=== PATIENT | male | born 1960 | race Caucasian/White ===

== ENCOUNTER 2017-03-21 18:56 | Inpatient (IN) | payer SELFPAY ==
[2017-03-21] MEDS ORDERED: DIPH/PERTUSS(ACELL)/TETANUS VAC/PF 0.5 ML SYR (>=10YO) IM ONE (19:40)
--- NOTE | 2017-03-21 19:40 | ER Document Report ---
ED Seizure - General Chief Complaint: Probable Seizure Stated Complaint: POSSIBLE SEIZURE Time Seen by Provider: 03/21/17 19:21 Notes: Patient is a 57-year-old male who comes emergency department for chief complaint of seizure, he comes by EMS, his friend states that he was sitting on a bucket and fell forward and scraped his right arm and hit his head. Friend states he was bleeding from his mouth. Seizure-like activity noted with muscle and limb jerking that lasted less than 1 minute. Afterwards patient was postictal by EMS. Patient states he has not had a seizure in many years, he is not treated for this, he states he thinks he has diabetes, he knows he has high blood pressure, he currently takes no medications. Tetanus not UTD. He smokes. He denies alcohol or drug use. - Related Data Allergies/Adverse Reactions: No Known Allergies Allergy (Verified 03/21/17 19:14) Past Medical History - General Information source: Patient, Friend - Social History Smoking Status: Current Every Day Smoker Chew tobacco use (# tins/day): No Frequency of alcohol use: Social Drug Abuse: None Lives with: Spouse/Significant other Family History: Reviewed & Not Pertinent Patient has suicidal ideation: No Patient has homicidal ideation: No - Past Medical History Cardiac Medical History: Reports: Hx Hypercholesterolemia, Hx Hypertension Endocrine Medical History: Reports: Hx Diabetes Mellitus Type 2 Renal/ Medical History: Denies: Hx Peritoneal Dialysis Surgical Hx: Negative - Immunizations Hx Diphtheria, Pertussis, Tetanus Vaccination: No Review of Systems - Review of Systems Constitutional: No symptoms reported EENT: No symptoms reported Cardiovascular: No symptoms reported Respiratory: No symptoms reported Gastrointestinal: No symptoms reported Genitourinary: No symptoms reported Male Genitourinary: No symptoms reported Musculoskeletal: See HPI Skin: No symptoms reported Hematologic/Lymphatic: No symptoms reported Neurological/Psychological: See HPI Physical Exam - Vital signs Vitals: Temp Pulse Resp BP Pulse Ox 98.3 F 101 H 20 126/86 H 88 L 03/21/17 19:00 03/21/17 19:00 03/21/17 19:00 03/21/17 19:00 03/21/17 19:00 - General General appearance: Alert In distress: None - HEENT Head: Normocephalic, Atraumatic. No: Open wounds Eyes: Normal Conjunctiva: Normal Extraocular movements intact: Yes Eyelashes: Normal Pupils: PERRL Mouth/Lips: Normal - no obvious oral wounds or current bleeding Pharynx: Normal Neck: Normal - Respiratory Respiratory status: No respiratory distress. No: Labored, Tachypnea Breath sounds: Decreased air movement, Rales, Rhonchi - Cardiovascular Rhythm: Irregularly irregular. No: Tachycardia, Bradycardia - Abdominal Inspection: Normal Tenderness: Nontender. No: Tender, Guarding - Back Back: Normal, Nontender - Extremities General upper extremity: Other - abrasions over right elbow and right forearm; normal wrist exam, normal hand exam, normal ROM of hand, elbow, shoulder; no noted tenderness over the extremity General lower extremity: Edema - bilateral 1+ pitting edema with what appears to be chronic LE discoloration; no abnormal heat to the area, normal distal pulses and sensation - Neurological Neuro grossly intact: Yes Orientation: Disoriented to events. No: Disoriented to person, Disoriented to place Bart Coma Scale Eye Opening: Spontaneous [place] Coma Scale Verbal: Oriented [place] Coma Scale Motor: Obeys Commands Bart Coma Scale Total: 15 Speech: Normal Cranial nerves: Normal Cerebellar coordination: Normal Motor strength normal: LUE, RUE, LLE, RLE Additional motor exam normals: Equal diabetes physician - Psychological Associated symptoms: Normal affect, Normal mood - Skin Skin Temperature: Warm Skin Moisture: Dry Skin Color: Normal Course - Re-evaluation Re-evalutation: Patient noted initially to be hypoxic, placed on 3 liters, improved to 91-95%. Rhonchi and rales on exam. When I turn off the oxygen he immediately drops to 86 % on room air. Abrasions to right forearm, no neck pain, alert and oriented, cooperative, does not remember events of what is suspicious for a seizure. Patient given a dose of keppra for prophylaxis. EKG shows atrial fibrillations without RVR. No prior studies here. Patient is not aware that he has had this before. CBC shows mild leukocytosis, this is non-specific given seizure, no fever, abdomen is non-tender on exam. Chemistry shows normal magnesium, shows low potassium. Supplementing especially because giving lasix - chest x-ray with no overt failure but patient has rales on exam, has bilateral peripheral edema, no evidence of pneumonia, consistent with CHF exacerbation. Patient was discussed with Dr. Guerra. Discussed with Dr. Joy, patient will be admitted for CHF exacerbation, hypoxia. Patient agreeable with this plan. - Vital Signs Vital signs: Temp Pulse Resp BP Pulse Ox 98.3 F 86 20 142/88 H 95 03/21/17 19:15 03/21/17 23:00 03/21/17 23:00 03/21/17 23:00 03/21/17 23:00 - Laboratory Result Diagrams: 03/21/17 19:55 03/21/17 19:55 Laboratory results interpreted by me: 03/21/17 03/21/17 03/21/17 19:55 19:55 19:55 WBC 12.9 H RBC 3.76 L MCV 111 H MCH 36.8 H RDW 22.9 H Plt Count 128 L Seg Neutrophils % 86.9 H Lymphocytes % 6.8 L Absolute Neutrophils 11.2 H D-Dimer Potassium 3.2 L Total Bilirubin 1.7 H Direct Bilirubin 1.0 H ALT 20 L Creatine Kinase 47 L NT-Pro-B Natriuret Pep 9950 H Total Protein 5.7 L Albumin 3.2 L 03/21/17 19:55 WBC RBC MCV MCH RDW Plt Count Seg Neutrophils % Lymphocytes % Absolute Neutrophils D-Dimer 1.54 H Potassium Total Bilirubin Direct Bilirubin ALT Creatine Kinase NT-Pro-B Natriuret Pep Total Protein Albumin Discharge - Discharge Clinical Impression: Hypoxia, Bilateral lower extremity edema, Seizure CHF exacerbation Qualifiers: Congestive heart failure type: unspecified congestive heart failure type Qualified Code(s): I50.9 - Heart failure, unspecified Atrial fibrillation Qualifiers: Atrial fibrillation type: unspecified Qualified Code(s): I48.91 - Unspecified atrial fibrillation Arm abrasion Qualifiers: Encounter type: initial encounter Laterality: right Qualified Code(s): S40.811A - Abrasion of right upper arm, initial encounter Condition: Stable Disposition: ADMITTED INPATIENT Admitting Provider: Hospitalist Unit Admitted: [facility]
[2017-03-21 20:20] LABS: ABSOLUTE BASOPHILS # (AUTO) 0.1 10^3/uL (0.0-0.2); ABSOLUTE EOSINOPHILS # (AUTO) 0.1 10^3/uL (0.0-0.6); ABSOLUTE LYMPHOCYTES (AUTO) 0.9 10^3/uL (0.5-4.7); ABSOLUTE MONOCYTES (AUTO) 0.7 10^3/uL (0.1-1.4); ABSOLUTE NEUT (AUTO) 11.2 10^3/uL (1.7-8.2); BASOPHILS % (AUTO) 0.5 % (0-2); EOSINOPHILS % (AUTO) 0.5 % (0-6); HEMATOCRIT 41.7 % (37.9-51.0); HEMOGLOBIN 13.8 g/dL (13.5-17.0); HGB HCT DIFFERENCE -0.3; LYMPHOCYTES % (AUTO) 6.8 % (13-45); MEAN CORPUSCULAR HEMOGLOBIN 36.8 pg (27.0-33.4); MEAN CORPUSCULAR HGB CONC 33.2 g/dL (32.0-36.0); MONOCYTES % (AUTO) 5.3 % (3-13); RED BLOOD COUNT 3.76 10^6/uL (4.35-5.55); RED CELL DISTRIBUTION WIDTH 22.9 % (11.5-14.0); SEGMENTED NEUTROPHILS % (AUTO) 86.9 % (42-78); WHITE BLOOD COUNT 12.9 10^3/uL (4.0-10.5)
[2017-03-21] MEDS ORDERED: LEVETIRACETAM 500 MG/NACL-ISO 100 ML IV ONE (20:27)
[2017-03-21 20:28] LABS: ALANINE AMINOTRANSFERASE 20 U/L (21-72); ALBUMIN 3.2 g/dL (3.5-5.0); ALCOHOL < 10 mg/dL (NONE DETECTED); ALKALINE PHOSPHATASE 64 U/L (38-126); ANION GAP 12 (5-19); ASPARTATE AMINO TRANSFERASE 20 U/L (17-59); BILIRUBIN,TOTAL 1.7 mg/dL (0.2-1.3); BLOOD UREA NITROGEN 17 mg/dL (7-20); CALCIUM 8.7 mg/dL (8.4-10.2); CARBON DIOXIDE 26 mmol/L (22-30); CHLORIDE 106 mmol/L (98-107); CREATINE KINASE 47 U/L (55-170); CREATININE RESULT 1.06 mg/dL (0.52-1.25); GLUCOSE 103 mg/dL (75-110); MAGNESIUM 1.6 mg/dL (1.6-2.3); POTASSIUM 3.2 mmol/L (3.6-5.0); SODIUM 144.1 mmol/L (137-145); TOTAL PROTEIN 5.7 g/dL (6.3-8.2)
[2017-03-21 20:33] LABS: ANISOCYTOSIS 3+; POIKILOCYTOSIS SLIGHT; POLYCHROMASIA 1+
[2017-03-21 20:34] LABS: TARGET CELLS SLIGHT
[2017-03-21 20:35] LABS: TEAR DROP CELLS SLIGHT
[2017-03-21 20:37] LABS: MEAN CORPUSCULAR VOLUME 111 fl (80-97)
[2017-03-21 20:40] LABS: CREATINE KINASE MB 0.87 ng/mL (<4.55)
[2017-03-21 20:42] LABS: TROPONIN I 0.057 ng/mL
[2017-03-21 20:47] LABS: VENOUS BLOOD BASE EXCESS 2.5 mmol/L; VENOUS BLOOD HCO3 28.1 mmol/L (20-32); VENOUS BLOOD PCO2 46.8 mmHg (35-63); VENOUS BLOOD PH 7.4 (7.30-7.42)
--- NOTE | 2017-03-21 20:51 | RADIOLOGY REPORT (SQ) ---
EXAM DESCRIPTION: CT HEAD WITHOUT COMPLETED DATE/TIME: 03/21/2017 8:07 pm REASON FOR STUDY: seizure and then head injury COMPARISON: None. TECHNIQUE: Axial images acquired through the brain without intravenous contrast. Images reviewed wi th bone, brain and subdural windows. Images stored on PACS. All CT scanners at this facility use dose modulation, iterative reconstruction, and/or weight based d osing when appropriate to reduce radiation dose to as low as reasonably achievable (ALARA). [facility]: Dose Right [facility]: CareDose [facility]: Dose Right [facility]: Teradose 4D [facility]: Smart [employer] RADIATION DOSE: Up-to-date CT equipment and radiation dose reduction techniques were employed. CTDIv ol: 89.8 mGy. DLP: 1616 mGy-cm. mGy. LIMITATIONS: None. FINDINGS: VENTRICLES: Normal size and contour. CEREBRUM: No masses. No hemorrhage. No midline shift. Normal jordan/white matter differentiation. N o evidence for acute infarction. CEREBELLUM: No masses. No hemorrhage. No alteration of density. No evidence for acute infarction. EXTRAAXIAL SPACES: No fluid collections. No masses. ORBITS AND GLOBE: No intra- or extraconal masses. Normal contour of globe without masses. CALVARIUM: No fracture. PARANASAL SINUSES: No fluid or mucosal thickening. SOFT TISSUES: No mass or hematoma. OTHER: No other significant finding. IMPRESSION: No acute intracranial findings. TECHNICAL DOCUMENTATION: JOB ID: [id number] Quality ID # [id number]: Final reports with documentation of one or more dose reduction techniques (e.g., Au tomated exposure control, adjustment of the mA and/or kV according to patient size, use of iterative reconstruction technique) 2010 [employer]- All Rights Reserved
--- NOTE | 2017-03-21 21:02 | RADIOLOGY REPORT (SQ) ---
EXAM DESCRIPTION: CHEST SINGLE VIEW COMPLETED DATE/TIME: 03/21/2017 8:26 pm REASON FOR STUDY: hypoxia, rales and rhonchi on exam COMPARISON: None. NUMBER OF VIEWS: One view. TECHNIQUE: Single frontal radiographic view of the chest acquired. LIMITATIONS: None. FINDINGS: LUNGS AND PLEURA: Mild Peribronchial cuffing and interstitial changes. No consolidation, p neumothorax or effusion. MEDIASTINUM AND HILAR STRUCTURES: Age-appropriate. HEART AND VASCULAR STRUCTURES: Heart upper limits of normal in size. Normal vasculature. BONES: No acute findings. HARDWARE: None in the chest. OTHER: No other significant finding. IMPRESSION: Mild Peribronchial cuffing and interstitial changes. No consolidation. TECHNICAL DOCUMENTATION: JOB ID: [id number] [employer]- All Rights Reserved
[2017-03-21] MEDS ORDERED: FUROSEMIDE INJ/PF 40 MG/4 ML SDV IV ONE (21:18)
[2017-03-21] MEDS ORDERED: POTASSIUM CHLORIDE 10 MEQ TABLET.SA PO ONE (21:24)
[2017-03-21] MEDS ORDERED: MAGNESIUM HYDROXIDE SUSP 30 ML UDCUP PO PRN (23:25)
[2017-03-21] MEDS ORDERED: NICOTINE 21 MG/24 HR PATCH.TD24 TD PRN (23:26)
[2017-03-21] MEDS ORDERED: PROMETHAZINE HCL 25 MG TABLET PO PRN (23:32)
[2017-03-21] MEDS ORDERED: ACETAMINOPHEN 325 MG TABLET PO PRN (23:32)
[2017-03-21] MEDS ORDERED: IPRATROPIUM/ALBUTEROL 0.5-2.5 MG/3 ML AMPUL NEB PRN (23:44)
--- NOTE | 2017-03-21 23:44 | EKG REPORT ---
SEVERITY:- ABNORMAL ECG - ATRIAL FIBRILLATION CONSIDER ANTERIOR INFARCT BORDERLINE T ABNORMALITIES, LATERAL LEADS : Confirmed by: Jarad Cannon 21-Mar-2017 23:43:20
[2017-03-21 23:51] LABS: APPEARANCE,URINE SLIGHTLY-CLOUDY; BILIRUBIN,URINE NEGATIVE (NEGATIVE); GLUCOSE, URINE NEGATIVE (NEGATIVE); KETONES,URINE NEGATIVE (NEGATIVE); LEUKOCYTE ESTERASE,URINE MODERATE (NEGATIVE); NITRITE,URINE POSITIVE (NEGATIVE); PROTEIN,URINE 30 mg/dL (NEGATIVE); URINE SPECIFIC GRAVITY 1.008
--- NOTE | 2017-03-21 23:51 | PDOC H&P ---
History of Present Illness Admission Date/PCP: 03/21/17 21:52 [facility] Patient complains of: seizure History of Present Illness: NOEMÍ LAMAR is a 57 year old morbidly obese male, with distant history of prior seizure, never on medication for same, pack-a-day smoker, fifth of vodka every 2 days between himself and , with patient drinking more than , hypertension, with patient being noncompliant with medications for a number of months, along with arthritis and what he describes as "possible " diabetes mellitus who presents to the emergency room for evaluation of seizure episode, witnessed by friend. Patient has been discussed with emergency room nurse practitioner who evaluated the patient. Patient himself does not remember the episode. According to nurse practitioner notes, friend witnessed patient falling forward and scraping his right arm and hitting his head when he suffered a seizure episode while sitting on a bucket. Muscle and limb jerking. Lasted less than 1 minute. Post ictal confusion according to EMS. Prior seizure many years ago. Denies nausea vomiting, fever or chills, chest or abdominal pain. No diarrhea or dysuria. Cardiac history remarkable only for hypertension. No history of atrial fibrillation, atrial flutter, irregular heartbeat, myocardial infarction, congestive heart failure, pulmonary embolus, or DVT. No prior cardiac workup. No recent prolonged immobility. Has chronic leg swelling after sitting for a while. Also has chronic shortness of breath and occasional cough when lying flat, without recent change. States that most days he wheezes. Initial plans by emergency room staff were to send the patient home with a prescription for Keppra. However, was noted to be hypoxic and further workup and evaluation revealed congestive heart failure.. Laboratory results are listed in [facility] and are reviewed. X-ray summary results are listed below, with full report(s) reviewed. . EKG reviewed. No prior EKG available for comparison. Social history/personal habits: . Has children. Part-time [place]. Personal habits as noted above. Denies illicit drug use. No known drug allergies. Home medications none REVIEW OF SYSTEMS: Constitutional: No fever or chills. Eyes: Wears glasses ENT: No swallowing problems or complaints. Denies hearing loss. Pulmonary: See history and present illness. Cardiovascular: No current complaints, including chest pain. Gastrointestinal: No current complaints, including nausea or vomiting. Skin: No current complaints, including rashes. Hematologic: Easy bruising. Neurologic: See history and present illness. Musculoskeletal: Mild joint pain from arthritis. Psychiatric: Denies anxiety or depression. Endocrine: No current complaints, including polyuria. Genitourinary: No current complaints, including dysuria. PHYSICAL EXAMINATION: 5 feet 8 inches tall. 129.3 kg. BMI 43.3 kg/m. Blood pressure 148/84. Pulse 89 and regular. 97% saturation on room air. Respirations are 20 and unlabored. Morbidly obese bearded somewhat disheveled chronically ill-appearing male who appears perhaps a bit older than his stated age. Pleasant awake alert and cooperative. Appears slightly fatigued. Mildly anxious, without agitation. Skin is warm and dry. No grossly obvious evidence of rash in areas of skin examined. No subcutaneous nodules palpated. ENT: Hearing grossly normal to normal conversation. Tongue midline on protrusion pink and slightly tacky. Eyes: No scleral icterus. Pupils equal and reactive to light at 4 mm. [place] conjunctivae. Neck is supple and nontender to gentle active range of motion and palpation. Midline trachea. No palpable thyroid nodule mass enlargement or tenderness. Lymphatic: No palpable cervical or clavicular nodes. Neck and lymphatic exams limited by patient body habitus. Psychiatric: Reasonable insight into acute and chronic medical issues. Oriented to time location and why here. Lungs: Auscultation reveals equal breath sounds bilaterally. No use of accessory respiratory muscles. Mild brief inspiratory and expiratory wheezing bilaterally. Cardiovascular: Heart regular rate and rhythm, without gallop murmur or rub. No carotid or abdominal aortic bruits. Mild bilateral slightly pitting calf ankle and pedal edema. Faintly palpable dorsalis pedis pulses. Abdomen:soft obese nontender with positive bowel sounds. Unable to adequately evaluate abdomen for masses or organomegaly due to body habitus. Extremities: Feet are warm and dry. No calf tenderness to compression. Gentle manipulation of lower extremities fails to reveal any obvious evidence of injury or instability to knees hips or ankles. Examination of bilateral lower legs reveals dark pink slight purple discoloration. Patient states this is a chronic condition, without recent change. No increased warmth. Nontender to palpation. Neurologic: Moves upper extremities grossly normally. Patellar reflexes absent. Absent Babinski. Light touch is intact at feet. Dorsiflexion and plantarflexion of feet 5 / 5 and symmetric. Past Medical History Cardiac Medical History: Reports: Hypertension Denies: Atrial Fibrillation, Congestive Heart Failure, DVT, Myocardial Infarction, Hyperlipidema, Pulmonary Embolism Pulmonary Medical History: Denies: Asthma, Chronic Obstructive Pulmonary Disease (COPD), Sleep Apnea EENT Medical History: Reports: Eyes - Reading glasses Denies: Ears, Throat Neurological Medical History: Reports: Seizures Denies: Hemorrhagic CVA, Ischemic CVA Endocrine Medical History: Reports: Diabetes Mellitus Type 2 - Possible, per patient; no specific diagnosis of same Denies: Diabetes Mellitus Type 1, Hyperthyroidism, Hypothyroidism Renal/ Medical History: Reports: None GI Medical History: Denies: Cirrhosis, Gastroesophageal Reflux Disease, Hepatitis, Peptic Ulcer Disease Musculoskeltal Medical History: Reports: Arthritis Skin Medical History: Reports: None Psychiatric Medical History: Reports: Alcohol Dependency, Tobacco Dependency Denies: Depression, General Anxiety Disorder, Substance Abuse Hematology: Reports: Other - Easy bruising Infectious Medical History: Denies: Clostridium Difficile, Hepatitis B, Hepatitis C, Methicillin- Resistant Staph Aureus Past Surgical History Past Surgical History: Reports: Tonsillectomy Social History Information Source: Patient, Emergency Med Personnel, [facility] Records Lives with: Spouse/Significant other Smoking Status: Current Every Day Smoker Frequency of Alcohol Use: Heavy Drugs: None - Advance Directive Resuscitation Status: Full Code Surrogate healthcare decision maker:: Family History Family History: Reviewed & Not Pertinent Parental Family History Reviewed: Yes - Father of Alzheimer's; mother of cancer Children Family History Reviewed: Yes - Healthy Sibling(s) Family History Reviewed.: Yes - Healthy Medication/Allergy Allergies/Adverse Reactions: No Known Allergies Allergy (Verified 03/21/17 19:14) Physical Exam Vital Signs: Temp Pulse Resp BP Pulse Ox 98.3 F 87 20 149/84 H 97 03/21/17 19:15 03/21/17 22:00 03/21/17 22:00 03/21/17 22:00 03/21/17 22:00 Results Impressions: Chest X-Ray 03/21/17 19:34 IMPRESSION: Mild Peribronchial cuffing and interstitial changes. No consolidation. Head CT 03/21/17 19:35 IMPRESSION: No acute intracranial findings. Assessment & Plan - Diagnosis (1) CHF (congestive heart failure) Qualifiers: Congestive heart failure type: unspecified congestive heart failure type Congestive heart failure chronicity: unspecified congestive heart failure chronicity Qualified Code(s): I50.9 - Heart failure, unspecified Is this a current diagnosis for this admission?: YesPlan: Patient will be admitted under CHF protocol. Serial troponins. Repeat EKG. Lipid panel. Cardiology consult. Echocardiogram. Patient is a full code. I have strongly encouraged patient not to get out of bed without notifying staff , to avoid a fall with injury. Knee high SCDs for DVT prophylaxis, along with subcutaneous heparin. Impression and plans were discussed with patient, who concurs Time spent in evaluation and management of patient: 78 minutes (2) Elevated LFTs Is this a current diagnosis for this admission?: YesPlan: Likely secondary to alcohol intake, but possibly some contribution from his congestive heart failure. (3) Elevated troponin Is this a current diagnosis for this admission?: YesPlan: No outward evidence of acute coronary syndrome. Likely secondary to congestive heart failure. Serial troponin. (4) Hypokalemia Is this a current diagnosis for this admission?: YesPlan: Potassium replacement with follow-up chemistry. (5) New onset atrial fibrillation Is this a current diagnosis for this admission?: YesPlan: D-dimer. Echocardiogram. Cardiology consult. (6) Seizure Is this a current diagnosis for this admission?: YesPlan: Seizure precautions. Continue antiepileptic. (7) Thrombocytopenia Is this a current diagnosis for this admission?: YesPlan: Possibly secondary to underlying alcohol issues. Follow-up CBC. (8) Alcohol dependence Qualifiers: Substance use status: uncomplicated Qualified Code(s): F10.20 - Alcohol dependence, uncomplicated Is this a current diagnosis for this admission?: YesPlan: Daily multivitamin, thiamine, and folic acid. Observe closely for evidence of withdrawal. Will add as needed benzodiazepine if necessary. (9) Morbid obesity with BMI of 40.0-44.9, adult Is this a current diagnosis for this admission?: Yes (10) Noncompliance Is this a current diagnosis for this admission?: Yes (11) Tobacco dependence Is this a current diagnosis for this admission?: YesPlan: As needed nicotine patch. - Inpatient Certification Based on my medical assessment, after consideration of the patient's comorbidities, presenting symptoms, or acuity I expect that the services needed warrant INPATIENT care.: Yes I certify that my determination is in accordance with my understanding of Medicare's requirements for reasonable and necessary INPATIENT services [42 CFR 412.3e].: Yes Medical Necessity: Significant Comorbidiites Make Outpatient Treatment Too Risky , Need Close Monitoring Due to Risk of Patient Decompensation, Need For Continuous Telemetry Monitoring, Risk of Complication if Not Cared For in Hospital Post Hospital Care: D/C or Transfer Summary
[2017-03-22 00:04] LABS: URINE BARBITURATES SCREEN NEGATIVE; URINE METHADONE SCREEN NEGATIVE; URINE OPIATES LOW NEGATIVE; URINE PHENCYCLIDINE SCREEN NEGATIVE
[2017-03-22] MEDS ORDERED: POTASSIUM CHLORIDE 20 MEQ/15 ML UDCUP PO ONE (02:15)
[2017-03-22] MEDS ORDERED: THIAMINE HCL 100 MG TABLET PO ONE (02:15)
[2017-03-22] MEDS ORDERED: ASPIRIN 81 MG TABLET, ENT COATED PO ONE (02:15)
--- NOTE | 2017-03-22 02:18 | RADIOLOGY REPORT (SQ) ---
EXAM DESCRIPTION: NM LUNG VENT/PERF SCAN COMPLETED DATE/TIME: 03/22/2017 2:03 am REASON FOR STUDY: elev d dimer COMPARISON: None. RADIONUCLIDE AND DOSE: 30 millicuries TC-99m MAA Intravenous 5.5 millicuries TC-99m DTPA Inhaled aerosol TECHNIQUE: Eight views of the lungs acquired post ventilation of DTPA aerosol. Eight matching views of the lungs acquired following injection of MAA. LIMITATIONS: None. FINDINGS: Ventilation -perfusion scan: No evidence of significant mismatch. Normal perfusion. Mild heterogeneity of ventilation. OTHER: No other significant finding. IMPRESSION: NEGATIVE FOR PULMONARY EMBOLI. TECHNICAL DOCUMENTATION: JOB ID: [id number] [employer]- All Rights Reserved
[2017-03-22 02:24] LABS: ANION GAP 12 (5-19); BLOOD UREA NITROGEN 18 mg/dL (7-20); CALCIUM 8.6 mg/dL (8.4-10.2); CARBON DIOXIDE 27 mmol/L (22-30); CHLORIDE 106 mmol/L (98-107); CREATININE RESULT 1.05 mg/dL (0.52-1.25); GLUCOSE 83 mg/dL (75-110); POTASSIUM 3.7 mmol/L (3.6-5.0); SODIUM 144.7 mmol/L (137-145)
[2017-03-22] MEDS ORDERED: CEFTRIAXONE 1 GM/D5W RTU 1 GM/50 ML RTUPB IV ONE (03:00)
[2017-03-22] MEDS ORDERED: POTASSIUM CHLORIDE 20 MEQ/15 ML UDCUP ONE (06:32)
[2017-03-22] MEDS: HEPARIN SOD (PORCINE) 5,000 UNIT/ML 1 ML SYRINGE SUBCUT SCH ×3 (08:01→22:11)
[2017-03-22 08:31] LABS: ABSOLUTE BASOPHILS # (AUTO) 0.1 10^3/uL (0.0-0.2); ABSOLUTE EOSINOPHILS # (AUTO) 0.2 10^3/uL (0.0-0.6); ABSOLUTE LYMPHOCYTES (AUTO) 1.1 10^3/uL (0.5-4.7); ABSOLUTE MONOCYTES (AUTO) 0.7 10^3/uL (0.1-1.4); ABSOLUTE NEUT (AUTO) 7.9 10^3/uL (1.7-8.2); BASOPHILS % (AUTO) 0.9 % (0-2); EOSINOPHILS % (AUTO) 1.9 % (0-6); HEMATOCRIT 40.4 % (37.9-51.0); HEMOGLOBIN 13.3 g/dL (13.5-17.0); HGB HCT DIFFERENCE -0.5; LYMPHOCYTES % (AUTO) 11.4 % (13-45); MEAN CORPUSCULAR HEMOGLOBIN 37.1 pg (27.0-33.4); MEAN CORPUSCULAR VOLUME 112 fl (80-97); MONOCYTES % (AUTO) 6.9 % (3-13); RED CELL DISTRIBUTION WIDTH 23.5 % (11.5-14.0); SEGMENTED NEUTROPHILS % (AUTO) 78.9 % (42-78)
[2017-03-22 08:51] LABS: ALANINE AMINOTRANSFERASE 27 U/L (21-72); ALBUMIN 3.1 g/dL (3.5-5.0); ALKALINE PHOSPHATASE 59 U/L (38-126); ANION GAP 11 (5-19); ASPARTATE AMINO TRANSFERASE 20 U/L (17-59); BILIRUBIN,DIRECT 0.8 mg/dL (0.0-0.4); BILIRUBIN,TOTAL 1.2 mg/dL (0.2-1.3); BLOOD UREA NITROGEN 17 mg/dL (7-20); CALCIUM 8.4 mg/dL (8.4-10.2); CARBON DIOXIDE 27 mmol/L (22-30); CHLORIDE 108 mmol/L (98-107); CHOLESTEROL 105.33 mg/dL (0-200); CREATININE RESULT 1.02 mg/dL (0.52-1.25); Direct HDL 26 mg/dL (>40); GLUCOSE 85 mg/dL (75-110); POTASSIUM 3.8 mmol/L (3.6-5.0); SODIUM 145.8 mmol/L (137-145); TOTAL PROTEIN 5.6 g/dL (6.3-8.2); TRIGLYCERIDES 115 mg/dL (<150)
[2017-03-22 09:02] LABS: DIRECT LDL 56 mg/dL (<100)
[2017-03-22 09:06] LABS: ANISOCYTOSIS 2+; PLATELET CLUMPS PRESENT; POLYCHROMASIA SLIGHT
[2017-03-22] MEDS: DOCUSATE SODIUM 100 MG CAPSULE PO SCH (09:17)
[2017-03-22] MEDS: FOLIC ACID 1 MG TABLET PO SCH (09:17)
[2017-03-22] MEDS: LEVETIRACETAM 500 MG TABLET PO SCH ×2 (09:17→22:10)
[2017-03-22] MEDS: THIAMINE HCL 100 MG TABLET PO SCH (09:17)
[2017-03-22] MEDS: ASPIRIN 81 MG TABLET, ENT COATED PO SCH (09:17)
[2017-03-22] MEDS: MULTIVITAMIN TABLET PO SCH (09:17)
[2017-03-22] MEDS ORDERED: FUROSEMIDE INJ/PF 40 MG/4 ML SDV IV ONE (10:00)
--- NOTE | 2017-03-22 10:45 | PDOC PROGRESS REPORT ---
Subjective Progress Note for:: 03/22/17 Subjective:: Patient had experience chest congestion and shortness of breath prior to admission. He denies any chest pain however. He denies any paroxysmal nocturnal dyspnea. He has lower extremity edema chronically as well. He is unaware of any heart condition or diagnosis. He had a seizure episode long time ago but this is worse according to him, he was never diagnosed with alcohol withdrawal seizures. Patient reportedly quickly goes still uncontrolled atrial fibrillation upon movement. Physical Exam Vital Signs: Temp Pulse Resp BP Pulse Ox 98.5 F 88 20 139/80 H 90 L 03/22/17 07:25 03/22/17 08:16 03/22/17 07:25 03/22/17 07:25 03/22/17 07:25 Intake & Output 03/21/17 03/22/17 03/23/17 06:59 06:59 06:59 Weight 137.4 kg General appearance: PRESENT: no acute distress, morbidly obese Head exam: PRESENT: normocephalic Eye exam: PRESENT: EOMI Mouth exam: PRESENT: moist, neck supple Neck exam: ABSENT: JVD Respiratory exam: PRESENT: clear to auscultation leo - Anteriorly bilateral, decreased breath sounds - On the basis of bilateral. ABSENT: rhonchi, wheezes Cardiovascular exam: PRESENT: irregular rhythm. ABSENT: gallop GI/Abdominal exam: PRESENT: hypoactive bowel sounds, soft. ABSENT: distended - Obese Extremities exam: PRESENT: +2 edema Neurological exam: PRESENT: alert, awake, oriented to situation Psychiatric exam: ABSENT: agitated Focused psych exam: ABSENT: restlessness Skin exam: PRESENT: warm. ABSENT: cyanosis Results Laboratory Results: 03/22/17 08:19 03/22/17 08:19 03/22/17 03/22/17 03/22/17 02:05 08:19 08:19 WBC 10.0 RBC 3.60 L Hgb 13.3 L Hct 40.4 MCV 112 H MCH 37.1 H MCHC 33.0 RDW 23.5 H Plt Count 112 L Seg Neutrophils % 78.9 H Lymphocytes % 11.4 L Monocytes % 6.9 Eosinophils % 1.9 Basophils % 0.9 Absolute Neutrophils 7.9 Absolute Lymphocytes 1.1 Absolute Monocytes 0.7 Absolute Eosinophils 0.2 Absolute Basophils 0.1 Sodium 144.7 145.8 H Potassium 3.7 3.8 Chloride 106 108 H Carbon Dioxide 27 27 Anion Gap 12 11 BUN 18 17 Creatinine 1.05 1.02 Est GFR ( Amer) > 60 > 60 Est GFR (Non-Af Amer) > 60 > 60 Glucose 83 85 Calcium 8.6 8.4 Total Bilirubin 1.2 AST 20 ALT 27 Alkaline Phosphatase 59 Total Protein 5.6 L Albumin 3.1 L Triglycerides 115 Cholesterol 105.33 LDL Cholesterol Direct 56 VLDL Cholesterol 23.0 HDL Cholesterol 26 L 03/22/17 03/22/17 02:05 08:19 Troponin I 0.070 0.058 Impressions: Chest X-Ray 03/21/17 19:34 IMPRESSION: Mild Peribronchial cuffing and interstitial changes. No consolidation. Head CT 03/21/17 19:35 IMPRESSION: No acute intracranial findings. Lung Scan-VQ NM 03/21/17 23:56 IMPRESSION: NEGATIVE FOR PULMONARY EMBOLI. Assessment & Plan - Diagnosis (1) CHF (congestive heart failure) Qualifiers: Congestive heart failure type: unspecified congestive heart failure type Congestive heart failure chronicity: unspecified congestive heart failure chronicity Qualified Code(s): I50.9 - Heart failure, unspecified Is this a current diagnosis for this admission?: Yes (2) Atrial fibrillation Qualifiers: Atrial fibrillation type: unspecified Qualified Code(s): I48.91 - Unspecified atrial fibrillation Is this a current diagnosis for this admission?: Yes (3) Seizure Is this a current diagnosis for this admission?: Yes (4) UTI (urinary tract infection) Qualifiers: Urinary tract infection type: site unspecified Hematuria presence: without hematuria Qualified Code(s): N39.0 - Urinary tract infection, site not specified (5) Essential hypertension Is this a current diagnosis for this admission?: Yes (6) Alcohol dependence Qualifiers: Substance use status: uncomplicated Qualified Code(s): F10.20 - Alcohol dependence, uncomplicated Is this a current diagnosis for this admission?: Yes (7) Morbid obesity with BMI of 40.0-44.9, adult Is this a current diagnosis for this admission?: Yes (8) Diabetes mellitus type 2 in obese Is this a current diagnosis for this admission?: Yes - Time Time Spent with patient: 25-34 minutes - Plan Summary Plan Summary: We are going to put the patient on intravenous diuretic and oral Zaroxolyn. We will begin the patient on Cardizem orally. In the meantime continue antibiotics for urinary tract infection, supplemental thiamine and folic acid, Keppra for the seizure. Await echo and cardio eval. patient likely had obstructive sleep apnea, pulmonary hypertension, and right-sided heart failure.
[2017-03-22] MEDS ORDERED: METOLAZONE 5 MG TABLET PO ONE (12:00)
[2017-03-22] MEDS ORDERED: DILTIAZEM HCL 30 MG TABLET PO SCH (12:00)
[2017-03-22] MEDS: METOPROLOL TARTRATE 25 MG TABLET PO SCH ×2 (15:24→22:10)
[2017-03-22 15:26] LABS: PROTHROMBIN TIME 13.3 SEC (11.4-15.4)
[2017-03-22] MEDS ORDERED: CEFTRIAXONE 1 GM/D5W RTU 1 GM/50 ML RTUPB IV SCH (22:00)
[2017-03-22] MEDS ORDERED: METOLAZONE 5 MG TABLET PO SCH (22:00)
[2017-03-22] MEDS ORDERED: WARFARIN SODIUM 3 MG TABLET PO SCH (22:00)
[2017-03-22] MEDS: FUROSEMIDE INJ/PF 40 MG/4 ML SDV IV SCH (22:10)
[2017-03-23] MEDS: METOPROLOL TARTRATE 25 MG TABLET PO SCH ×2 (03:08→09:07)
[2017-03-23 06:50] LABS: PROTHROMBIN TIME 13.2 SEC (11.4-15.4)
[2017-03-23 06:58] LABS: ANION GAP 11 (5-19); BLOOD UREA NITROGEN 18 mg/dL (7-20); CALCIUM 8.7 mg/dL (8.4-10.2); CARBON DIOXIDE 31 mmol/L (22-30); CHLORIDE 102 mmol/L (98-107); CREATININE RESULT 1.08 mg/dL (0.52-1.25); GLUCOSE 80 mg/dL (75-110); POTASSIUM 3.2 mmol/L (3.6-5.0); SODIUM 144.4 mmol/L (137-145)
[2017-03-23] MEDS: HEPARIN SOD (PORCINE) 5,000 UNIT/ML 1 ML SYRINGE SUBCUT SCH ×2 (07:16→14:00)
[2017-03-23] MEDS: FOLIC ACID 1 MG TABLET PO SCH (09:06)
[2017-03-23] MEDS: THIAMINE HCL 100 MG TABLET PO SCH (09:06)
[2017-03-23] MEDS: DOCUSATE SODIUM 100 MG CAPSULE PO SCH (09:06)
[2017-03-23] MEDS: FUROSEMIDE INJ/PF 40 MG/4 ML SDV IV SCH (09:07)
[2017-03-23] MEDS: LEVETIRACETAM 500 MG TABLET PO SCH (09:07)
[2017-03-23] MEDS: ASPIRIN 81 MG TABLET, ENT COATED PO SCH (09:07)
[2017-03-23] MEDS: MULTIVITAMIN TABLET PO SCH (09:07)
[2017-03-23] MEDS ORDERED: FUROSEMIDE 40 MG TABLET PO SCH (10:00)
--- NOTE | 2017-03-23 13:01 | EKG REPORT ---
SEVERITY:- ABNORMAL ECG - ATRIAL FIBRILLATION PROLONGED QT INTERVAL : Confirmed by: Christelle Lane MD 23-Mar-2017 13:00:33
[2017-03-23 14:18] VITALS: BP 142/81
--- NOTE | 2017-03-23 15:37 | PDOC DISCHARGE SUMMARY ---
General - Admit/Disc Date/PCP Admission Date/Primary Care Provider: 03/21/17 23:25 Discharge Date: 03/23/17 - Discharge Diagnosis (1) CHF (congestive heart failure) Is this a current diagnosis for this admission?: Yes (2) Atrial fibrillation Is this a current diagnosis for this admission?: Yes (3) Seizure Is this a current diagnosis for this admission?: Yes (5) Essential hypertension Is this a current diagnosis for this admission?: Yes (6) Alcohol dependence Is this a current diagnosis for this admission?: Yes (7) Morbid obesity with BMI of 40.0-44.9, adult Is this a current diagnosis for this admission?: Yes (8) Diabetes mellitus type 2 in obese Is this a current diagnosis for this admission?: Yes - Additional Information Resuscitation Status: Full Code Discharge Diet: Cardiac - low fat low salt, Diabetic - no concentrated sweets Discharge Activity: Activity As Tolerated, Balance Activity w/Rest Home Medications: Aspirin [Ecotrin 81 mg EC Tablet] 81 mg PO DAILY tabec 03/23/17 Folic Acid [Folvite 1 mg Tablet] 1 mg PO DAILY #30 tablet 03/23/17 Levetiracetam [Keppra 500 mg Tablet] 500 mg PO Q12 #60 tablet 03/23/17 Metoprolol Tartrate [Lopressor 25 mg Tablet] 25 mg PO Q12H #60 tablet 03/23/17 Thiamine HCl [Thiamine 100 mg Tablet] 100 mg PO DAILY #30 tablet 03/23/17 Torsemide [Demadex 20 mg Tablet] 20 mg PO DAILY #30 tablet 03/23/17 Warfarin Sodium [Coumadin 3 mg Tablet] 3 mg PO QHS #30 tablet 03/23/17 Additional Information: PT/INR checked with Dr. Lane in 3 days. Stop alcohol. History of Present Illness Patient complains of: Seizure History of Present Illness: NOEMÍ LAMAR is a 57 year old morbidly obese male, with distant history of prior seizure, never on medication for same, pack-a-day smoker, fifth of vodka every 2 days between himself and , with patient drinking more than , hypertension, with patient being noncompliant with medications for a number of months, along with arthritis and what he describes as "possible " diabetes mellitus who presents to the emergency room for evaluation of seizure episode, witnessed by friend. Patient has been discussed with emergency room nurse practitioner who evaluated the patient. Patient himself does not remember the episode. According to nurse practitioner notes, friend witnessed patient falling forward and scraping his right arm and hitting his head when he suffered a seizure episode while sitting on a bucket. Muscle and limb jerking. Lasted less than 1 minute. Post ictal confusion according to EMS. Prior seizure many years ago. Denies nausea vomiting, fever or chills, chest or abdominal pain. No diarrhea or dysuria. Cardiac history remarkable only for hypertension. No history of atrial fibrillation, atrial flutter, irregular heartbeat, myocardial infarction, congestive heart failure, pulmonary embolus, or DVT. No prior cardiac workup. No recent prolonged immobility. Has chronic leg swelling after sitting for a while. Also has chronic shortness of breath and occasional cough when lying flat, without recent change. States that most days he wheezes. Initial plans by emergency room staff were to send the patient home with a prescription for Keppra. However, was noted to be hypoxic and further workup and evaluation revealed congestive heart failure.. [facility] and are reviewed. X-ray summary results are listed below, with full report(s) reviewed. . EKG reviewed. No prior EKG available for comparison. Hospital Course Hospital Course: The patient was admitted to [facility]. Patient was placed on oral Cardizem for atrial fibrillation. Patient was likewise started on Keppra for the seizure. No seizure episode was noted. Heart rate seems to be controlled but when he start moving tachycardia resumes. Cardiology was consulted and recommended beta -cedric instead of Cardizem and therefore the patient was placed on metoprolol. Anticoagulation was started as well with warfarin and cardiology recommended titrating it on an outpatient basis until therapeutic. Patient improved. No withdrawal symptoms were noted while in the hospital. Cardiology cleared the patient to be discharged. The rest of the hospital stays unremarkable. Of note the patient has significant lower extremity edema of which she was started on diuretics. Other workups include ventilation/ perfusion lung scan which was negative for pulmonary embolism, CT scan of the brain showing no acute pathology. Physical Exam Vital Signs: Temp Pulse Resp BP Pulse Ox 98.4 F 86 22 H 142/81 H 98 03/23/17 14:08 03/23/17 14:08 03/23/17 14:08 03/23/17 14:08 03/23/17 14:08 Intake & Output 03/22/17 03/23/17 03/24/17 06:59 06:59 06:59 Intake Total 1952 458 Balance 1952 458 Weight 137.4 kg 133.2 kg General appearance: PRESENT: no acute distress, cooperative, morbidly obese Head exam: PRESENT: normocephalic Eye exam: PRESENT: EOMI Mouth exam: PRESENT: moist, neck supple Neck exam: ABSENT: JVD Respiratory exam: PRESENT: clear to auscultation leo. ABSENT: crackles, rales, rhonchi, wheezes Cardiovascular exam: PRESENT: irregular rhythm. ABSENT: gallop GI/Abdominal exam: PRESENT: normal bowel sounds, soft. ABSENT: tenderness Extremities exam: PRESENT: +1 edema Neurological exam: PRESENT: alert, awake, oriented to situation Skin exam: PRESENT: dry, warm. ABSENT: cyanosis Results Laboratory Results: 03/22/17 08:19 03/23/17 05:48 03/23/17 05:48 Sodium 144.4 Potassium 3.2 L Chloride 102 Carbon Dioxide 31 H Anion Gap 11 BUN 18 Creatinine 1.08 Est GFR ( Amer) > 60 Est GFR (Non-Af Amer) > 60 Glucose 80 Calcium 8.7 03/22/17 03/22/17 02:05 08:19 Troponin I 0.070 0.058 Impressions: Chest X-Ray 03/21/17 19:34 IMPRESSION: Mild Peribronchial cuffing and interstitial changes. No consolidation. Head CT 03/21/17 19:35 IMPRESSION: No acute intracranial findings. Lung Scan-VQ NM 03/21/17 23:56 IMPRESSION: NEGATIVE FOR PULMONARY EMBOLI. Qualifiers PATEINT BEING DISCHARGED WITH ANY OF THE FOLLOWING DIAGNOSIS?: Heart Failure HF Pt being discharged on ACEI for LVEF less than 40%?: No Reason(s) for not prescribing ACEI:: Not indicated - pending testing HF Pt being discharged on ARBS for LVEF less than 40%?: No Reason(s) for not prescribing ARBS:: Not indicated - pending testing HF Pt with Afib discharged with Warfarin?: Yes HF Pt discharged on evidence-based Beta Cedric:: Yes Plan Discharge Plan: Follow-up with primary care physician in 2 weeks. Follow-up with Dr. Lane seen in 1 week. Time Spent: Less than 30 Minutes
[2017-03-24 15:59] LABS: PATH REVIEW PATHOLOGIST REVIEWED
== END 2017-03-23 15:26 | disposition home or self-care (01) | DRG 292 ==
LOC: EDBD 18:56 → ER 18:56 → EH 21:52 → UNDOADMIN 21:52 → EH 23:25 → 3W 03-22 00:48
PROVIDERS: ADMIT Family Medicine; ATTEND Family Medicine
DX: I50.9 Heart failure, unspecified (principal); N39.0 Urinary tract infection, site not specified; Z68.41 Body mass index [BMI] 40.0-44.9, adult; R09.02 Hypoxemia; G40.909 Epilepsy, unspecified, not intractable, without status epilepticus; I48.91 Unspecified atrial fibrillation; S40.811A Abrasion of right upper arm, initial encounter; E11.9 Type 2 diabetes mellitus without complications; I10 Essential (primary) hypertension; M19.90 Unspecified osteoarthritis, unspecified site; E87.6 Hypokalemia; D69.6 Thrombocytopenia, unspecified; F10.20 Alcohol dependence, uncomplicated; F17.200 Nicotine dependence, unspecified, uncomplicated; E66.01 Morbid (severe) obesity due to excess calories; Z91.14 Patient's other noncompliance with medication regimen; Z79.82 Long term (current) use of aspirin; Z79.899 Other long term (current) drug therapy; Z79.01 Long term (current) use of anticoagulants
CPT/HCPCS: 36415; 70450; 71010; 78582; 80048; 80053; 80061; 80076; 80307; 81001; 82550; 82553; 82803; 83735; 83880; 84443; 84484; 85025; 85379; 85610; 87040; 87086; 90471; 90715; 93005; 93010; 99285; A9540; A9567; J0696; J1940; J3490; Q9969

== ENCOUNTER 2017-10-07 06:39 | Inpatient (IN) | payer SELFPAY ==
[2017-10-07] MEDS ORDERED: FUROSEMIDE INJ/PF 40 MG/4 ML SDV IV ONE (07:01)
[2017-10-07 07:14] LABS: ABSOLUTE EOSINOPHILS # (AUTO) 0.2 10^3/uL (0.0-0.6); ABSOLUTE MONOCYTES (AUTO) 0.5 10^3/uL (0.1-1.4); ABSOLUTE NEUT (AUTO) 7.6 10^3/uL (1.7-8.2); BASOPHILS % (AUTO) 0.4 % (0-2); EOSINOPHILS % (AUTO) 2.1 % (0-6); HEMATOCRIT 40.3 % (37.9-51.0); HEMOGLOBIN 12.9 g/dL (13.5-17.0); LYMPHOCYTES % (AUTO) 10.6 % (13-45); MEAN CORPUSCULAR VOLUME 103 fl (80-97); MONOCYTES % (AUTO) 4.9 % (3-13); RED BLOOD COUNT 3.91 10^6/uL (4.35-5.55); RED CELL DISTRIBUTION WIDTH 18.6 % (11.5-14.0); TOTAL CELLS COUNTED % (AUTO) 100 %; VENOUS BLOOD BASE EXCESS 1.5 mmol/L; VENOUS BLOOD HCO3 31.1 mmol/L (20-32); VENOUS BLOOD PH 7.24 (7.30-7.42); WHITE BLOOD COUNT 9.3 10^3/uL (4.0-10.5)
[2017-10-07 07:20] LABS: PROTHROMBIN TIME 13.9 SEC (11.4-15.4); VENOUS BLOOD PCO2 74.2 mmHg (35-63)
[2017-10-07 07:21] LABS: PARTIAL THROMBOPLASTIN TIME 38.4 SEC (23.5-35.8)
[2017-10-07 07:28] LABS: ALANINE AMINOTRANSFERASE 24 U/L (21-72); ALBUMIN 3.1 g/dL (3.5-5.0); ALKALINE PHOSPHATASE 122 U/L (38-126); ANION GAP 13 (5-19); ASPARTATE AMINO TRANSFERASE 23 U/L (17-59); BILIRUBIN,DIRECT 2.1 mg/dL (0.0-0.4); BILIRUBIN,TOTAL 3.1 mg/dL (0.2-1.3); BLOOD UREA NITROGEN 19 mg/dL (7-20); CALCIUM 8.8 mg/dL (8.4-10.2); CARBON DIOXIDE 31 mmol/L (22-30); CHLORIDE 102 mmol/L (98-107); CREATINE KINASE < 20 U/L (55-170); GLUCOSE 78 mg/dL (75-110); MAGNESIUM 1.4 mg/dL (1.6-2.3); PLATELET COUNT 53 10^3/uL (150-450); POTASSIUM 3.8 mmol/L (3.6-5.0); SODIUM 145.7 mmol/L (137-145); TOTAL PROTEIN 5.9 g/dL (6.3-8.2)
[2017-10-07 07:40] LABS: CREATINE KINASE MB 2.73 ng/mL (<4.55); NT PRO BNP 10000 pg/mL (5-900)
[2017-10-07 07:50] LABS: TROPONIN I < 0.012 ng/mL
--- NOTE | 2017-10-07 07:51 | RADIOLOGY REPORT (SQ) ---
EXAM DESCRIPTION: CHEST SINGLE VIEW CLINICAL HISTORY: 57 years, Male, difficulty breathing COMPARISON: 03/21/2017. LIMITATIONS: None. FINDINGS: Moderate mixed airspace and interstitial opacity with central predominance, mild enlargement of the cardiac silhouette, moderate lung volume, small bilateral effusions, no pneumothorax, and mild osteoarthritis. IMPRESSION: Mild/moderate CHF pattern. Differential diagnosis includes multifocal pneumonia. 2011 [employer]- All Rights Reserved
--- NOTE | 2017-10-07 08:41 | ER Document Report ---
ED General - General Chief Complaint: Edema Stated Complaint: RETAINING FLUID Time Seen by Provider: 10/07/17 06:56 TRAVEL OUTSIDE OF THE [place] IN LAST 30 DAYS: No - HPI Patient complains to provider of: Retaining fluid shortness of breath. Notes: Patient coming in for shortness of breath retaining fluid. Patient has a history of CHF along with multiple other medical problems. Patient states he mostly compliant with his diuretic however has missed 2 3 days worth. Patient states increased swelling patient was found to be hypoxic with SPO2 in the 80s upon his arrival. Patient otherwise denies any chest pain fever chills nausea vomiting productive cough. Upon my entrance patient has obvious anasarca of the abdomen venous stasis changes to his legs. - Related Data Allergies/Adverse Reactions: No Known Allergies Allergy (Verified 03/21/17 19:14) Home Medications: Current Home Medications Aspirin [Aspirin 325 mg Tablet] 325 mg PO DAILY 10/07/17 [History] Folic Acid 0.4 mg PO DAILY 10/07/17 [History] Metoprolol Succinate [Toprol Xl 25 mg Tab.sr] 25 mg PO Q12 10/07/17 [History] Torsemide [Demadex 20 mg Tablet] 20 mg PO DAILY 10/07/17 [History] Past Medical History - Social History Smoking Status: Current Every Day Smoker Chew tobacco use (# tins/day): No Frequency of alcohol use: Heavy Drug Abuse: None Family History: Reviewed & Not Pertinent Patient has suicidal ideation: No Patient has homicidal ideation: No - Past Medical History Cardiac Medical History: Reports: Hx Hypertension Denies: Hx Atrial Fibrillation, Hx Congestive Heart Failure, Hx DVT, Hx Heart Attack, Hx Hypercholesterolemia, Hx Pulmonary Embolism Pulmonary Medical History: Denies: Hx Asthma, Hx COPD, Hx Sleep Apnea Neurological Medical History: Reports: Hx Seizures Endocrine Medical History: Reports: Hx Diabetes Mellitus Type 2 - Possible, per patient; no specific diagnosis of same. Denies: Hx Diabetes Mellitus Type 1, Hx Hyperthyroidism, Hx Hypothyroidism Renal/ Medical History: Denies: Hx Peritoneal Dialysis GI Medical History: Denies: Hx Cirrhosis, Hx Gastroesophageal Reflux Disease, Hx Hepatitis Musculoskeltal Medical History: Reports Hx Arthritis Psychiatric Medical History: Denies: Hx Depression Infectious Medical History: Denies: Hx C-Diff, Hx Hepatitis, Hx MRSA Past Surgical History: Reports: Hx Tonsillectomy - Immunizations Hx Diphtheria, Pertussis, Tetanus Vaccination: No Hx Pneumococcal Vaccination: 10/06/00 Review of Systems - Review of Systems Constitutional: No symptoms reported EENT: No symptoms reported Cardiovascular: Dyspnea, Edema Respiratory: No symptoms reported Gastrointestinal: No symptoms reported Genitourinary: No symptoms reported Male Genitourinary: No symptoms reported Musculoskeletal: No symptoms reported Skin: No symptoms reported Hematologic/Lymphatic: No symptoms reported Neurological/Psychological: No symptoms reported -: Yes All other systems reviewed and negative Physical Exam - Vital signs Vitals: Pulse Ox 91 L 10/07/17 06:48 Interpretation: Hypoxic - General General appearance: Appears well, Alert - HEENT Head: Normocephalic, Atraumatic Eyes: Normal Pupils: PERRL - Respiratory Respiratory status: No respiratory distress Chest status: Nontender Breath sounds: Rales, Rhonchi Chest palpation: Normal - Cardiovascular Rhythm: Regular Heart sounds: Normal auscultation Murmur: No - Abdominal Inspection: Obese Distension: Other - Anasarca Bowel sounds: Normal Tenderness: Nontender Organomegaly: No organomegaly - Genitourinary Notes: Diffuse scrotal swelling penile swellingWith excoriations consistent with a fungal infection in the groin region. - Back Back: Normal, Nontender - Extremities General upper extremity: Normal inspection, Nontender, Normal color, Normal ROM , Normal temperature General lower extremity: Normal inspection, Nontender, Normal color, Normal ROM , Normal temperature, Normal weight bearing. No: Morgan's sign - Neurological Neuro grossly intact: Yes Cognition: Normal Orientation: AAOx4 Bart Coma Scale Eye Opening: Spontaneous Bart Coma Scale Verbal: Oriented Bart Coma Scale Motor: Obeys Commands Bart Coma Scale Total: 15 Speech: Normal Motor strength normal: LUE, RUE, LLE, RLE Sensory: Normal - Psychological Associated symptoms: Normal affect, Normal mood - Skin Skin Temperature: Warm Skin Moisture: Dry Skin Color: Normal Course - Re-evaluation Re-evalutation: 10/07/17 14:15 Patient's evaluation is consistent with a CHF exacerbation. Chest x-rays possible pneumonia however patient has no fever no white count suggestive of infectious process. Patient was given a dose of Lasix. Because of hypercapnia and fluid seen in the lungs decision was made to place the patient on BiPAP. Patient breathing much better on BiPAP. Discussed the hospitalist will admit for further evaluation. - Vital Signs Vital signs: Temp Pulse Resp BP Pulse Ox 97.8 F 90 20 116/70 97 10/07/17 11:58 10/07/17 12:44 10/07/17 12:44 10/07/17 12:53 10/07/17 12:44 - Laboratory Result Diagrams: 10/07/17 06:52 10/07/17 06:52 Laboratory results interpreted by me: 10/07/17 10/07/17 10/07/17 06:52 06:52 06:52 RBC 3.91 L Hgb 12.9 L MCV 103 H RDW 18.6 H Plt Count 53 L Seg Neutrophils % 82.0 H Lymphocytes % 10.6 L APTT VBG pH VBG pCO2 Sodium 145.7 H Carbon Dioxide 31 H Creatinine 1.35 H Est GFR (Non-Af Amer) 54 L Magnesium 1.4 L Total Bilirubin 3.1 H Direct Bilirubin 2.1 H Creatine Kinase < 20 L NT-Pro-B Natriuret Pep 82391 H Total Protein 5.9 L Albumin 3.1 L Urine Blood Urine Nitrite Urine Urobilinogen Ur Leukocyte Esterase 10/07/17 10/07/17 10/07/17 06:52 06:52 09:40 RBC Hgb MCV RDW Plt Count Seg Neutrophils % Lymphocytes % APTT 38.4 H VBG pH 7.24 L VBG pCO2 74.2 H* Sodium Carbon Dioxide Creatinine Est GFR (Non-Af Amer) Magnesium Total Bilirubin Direct Bilirubin Creatine Kinase NT-Pro-B Natriuret Pep Total Protein Albumin Urine Blood SMALL H Urine Nitrite POSITIVE H Urine Urobilinogen 4.0 H Ur Leukocyte Esterase LARGE H 10/07/17 09:45 RBC Hgb MCV RDW Plt Count Seg Neutrophils % Lymphocytes % APTT VBG pH 7.29 L VBG pCO2 65.8 H* Sodium Carbon Dioxide Creatinine Est GFR (Non-Af Amer) Magnesium Total Bilirubin Direct Bilirubin Creatine Kinase NT-Pro-B Natriuret Pep Total Protein Albumin Urine Blood Urine Nitrite Urine Urobilinogen Ur Leukocyte Esterase Critical Care Note - Critical Care Note Total time excluding time spent on procedures (mins): 35 Comments: Management the patient requiring BiPAP Discharge - Discharge Clinical Impression: Noncompliance, Elevated LFTs, Atrial fibrillation, CHF exacerbation, Hypoxia, Alcohol dependence, Morbid obesity with BMI of 40.0-44.9, adult, Tobacco dependence Condition: Stable Disposition: ADMITTED INPATIENT Admitting Provider: [facility] Admitted: [facility]
--- NOTE | 2017-10-07 09:31 | EKG REPORT ---
SEVERITY:- ABNORMAL ECG - ATRIAL FIBRILLATION IVCD, CONSIDER ATYPICAL RBBB : Confirmed by: Jarad Cannon 07-Oct-2017 09:30:53
[2017-10-07 10:08] LABS: VENOUS BLOOD HCO3 31.2 mmol/L (20-32); VENOUS BLOOD PH 7.29 (7.30-7.42)
[2017-10-07 10:13] LABS: VENOUS BLOOD PCO2 65.8 mmHg (35-63)
[2017-10-07 10:22] LABS: APPEARANCE,URINE CLOUDY; BILIRUBIN,URINE NEGATIVE (NEGATIVE); COLOR,URINE AMBER; GLUCOSE, URINE NEGATIVE (NEGATIVE); KETONES,URINE NEGATIVE (NEGATIVE); LEUKOCYTE ESTERASE,URINE LARGE (NEGATIVE); NITRITE,URINE POSITIVE (NEGATIVE); PROTEIN,URINE NEGATIVE (NEGATIVE); URINE SPECIFIC GRAVITY 1.008
[2017-10-07] MEDS ORDERED: MAG HYDROX/AL HYDROX/SIMETH SUSP 30 ML UDCUP PO PRN (11:08)
[2017-10-07] MEDS ORDERED: ACETAMINOPHEN 325 MG TABLET PO PRN (11:08)
[2017-10-07] MEDS ORDERED: MAGNESIUM HYDROXIDE SUSP 30 ML UDCUP PO PRN (11:08)
[2017-10-07] MEDS ORDERED: ONDANSETRON HCL INJ/PF 4 MG/2 ML SDV IV PRN (11:08)
--- NOTE | 2017-10-07 11:08 | PDOC H&P ---
History of Present Illness Admission Date/PCP: Dr. Stewart History of Present Illness: NOEMÍ LAMAR is a 57 year old male who presents to the emergency department with a 3 week history of enlarging testicles and increasing shortness of breath. The patient was admitted to [facility] in March 2017. He was admitted for a witnessed seizure. During that hospitalization he was noted to be in atrial fibrillation. Cardiology was consulted and the patient was started on a beta-cedric and warfarin. The patient was started on Keppra for seizure disorder. Patient was also started on diuretic therapy for lower extremity edema. During that hospitalization a ventilation perfusion lung scan was done. This was negative for pulmonary embolus. CT scan of the brain showed no acute pathology. Upon discharge, the patient did not take any of his medications. He stated that he did not have the money to purchase his medications until 3 weeks ago. The fact that his INR is normal indicates that he has not been taking his Coumadin. He notes that he had a myocardial infarction 6 months ago. He told me that he was treated here for this condition but I do not have records that indicate this. When I asked him what other medical problems he had he states that he smokes and drinks heavily. He also told me that he has borderline diabetes but has not been prescribed anything. In terms of his review of systems he states that he came in for increasing swelling of the testicles and pain. He has also been having some weeping from lesions on his groin. His shortness of breath has gotten mildly worse over the last 3 weeks. He reports no chest pain or palpitations. His review of systems is otherwise negative for any infectious etiology. Please see review of systems below. Past Medical History Cardiac Medical History: Reports: Hypertension Denies: Atrial Fibrillation, Congestive Heart Failure, DVT, Myocardial Infarction, Hyperlipidema, Pulmonary Embolism Pulmonary Medical History: Denies: Asthma, Chronic Obstructive Pulmonary Disease (COPD), Sleep Apnea Neurological Medical History: Reports: Seizures Endocrine Medical History: Reports: Diabetes Mellitus Type 2 - Possible, per patient; no specific diagnosis of same Denies: Diabetes Mellitus Type 1, Hyperthyroidism, Hypothyroidism GI Medical History: Denies: Cirrhosis, Gastroesophageal Reflux Disease, Hepatitis Musculoskeltal Medical History: Reports: Arthritis Psychiatric Medical History: Denies: Depression Infectious Medical History: Denies: Clostridium Difficile, Methicillin-Resistant Staph Aureus Past Surgical History Past Surgical History: Reports: Tonsillectomy Social History Smoking Status: Current Every Day Smoker Frequency of Alcohol Use: Heavy Hx Recreational Drug Use: No Drugs: None Hx Prescription Drug Abuse: No - Advance Directive Resuscitation Status: Full Code Surrogate healthcare decision maker:: The patient wishes to be a full code. He states that his , Rula Lamar will be his surrogate decision maker. Family History Family History: Reviewed & Not Pertinent Parental Family History Reviewed: Yes Children Family History Reviewed: Yes Sibling(s) Family History Reviewed.: Yes Medication/Allergy Allergies/Adverse Reactions: No Known Allergies Allergy (Verified 03/21/17 19:14) Review of Systems Constitutional: ABSENT: chills, fever(s), headache(s), weight gain, weight loss Eyes: ABSENT: visual disturbances Ears: ABSENT: hearing changes Nose, Mouth, and Throat: ABSENT: as per HPI, headache(s), mouth pain, sore throat, vertigo, other Breasts: ABSENT: as per HPI, other Cardiovascular: PRESENT: dyspnea on exertion, edema, orthropnea Respiratory: PRESENT: dyspnea Gastrointestinal: ABSENT: abdominal pain, constipation, diarrhea, hematemesis, hematochezia, nausea, vomiting Genitourinary: PRESENT: difficulty urinating Integumentary: PRESENT: rash, wounds Neurological: ABSENT: abnormal gait, abnormal speech, confusion, dizziness, focal weakness, syncope Psychiatric: ABSENT: anxiety, depression, homidical ideation, suicidal ideation Endocrine: ABSENT: cold intolerance, heat intolerance, polydipsia, polyuria Hematologic/Lymphatic: ABSENT: easy bleeding, easy bruising Allergic/Immunologic: ABSENT: as per HPI, seasonal rhinorrhea, other Physical Exam Vital Signs: Temp Pulse Resp BP Pulse Ox 97.4 F 84 18 112/68 95 10/07/17 06:49 10/07/17 07:07 10/07/17 07:38 10/07/17 07:27 10/07/17 07:38 Intake & Output 10/06/17 10/07/17 10/08/17 06:59 06:59 06:59 Weight 158.757 kg Additional comments: The patient is a super morbidly obese white male. He appears to be unkempt and disheveled. However, his cognition and mentation are normal. Currently, he is on BiPAP and I was unable to fully evaluate his oropharynx. His lips appear to be normal. His neck is very obese but I do not appreciate lymphadenopathy and the neck appears to be supple. It is very difficult to discern JVD. The patient has bilateral rhonchi both anteriorly and posteriorly. His cardiac exam is very distant but appears to be regular. I do not appreciate any murmurs , gallops or rubs. The patient has an obese abdomen. Does not appear to be distended or tympanitic. The abdomen is soft. Bowel sounds are present in all 4 quadrants. The patient's testicles and scrotum are very edematous. He has blood at the meatus from an attempted Meza catheter placement. He has significant breakdown of skin in the intertriginous zones. His skin is otherwise erythematous. He is somewhat diaphoretic. The lower extremities show changes of chronic venous stasis. This is symmetrical bilaterally. Results Laboratory Results: 10/07/17 06:52 10/07/17 06:52 10/07/17 10/07/17 10/07/17 06:52 06:52 06:52 WBC 9.3 RBC 3.91 L Hgb 12.9 L Hct 40.3 MCV 103 H MCH 33.0 MCHC 32.0 RDW 18.6 H Plt Count 53 L Seg Neutrophils % 82.0 H Lymphocytes % 10.6 L Monocytes % 4.9 Eosinophils % 2.1 Basophils % 0.4 Absolute Neutrophils 7.6 Absolute Lymphocytes 1.0 Absolute Monocytes 0.5 Absolute Eosinophils 0.2 Absolute Basophils 0.0 VBG pH 7.24 L VBG pCO2 74.2 H* VBG HCO3 31.1 VBG Base Excess 1.5 Sodium 145.7 H Potassium 3.8 Chloride 102 Carbon Dioxide 31 H Anion Gap 13 BUN 19 Creatinine 1.35 H Est GFR ( Amer) > 60 Est GFR (Non-Af Amer) 54 L Glucose 78 Calcium 8.8 Magnesium 1.4 L Total Bilirubin 3.1 H AST 23 ALT 24 Alkaline Phosphatase 122 Total Protein 5.9 L Albumin 3.1 L Urine Color Urine Appearance Urine pH Ur Specific [place] Urine Protein Urine Glucose (UA) Urine Ketones Urine Blood Urine Nitrite Ur Leukocyte Esterase Urine WBC (Auto) Urine RBC (Auto) 10/07/17 10/07/17 09:40 09:45 WBC RBC Hgb Hct MCV MCH MCHC RDW Plt Count Seg Neutrophils % Lymphocytes % Monocytes % Eosinophils % Basophils % Absolute Neutrophils Absolute Lymphocytes Absolute Monocytes Absolute Eosinophils Absolute Basophils VBG pH 7.29 L VBG pCO2 65.8 H* VBG HCO3 31.2 VBG Base Excess 3.0 Sodium Potassium Chloride Carbon Dioxide Anion Gap BUN Creatinine Est GFR ( Amer) Est GFR (Non-Af Amer) Glucose Calcium Magnesium Total Bilirubin AST ALT Alkaline Phosphatase Total Protein Albumin Urine Color FAWN Urine Appearance CLOUDY Urine pH 5.0 Ur Specific [place] 1.008 Urine Protein NEGATIVE Urine Glucose (UA) NEGATIVE Urine Ketones NEGATIVE Urine Blood SMALL H Urine Nitrite POSITIVE H Ur Leukocyte Esterase LARGE H Urine WBC (Auto) >182 Urine RBC (Auto) 26 10/07/17 10/07/17 06:52 06:52 Creatine Kinase < 20 L CK-MB (CK-2) 2.73 Troponin I < 0.012 NT-Pro-B Natriuret Pep [id number] H Impressions: Chest X-Ray 10/07/17 06:53 IMPRESSION: Mild/moderate CHF pattern. Differential diagnosis includes multifocal pneumonia. 2010 [employer]- All Rights Reserved Assessment & Plan - Diagnosis (1) Acute and chronic respiratory failure with hypercapnia Is this a current diagnosis for this admission?: Yes Plan: The patient appears to have acute on chronic hypoxic and hypercarbic respiratory failure. This is likely secondary to cor pulmonale from long-term hypoxemia. I suspect that he has underlying obstructive sleep apnea. We are currently treating the patient with BiPAP. (2) Atrial fibrillation Is this a current diagnosis for this admission?: Yes Plan: Patient is currently rate controlled. I will follow and treat with beta- blockers if needed. Patient is a poor candidate for anticoagulation, particularly Coumadin secondary to his use of alcohol and thrombocytopenia with an elevated partial thromboplastin time. I am not going to anticoagulate at present. Cardiology will be consulted. (3) CHF exacerbation Is this a current diagnosis for this admission?: Yes Plan: Patient appears primarily to have decompensated right-sided heart failure. He did receive diuretics in the emergency department, but, his sodium is elevated on at this point time he may actually be intravascularly dry. I am going to hold with IV fluids and follow his creatinine. I think he will actually begin to auto diuresis by using BiPAP. (4) Elevated LFTs Is this a current diagnosis for this admission?: Yes Plan: The patient has an elevated total bilirubin. He does not appear to be obstructed. He does not appear to be hemolyzing. He likely has passive congestion of the liver. I will not order an imaging study at this time. (5) Hypoxia Is this a current diagnosis for this admission?: Yes Plan: We will use supplemental oxygen to keep his saturations in the low 90s. (6) Alcohol dependence Qualifiers: Is this a current diagnosis for this admission?: Yes Plan: I will begin folate, thiamine and prophylaxis with Ativan. The patient did have a prior seizure on his last admission and I question whether or not this was related to an alcohol withdrawal seizure. (7) Morbid obesity with BMI of 40.0-44.9, adult Is this a current diagnosis for this admission?: Yes Plan: The patient's BMI is likely more elevated this admission secondary to worsening fluid retention from his cor pulmonale. (8) Noncompliance Is this a current diagnosis for this admission?: Yes Plan: The patient states that he is noncompliant with his medical therapy secondary to lack of financial resources. (9) Tobacco dependence Is this a current diagnosis for this admission?: Yes (10) Diabetes mellitus type 2 in obese Is this a current diagnosis for this admission?: Yes Plan: At this point in time I will initiate fingersticks with sliding scale insulin. (11) Essential hypertension Is this a current diagnosis for this admission?: Yes (12) Thrombocytopenia Is this a current diagnosis for this admission?: Yes Plan: This is likely secondary to bone marrow suppression from long-term alcohol use. We will continue to trend and consult hematology if needed. (13) Elevated partial thromboplastin time (PTT) Is this a current diagnosis for this admission?: Yes Plan: I suspect that this is due to synthetic dysfunction of the liver, but, PT is all right? (14) Obstructive sleep apnea Is this a current diagnosis for this admission?: Yes Plan: Upon discharge I would strongly recommend that this patient get a sleep study. (15) Hilda infection of genital region Is this a current diagnosis for this admission?: Yes Plan: I will begin nystatin powder and cream to the affected areas. - Time Time Spent: 50 to 70 Minutes - Inpatient Certification Medical Necessity: Significant Comorbidiites Make Outpatient Treatment Too Risky , Need Close Monitoring Due to Risk of Patient Decompensation, Need For Continuous Telemetry Monitoring, Need for Neurological Checks, Risk of Complication if Not Cared For in Hospital, Risk of Diagnosis Which Will Require Inpatient Eval/Care/Monitoring - Plan Summary Plan Summary: I suspect that the patient will easily require greater than 2 midnights to stabilize. Therefore, he will be a full inpatient admission. He is currently a full code.
[2017-10-07] MEDS ORDERED: LORAZEPAM INJ 2 MG/1 ML VIAL IV PRN (11:19)
[2017-10-07] MEDS ORDERED: DEXTROSE 50%-WATER 25 GM/50 ML DISP.SYRIN IV PRN ×2 (11:20)
[2017-10-07] MEDS ORDERED: DEXTROSE 40% GEL 15 GM TUBE PO PRN ×2 (11:20)
[2017-10-07] MEDS ORDERED: INSULIN LISPRO 100 UNIT/ML 3 ML VIAL SUBCUT PRN (11:20)
[2017-10-07] MEDS ORDERED: GLUCAGON,HUMAN RECOMB 1 MG INJ IM PRN (11:20)
[2017-10-07] MEDS ORDERED: NYSTATIN CREAM 15 GM TP ONE (12:30)
[2017-10-07] MEDS: NYSTATIN TOPICAL POWDER 15 GM TP SCH (18:34)
--- NOTE | 2017-10-07 21:27 | PDOC CONSULTATION ---
Consultation Consult Date: 10/07/17 Attending physician:: JOSE ROUSSEAU Consult reason:: A Fib History of Present Illness Admission Date/PCP: 10/07/17 11:20 Patient complains of: Patient noted to be very lethargic and unable to carry on a conversation. History of Present Illness: NOEMÍ LAMAR is a 57 year old male who presents to the emergency department with a 3 week history of enlarging testicles and increasing shortness of breath. The patient was admitted to [facility] in March 2017. He was admitted for a witnessed seizure. During that hospitalization he was noted to be in atrial fibrillation. Cardiology was consulted and the patient was started on a beta-cedric and warfarin. The patient was started on Keppra for seizure disorder. Patient was also started on diuretic therapy for lower extremity edema. During that hospitalization a ventilation perfusion lung scan was done. This was negative for pulmonary embolus. CT scan of the brain showed no acute pathology. Upon discharge, the patient did not take any of his medications. He stated that he did not have the money to purchase his medications until 3 weeks ago. The fact that his INR is normal indicates that he has not been taking his Coumadin. He notes that he had a myocardial infarction 6 months ago. He told me that he was treated here for this condition but I do not have records that indicate this. When I asked him what other medical problems he had he states that he smokes and drinks heavily. He also told me that he has borderline diabetes but has not been prescribed anything. In terms of his review of systems he states that he came in for increasing swelling of the testicles and pain. He has also been having some weeping from lesions on his groin. His shortness of breath has gotten mildly worse over the last 3 weeks. He reports no chest pain or palpitations. His review of systems is otherwise negative for any infectious etiology. Please see review of systems below. When I saw him patient was very lethargic and was unable or unwilling to continue any conversation. This history was reviewed. Patient was noted to be comfortable by the nurses. Past Medical History Cardiac Medical History: Reports: Hypertension Denies: Atrial Fibrillation, Congestive Heart Failure, DVT, Myocardial Infarction, Hyperlipidema, Pulmonary Embolism Pulmonary Medical History: Denies: Asthma, Chronic Obstructive Pulmonary Disease (COPD), Sleep Apnea Neurological Medical History: Reports: Seizures Endocrine Medical History: Reports: Diabetes Mellitus Type 2 - Possible, per patient; no specific diagnosis of same Denies: Diabetes Mellitus Type 1, Hyperthyroidism, Hypothyroidism GI Medical History: Denies: Cirrhosis, Gastroesophageal Reflux Disease, Hepatitis Musculoskeltal Medical History: Reports: Arthritis Psychiatric Medical History: Denies: Depression Infectious Medical History: Denies: Clostridium Difficile, Methicillin-Resistant Staph Aureus Past Surgical History Past Surgical History: Reports: Tonsillectomy Social History Information Source: [facility] Records Smoking Status: Current Every Day Smoker Frequency of Alcohol Use: Heavy Hx Recreational Drug Use: No Drugs: None Hx Prescription Drug Abuse: No - Advance Directive Resuscitation Status: Full Code Family History Family History: Reviewed & Not Pertinent Parental Family History Reviewed: Yes Children Family History Reviewed: Yes Sibling(s) Family History Reviewed.: Yes Medication/Allergy Home Medications: Aspirin [Aspirin 325 mg Tablet] 325 mg PO DAILY 10/07/17 Folic Acid 0.4 mg PO DAILY 10/07/17 Metoprolol Succinate [Toprol Xl 25 mg Tab.sr] 25 mg PO Q12 10/07/17 Torsemide [Demadex 20 mg Tablet] 20 mg PO DAILY 10/07/17 Allergies/Adverse Reactions: No Known Allergies Allergy (Verified 03/21/17 19:14) Review of Systems ROS unobtainable: Due to mental status Physical Exam Vital Signs: Temp Pulse Resp BP Pulse Ox 97.8 F 100 18 96/72 L 91 L 10/07/17 11:58 10/07/17 16:17 10/07/17 16:17 10/07/17 16:17 10/07/17 16:17 Intake & Output 10/06/17 10/07/17 10/08/17 06:59 06:59 06:59 Intake Total 200 Output Total 400 Balance -200 Weight 153 kg Exam: GENERAL: well-nourished and in no acute distress. Orientation could not be checked as patient was difficult to arouse. HEAD: Atraumatic, normocephalic. EYES: Pupils equal round and reactive to light, extraocular movements intact, sclera anicteric, conjunctiva are normal. ENT: TMs normal, nares patent, oropharynx clear without exudates. Moist mucous membranes. No oral ulcerations or bleeding gums noted NECK: supple without lymphadenopathy or JVD. Trachea is central. No cervical or axillary lymphadenopathy noted. Carotids are 2+ LUNGS: Breath sounds bibasilar fine crackles at bases. No significant dullness noted. CHEST: Palpation of chest wall shows no significant chest wall tenderness. HEART: [place] [employer], No PSH, 2/6 PADMINI aortic area, 1/6 hull systolic murmur mitral area, rubs or gallops. ABDOMEN: Soft, no significant tenderness appreciated, normoactive bowel sounds. No guarding, no rebound. No rigidity noted . No masses appreciated. EXTREMITIES: Pedal pulses are 1-2+, no calf tenderness noted, 2-3+ pedal edema noted. No clubbing or cyanosis. Scrotal edema noted. NEUROLOGICAL: Patient is alert but is not able to participate in neurological exam because of patient's current mental status PSYCH: Patient cannot participate in a neurologic and psych exam because of the patient's current mental status SKIN: Some ulcerations noted especially left side chest and also at various the skin creases. Chronic dermatitis changes noted both lower legs. MUSCULOSKELETAL EXAM: No significant joint swelling noted. Results Laboratory Results: 10/07/17 10/07/17 12:00 18:10 Troponin I < 0.012 0.017 EKG Comments: Twelve-lead EKG shows atrial fibrillation with relatively controlled heart rate response and some nonspecific ST-T wave changes. Impressions: Chest X-Ray 10/07/17 06:53 IMPRESSION: Mild/moderate CHF pattern. Differential diagnosis includes multifocal pneumonia. 2010 [employer]- All Rights Reserved Assessment & Plan - Diagnosis (1) Acute and chronic respiratory failure with hypercapnia Is this a current diagnosis for this admission?: Yes (2) Atrial fibrillation Qualifiers: Atrial fibrillation type: unspecified Qualified Code(s): I48.91 - Unspecified atrial fibrillation Is this a current diagnosis for this admission?: Yes (3) CHF exacerbation Qualifiers: Congestive heart failure type: unspecified congestive heart failure type Qualified Code(s): I50.9 - Heart failure, unspecified Is this a current diagnosis for this admission?: Yes (4) Obstructive sleep apnea Is this a current diagnosis for this admission?: Yes (5) Morbid obesity with BMI of 40.0-44.9, adult Is this a current diagnosis for this admission?: Yes (6) Essential hypertension Is this a current diagnosis for this admission?: Yes (7) Thrombocytopenia Is this a current diagnosis for this admission?: Yes - Notes Notes: Congestive heart failure: 2D echo reviewed. It shows well-preserved LV EF, right ventricle is moderately enlarged. Moderate right ventricular systolic dysfunction noted. Moderate to severe pulmonary hypertension noted. Diastolic function could not be assessed adequately due to atrial fibrillation. Believe that CHF is secondary to right heart failure with some contribution from diastolic dysfunction. Recommend diuretic therapy, oxygenation etc. Atrial fibrillation: Recommend rate control and currently not on anticoagulation , due to low platelet count but should be considered at a later date. Patient does have compliance issues. Acute on chronic respiratory failure with hypercapnia. Patient will benefit from BiPAP therapy which he is getting but when I saw him he had it off. Morbid obesity: Patient will benefit from weight loss. Sleep apnea syndrome: Patient will benefit from positive pressure noninvasive ventilation. Essential hypertension: Blood pressure seems stable. Thrombocytopenia: Possibly wait until platelet count above 100 start chronic anticoagulation. Exact etiology not clear but could be related to alcohol. - Time Time Spent: 30 to 50 Minutes - Patient remains full code. Surrogate decision- maker currently unknown. More than 50% of the time spent coordinating care, discussing management plans with involved caregivers. Management plans discussed with involved personnels. Medical decision making was of moderate to high complexity, patient's has multiple comorbidities..
[2017-10-07] MEDS ORDERED: FAMOTIDINE 20 MG TABLET PO SCH (22:00)
[2017-10-07] MEDS ORDERED: DEXTROSE 5%-WATER 250 ML with VASOPRESSIN 100 UNIT IV PRN ×2 (22:06)
[2017-10-07] MEDS ORDERED: VASOPRESSIN INJ 20 UNIT/1 ML VIAL IV PRN (22:13)
[2017-10-07 22:55] LABS: ANION GAP 6 (5-19); BLOOD UREA NITROGEN 24 mg/dL (7-20); CARBON DIOXIDE 32 mmol/L (22-30); CHLORIDE 103 mmol/L (98-107); GLUCOSE 87 mg/dL (75-110); SODIUM 140.5 mmol/L (137-145)
[2017-10-07] MEDS ORDERED: MIDODRINE HCL 5 MG TABLET PO ONE (23:00)
[2017-10-07 23:55] LABS: ARTERIAL BLOOD BASE EXCESS 2.7 mmol/L; ARTERIAL BLOOD H2CO3 1.72 mmol/L (1.05-1.35); ARTERIAL BLOOD HCO3 29.7 mmol/L (20-26); ARTERIAL BLOOD O2 SATURATION 91.8 % (94-98); ARTERIAL BLOOD PCO2 57.1 mmHg (35-45); ARTERIAL BLOOD PH 7.33 (7.35-7.45); ARTERIAL BLOOD PO2 67.3 mmHg (80-100); ARTERIAL BLOOD TOTAL CO2 31.5 mmol/L (23-27)
[2017-10-07 23:56] LABS: ARTERIAL BLOOD FIO2 60%
[2017-10-08] MEDS ORDERED: DILTIAZEM HCL 30 MG TABLET PO SCH
[2017-10-08] MEDS ORDERED: PHENYLEPHRINE HCL INJ/PF 10 MG/1 ML SDV IV PRN (01:34)
[2017-10-08] MEDS ORDERED: NORMAL SALINE 500 ML IV ONE ×2 (01:45→05:00)
[2017-10-08] MEDS ORDERED: DIGOXIN INJ 0.5 MG/2 ML AMPULE IV ONE (01:45)
[2017-10-08] MEDS: DEXTROSE 5%-WATER 250 ML with PHENYLEPHRINE HCL 40 MG IV PRN ×6 (01:53→12:42)
[2017-10-08] MEDS ORDERED: THIAMINE HCL INJ 200 MG/2 ML VIAL IV PRN ×2 (01:59→04:19)
[2017-10-08] MEDS ORDERED: THIAMINE HCL 100 MG in NORMAL SALINE 50 ML IV ONE (02:00)
[2017-10-08 04:22] LABS: ARTERIAL BLOOD BASE EXCESS -0.1 mmol/L; ARTERIAL BLOOD H2CO3 1.76 mmol/L (1.05-1.35); ARTERIAL BLOOD HCO3 27.5 mmol/L (20-26); ARTERIAL BLOOD O2 SATURATION 99.2 % (94-98); ARTERIAL BLOOD PCO2 58.5 mmHg (35-45); ARTERIAL BLOOD PH 7.29 (7.35-7.45); ARTERIAL BLOOD PO2 200.9 mmHg (80-100); ARTERIAL BLOOD TOTAL CO2 29.3 mmol/L (23-27)
[2017-10-08 04:24] LABS: ARTERIAL BLOOD FIO2 100%
[2017-10-08] MEDS ORDERED: THIAMINE HCL 500 MG in NORMAL SALINE 250 ML IV ONE (04:30)
[2017-10-08] MEDS: MAGNESIUM SULFATE 1 GM/D5W 100 ML IV SCH ×2 (05:11→06:35)
[2017-10-08] MEDS ORDERED: PROPOFOL 100 ML IV PRN (05:33)
[2017-10-08] MEDS ORDERED: FENTANYL CITRATE INJ/PF 100 MCG/2 ML AMPUL IV PRN (05:33)
[2017-10-08] MEDS ORDERED: KETAMINE HCL INJ 500 MG/10 ML VIAL ONE ×2 (05:40→09:48)
[2017-10-08] MEDS ORDERED: PHARMACY COMMUNICATION ORDER MC NR (05:45)
[2017-10-08] MEDS ORDERED: ACETAMINOPHEN 325 MG TABLET NG PRN (05:54)
[2017-10-08] MEDS ORDERED: MAG HYDROX/AL HYDROX/SIMETH SUSP 30 ML UDCUP NG PRN (05:56)
[2017-10-08] MEDS ORDERED: MAGNESIUM HYDROXIDE SUSP 30 ML UDCUP NG PRN (05:57)
[2017-10-08] MEDS ORDERED: DILTIAZEM HCL 30 MG TABLET NG SCH (06:00)
[2017-10-08] MEDS ORDERED: VANCOMYCIN HCL 1,250 MG in DEXTROSE 5%-WATER 250 ML IV ONE (06:03)
[2017-10-08] MEDS ORDERED: HYDROCORTISONE SOD SUCCINATE INJ/PF 100 MG/2 ML SDV IV ONE (06:03)
--- NOTE | 2017-10-08 06:09 | Progress Note ---
Provider Note Provider Note: MD contacted by patient's nurse and concern for hypotension with a blood pressure of 60/30 with tachycardia at 130. Patient examined and found to be with altered mental status, crackles in the bases bilaterally and volume overload. Discussed patient with cardiology and patient was transferred to the ICU for vasopressin. Patient initially stabilized but later developed hypoxia with hypotension despite vasopressin. With a worsening mental status and inability to protect airway he is intubated. ABG reveals large AA gradient, concerning for pneumonia with sepsis empiric antibiotics initiated, pulmonology consultation pending.
[2017-10-08] MEDS ORDERED: VANCOMYCIN HCL 0 MG in DEXTROSE 5%-WATER 250 ML IV NR (06:15)
[2017-10-08] MEDS ORDERED: VANCOMYCIN HCL INJ 1000 MG VIAL IV PRN (06:21)
--- NOTE | 2017-10-08 06:25 | RADIOLOGY REPORT (SQ) ---
EXAM DESCRIPTION: CHEST SINGLE VIEW CLINICAL HISTORY: 57 years, Male, ET Tube Placement COMPARISON: 10.07.17 LIMITATIONS: None. FINDINGS: Moderate opacification-effusion of the left lower 60% hemithorax, moderate mixed airspace and interstitial opacity with central predominance, mild/moderate enlargement cardiac silhouette, adequate appearing endotracheal tube, and likely adequate enteric tube obscured distally, no pneumothorax, and mild osteoarthritis. IMPRESSION: Interval worsening includes moderate opacity-effusion of the left lower hemithorax. Lines and tubes. 2011 [employer]- All Rights Reserved
[2017-10-08] MEDS ORDERED: CEFEPIME 1 GM/D5W RTU 1 GM/50 ML RTUPB IV ONE ×2 (06:30→08:00)
[2017-10-08] MEDS ORDERED: NORMAL SALINE 1000 ML 1,000 ML IV ONE (06:45)
[2017-10-08] MEDS ORDERED: LORAZEPAM INJ 2 MG/1 ML VIAL ONE (06:45)
[2017-10-08] MEDS ORDERED: LORAZEPAM 24 MG/ D5W 240 ML IV PRN (06:50)
[2017-10-08] MEDS ORDERED: VANCOMYCIN HCL 2,000 MG in DEXTROSE 5%-WATER 500 ML IV ONE ×2 (07:00→09:30)
[2017-10-08 08:36] LABS: INTERNATIONAL RATION (INR) 1.13; PROTHROMBIN TIME 15.3 SEC (11.4-15.4)
[2017-10-08 08:37] LABS: PARTIAL THROMBOPLASTIN TIME 40.4 SEC (23.5-35.8)
--- NOTE | 2017-10-08 08:40 | PDOC PROGRESS REPORT ---
Subjective Progress Note for:: 10/08/17 Subjective:: Patient is intubated and mechanically ventilated His blood pressure is extremely low despite vasopressin and Maurizio-Synephrine Central line and arterial line will be placed for adequate IV access His renal function has been declining with almost no urinary output He remains in atrial fibrillation with controlled ventricular rate Reason For Visit: COR PULMONALE Physical Exam Vital Signs: Temp Pulse Resp BP Pulse Ox 99.2 F 85 14 74/61 L 92 10/08/17 07:39 10/08/17 07:39 10/08/17 07:39 10/08/17 07:39 10/08/17 07:39 Intake & Output 10/07/17 10/08/17 10/09/17 00:59 00:59 00:59 Intake Total 200 1071 Output Total 420 0 Balance -220 1071 Weight 148.6 kg 150.9 kg General appearance: PRESENT: morbidly obese, other - Sedated appears in no severe respiratory distress looking extremely ill Head exam: PRESENT: atraumatic, normocephalic Eye exam: PRESENT: conjunctiva pink, EOMI, PERRLA. ABSENT: scleral icterus Ear exam: PRESENT: normal external ear exam Mouth exam: PRESENT: moist, tongue midline Neck exam: ABSENT: carotid bruit, JVD, lymphadenopathy, thyromegaly Respiratory exam: PRESENT: decreased breath sounds. ABSENT: rales, rhonchi, wheezes Cardiovascular exam: PRESENT: irregular rhythm. ABSENT: diastolic murmur, rubs Pulses: PRESENT: other - Decreased pulses bilaterally because of edema Vascular exam: PRESENT: other - Decreased capillary refill GI/Abdominal exam: PRESENT: distended, firm, normal bowel sounds, other - Abdomen appears firm it is difficult to evaluate because it is extremely obese Rectal exam: PRESENT: deferred Gentrourinary exam: PRESENT: other - Extreme swelling of the testes with edema ; the skin of the genitals appears slightly purple Extremities exam: PRESENT: pedal edema, +2 edema, other - 3+ edema bilaterally skin is firm tight Brownish discoloration of the shins suggestive of stasis dermatitis Redness and warmth of the thighs Inguinal areas are red draining moist bilaterally Suprapubic area also is red and warm Neurological exam: PRESENT: other - Patient is sedated cannot assess neurological status Psychiatric exam: PRESENT: other - Cannot assess Skin exam: PRESENT: intact, other - See lower extremities. ABSENT: rash Results Laboratory Results: 10/07/17 10/07/17 10/08/17 20:23 23:45 04:00 Carbonic Acid 1.72 H 1.76 H HCO3/H2CO3 Ratio 17:1 15:1 ABG pH 7.33 L 7.29 L ABG pCO2 57.1 H 58.5 H ABG pO2 67.3 L 200.9 H ABG HCO3 29.7 H 27.5 H ABG O2 Saturation 91.8 L 99.2 H ABG Base Excess 2.7 -0.1 FiO2 60% 100% Sodium 140.5 Potassium 4.0 Chloride 103 Carbon Dioxide 32 H Anion Gap 6 BUN 24 H Creatinine 1.61 H Est GFR ( Amer) 53 L Est GFR (Non-Af Amer) 44 L Glucose 87 Calcium 8.0 L 10/08/17 07:35 Carbonic Acid Cancelled HCO3/H2CO3 Ratio Cancelled ABG pH Cancelled ABG pCO2 Cancelled ABG pO2 Cancelled ABG HCO3 Cancelled ABG O2 Saturation Cancelled ABG Base Excess Cancelled FiO2 Cancelled Sodium Potassium Chloride Carbon Dioxide Anion Gap BUN Creatinine Est GFR ( Amer) Est GFR (Non-Af Amer) Glucose Calcium 10/07/17 10/07/17 10/08/17 12:00 18:10 00:57 Troponin I < 0.012 0.017 Cancelled 10/08/17 01:41 Troponin I 0.030 Impressions: Chest X-Ray 10/08/17 00:00 IMPRESSION: Interval worsening includes moderate opacity-effusion of the left lower hemithorax. Lines and tubes. 2010 [employer]- All Rights Reserved Assessment & Plan - Diagnosis (1) ARF (acute renal failure) Qualifiers: Acute renal failure type: unspecified Qualified Code(s): N17.9 - Acute kidney failure, unspecified Is this a current diagnosis for this admission?: Yes Plan: Likely secondary to septic shock or cardiogenic shock Ultrasound of the kidneys is pending Continue hydration Albumin IV Small doses of Lasix when blood pressure permits (2) Atrial fibrillation Qualifiers: Atrial fibrillation type: chronic Qualified Code(s): I48.2 - Chronic atrial fibrillation Is this a current diagnosis for this admission?: Yes Plan: Patient is a candidate for chronic anticoagulation Repeat platelet count (3) Hilda infection of genital region Is this a current diagnosis for this admission?: Yes Plan: Fluconazole IV Nystatin powder (4) CHF exacerbation Qualifiers: Congestive heart failure type: unspecified congestive heart failure type Qualified Code(s): I50.9 - Heart failure, unspecified Is this a current diagnosis for this admission?: Yes (5) Elevated LFTs Is this a current diagnosis for this admission?: Yes Plan: secondary to chronic alcohol abuse Bilirubin was 3 ; ultrasound of the abdomen would be performed to exclude acute cholecystitis or cholangitis (6) Morbid obesity with BMI of 40.0-44.9, adult Is this a current diagnosis for this admission?: Yes (7) Obstructive sleep apnea Is this a current diagnosis for this admission?: Yes (8) Thrombocytopenia Is this a current diagnosis for this admission?: Yes (9) Septic shock Is this a current diagnosis for this admission?: Yes Plan: Source of this time is unclear Likely cellulitis Continue cefepime and vancomycin Continue pressors (10) Cardiogenic shock Is this a current diagnosis for this admission?: Yes Plan: Patient's troponins were all negative Awaiting echocardiogram Continue pressors (11) Acute pulmonary embolism Qualifiers: Pulmonary embolism type: other Is this a current diagnosis for this admission?: Yes Plan: Should be ruled out Patient to be anticoagulated until appropriate test could be performed; repeat platelet count Heparin infusion to be initiated unless there are major contraindications - Plan Summary Plan Summary: Central line and arterial line to be placed by surgery Continue pressors Albumin infusion Small doses of Lasix as tolerated anticoagulation if platelet count permits Patient's condition is critical and his prognosis is extremely guarded
[2017-10-08 08:53] LABS: ALANINE AMINOTRANSFERASE 24 U/L (21-72); ALBUMIN 2.6 g/dL (3.5-5.0); ALKALINE PHOSPHATASE 78 U/L (38-126); ANION GAP 10 (5-19); ASPARTATE AMINO TRANSFERASE 37 U/L (17-59); BILIRUBIN,DIRECT 2.7 mg/dL (0.0-0.4); BILIRUBIN,TOTAL 3.3 mg/dL (0.2-1.3); BLOOD UREA NITROGEN 24 mg/dL (7-20); CARBON DIOXIDE 29 mmol/L (22-30); CHLORIDE 105 mmol/L (98-107); CHOLESTEROL 66.57 mg/dL (0-200); GLUCOSE 107 mg/dL (75-110); MAGNESIUM 1.5 mg/dL (1.6-2.3); PHOSPHORUS 4.5 mg/dL (2.5-4.5); SODIUM 144.4 mmol/L (137-145); TRIGLYCERIDES 114 mg/dL (<150)
[2017-10-08 09:08] LABS: DIRECT LDL < 30 mg/dL (<100)
[2017-10-08 09:10] LABS: FREE T3 2.04 pg/mL (2.77-5.27); FREE T4 (FREE THYROXINE) 0.86 ng/dL (0.78-2.19)
[2017-10-08] MEDS ORDERED: NOREPINEPHRINE BITARTRATE INJ/PF 4 MG/4 ML SDV IV ONE (09:18)
[2017-10-08 09:23] LABS: THYROID STIMULATING HORMONE 7.91 uIU/mL (0.47-4.68)
[2017-10-08] MEDS ORDERED: DEXTROSE 5%-WATER 250 ML with NOREPINEPHRINE BITARTRATE 4 MG IV PRN ×2 (09:24)
[2017-10-08] MEDS ORDERED: VANCOMYCIN HCL 2,000 MG in NORMAL SALINE 500 ML IV ONE (09:30)
[2017-10-08] MEDS ORDERED: PHENYLEPHRINE HCL INJ/PF 10 MG/1 ML SDV ONE (09:48)
--- NOTE | 2017-10-08 09:48 | PDOC TRANSFER SUMMARY ---
General Admission Date/PCP: 10/07/17 11:20 Transfer Date: 10/08/17 Accepting Facility: [facility] Accepting Physician: Dr Handley Resuscitation Status: Full Code - Transfer Diagnosis (1) ARF (acute renal failure) Is this a current diagnosis for this admission?: Yes (2) Atrial fibrillation Is this a current diagnosis for this admission?: Yes (3) Hilda infection of genital region Is this a current diagnosis for this admission?: Yes (4) CHF exacerbation Is this a current diagnosis for this admission?: Yes (5) Elevated LFTs Is this a current diagnosis for this admission?: Yes (6) Morbid obesity with BMI of 40.0-44.9, adult Is this a current diagnosis for this admission?: Yes (7) Obstructive sleep apnea Is this a current diagnosis for this admission?: Yes (8) Thrombocytopenia Is this a current diagnosis for this admission?: Yes (9) Septic shock Is this a current diagnosis for this admission?: Yes (10) Cardiogenic shock Is this a current diagnosis for this admission?: Yes (11) Acute pulmonary embolism Is this a current diagnosis for this admission?: Yes - Transfer Medications Home Medications: Aspirin [Aspirin 325 mg Tablet] 325 mg PO DAILY 10/07/17 Folic Acid 0.4 mg PO DAILY 10/07/17 Metoprolol Succinate [Toprol Xl 25 mg Tab.sr] 25 mg PO Q12 10/07/17 Torsemide [Demadex 20 mg Tablet] 20 mg PO DAILY 10/07/17 Transfer Medications: Current Medications Acetaminophen (Tylenol 325 Mg Tablet) 325 mg NG Q4HP PRN PRN Reason: PAIN OR FEVER Stop: 11/07/17 05:53 Al Hydrox/Mg Hydrox/Simethicone (Maalox Plus Susp 30 Udcup) 15 ml NG Q6HP PRN PRN Reason: INDIGESTION/GAS/UPSET STOMACH Stop: 11/07/17 05:55 Dextrose (Dextrose Inj 50% Syringe (25 Gm/50 Ml)) 12.5 gm IV PRN PRN; Protocol PRN Reason: FOR BG 50-69 IN ALERT PATIENT Stop: 11/06/17 11:19 Dextrose (Dextrose Inj 50% Syringe (25 Gm/50 Ml)) 25 gm IV PRN PRN PRN Reason: Protocol Stop: 11/06/17 11:19 Diltiazem HCl (Cardizem 30 Mg Tablet) 30 mg NG Q6 [facility] Stop: 11/07/17 05:59 Last Admin: 10/08/17 06:38 Dose: Not Given Docusate Sodium (Colace 100 Mg Capsule) 100 mg PO DAILY [facility] Stop: 11/07/17 09:59 Famotidine (Pepcid 20 Mg Tablet) 20 mg NG Q12 [facility] Stop: 11/07/17 09:59 Fentanyl Citrate (Sublimaze Inj/Pf 100 Mcg/2 Ml Ampule) 100 mcg IV Q4HP PRN Stop: 10/15/17 05:32 Last Admin: 10/08/17 06:37 Dose: 100 mcg Folic Acid (Folvite 1 Mg Tablet) 1 mg NG DAILY [facility] Stop: 11/07/17 09:59 Furosemide (Lasix Inj/Pf 20 Mg/2 Ml Sdv) 20 mg IV Q12 [facility] Stop: 11/07/17 09:59 Glucagon (Glucagen Inj 1 Mg Vial) 1 mg IM PRN PRN; Protocol PRN Reason: Evaluate for BG < 70 Stop: 11/06/17 11:19 Glucose (Glutose 40% Gel 15 Gm Tube) 15 gm PO PRN PRN; Protocol PRN Reason: FOR BG 50-69 IN ALERT PATIENT Stop: 11/06/17 11:19 Glucose (Glutose 40% Gel 15 Gm Tube) 30 gm PO PRN PRN; Protocol PRN Reason: FOR BG < 50 IN ALERT PATIENT Stop: 11/06/17 11:19 Hard Fat/Phenylephrine (Maurizio-Synephrine Inj/Pf 10 Mg/1 Ml Sdv) 40 mg IV ASDIR PRN Stop: 10/08/17 10:00 Vasopressin 100 unit/ Dextrose 250 mls @ 0 mls/hr IV CONTINUOUS PRN; Protocol; Titrate PRN Reason: THIS MED IS NOT "PRN" Stop: 11/06/17 22:05 Hard Fat/Phenylephrine 40 mg/ (Dextrose) 250 mls @ 0 mls/hr IV CONTINUOUS PRN; Protocol; Titrate PRN Reason: THIS MED IS NOT "PRN" Stop: 11/07/17 01:33 Last Admin: 10/08/17 06:26 Dose: 40 mg Thiamine HCl 500 mg/ Sodium (Chloride) 255 mls @ 510 mls/hr IV DAILY [facility] Stop: 11/07/17 04:14 Propofol (Diprivan Rtu 1000 Mg/100 Ml Inf.Bottle) 100 mls @ 0 mls/hr IV CONTINUOUS PRN; Protocol; Titrate PRN Reason: THIS MED IS NOT "PRN" Stop: 11/07/17 05:32 Cefepime HCl (Maxipime Rtu 1 Gm/D5w 50 Ml Premix Bag) 1 gm in 50 mls @ 100 mls/ hr IV Q12 [facility] Stop: 10/15/17 21:59 Lorazepam (Ativan Iv Infusion 24 Mg/240 Ml Bag) 24 mg in 240 mls @ 0 mls/hr IV CONTINUOUS PRN; Protocol; Titrate PRN Reason: THIS MED IS NOT "PRN" Stop: 10/15/17 06:49 Albumin Human (Albuminar-25 Rtu Inj 12.5 Gm/50 Ml Premix) 50 mls @ 50 mls/hr IV Q1H [facility] Stop: 10/08/17 11:59 Fluconazole/Sodium Chloride (Diflucan Rtu 200 Mg/Ns 100 Ml Premix) 100 mls @ 100 mls/hr IV Q2DAYS [facility] Stop: 10/15/17 09:59 Vancomycin HCl 2,000 mg/ (Sodium Chloride) 500 mls @ 250 mls/hr IV NOW ONE Stop: 10/08/17 11:29 Vancomycin HCl 1,250 mg/ (Dextrose) 250 mls @ 166.667 mls/hr IV Q12 [facility] Stop: 10/15/17 21:59 Norepinephrine Bitartrate 4 mg (/ Dextrose) 250 mls @ 0 mls/hr IV CONTINUOUS PRN; Protocol; Titrate PRN Reason: THIS MED IS NOT "PRN" Stop: 11/07/17 09:23 Insulin Human Lispro (Humalog Insulin 100 Unit/1 Ml 3 Ml Vial) 0 - 12 unit SUBCUT ACHSP PRN PRN Reason: Protocol Stop: 11/06/17 11:19 Lorazepam (Ativan Inj 2 Mg/1 Ml Vial) 1 mg IV Q8HP PRN PRN Reason: ANXIETY Stop: 10/14/17 11:18 Magnesium Hydroxide (Milk Of Magnesia 30 Ml Udcup) 30 ml NG HSP PRN PRN Reason: CONSTIPATION Stop: 11/07/17 05:56 Midodrine (Proamatine 5 Mg Tablet) 2.5 mg NG TID [facility]EDITH Stop: 11/07/17 09:59 Nystatin (Mycostatin Topical Powder 15 Gm) 1 applic TP BID [facility] Stop: 10/14/17 17:59 Last Admin: 10/07/17 18:34 Dose: 1 applic Ondansetron HCl (Zofran Inj/Pf 4 Mg/2 Ml Sdv) 4 mg IV Q8HP PRN PRN Reason: FOR NAUSEA/VOMITING Stop: 11/06/17 11:07 Pharmacy Profile Note (Medication Communication Order) 1 each [facility] .NOTICE NR Stop: 11/07/17 05:44 Thiamine HCl (Thiamine Hcl Inj 200 Mg/2 Ml Vial) 500 mg IV ASDIR PRN Stop: 10/08/17 10:00 Thiamine HCl (Thiamine 100 Mg Tablet) 100 mg NG DAILY [facility] Stop: 11/07/17 09:59 Vasopressin (Vasopressin Inj 20 Unit/1 Ml Vial) 100 unit IV ASDIR PRN Stop: 10/08/17 10:00 Last Admin: 10/08/17 00:54 Dose: 100 unit - Allergies Allergies/Adverse Reactions: No Known Allergies Allergy (Verified 03/21/17 19:14) Hospital Course Hospital Course: 1 septic shock Patient is likely in septic shock Source of sepsis urinary tract infection, cellulitis Abdominal sources have not been ruled out as CT could not be performed patient has a scrotum that is extremely swollen, looks a little purplish in color Necrotizing fasciitis should be ruled out We will add clindamycin to cefepime and vancomycin Continue pressors 2 acute renal failure secondary to above Continue albumin infusion; Lasix if blood pressure permits 3 Acute on chronic respiratory failure Secondary to septic shock; obstructive sleep apnea, morbid obesity Continue mechanical ventilation 4 chronic liver disease Secondary to chronic EtOH Slightly elevated LFTs; thrombocytopenia Central line was placed by general surgery Arterial line placed 5-pulmonary embolism has not been ruled out DVT studies lower extremities are pending Physical Exam Vital Signs: Temp Pulse Resp BP Pulse Ox 99.2 F 85 14 74/61 L 97 10/08/17 07:39 10/08/17 07:39 10/08/17 07:39 10/08/17 07:39 10/08/17 07:50 Intake & Output 10/07/17 10/08/17 10/09/17 00:59 00:59 00:59 Intake Total 200 1071 Output Total 420 0 Balance -220 1071 Weight 148.6 kg 150.9 kg General appearance: PRESENT: morbidly obese, other - Sedated appears in no severe respiratory distress looking extremely ill Head exam: PRESENT: atraumatic, normocephalic Eye exam: PRESENT: conjunctiva pink, EOMI, PERRLA. ABSENT: scleral icterus Ear exam: PRESENT: normal external ear exam Mouth exam: PRESENT: moist, tongue midline Neck exam: ABSENT: carotid bruit, JVD, lymphadenopathy, thyromegaly Respiratory exam: PRESENT: decreased breath sounds. ABSENT: rales, rhonchi, wheezes Cardiovascular exam: PRESENT: irregular rhythm. ABSENT: diastolic murmur, rubs Pulses: PRESENT: other - Decreased pulses bilaterally because of edema Vascular exam: PRESENT: other - Decreased capillary refill GI/Abdominal exam: PRESENT: distended, firm, normal bowel sounds, other - Abdomen appears firm it is difficult to evaluate because it is extremely obese Rectal exam: PRESENT: deferred Gentrourinary exam: PRESENT: other - Extreme swelling of the testes with edema ; the skin of the genitals appears slightly purple Extremities exam: PRESENT: pedal edema, +2 edema, other - 3+ edema bilaterally skin is firm tight Brownish discoloration of the shins suggestive of stasis dermatitis Redness and warmth of the thighs Inguinal areas are red draining moist bilaterally Suprapubic area also is red and warm Neurological exam: PRESENT: other - Patient is sedated cannot assess neurological status Psychiatric exam: PRESENT: other - Cannot assess Skin exam: PRESENT: intact, other - See lower extremities. ABSENT: rash Results Laboratory Results: 10/08/17 08:15 10/08/17 08:15 10/07/17 10/07/17 10/08/17 20:23 23:45 04:00 WBC RBC Hgb Hct MCV MCH MCHC RDW Plt Count Seg Neutrophils % Lymphocytes % Monocytes % Eosinophils % Basophils % Absolute Neutrophils Absolute Lymphocytes Absolute Monocytes Absolute Eosinophils Absolute Basophils Carbonic Acid 1.72 H 1.76 H HCO3/H2CO3 Ratio 17:1 15:1 ABG pH 7.33 L 7.29 L ABG pCO2 57.1 H 58.5 H ABG pO2 67.3 L 200.9 H ABG HCO3 29.7 H 27.5 H ABG O2 Saturation 91.8 L 99.2 H ABG Base Excess 2.7 -0.1 FiO2 60% 100% Sodium 140.5 Potassium 4.0 Chloride 103 Carbon Dioxide 32 H Anion Gap 6 BUN 24 H Creatinine 1.61 H Est GFR ( Amer) 53 L Est GFR (Non-Af Amer) 44 L Glucose 87 Calcium 8.0 L Phosphorus Magnesium Total Bilirubin AST ALT Alkaline Phosphatase Total Protein Albumin Triglycerides Cholesterol LDL Cholesterol Direct VLDL Cholesterol HDL Cholesterol TSH Free T4 Free T3 pg/mL 10/08/17 10/08/17 10/08/17 07:35 08:15 08:15 WBC Cancelled RBC Cancelled Hgb Cancelled Hct Cancelled MCV Cancelled MCH Cancelled MCHC Cancelled RDW Cancelled Plt Count Cancelled Seg Neutrophils % Lymphocytes % Monocytes % Eosinophils % Basophils % Absolute Neutrophils Absolute Lymphocytes Absolute Monocytes Absolute Eosinophils Absolute Basophils Carbonic Acid Cancelled HCO3/H2CO3 Ratio Cancelled ABG pH Cancelled ABG pCO2 Cancelled ABG pO2 Cancelled ABG HCO3 Cancelled ABG O2 Saturation Cancelled ABG Base Excess Cancelled FiO2 Cancelled Sodium 144.4 Potassium 4.0 Chloride 105 Carbon Dioxide 29 Anion Gap 10 BUN 24 H Creatinine 2.03 H Est GFR ( Amer) 41 L Est GFR (Non-Af Amer) 34 L Glucose 107 Calcium 8.0 L Phosphorus 4.5 Magnesium 1.5 L Total Bilirubin 3.3 H AST 37 ALT 24 Alkaline Phosphatase 78 Total Protein 5.0 L Albumin 2.6 L Triglycerides 114 Cholesterol 66.57 LDL Cholesterol Direct < 30 VLDL Cholesterol 23.0 HDL Cholesterol 44 TSH Free T4 Free T3 pg/mL 10/08/17 10/08/17 08:15 08:15 WBC Cancelled RBC Cancelled Hgb Cancelled Hct Cancelled MCV Cancelled MCH Cancelled MCHC Cancelled RDW Cancelled Plt Count Cancelled Seg Neutrophils % Cancelled Lymphocytes % Cancelled Monocytes % Cancelled Eosinophils % Cancelled Basophils % Cancelled Absolute Neutrophils Cancelled Absolute Lymphocytes Cancelled Absolute Monocytes Cancelled Absolute Eosinophils Cancelled Absolute Basophils Cancelled Carbonic Acid HCO3/H2CO3 Ratio ABG pH ABG pCO2 ABG pO2 ABG HCO3 ABG O2 Saturation ABG Base Excess FiO2 Sodium Potassium Chloride Carbon Dioxide Anion Gap BUN Creatinine Est GFR ( Amer) Est GFR (Non-Af Amer) Glucose Calcium Phosphorus Magnesium Total Bilirubin AST ALT Alkaline Phosphatase Total Protein Albumin Triglycerides Cholesterol LDL Cholesterol Direct VLDL Cholesterol HDL Cholesterol TSH 7.91 H Free T4 0.86 Free T3 pg/mL 2.04 L 10/07/17 10/07/17 10/08/17 12:00 18:10 00:57 Troponin I < 0.012 0.017 Cancelled NT-Pro-B Natriuret Pep 10/08/17 10/08/17 01:41 08:15 Troponin I 0.030 NT-Pro-B Natriuret Pep 27904 H Impressions: Chest X-Ray 10/08/17 00:00 IMPRESSION: Interval worsening includes moderate opacity-effusion of the left lower hemithorax. Lines and tubes. 2010 [employer]- All Rights Reserved Plan Discharge Plan: Transfer to a tertiary center for further evaluation and care Time Spent: Greater than 30 Minutes
[2017-10-08] MEDS ORDERED: FOLIC ACID 1 MG TABLET PO SCH (10:00)
[2017-10-08] MEDS ORDERED: MIDODRINE HCL 5 MG TABLET NG SCH (10:00)
[2017-10-08] MEDS ORDERED: THIAMINE HCL 100 MG TABLET PO SCH (10:00)
[2017-10-08] MEDS ORDERED: DOCUSATE SODIUM 100 MG CAPSULE PO SCH (10:00)
[2017-10-08] MEDS ORDERED: MIDODRINE HCL 5 MG TABLET PO SCH (10:00)
[2017-10-08] MEDS ORDERED: FAMOTIDINE 20 MG TABLET NG SCH (10:00)
[2017-10-08] MEDS ORDERED: FOLIC ACID 1 MG TABLET NG SCH (10:00)
[2017-10-08] MEDS ORDERED: THIAMINE HCL 100 MG TABLET NG SCH (10:00)
[2017-10-08] MEDS ORDERED: THIAMINE HCL 500 MG in NORMAL SALINE 250 ML IV SCH (10:00)
[2017-10-08] MEDS ORDERED: FLUCONAZOLE 200 MG/NS RTU 100 ML IV SCH (10:00)
[2017-10-08] MEDS ORDERED: FUROSEMIDE INJ/PF 20 MG/2 ML SDV IV SCH (10:00)
--- NOTE | 2017-10-08 10:13 | OPERATIVE REPORT E ---
Operative Report NAME: NOEMÍ LAMAR : 1960 AGE: 57Y DATE OF SURGERY: 10/08/2016 ROOM: 609 PREOPERATIVE DIAGNOSIS: Poor veins for IV access and with septic shock and needed IV pressors. POSTOPERATIVE DIAGNOSIS: Poor veins for IV access and with septic shock and needed IV pressors. OPERATION: Placement of a right subclavian vein, triple lumen catheter. SURGEON: ALVARO LANGLEY M.D. ANESTHESIA: Local and sedation. INDICATION: This is a 57-year-old male with history of renal failure, hypotension, sepsis needed IV access. DESCRIPTION OF PROCEDURE: Patient has been intubated and given an extra dose of sedation. The right chest was then prepped and draped in the usual sterile fashion. Patient was in Trendelenburg position. The neck area has a lot of redness and therefore not an appropriate site for central line placement. The right infraclavicular area was then anesthetized with 1% Xylocaine. The right subclavian vein punctured and guidewire passed through the needle into the right superior vena cava. The puncture site was then enlarged and a triple lumen catheter inserted up to a distance of 17 cm. It was then anchored to the skin with 3-0 silk. All the 3 ports has easy egress of blood and easy ingress of saline. The catheter was then anchored to the skin with 3-0 silk and a Biopatch at the insertion site. Transparent sterile dressing was placed over the Biopatch and catheter. Chest x-ray will be obtained for placement. Patient tolerated the procedure well. DICTATING PHYSICIAN: ALVARO LANGLEY M.D. [id number] PHY#: [id number] ID: [id number] JOB#: [id number] ACCT: [id number] cc:ALVARO LANGLEY M.D. >
[2017-10-08] MEDS: ALBUMIN HUMAN 50 ML IV SCH ×2 (10:34→11:58)
[2017-10-08] MEDS ORDERED: CLINDAMYCIN 900 MG/D5W RTU 50 ML IV ONE (11:00)
--- NOTE | 2017-10-08 11:33 | RADIOLOGY REPORT (SQ) ---
EXAM DESCRIPTION: KUB/ABDOMEN (SINGLE VIEW) COMPLETED DATE/TIME: 10/08/2017 9:06 am REASON FOR STUDY: septic shock COMPARISON: None. NUMBER OF VIEWS: One view. TECHNIQUE: Supine radiographic image of the abdomen acquired. LIMITATIONS: Study is limited due to the patient's condition and portable technique. FINDINGS: BOWEL GAS PATTERN: Normal bowel gas pattern. No dilated loops. CALCIFICATIONS: No suspicious calcifications. SOFT TISSUES: No gross mass or suggestion of organomegaly. HARDWARE: NG tube is seen with its tip in the left upper quadrant presumably in the stomach. BONES: No acute fracture. No worrisome bone lesions. OTHER: Consolidative process is again identified in the left lung base with some loss of definition o f the left hemidiaphragm. IMPRESSION: NO RADIOGRAPHIC EVIDENCE FOR ACUTE ABDOMINAL DISEASE. TECHNICAL DOCUMENTATION: JOB ID: [id number] [employer]- All Rights Reserved
[2017-10-08 11:34] LABS: HEMOGLOBIN 11.3 g/dL (13.5-17.0); MEAN CORPUSCULAR HEMOGLOBIN 32.4 pg (27.0-33.4); MEAN CORPUSCULAR HGB CONC 31.2 g/dL (32.0-36.0); MEAN CORPUSCULAR VOLUME 104 fl (80-97); RED BLOOD COUNT 3.48 10^6/uL (4.35-5.55); RED CELL DISTRIBUTION WIDTH 18.7 % (11.5-14.0)
--- NOTE | 2017-10-08 11:54 | RADIOLOGY REPORT (SQ) ---
EXAM DESCRIPTION: VENOUS BILATERAL LOWER COMPLETED DATE/TIME: 10/08/2017 11:44 am REASON FOR STUDY: swelling edema COMPARISON: Chest film 10/08/2017 TECHNIQUE: Dynamic and static jordan scale and color images acquired of both lower extremity venous sy stems. Selected spectral images acquired with additional compression and augmentation maneuvers. Imag es stored on PACS. LIMITATIONS: Body habitus, extensive bilateral lower extremity edema FINDINGS: RIGHT LEG COMMON FEMORAL AND FEMORAL: Distal superficial femoral vein not well seen. Pulsatile flow. Normal compression and augmentation. No visualized echogenic material on jordan scale. No defects on color jacqueline ges. POPLITEAL: Normal compression and augmentation. No visualized echogenic material on jordan scale. No de fects on color images. CALF VESSELS: Peroneal veins not well seen. Posterior tibial and anterior tibial veins demonstrate n ormal compression and augmentation. No visualized echogenic material on jordan scale. No defects on col or image. GSV AND SSV: Normal compression. No visualized echogenic material on jordan scale. No defects on color images. ANY DEEP VENOUS INSUFFICIENCY: Not evaluated. ANY EVIDENCE OF POPLITEAL CYST: No. OTHER: No other significant finding. LEFT LEG COMMON FEMORAL AND FEMORAL: Normal compression and augmentation. No visualized echogenic material on jordan scale. No defects on color images. POPLITEAL: Normal compression and augmentation. No visualized echogenic material on jordan scale. No de fects on color images. CALF VESSELS: Peroneal veins not well seen. Posterior tibial and anterior tibial veins demonstrate n ormal compression and augmentation. No visualized echogenic material on jordan scale. No defects on col or images. GSV AND SSV: Normal compression. No visualized echogenic material on jordan scale. No defects on color images. ANY DEEP VENOUS INSUFFICIENCY: Not evaluated. ANY EVIDENCE POPLITEAL CYST: No. OTHER: No other significant finding. IMPRESSION: NO EVIDENCE DVT OR SVT IN EITHER LEG. TECHNICAL DOCUMENTATION: JOB ID: [id number] [employer]- All Rights Reserved
[2017-10-08] MEDS: NYSTATIN TOPICAL POWDER 15 GM TP SCH (11:59)
--- NOTE | 2017-10-08 12:14 | RADIOLOGY REPORT (SQ) ---
EXAM DESCRIPTION: CHEST SINGLE VIEW COMPLETED DATE/TIME: 10/08/2017 11:04 am REASON FOR STUDY: CENTRAL LINE PLACEMENT COMPARISON: 10/08/2017 EXAM PARAMETERS: NUMBER OF VIEWS: One view. TECHNIQUE: Single frontal radiographic view of the chest acquired. RADIATION DOSE: NA LIMITATIONS: None. FINDINGS: LUNGS AND PLEURA: Bilateral airspace densities are again identified. I cannot exclude sma ll associated pleural effusions. No pneumothorax is seen. MEDIASTINUM AND HILAR STRUCTURES: No masses. Contour normal. HEART AND VASCULAR STRUCTURES: Cardiac silhouette remains enlarged and is unchanged in configuration. BONES: No acute findings. HARDWARE: Central line is identified with its tip at the level of the superior vena cava. Endotrache al tube is again identified with its tip the level of the thoracic inlet. NG tube is seen in course to the abdomen. OTHER: No other significant finding. IMPRESSION: Central line with its tip at the level of the superior vena cava. No other significant interval change. Other findings as noted above TECHNICAL DOCUMENTATION: JOB ID: [id number] [employer]- All Rights Reserved
[2017-10-08 12:17] LABS: ABSOLUTE LYMPHOCYTES# (MANUAL) 0.6 10^3/uL (0.5-4.7); ABSOLUTE MONOCYTES # (MANUAL) 0.2 10^3/uL (0.1-1.4); ABSOLUTE NEUTROPHILS# (MANUAL) 20.3 10^3/uL (1.7-8.2); BASOPHILS % (MANUAL) 0 % (0-2); EOSINOPHILS % (MANUAL) 0 % (0-6); LYMPHOCYTES % (MANUAL) 3 % (13-45); METAMYELOCYTES % (MANUAL) 2 % (0); MONOCYTES % (MANUAL) 1 % (3-13); NUCLEATED RED BLOOD CELLS 1 /100 WBC (0); SEGMENTED NEUTROPHILS % (MAN) 75 % (42-78); TOTAL CELLS COUNTED 100
[2017-10-08 12:21] LABS: ANISOCYTOSIS 2+; BAND NEUTROPHILS % (MANUAL) 19 % (3-5); OVALOCYTES SLIGHT; PLATELET COMMENT DECREASED; POIKILOCYTOSIS SLIGHT; POLYCHROMASIA SLIGHT; STOMATOCYTES SLIGHT; TOXIC GRANULATION SLIGHT; WHITE BLOOD COUNT 21.1 10^3/uL (4.0-10.5)
[2017-10-08 12:22] LABS: PLATELET COUNT 53 10^3/uL (150-450)
[2017-10-08 13:26] VITALS: BP 103/72
--- NOTE | 2017-10-08 14:00 | PDOC PROGRESS REPORT ---
Subjective Progress Note for:: 10/08/17 Subjective:: Patient became critically ill last night. I was called about low blood pressure by the hospitalist last night. Discussed management plans with him last night. This included starting vasopressors starting with vasopressin and then going to Maurizio-Synephrine/levo fed if needed. For rate control, digoxin was advised. This morning when seen patient was already on all 3 at very high doses. Patient was noted to be in possibly septic shock. This was discussed with hospitalist who has already arranged for transfer to tertiary care. Reason For Visit: COR PULMONALE Physical Exam Vital Signs: Temp Pulse Resp BP Pulse Ox 100.7 F H 96 16 103/72 98 10/08/17 10:00 10/08/17 10:15 10/08/17 12:26 10/08/17 12:26 10/08/17 12:26 Intake & Output 10/07/17 10/08/17 10/09/17 06:59 06:59 06:59 Intake Total 1271 Output Total 420 5 Balance 851 -5 Weight 150.9 kg 150.9 kg Exam: GENERAL: well-nourished and in no acute distress. Patient is intubated and sedated. Orientation cannot be checked HEAD: Atraumatic, normocephalic. EYES: Pupils equal round and reactive to light, extraocular movements could not be checked, sclera anicteric, conjunctiva are normal. ENT: TMs normal, nares patent, oropharynx clear without exudates. Moist mucous membranes. No oral ulcerations or bleeding gums noted NECK: supple without lymphadenopathy or JVD. Trachea is central. No cervical or axillary lymphadenopathy noted. Carotids are 2+ LUNGS: Breath sounds mostly clear to auscultation patient is noted to have bibasal crackles at the extreme bases CHEST: Palpation of the chest wall shows no significant chest wall tenderness or abnormalities. HEART: [place] MORNING SHOW HOST, No PSH, 2/6 PADMINI aortic area, 1/6 hull systolic murmur mitral area , no rubs or gallops. ABDOMEN: Soft, no significant tenderness appreciated, normoactive bowel sounds. No guarding, no rebound. No rigidity noted . No masses appreciated. EXTREMITIES: Pedal pulses are 1-2+, no calf tenderness noted, 3+ generalized pedal edema noted. No clubbing or cyanosis. Patient also noted to have significant scrotal edema with some purplish discoloration. NEUROLOGICAL: The patient cannot participate in the neurological exam but no facial asymmetry noted. Extremities slightly hypotonic PSYCH: This cannot be evaluated. Patient cannot participate. SKIN: Multiple areas of superficial ulcerations noted especially in creases. MUSCULOSKELETAL EXAM: No significant joint swelling noted. Patient cannot participate in musculoskeletal exam Results Laboratory Results: 10/08/17 11:00 10/08/17 08:15 10/07/17 10/07/17 10/08/17 20:23 23:45 04:00 WBC RBC Hgb Hct MCV MCH MCHC RDW Plt Count Seg Neutrophils % Lymphocytes % Monocytes % Eosinophils % Basophils % Absolute Neutrophils Absolute Lymphocytes Absolute Monocytes Absolute Eosinophils Absolute Basophils Carbonic Acid 1.72 H 1.76 H HCO3/H2CO3 Ratio 17:1 15:1 ABG pH 7.33 L 7.29 L ABG pCO2 57.1 H 58.5 H ABG pO2 67.3 L 200.9 H ABG HCO3 29.7 H 27.5 H ABG O2 Saturation 91.8 L 99.2 H ABG Base Excess 2.7 -0.1 FiO2 60% 100% Sodium 140.5 Potassium 4.0 Chloride 103 Carbon Dioxide 32 H Anion Gap 6 BUN 24 H Creatinine 1.61 H Est GFR ( Amer) 53 L Est GFR (Non-Af Amer) 44 L Glucose 87 Lactic Acid Calcium 8.0 L Phosphorus Magnesium Total Bilirubin AST ALT Alkaline Phosphatase Total Protein Albumin Triglycerides Cholesterol LDL Cholesterol Direct VLDL Cholesterol HDL Cholesterol TSH Free T4 Free T3 pg/mL 10/08/17 10/08/17 10/08/17 07:35 08:15 08:15 WBC Cancelled RBC Cancelled Hgb Cancelled Hct Cancelled MCV Cancelled MCH Cancelled MCHC Cancelled RDW Cancelled Plt Count Cancelled Seg Neutrophils % Lymphocytes % Monocytes % Eosinophils % Basophils % Absolute Neutrophils Absolute Lymphocytes Absolute Monocytes Absolute Eosinophils Absolute Basophils Carbonic Acid Cancelled HCO3/H2CO3 Ratio Cancelled ABG pH Cancelled ABG pCO2 Cancelled ABG pO2 Cancelled ABG HCO3 Cancelled ABG O2 Saturation Cancelled ABG Base Excess Cancelled FiO2 Cancelled Sodium 144.4 Potassium 4.0 Chloride 105 Carbon Dioxide 29 Anion Gap 10 BUN 24 H Creatinine 2.03 H Est GFR ( Amer) 41 L Est GFR (Non-Af Amer) 34 L Glucose 107 Lactic Acid Calcium 8.0 L Phosphorus 4.5 Magnesium 1.5 L Total Bilirubin 3.3 H AST 37 ALT 24 Alkaline Phosphatase 78 Total Protein 5.0 L Albumin 2.6 L Triglycerides 114 Cholesterol 66.57 LDL Cholesterol Direct < 30 VLDL Cholesterol 23.0 HDL Cholesterol 44 TSH Free T4 Free T3 pg/mL 10/08/17 10/08/17 10/08/17 08:15 08:15 10:15 WBC Cancelled RBC Cancelled Hgb Cancelled Hct Cancelled MCV Cancelled MCH Cancelled MCHC Cancelled RDW Cancelled Plt Count Cancelled Seg Neutrophils % Cancelled Lymphocytes % Cancelled Monocytes % Cancelled Eosinophils % Cancelled Basophils % Cancelled Absolute Neutrophils Cancelled Absolute Lymphocytes Cancelled Absolute Monocytes Cancelled Absolute Eosinophils Cancelled Absolute Basophils Cancelled Carbonic Acid Cancelled HCO3/H2CO3 Ratio Cancelled ABG pH Cancelled ABG pCO2 Cancelled ABG pO2 Cancelled ABG HCO3 Cancelled ABG O2 Saturation Cancelled ABG Base Excess Cancelled FiO2 Cancelled Sodium Potassium Chloride Carbon Dioxide Anion Gap BUN Creatinine Est GFR ( Amer) Est GFR (Non-Af Amer) Glucose Lactic Acid Calcium Phosphorus Magnesium Total Bilirubin AST ALT Alkaline Phosphatase Total Protein Albumin Triglycerides Cholesterol LDL Cholesterol Direct VLDL Cholesterol HDL Cholesterol TSH 7.91 H Free T4 0.86 Free T3 pg/mL 2.04 L 10/08/17 10/08/17 11:00 11:00 WBC 21.1 H D RBC 3.48 L Hgb 11.3 L Hct 36.0 L MCV 104 H MCH 32.4 MCHC 31.2 L RDW 18.7 H Plt Count 53 L Seg Neutrophils % Not Reportable Lymphocytes % Not Reportable Monocytes % Not Reportable Eosinophils % Not Reportable Basophils % Not Reportable Absolute Neutrophils Not Reportable Absolute Lymphocytes Not Reportable Absolute Monocytes Not Reportable Absolute Eosinophils Not Reportable Absolute Basophils Not Reportable Carbonic Acid HCO3/H2CO3 Ratio ABG pH ABG pCO2 ABG pO2 ABG HCO3 ABG O2 Saturation ABG Base Excess FiO2 Sodium Potassium Chloride Carbon Dioxide Anion Gap BUN Creatinine Est GFR ( Amer) Est GFR (Non-Af Amer) Glucose Lactic Acid 2.6 H Calcium Phosphorus Magnesium Total Bilirubin AST ALT Alkaline Phosphatase Total Protein Albumin Triglycerides Cholesterol LDL Cholesterol Direct VLDL Cholesterol HDL Cholesterol TSH Free T4 Free T3 pg/mL 10/07/17 10/07/17 10/08/17 12:00 18:10 00:57 Troponin I < 0.012 0.017 Cancelled NT-Pro-B Natriuret Pep 10/08/17 10/08/17 01:41 08:15 Troponin I 0.030 NT-Pro-B Natriuret Pep 95692 H EKG Comments: Telemetry strips shows atrial fibrillation, no sustained ventricular arrhythmias noted. Impressions: Venous Doppler Study 10/08/17 08:26 IMPRESSION: NO EVIDENCE DVT OR SVT IN EITHER LEG. KUB X-Ray 10/08/17 08:28 IMPRESSION: NO RADIOGRAPHIC EVIDENCE FOR ACUTE ABDOMINAL DISEASE. Chest X-Ray 10/08/17 10:49 IMPRESSION: Central line with its tip at the level of the superior vena cava. No other significant interval change. Other findings as noted above Status: Image reviewed by me - Chest x-ray was reviewed and showed cardiomegaly , bilateral pleural effusion and infiltrates. Endotracheal intubation noted. Assessment & Plan - Diagnosis (1) Acute and chronic respiratory failure with hypercapnia Is this a current diagnosis for this admission?: Yes (2) Atrial fibrillation Qualifiers: Atrial fibrillation type: chronic Qualified Code(s): I48.2 - Chronic atrial fibrillation Is this a current diagnosis for this admission?: Yes (3) CHF exacerbation Qualifiers: Congestive heart failure type: unspecified congestive heart failure type Qualified Code(s): I50.9 - Heart failure, unspecified Is this a current diagnosis for this admission?: Yes (4) Obstructive sleep apnea Is this a current diagnosis for this admission?: Yes (5) Morbid obesity with BMI of 40.0-44.9, adult Is this a current diagnosis for this admission?: Yes (6) Essential hypertension Is this a current diagnosis for this admission?: Yes (7) Thrombocytopenia Is this a current diagnosis for this admission?: Yes - Notes Notes: Patient remains critically ill on 3 pressors. Patient did have a 2D echocardiogram which shows relatively well-preserved LVEF but some systolic dysfunction noted of the right ventricle. Feel that patient predominantly most likely has septic shock. Agree with tertiary care transfer which has been already arranged. Patient will need cardiac support, pressure support, dialysis etc. He is noted to have gone into acute renal failure. - Time Time with patient: Greater than 35 minutes - CODE STATUS was discussed, patient remains full code. Surrogate decision-maker unchanged. Multiple medical problems were addressed. More than 50% of the time spent coordinating care, discussing management plans with involved caregivers. Management plans discussed with involved personnels. Medical decision making was of moderate to high complexity, patient's has multiple comorbidities. Medications reviewed and adjusted accordingly: Yes
[2017-10-08] MEDS ORDERED: CEFEPIME 1 GM/D5W RTU 1 GM/50 ML RTUPB IV SCH (22:00)
[2017-10-08] MEDS ORDERED: VANCOMYCIN HCL 1,250 MG in DEXTROSE 5%-WATER 250 ML IV SCH (22:00)
--- NOTE | 2017-10-09 12:17 | PDOC CONSULTATION ---
Consultation Consult Date: 10/06/17 Attending physician:: JENAE JAIME History of Present Illness Admission Date/PCP: 10/07/17 11:20 History of Present Illness: NOEMÍ LAMAR is a 57 year old male who presents to the emergency department with a 3 week history of enlarging testicles and increasing shortness of breath. The patient was admitted to [facility] in March 2017. He was admitted for a witnessed seizure. During that hospitalization he was noted to be in atrial fibrillation. Cardiology was consulted and the patient was started on a beta-cedric and warfarin. The patient was started on Keppra for seizure disorder. Patient was also started on diuretic therapy for lower extremity edema. During that hospitalization a ventilation perfusion lung scan was done. This was negative for pulmonary embolus. CT scan of the brain showed no acute pathology. Upon discharge, the patient did not take any of his medications. He stated that he did not have the money to purchase his medications until 3 weeks ago. The fact that his INR is normal indicates that he has not been taking his Coumadin. He notes that he had a myocardial infarction 6 months ago. He told me that he was treated here for this condition but I do not have records that indicate this. When I asked him what other medical problems he had he states that he smokes and drinks heavily. He also told me that he has borderline diabetes but has not been prescribed anything. In terms of his review of systems he states that he came in for increasing swelling of the testicles and pain. He has also been having some weeping from lesions on his groin. His shortness of breath has gotten mildly worse over the last 3 weeks. He reports no chest pain or palpitations. His review of systems is otherwise negative for any infectious etiology. Please see review of systems below. When I saw him patient was very lethargic and was unable or unwilling to continue any conversation. This history was reviewed. Patient was noted to be comfortable by the nurses. Past Medical History Cardiac Medical History: Reports: Hypertension Denies: Atrial Fibrillation, Congestive Heart Failure, DVT, Myocardial Infarction, Hyperlipidema, Pulmonary Embolism Pulmonary Medical History: Denies: Asthma, Chronic Obstructive Pulmonary Disease (COPD), Sleep Apnea Neurological Medical History: Reports: Seizures Endocrine Medical History: Reports: Diabetes Mellitus Type 2 - Possible, per patient; no specific diagnosis of same Denies: Diabetes Mellitus Type 1, Hyperthyroidism, Hypothyroidism GI Medical History: Denies: Cirrhosis, Gastroesophageal Reflux Disease, Hepatitis Musculoskeltal Medical History: Reports: Arthritis Psychiatric Medical History: Denies: Depression Infectious Medical History: Denies: Clostridium Difficile, Methicillin-Resistant Staph Aureus Past Surgical History Past Surgical History: Reports: Tonsillectomy Social History Information Source: [facility] Records Smoking Status: Current Every Day Smoker Frequency of Alcohol Use: Heavy Hx Recreational Drug Use: No Drugs: None Hx Prescription Drug Abuse: No - Advance Directive Resuscitation Status: Full Code Family History Parental Family History Reviewed: No Children Family History Reviewed: No Sibling(s) Family History Reviewed.: No Medication/Allergy Home Medications: Aspirin [Aspirin 325 mg Tablet] 325 mg PO DAILY 10/07/17 Folic Acid 0.4 mg PO DAILY 10/07/17 Metoprolol Succinate [Toprol Xl 25 mg Tab.sr] 25 mg PO Q12 10/07/17 Torsemide [Demadex 20 mg Tablet] 20 mg PO DAILY 10/07/17 Allergies/Adverse Reactions: No Known Allergies Allergy (Verified 03/21/17 19:14) Review of Systems ROS unobtainable: Due to endotracheal tube Physical Exam Vital Signs: Temp Pulse Resp BP Pulse Ox 99.2 F 85 14 74/61 L 97 10/08/17 07:39 10/08/17 07:39 10/08/17 07:39 10/08/17 07:39 10/08/17 07:50 Intake & Output 10/07/17 10/08/17 10/09/17 06:59 06:59 06:59 Intake Total 1271 Output Total 420 Balance 851 Weight 150.9 kg General appearance: PRESENT: no acute distress, disheveled, morbidly obese, well -developed. ABSENT: cooperative, mild distress, obese, severe distress, thin Head exam: PRESENT: atraumatic, normocephalic Eye exam: PRESENT: conjunctiva pale. ABSENT: conjunctival injection, conjunctiva pink, EOMI, nystagmus, periorbital swelling, scleral icterus Mouth exam: PRESENT: dry mucosa, neck supple, tongue midline, other - ET tube. ABSENT: laceration, moist Teeth exam: PRESENT: poor dentation Neck exam: ABSENT: carotid bruit, JVD, lymphadenopathy, thyromegaly, tracheal deviation, tracheostomy Respiratory exam: PRESENT: crackles, decreased breath sounds, prolonged expiratory phas, rhonchi, symmetrical, unlabored, wheezes. ABSENT: accessory muscle use, chest wall tenderness, clear to auscultation leo, rales, retraction , stridor, tachypnea Cardiovascular exam: PRESENT: irregular rhythm Pulses: PRESENT: normal radial pulses GI/Abdominal exam: PRESENT: ascites, normal bowel sounds, soft. ABSENT: distended, guarding, mass, organolmegaly, rebound, tenderness Gentrourinary exam: PRESENT: indwelling catheter Extremities exam: PRESENT: joint swelling, +2 edema. ABSENT: clubbing Musculoskeletal exam: ABSENT: ambulatory, deformity, dislocation Neurological exam: ABSENT: alert, awake Skin exam: PRESENT: dry, warm, other - anasarca bilateralinguinal cellulitis Results Laboratory Results: 10/08/17 08:15 10/08/17 08:15 10/07/17 10/07/17 10/08/17 20:23 23:45 04:00 WBC RBC Hgb Hct MCV MCH MCHC RDW Plt Count Seg Neutrophils % Lymphocytes % Monocytes % Eosinophils % Basophils % Absolute Neutrophils Absolute Lymphocytes Absolute Monocytes Absolute Eosinophils Absolute Basophils Carbonic Acid 1.72 H 1.76 H HCO3/H2CO3 Ratio 17:1 15:1 ABG pH 7.33 L 7.29 L ABG pCO2 57.1 H 58.5 H ABG pO2 67.3 L 200.9 H ABG HCO3 29.7 H 27.5 H ABG O2 Saturation 91.8 L 99.2 H ABG Base Excess 2.7 -0.1 FiO2 60% 100% Sodium 140.5 Potassium 4.0 Chloride 103 Carbon Dioxide 32 H Anion Gap 6 BUN 24 H Creatinine 1.61 H Est GFR ( Amer) 53 L Est GFR (Non-Af Amer) 44 L Glucose 87 Calcium 8.0 L Phosphorus Magnesium Total Bilirubin AST ALT Alkaline Phosphatase Total Protein Albumin Triglycerides Cholesterol LDL Cholesterol Direct VLDL Cholesterol HDL Cholesterol 10/08/17 10/08/17 10/08/17 07:35 08:15 08:15 WBC Cancelled RBC Cancelled Hgb Cancelled Hct Cancelled MCV Cancelled MCH Cancelled MCHC Cancelled RDW Cancelled Plt Count Cancelled Seg Neutrophils % Lymphocytes % Monocytes % Eosinophils % Basophils % Absolute Neutrophils Absolute Lymphocytes Absolute Monocytes Absolute Eosinophils Absolute Basophils Carbonic Acid Cancelled HCO3/H2CO3 Ratio Cancelled ABG pH Cancelled ABG pCO2 Cancelled ABG pO2 Cancelled ABG HCO3 Cancelled ABG O2 Saturation Cancelled ABG Base Excess Cancelled FiO2 Cancelled Sodium 144.4 Potassium 4.0 Chloride 105 Carbon Dioxide 29 Anion Gap 10 BUN 24 H Creatinine 2.03 H Est GFR ( Amer) 41 L Est GFR (Non-Af Amer) 34 L Glucose 107 Calcium 8.0 L Phosphorus 4.5 Magnesium 1.5 L Total Bilirubin 3.3 H AST 37 ALT 24 Alkaline Phosphatase 78 Total Protein 5.0 L Albumin 2.6 L Triglycerides 114 Cholesterol 66.57 LDL Cholesterol Direct < 30 VLDL Cholesterol 23.0 HDL Cholesterol 44 10/08/17 08:15 WBC Cancelled RBC Cancelled Hgb Cancelled Hct Cancelled MCV Cancelled MCH Cancelled MCHC Cancelled RDW Cancelled Plt Count Cancelled Seg Neutrophils % Cancelled Lymphocytes % Cancelled Monocytes % Cancelled Eosinophils % Cancelled Basophils % Cancelled Absolute Neutrophils Cancelled Absolute Lymphocytes Cancelled Absolute Monocytes Cancelled Absolute Eosinophils Cancelled Absolute Basophils Cancelled Carbonic Acid HCO3/H2CO3 Ratio ABG pH ABG pCO2 ABG pO2 ABG HCO3 ABG O2 Saturation ABG Base Excess FiO2 Sodium Potassium Chloride Carbon Dioxide Anion Gap BUN Creatinine Est GFR ( Amer) Est GFR (Non-Af Amer) Glucose Calcium Phosphorus Magnesium Total Bilirubin AST ALT Alkaline Phosphatase Total Protein Albumin Triglycerides Cholesterol LDL Cholesterol Direct VLDL Cholesterol HDL Cholesterol 10/07/17 10/07/17 10/08/17 12:00 18:10 00:57 Troponin I < 0.012 0.017 Cancelled NT-Pro-B Natriuret Pep 10/08/17 10/08/17 01:41 08:15 Troponin I 0.030 NT-Pro-B Natriuret Pep [id number] H Impressions: Chest X-Ray 10/08/17 00:00 IMPRESSION: Interval worsening includes moderate opacity-effusion of the left lower hemithorax. Lines and tubes. 2010 [employer]- All Rights Reserved Assessment & Plan - Diagnosis (1) ARF (acute renal failure) Qualifiers: Acute renal failure type: unspecified Qualified Code(s): N17.9 - Acute kidney failure, unspecified Is this a current diagnosis for this admission?: Yes (2) Acute and chronic respiratory failure with hypercapnia Is this a current diagnosis for this admission?: Yes Plan: ventilalate/oxygenate as necessary (3) Atrial fibrillation Qualifiers: Atrial fibrillation type: chronic Qualified Code(s): I48.2 - Chronic atrial fibrillation Is this a current diagnosis for this admission?: Yes Plan: controlled vent response chronic anti coag (4) Bilateral lower extremity edema Is this a current diagnosis for this admission?: Yes Plan: chronic (5) CHF (congestive heart failure) Qualifiers: Congestive heart failure type: unspecified congestive heart failure type Congestive heart failure chronicity: unspecified congestive heart failure chronicity Qualified Code(s): I50.9 - Heart failure, unspecified Is this a current diagnosis for this admission?: Yes Plan: chronic (6) Hilda infection of genital region Is this a current diagnosis for this admission?: Yes Plan: monistat derm to areas (7) Elevated LFTs Is this a current diagnosis for this admission?: Yes (8) Obstructive sleep apnea Is this a current diagnosis for this admission?: Yes (9) Septic shock Is this a current diagnosis for this admission?: Yes Plan: 3 vasopresssor agents (10) Thrombocytopenia Is this a current diagnosis for this admission?: Yes (11) UTI (urinary tract infection) Qualifiers: Urinary tract infection type: site unspecified Hematuria presence: without hematuria Qualified Code(s): N39.0 - Urinary tract infection, site not specified Is this a current diagnosis for this admission?: Yes Plan: gnr (12) Morbid obesity with BMI of 40.0-44.9, adult Is this a current diagnosis for this admission?: Yes (13) Tobacco dependence Is this a current diagnosis for this admission?: Yes Plan: transdermal nicotine - Time Total Critical Time (Minutes): 70
[2017-10-09 13:23] LABS: PATH REVIEW PATHOLOGIST REVIEWED
--- NOTE | 2017-10-10 14:55 | Physician Advisory Note ---
Physician Advisor ProgressNote .: [facility], I have reviewed the medical record for this patient. Physician Advisor Statement: Nice documentation of septic shock, obesity (BMI 50.6), KRISTAN, Acute Hypoxemic & Hypercarbic Resp Failure. Please consider documenting, if you agree: 1. "Acute Right Heart CHF" - or "Acute on Chronic Right heart CHF"?, or ... 2. "Acute hypernatremia, likely due to " 3. "Cor pulmonale" (mentioned in H&P) 4. Supporting evidence for dx of "Chronic Hypoxemic/Hypercarbic Resp Failure", or state that this dx was ruled out. 5. Did pt have "cardiogenic shock" AND "septic shock", or just septic shock? 6. "Alcohol dependence" 7. Likely cause of elevated LFTs - ?due to sepsis? shock? acute CHF? ... Thanks! CK
== END 2017-10-08 12:45 | disposition short-term general hospital (02) | DRG 871 ==
LOC: ER 06:39 → EH 11:20 → 3S 12:19 → ICU 23:03
PROVIDERS: ADMIT Internal Medicine; ATTEND Internal Medicine
PROC: 5A09357 Assistance with Respiratory Ventilation, Less than 24 Consecutive Hours, Continuous Positive Airway Pressure (ICD-10-PCS; 2017-10-07)
PROC: 5A1935Z Respiratory Ventilation, Less than 24 Consecutive Hours (ICD-10-PCS; principal; 2017-10-08)
PROC: 0BH17EZ Insertion of Endotracheal Airway into Trachea, Via Natural or Artificial Opening (ICD-10-PCS; 2017-10-08)
PROC: 02HV33Z Insertion of Infusion Device into Superior Vena Cava, Percutaneous Approach (ICD-10-PCS; 2017-10-08)
DX: A41.9 Sepsis, unspecified organism (principal); R65.21 Severe sepsis with septic shock; J96.22 Acute and chronic respiratory failure with hypercapnia; N17.9 Acute kidney failure, unspecified; N39.0 Urinary tract infection, site not specified; Z68.43 Body mass index [BMI] 50.0-59.9, adult; L03.116 Cellulitis of left lower limb; L03.115 Cellulitis of right lower limb; D69.59 Other secondary thrombocytopenia; K70.9 Alcoholic liver disease, unspecified; I87.2 Venous insufficiency (chronic) (peripheral); I48.2 Chronic atrial fibrillation; F17.200 Nicotine dependence, unspecified, uncomplicated; I50.811 Acute right heart failure; I11.0 Hypertensive heart disease with heart failure; M19.90 Unspecified osteoarthritis, unspecified site; Z79.82 Long term (current) use of aspirin; B37.2 Candidiasis of skin and nail; L98.491 Non-pressure chronic ulcer of skin of other sites limited to breakdown of skin; G47.33 Obstructive sleep apnea (adult) (pediatric); G40.909 Epilepsy, unspecified, not intractable, without status epilepticus; E66.01 Morbid (severe) obesity due to excess calories; F10.20 Alcohol dependence, uncomplicated; E11.9 Type 2 diabetes mellitus without complications; N45.2 Orchitis; Z91.19 Patient's noncompliance with other medical treatment and regimen; Z59.9 Problem related to housing and economic circumstances, unspecified; Z78.1 Physical restraint status
CPT/HCPCS: 31500; 36415; 51702; 71045; 74018; 80048; 80053; 80061; 80076; 80307; 81001; 82550; 82553; 82803; 82962; 83036; 83605; 83735; 83880; 84100; 84439; 84443; 84481; 84484; 85025; 85610; 85730; 87070; 87077; 87086; 87088; 87186; 87205; 93005; 93010; 93306; 93970; 94002; 94660; 96374; 99291; C1751; J0692; J1720; J1940; J2060; J2370; J3010; J3370; J3411; J3475; J3490; J7030; J7040; J7050; J7060; P9047

== ENCOUNTER → 2018-03-10 | Outpatient (CLI) | payer MEDICAID, OTHER ==
[2018-03-10 12:10] LABS: APPEARANCE,URINE CLEAR; BILIRUBIN,URINE NEGATIVE (NEGATIVE); COLOR,URINE YELLOW; GLUCOSE, URINE NEGATIVE (NEGATIVE); KETONES,URINE NEGATIVE (NEGATIVE); LEUKOCYTE ESTERASE,URINE LARGE (NEGATIVE); NITRITE,URINE NEGATIVE (NEGATIVE); PROTEIN,URINE NEGATIVE (NEGATIVE); URINE SPECIFIC GRAVITY 1.009
[2018-03-10 12:33] LABS: ALANINE AMINOTRANSFERASE 24 U/L (21-72); ALBUMIN 3.3 g/dL (3.5-5.0); ALKALINE PHOSPHATASE 114 U/L (38-126); ANION GAP 12 (5-19); ASPARTATE AMINO TRANSFERASE 19 U/L (17-59); BILIRUBIN,DIRECT 0.9 mg/dL (0.0-0.4); BILIRUBIN,TOTAL 1.1 mg/dL (0.2-1.3); BLOOD UREA NITROGEN 24 mg/dL (7-20); CALCIUM 9.2 mg/dL (8.4-10.2); CARBON DIOXIDE 23 mmol/L (22-30); CHLORIDE 105 mmol/L (98-107); CHOLESTEROL 113.67 mg/dL (0-200); GAMMA-GLUTAMYL TRANSFERASE 69 U/L (8-78); GLUCOSE 83 mg/dL (75-110); POTASSIUM 4.4 mmol/L (3.6-5.0); SODIUM 140.3 mmol/L (137-145); TOTAL PROTEIN 5.9 g/dL (6.3-8.2); TRIGLYCERIDES 107 mg/dL (<150)
[2018-03-10 12:44] LABS: DIRECT LDL 40 mg/dL (<100)
== END ==
LOC: CCC 11:02
DX: I25.10 Atherosclerotic heart disease of native coronary artery without angina pectoris (principal); J44.9 Chronic obstructive pulmonary disease, unspecified; K74.60 Unspecified cirrhosis of liver
CPT/HCPCS: 36415; 80053; 80061; 81001; 82977; 84443

== ENCOUNTER 2018-06-12 16:53 | Inpatient (IN) | payer MEDICAID ==
[2018-06-12 17:30] LABS: VENOUS BLOOD BASE EXCESS -3.3 mmol/L; VENOUS BLOOD PH 7.2 (7.30-7.42)
--- NOTE | 2018-06-12 17:33 | ER Document Report ---
ED General - General Chief Complaint: Altered Mental Status Stated Complaint: WEAKNESS Time Seen by Provider: 06/12/18 17:02 Notes: Patient is a 58-year-old male that presents to the emergency department for chief complaint of altered mental status, urinary retention, and generalized weakness. Patient apparently has been rather weak of the last 4 days, not getting up out of bed, usually ambulates with a walker, and the family is been more confused about things, so EMS was called he was brought to the emergency department. Patient is not sure if he had a bowel movement or urinated in 4 days. He states he has had some abdominal discomfort, but does not describe it as pain and at this time the patient is alert and oriented 4, just slow to answer questions. He states that the swelling in his abdomen is chronic, as well as in his legs but the swelling in his abdomen seems to be worse over the last few days. Patient has a multitude of chronic medical conditions including chronic respiratory failure diabetes mellitus, hypertension, obesity, chronic kidney disease. Past Medical History: Hypertension, diabetes mellitus, obesity, chronic kidney disease, hyperlipidemia, chronic respiratory failure, history of PE, CHF Past Surgical History: Not obtainable at this time Social History: Smokes cigarettes daily, occasional alcohol use, denies drug use Family History: Reviewed and noncontributory for presenting illness Allergies: Reviewed, see documented allergy list. REVIEW OF SYSTEMS: Unless otherwise stated in this report the patient's positive and negative responses for review of systems for constitutional, eyes, ENT, cardiovascular, respiratory, gastrointestinal, neurological, genitourinary, musculoskeletal, and integumentary systems and related systems to the presenting problem are either as stated in the HPI or were not pertinent or were negative for the symptoms and/or complaints related to the presenting medical problem. PHYSICAL EXAMINATION: Vital signs reviewed, nursing noted reviewed. GENERAL: Chronically ill-appearing obese male, in no acute distress. HEAD: Atraumatic, normocephalic. EYES: Eyes appear normal, extraocular movements intact, sclera anicteric, conjunctiva are normal. ENT: nares patent, oropharynx clear without exudates. Dry mucous membranes NECK: Normal range of motion, supple without lymphadenopathy LUNGS: Lung sounds diminished bilaterally, crackles noted on the right. HEART: Regular rate and rhythm without murmurs ABDOMEN: Anasarca to the abdomen, and edematous pannus, nontender, normoactive bowel sounds. No rebound, guarding, or rigidity. No masses appreciated. Male exam: Patient has an invaginated penis, unable to retract to see glans. EXTREMITIES: Bilateral chronic stasis changes to the lower extremities, with 3+ pitting edema NEUROLOGICAL: No focal neurological deficits. Moves all extremities spontaneously Motor and sensory grossly intact on exam. Patient alert and oriented 4 on exam, appropriate. PSYCH: Normal mood, normal affect. SKIN: Warm, Dry, normal turgor, no rashes or lesions noted on exposed skin TRAVEL OUTSIDE OF THE [place] IN LAST 30 DAYS: No - Related Data Allergies/Adverse Reactions: No Known Allergies Allergy (Verified 03/21/17 19:14) Past Medical History - Social History Smoking Status: Current Every Day Smoker Chew tobacco use (# tins/day): No Frequency of alcohol use: Rare Drug Abuse: None Family History: Reviewed & Not Pertinent Patient has suicidal ideation: No Patient has homicidal ideation: No - Past Medical History Cardiac Medical History: Reports: Hx Hypertension Denies: Hx Atrial Fibrillation, Hx Congestive Heart Failure, Hx DVT, Hx Heart Attack, Hx Hypercholesterolemia, Hx Pulmonary Embolism Pulmonary Medical History: Denies: Hx Asthma, Hx COPD, Hx Sleep Apnea Neurological Medical History: Reports: Hx Seizures Endocrine Medical History: Reports: Hx Diabetes Mellitus Type 2 - Possible, per patient; no specific diagnosis of same. Denies: Hx Diabetes Mellitus Type 1, Hx Hyperthyroidism, Hx Hypothyroidism Renal/ Medical History: Denies: Hx Peritoneal Dialysis GI Medical History: Denies: Hx Cirrhosis, Hx Gastroesophageal Reflux Disease, Hx Hepatitis Musculoskeletal Medical History: Reports Hx Arthritis Psychiatric Medical History: Denies: Hx Depression Infectious Medical History: Denies: Hx C-Diff, Hx Hepatitis, Hx MRSA Past Surgical History: Reports: Hx Tonsillectomy - Immunizations Hx Diphtheria, Pertussis, Tetanus Vaccination: No Hx Pneumococcal Vaccination: 10/06/00 Physical Exam - Vital signs Vitals: Resp Pulse Ox 17 85 L 06/12/18 17:01 06/12/18 17:01 Course - Re-evaluation Re-evalutation: Patient seen and examined vital signs reviewed. Laboratory data and imaging were ordered as appropriate for the patient's presenting symptoms and complaint, with consideration of any critical or life threatening conditions that may be associated with their obtained history and exam as noted above. Patient was treated with IV fluid bolusing 2 L Results were reviewed when available and demonstrated respiratory acidosis, likely obesity hypoventilation syndrome, his chest x-ray demonstrated large pleural effusion, CT of the chest abdomen and pelvis were obtained demonstrating anasarca, mild ascites, as well as a large effusion on the left. Noted to have ANGEL, on his blood work compared to prior labs. The patient was re-evaluated and was still noted to be hypertensive, but he was alert, answering questions appropriately, I did start him on Rocephin and azithromycin, for presumed pneumonia in the setting of this effusion. Evaluation was most consistent with pneumonia, large pleural effusion, hypotension, and sepsis, his lactic acid was normal, patient will be admitted to the ICU Results were discussed with the patient at this point after careful consideration I feel that that patient should be admitted to the hospital. This was discussed with the patient that it is in the best interest for their care to be admitted for further evaluation and management. Patient agreed with this plan of care. A call was placed to the admitted physician, Dr. Lopez who graciously accepted the patient onto their service. Critical care time 48 minutes exclusive from separate billable procedures for a patient requiring complex medical decision making, and high potential for clinical deterioration. Time spent obtaining history from patient or surrogate, discussions with consultants, development of treatment plan with patient or surrogate, evaluation of patient's response to treatment, examination of patient , ordering and performing treatments and interventions, ordering and review of laboratory studies, re-evaluation of patient's condition, ordering and review of radiographic studies and review of old charts *Note is created using voice recognition software and may contain spelling, syntax or grammatical errors. 06/12/18 22:00 - Vital Signs Vital signs: Temp Pulse Resp BP Pulse Ox 16 81/49 L 95 06/12/18 22:21 06/12/18 21:11 06/12/18 22:21 - Laboratory Result Diagrams: 06/12/18 17:00 06/12/18 17:00 Laboratory results interpreted by me: 06/12/18 06/12/18 06/12/18 17:00 17:00 17:00 RBC 3.05 L Hgb 10.3 L Hct 32.5 L MCV 107 H MCH 33.8 H MCHC 31.7 L RDW 18.0 H PT 15.8 H VBG pH VBG pCO2 BUN 25 H Creatinine 2.28 H Est GFR ( Amer) 36 L Est GFR (Non-Af Amer) 29 L Calcium 8.2 L Total Bilirubin 2.1 H Direct Bilirubin 1.8 H Alkaline Phosphatase 156 H Creatine Kinase NT-Pro-B Natriuret Pep Total Protein 5.7 L Albumin 2.7 L 06/12/18 06/12/18 06/12/18 17:00 17:00 17:00 RBC Hgb Hct MCV MCH MCHC RDW PT VBG pH 7.20 L VBG pCO2 68.7 H* BUN Creatinine Est GFR ( Amer) Est GFR (Non-Af Amer) Calcium Total Bilirubin Direct Bilirubin Alkaline Phosphatase Creatine Kinase < 20 L NT-Pro-B Natriuret Pep 02606 H Total Protein Albumin - EKG Interpretation by Me Additional EKG results interpreted by me: 06/12/18 17:32 EKG demonstrates atrial fibrillation with a ventricular rate of 82 bpm, normal axis, normal intervals, no evidence of acute ischemia on this EKG. Low voltage noted. This is compared with prior EKG without significant change. Critical Care Note - Critical Care Note Total time excluding time spent on procedures (mins): 48 Discharge - Discharge Clinical Impression: Large pleural effusion, Respiratory acidosis, ANGEL (acute kidney injury) Pneumonia Qualifiers: Pneumonia type: due to unspecified organism Laterality: left Lung location: unspecified part of lung Qualified Code(s): J18.9 - Pneumonia, unspecified organism Hypotension Qualifiers: Hypotension type: unspecified hypotension type Qualified Code(s): I95.9 - Hypotension, unspecified Condition: Critical Disposition: ADMITTED INPATIENT Admitting Provider: Hospitalist - Dr. Lopez Unit Admitted: ICU
[2018-06-12 17:37] LABS: VENOUS BLOOD PCO2 68.7 mmHg (35-63)
[2018-06-12 17:40] LABS: ABSOLUTE BASOPHILS # (AUTO) 0.1 10^3/uL (0.0-0.2); ABSOLUTE EOSINOPHILS # (AUTO) 0.2 10^3/uL (0.0-0.6); ABSOLUTE LYMPHOCYTES (AUTO) 1.2 10^3/uL (0.5-4.7); ABSOLUTE MONOCYTES (AUTO) 0.9 10^3/uL (0.1-1.4); ABSOLUTE NEUT (AUTO) 6.3 10^3/uL (1.7-8.2); BASOPHILS % (AUTO) 0.9 % (0-2); EOSINOPHILS % (AUTO) 2.3 % (0-6); HEMATOCRIT 32.5 % (37.9-51.0); HEMOGLOBIN 10.3 g/dL (13.5-17.0); LYMPHOCYTES % (AUTO) 13.8 % (13-45); MEAN CORPUSCULAR HEMOGLOBIN 33.8 pg (27.0-33.4); MEAN CORPUSCULAR HGB CONC 31.7 g/dL (32.0-36.0); MEAN CORPUSCULAR VOLUME 107 fl (80-97); MONOCYTES % (AUTO) 9.9 % (3-13); PLATELET COUNT 179 10^3/uL (150-450); RED BLOOD COUNT 3.05 10^6/uL (4.35-5.55); SEGMENTED NEUTROPHILS % (AUTO) 73.1 % (42-78); TOTAL CELLS COUNTED % (AUTO) 100 %; WHITE BLOOD COUNT 8.6 10^3/uL (4.0-10.5)
[2018-06-12 17:45] LABS: PROTHROMBIN TIME 15.8 SEC (11.4-15.4)
[2018-06-12 17:48] LABS: ALANINE AMINOTRANSFERASE 28 U/L (21-72); ALBUMIN 2.7 g/dL (3.5-5.0); ALKALINE PHOSPHATASE 156 U/L (38-126); ANION GAP 9 (5-19); ASPARTATE AMINO TRANSFERASE 36 U/L (17-59); BILIRUBIN,DIRECT 1.8 mg/dL (0.0-0.4); BILIRUBIN,TOTAL 2.1 mg/dL (0.2-1.3); BLOOD UREA NITROGEN 25 mg/dL (7-20); CALCIUM 8.2 mg/dL (8.4-10.2); CARBON DIOXIDE 22 mmol/L (22-30); CHLORIDE 107 mmol/L (98-107); GLUCOSE 91 mg/dL (75-110); POTASSIUM 4.4 mmol/L (3.6-5.0); SODIUM 138.3 mmol/L (137-145); TOTAL PROTEIN 5.7 g/dL (6.3-8.2)
--- NOTE | 2018-06-12 17:52 | RADIOLOGY REPORT (SQ) ---
EXAM DESCRIPTION: CHEST SINGLE VIEW COMPLETED DATE/TIME: 06/12/2018 5:40 pm REASON FOR STUDY: tachycardia COMPARISON: October 2017 EXAM PARAMETERS: NUMBER OF VIEWS: One view. TECHNIQUE: Single frontal radiographic view of the chest acquired. RADIATION DOSE: NA LIMITATIONS: None. FINDINGS: LUNGS AND PLEURA: There is almost complete opacification of the left hemithorax showing in terval progression as compared to the previous study. The appearance is consistent with atelectasis/ a pneumonic consolidation and I cannot exclude a component of pleural effusion. The possibility of a n underlying mass cannot be excluded. There is some minimal increased density in the right lung base . Right lung is otherwise clear P MEDIASTINUM AND HILAR STRUCTURES: There is some shift of the heart mediastinal structures from right the left HEART AND VASCULAR STRUCTURES: Cardiac silhouette is obscured due to adjacent densities. BONES: No acute findings. HARDWARE: None in the chest. OTHER: No other significant finding. IMPRESSION: There is almost complete opacification of the left hemithorax as noted above. Different ial possibilities are as noted above. Other findings as noted above. Clinical correlation and follo wup is recommended. Chest CT scan may be of value for further evaluation TECHNICAL DOCUMENTATION: JOB ID: [id number] [employer]- All Rights Reserved Reading location - IP/workstation name: [email or web address]
--- NOTE | 2018-06-12 19:18 | EKG REPORT ---
SEVERITY:- ABNORMAL ECG - ATRIAL FIBRILLATION BORDERLINE IVCD WITH LAD LOW VOLTAGE THROUGHOUT CONSIDER INFERIOR INFARCT NONSPECIFIC T ABNORMALITIES, DIFFUSE LEADS : Confirmed by: Villa Bruno MD 12-Jun-2018 19:17:11
--- NOTE | 2018-06-12 19:31 | RADIOLOGY REPORT (SQ) ---
EXAM DESCRIPTION: CT CHEST WITHOUT COMPLETED DATE/TIME: 06/12/2018 7:01 pm REASON FOR STUDY: large effusion on cxr COMPARISON: 06/12/2018 TECHNIQUE: CT scan performed of the chest without intravenous contrast. Images reviewed with lung, soft tissue and bone windows. Reconstructed coronal and sagittal MPR images reviewed. All images st ored on PACS. All CT scanners at this facility use dose modulation, iterative reconstruction, and/or weight based d osing when appropriate to reduce radiation dose to as low as reasonably achievable (ALARA). [facility]: Dose Right [facility]: CareDose [facility]: Dose Right [facility]: Teradose 4D [facility]: Smart [employer] RADIATION DOSE: mGy. LIMITATIONS: No technical limitations. FINDINGS: LUNGS AND PLEURA: Moderate left pleural effusion. Smaller right pleural effusion. Decrea sed volume in the left hemithorax with shift of mediastinum to the left. Subsegmental atelectatic ch anges are suggested in the left lung. HILAR AND MEDIASTINAL STRUCTURES: No identified masses or abnormal nodes. No obvious aneurysm. HEART AND VASCULAR STRUCTURES: Cardiomegaly. No aneurysm. UPPER ABDOMEN: See separate report of the CT of the abdomen. THYROID AND OTHER SOFT TISSUES: Thyroid unremarkable. Subcutaneous edema in the left chest. Possibl e fluid collection. BONES: No significant finding. HARDWARE: None in the chest. OTHER: No other significant findings. IMPRESSION: 1. Decreased volume in the left lung with partial atelectasis in the left lung. Modera te left pleural effusion. Small right pleural effusion. 2. Cardiomegaly. 3. There is subcutaneous edema in the left axilla and chest wall. Cannot exclude a small fluid chio ection within the subcutaneous tissues. TECHNICAL DOCUMENTATION: JOB ID: [id number] Quality ID # [id number]: Final reports with documentation of one or more dose reduction techniques (e.g., Au tomated exposure control, adjustment of the mA and/or kV according to patient size, use of iterative reconstruction technique) 2010 [employer]- All Rights Reserved Reading location - IP/workstation name: [email or web address]
--- NOTE | 2018-06-12 19:37 | RADIOLOGY REPORT (SQ) ---
EXAM DESCRIPTION: CT ABD/PELVIS NO ORAL OR IV COMPLETED DATE/TIME: 06/12/2018 7:01 pm REASON FOR STUDY: ABDOMINAL PAIN, URINARY RETENTION COMPARISON: None. TECHNIQUE: CT scan of the abdomen and pelvis performed without intravenous or oral contrast. Images reviewed with lung, soft tissue, and bone windows. Reconstructed coronal and sagittal MPR images revi ewed. All images stored on PACS. All CT scanners at this facility use dose modulation, iterative reconstruction, and/or weight based d osing when appropriate to reduce radiation dose to as low as reasonably achievable (ALARA). [facility]: Dose Right [facility]: CareDose [facility]: Dose Right [facility]: Teradose 4D [facility]: Smart [employer] RADIATION DOSE: CT Rad equipment meets quality standard of care and radiation dose reduction techniq ues were employed. CTDIvol: 29.6 mGy. DLP: 2195 mGy-cm.mGy. LIMITATIONS: None. FINDINGS: LOWER CHEST: See separate report of the CT of the chest. NON-CONTRASTED LIVER, SPLEEN, ADRENALS: Diffuse hypoattenuation of the liver. Spleen and adrenal gla nds are unremarkable. PANCREAS: No masses. No peripancreatic inflammatory changes. GALLBLADDER: Gallstones are present. RIGHT KIDNEY AND URETER: No suspicious masses. Assessment limited by lack of IV contrast. No signif icant calcifications. No hydronephrosis or hydroureter. LEFT KIDNEY AND URETER: No suspicious masses. Assessment limited by lack of IV contrast. No signifi cant calcifications. No hydronephrosis or hydroureter. AORTA AND RETROPERITONEUM: No aneurysm. No retroperitoneal masses or adenopathy. BOWEL AND PERITONEAL CAVITY: Ascites. No bowel mass is appreciated. APPENDIX: Not identified. PELVIS, BLADDER, AND ABDOMINAL WALL:No abnormal pelvic masses. There is considerable subcutaneous ed arlene. BONES: Degenerative joint changes in the left hip. OTHER: No other significant finding. IMPRESSION: Fatty infiltration of the liver. Ascites and subcutaneous edema. Cholelithiasis. Dege nerative joint disease in the left hip. COMMENT: Quality ID # [id number]: Final reports with documentation of one or more dose reduction techniques (e.g., Automated exposure control, adjustment of the mA and/or kV according to patient size, use of iterative reconstruction technique) TECHNICAL DOCUMENTATION: JOB ID: [id number]- All Rights Reserved Reading location - IP/workstation name: [email or web address]
[2018-06-12] MEDS ORDERED: NORMAL SALINE 1000 ML 1,000 ML IV ONE ×2 (20:29→21:33)
[2018-06-12] MEDS ORDERED: CEFTRIAXONE INJ 1000 MG VIAL IV ONE (20:34)
[2018-06-12] MEDS ORDERED: AZITHROMYCIN INJ 500 MG VIAL IV ONE ×2 (20:35→23:03)
[2018-06-12] MEDS ORDERED: ACETAMINOPHEN 325 MG TABLET PO PRN (21:48)
[2018-06-12] MEDS ORDERED: PROMETHAZINE HCL INJ 25 MG/1 ML VIAL IV PRN (21:48)
[2018-06-12] MEDS ORDERED: MAG HYDROX/AL HYDROX/SIMETH SUSP 30 ML UDCUP PO PRN (21:48)
[2018-06-12] MEDS ORDERED: IPRATROPIUM/ALBUTEROL 0.5-2.5 MG/3 ML AMPUL NEB PRN (21:48)
[2018-06-12] MEDS: HEPARIN SOD (PORCINE) 5,000 UNIT/ML 1 ML SYRINGE SUBCUT SCH (22:27)
--- NOTE | 2018-06-13 00:05 | PDOC H&P ---
History of Present Illness Admission Date/PCP: 06/12/18 20:42 History of Present Illness: NOEMÍ LAMAR is a 58 year old male that presents to the emergency department for chief complaint of altered mental status, urinary retention, and generalized weakness. Patient apparently has been rather weak of the last 4 days, not getting up out of bed, usually ambulates with a walker, and the family is been more confused about things, so EMS was called he was brought to the emergency department. Patient is not sure if he had a bowel movement or urinated in 4 days. He states he has had some abdominal discomfort, but does not describe it as pain and at this time the patient is alert and oriented 4, just slow to answer questions and falling asleep easily. He states that the swelling in his abdomen is chronic, as well as in his legs but the swelling in his abdomen seems to be worse over the last few days. Patient has a multitude of chronic medical conditions including chronic respiratory failure diabetes mellitus, hypertension, obesity, chronic kidney disease. In the emergency department noted with borderline blood pressure being sometimes hypotensive CT of the chest shows left side pleural effusion. VBG 7.2/68.7/26 Past Medical History Cardiac Medical History: Reports: Hypertension Denies: Atrial Fibrillation, Congestive Heart Failure, DVT, Myocardial Infarction, Hyperlipidema, Pulmonary Embolism Pulmonary Medical History: Denies: Asthma, Chronic Obstructive Pulmonary Disease (COPD), Sleep Apnea Neurological Medical History: Reports: Seizures Endocrine Medical History: Reports: Diabetes Mellitus Type 2 - Possible, per patient; no specific diagnosis of same Denies: Diabetes Mellitus Type 1, Hyperthyroidism, Hypothyroidism GI Medical History: Denies: Cirrhosis, Gastroesophageal Reflux Disease, Hepatitis Musculoskeltal Medical History: Reports: Arthritis Psychiatric Medical History: Denies: Depression Infectious Medical History: Denies: Clostridium Difficile, Methicillin-Resistant Staph Aureus Past Surgical History Past Surgical History: Reports: Tonsillectomy Social History Smoking Status: Current Every Day Smoker Frequency of Alcohol Use: Heavy Hx Recreational Drug Use: No Drugs: None Hx Prescription Drug Abuse: No Family History Family History: Reviewed & Not Pertinent Parental Family History Reviewed: No Children Family History Reviewed: NA Sibling(s) Family History Reviewed.: NA Medication/Allergy Allergies/Adverse Reactions: No Known Allergies Allergy (Verified 03/21/17 19:14) Review of Systems Review of Systems: As outlined in the HPI, others negative Physical Exam Vital Signs: Temp Pulse Resp BP Pulse Ox 16 81/49 L 95 06/12/18 22:21 06/12/18 21:11 06/12/18 22:21 Intake & Output 06/11/18 06/12/18 06/13/18 06:59 06:59 06:59 Intake Total 1000 Balance 1000 Additional comments: Vital signs reviewed, nursing noted reviewed. GENERAL: Chronically ill-appearing obese male, in no acute distress. HEAD: Atraumatic, normocephalic. EYES: Eyes appear normal, extraocular movements intact, sclera anicteric, conjunctiva are normal. ENT: nares patent, oropharynx clear without exudates. Dry mucous membranes NECK: Normal range of motion, supple without lymphadenopathy LUNGS: Lung sounds diminished bilaterally, crackles noted on the right. HEART: Regular rate and rhythm without murmurs ABDOMEN: Anasarca to the abdomen, and edematous pannus, nontender, normoactive bowel sounds. No rebound, guarding, or rigidity. No masses appreciated. Male exam: Patient has an invaginated penis, unable to retract to see glans. EXTREMITIES: Bilateral chronic stasis changes to the lower extremities, with 3+ pitting edema NEUROLOGICAL: No focal neurological deficits. Moves all extremities spontaneously Motor and sensory grossly intact on exam. Patient alert and oriented 4 on exam, appropriate. PSYCH: Normal mood, normal affect. SKIN: Warm, Dry, normal turgor, no rashes or lesions noted on exposed skin Results Laboratory Results: 06/12/18 06/12/18 22:38 22:38 Troponin I 0.014 NT-Pro-B Natriuret Pep 78596 H 06/12/18 06/12/18 06/12/18 17:00 17:00 17:00 WBC 8.6 RBC 3.05 L Hgb 10.3 L Hct 32.5 L MCV 107 H MCH 33.8 H MCHC 31.7 L RDW 18.0 H Plt Count 179 Seg Neutrophils % 73.1 Lymphocytes % 13.8 Monocytes % 9.9 Eosinophils % 2.3 Basophils % 0.9 Absolute Neutrophils 6.3 Absolute Lymphocytes 1.2 Absolute Monocytes 0.9 Absolute Eosinophils 0.2 Absolute Basophils 0.1 PT 15.8 H INR 1.20 VBG pH VBG pCO2 VBG HCO3 VBG Base Excess Lactic Acid 0.9 Creatine Kinase Troponin I NT-Pro-B Natriuret Pep 06/12/18 06/12/18 06/12/18 17:00 17:00 17:00 WBC RBC Hgb Hct MCV MCH MCHC RDW Plt Count Seg Neutrophils % Lymphocytes % Monocytes % Eosinophils % Basophils % Absolute Neutrophils Absolute Lymphocytes Absolute Monocytes Absolute Eosinophils Absolute Basophils PT INR VBG pH 7.20 L VBG pCO2 68.7 H* VBG HCO3 26.0 VBG Base Excess -3.3 Lactic Acid Creatine Kinase < 20 L Troponin I 0.013 NT-Pro-B Natriuret Pep 06/12/1818 06/12/18 17:00 22:38 22:38 WBC RBC Hgb Hct MCV MCH MCHC RDW Plt Count Seg Neutrophils % Lymphocytes % Monocytes % Eosinophils % Basophils % Absolute Neutrophils Absolute Lymphocytes Absolute Monocytes Absolute Eosinophils Absolute Basophils PT INR VBG pH VBG pCO2 VBG HCO3 VBG Base Excess Lactic Acid Creatine Kinase Troponin I 0.014 NT-Pro-B Natriuret Pep 92521 H 09584 H Impressions: Chest X-Ray 06/12/18 17:06 IMPRESSION: There is almost complete opacification of the left hemithorax as noted above. Differential possibilities are as noted above. Other findings as noted above. Clinical correlation and followup is recommended. Chest CT scan may be of value for further evaluation Abdomen/Pelvis CT 06/12/18 17:26 IMPRESSION: Fatty infiltration of the liver. Ascites and subcutaneous edema. Cholelithiasis. Degenerative joint disease in the left hip. Chest CT 06/12/18 18:54 IMPRESSION: 1. Decreased volume in the left lung with partial atelectasis in the left lung. Moderate left pleural effusion. Small right pleural effusion. 2. Cardiomegaly. 3. There is subcutaneous edema in the left axilla and chest wall. Cannot exclude a small fluid collection within the subcutaneous tissues. Assessment & Plan - Diagnosis (1) Acute on chronic diastolic CHF (congestive heart failure) Is this a current diagnosis for this admission?: Yes Plan: Comes with anasarca, likely secondary to acute on chronic CHF exacerbation. Unfortunately at this point we are unable to give any Lasix as the patient is borderline [place]. [place] [id number]. We will repeat echocardiogram. We will consult cardiology for evaluation and further recommendations. Patient will be transferred to the ICU. (2) ANGEL (acute kidney injury) Is this a current diagnosis for this admission?: Yes Plan: Acute renal failure on CKD stage III, BUN 25 and creatinine 2.28, likely multifactorial, likely cardiorenal. We will reassess renal function in the morning. (3) Anasarca Is this a current diagnosis for this admission?: Yes Plan: As per prior assessment (4) Hypotension Qualifiers: Hypotension type: unspecified hypotension type Qualified Code(s): I95.9 - Hypotension, unspecified Is this a current diagnosis for this admission?: Yes Plan: Borderline blood pressure, we will closely monitor this patient in the intensive care unit, will watch for possible cardiogenic shock. We will start the patient on pressors if necessary. (5) Large pleural effusion Is this a current diagnosis for this admission?: Yes Plan: During his prior admission patient had a left pleural effusion that apparently has been worsening over time. Do not feel that the patient has infiltrates and does show in the CTA scan of the chest. I will place an order for thoracentesis and fluid analysis if can be done tomorrow and if blood pressure allowed. (6) Acute and chronic respiratory failure with hypercapnia Is this a current diagnosis for this admission?: Yes Plan: VBG 7.2/68.7/26, baseline CO2 5758, a slightly elevated. I will initiate the patient on BiPAP, initially some altered mental status, probably was more hypercapnic. Also has obstructive sleep apnea and morbid obesity. (7) Diabetes mellitus type 2 in obese Is this a current diagnosis for this admission?: Yes Plan: Accu-Cheks every 4 hours, insulin lispro sliding scale, hypoglycemia protocol. Resume home diabetic medication. - Time Time Spent: 30 to 50 Minutes - Inpatient Certification Based on my medical assessment, after consideration of the patient's comorbidities, presenting symptoms, or acuity I expect that the services needed warrant INPATIENT care.: Yes I certify that my determination is in accordance with my understanding of Medicare's requirements for reasonable and necessary INPATIENT services [42 CFR 412.3e].: Yes Medical Necessity: Risk of Complication if Not Cared For in Hospital
[2018-06-13 00:30] LABS: ARTERIAL BLOOD BASE EXCESS -5.9 mmol/L; ARTERIAL BLOOD H2CO3 1.73 mmol/L (1.05-1.35); ARTERIAL BLOOD HCO3 22.2 mmol/L (20-24); ARTERIAL BLOOD PCO2 57.5 mmHg (35-45); ARTERIAL BLOOD PH 7.21 (7.35-7.45); ARTERIAL BLOOD PO2 49.6 mmHg (80-100)
[2018-06-13 00:34] LABS: ARTERIAL BLOOD FIO2 3LPM
[2018-06-13 00:47] LABS: APPEARANCE,URINE TURBID; BILIRUBIN,URINE NEGATIVE (NEGATIVE); GLUCOSE, URINE NEGATIVE (NEGATIVE); KETONES,URINE NEGATIVE (NEGATIVE); LEUKOCYTE ESTERASE,URINE LARGE (NEGATIVE); NITRITE,URINE NEGATIVE (NEGATIVE); PROTEIN,URINE 30 mg/dL (NEGATIVE); URINE SPECIFIC GRAVITY 1.014
[2018-06-13 00:48] LABS: COLOR,URINE DARK YELLOW
[2018-06-13 01:03] LABS: URINE AMPHETAMINES SCREEN NEGATIVE; URINE BARBITURATES SCREEN NEGATIVE; URINE BENZODIAZEPINES SCREEN NEGATIVE; URINE COCAINE SCREEN NEGATIVE; URINE MARIJUANA (THC) SCREEN NEGATIVE; URINE METHADONE SCREEN NEGATIVE; URINE PHENCYCLIDINE SCREEN NEGATIVE
[2018-06-13] MEDS: DOBUTAMINE HCL/D5W 500 MG/250 ML RTUINJ IV PRN ×3 (01:59→11:02)
[2018-06-13 04:16] LABS: ALANINE AMINOTRANSFERASE 32 U/L (21-72); ALBUMIN 2.3 g/dL (3.5-5.0); ALKALINE PHOSPHATASE 134 U/L (38-126); ANION GAP 5 (5-19); ASPARTATE AMINO TRANSFERASE 31 U/L (17-59); BILIRUBIN,DIRECT 1.2 mg/dL (0.0-0.4); BILIRUBIN,TOTAL 1.4 mg/dL (0.2-1.3); BLOOD UREA NITROGEN 26 mg/dL (7-20); CALCIUM 7.9 mg/dL (8.4-10.2); CARBON DIOXIDE 22 mmol/L (22-30); CHLORIDE 110 mmol/L (98-107); GLUCOSE 88 mg/dL (75-110); POTASSIUM 3.8 mmol/L (3.6-5.0); SODIUM 137.2 mmol/L (137-145)
[2018-06-13 04:17] LABS: PHOSPHORUS 3.9 mg/dL (2.5-4.5)
[2018-06-13 04:20] LABS: HEMATOCRIT 29.5 % (37.9-51.0); HEMOGLOBIN 9.3 g/dL (13.5-17.0); MEAN CORPUSCULAR HEMOGLOBIN 33.7 pg (27.0-33.4); MEAN CORPUSCULAR HGB CONC 31.7 g/dL (32.0-36.0); MEAN CORPUSCULAR VOLUME 107 fl (80-97); PLATELET COUNT 139 10^3/uL (150-450); RED BLOOD COUNT 2.77 10^6/uL (4.35-5.55); RED CELL DISTRIBUTION WIDTH 17.9 % (11.5-14.0); WHITE BLOOD COUNT 7.3 10^3/uL (4.0-10.5)
[2018-06-13 04:42] LABS: INTERNATIONAL RATION (INR) 1.24; PARTIAL THROMBOPLASTIN TIME 35.8 SEC (23.5-35.8); PROTHROMBIN TIME 16.2 SEC (11.4-15.4)
[2018-06-13 04:46] LABS: ABSOLUTE LYMPHOCYTES# (MANUAL) 1.1 10^3/uL (0.5-4.7); ABSOLUTE MONOCYTES # (MANUAL) 0.6 10^3/uL (0.1-1.4); ABSOLUTE NEUTROPHILS# (MANUAL) 5.5 10^3/uL (1.7-8.2); BASOPHILS % (MANUAL) 0 % (0-2); EOSINOPHILS % (MANUAL) 2 % (0-6); LYMPHOCYTES % (MANUAL) 15 % (13-45); MONOCYTES % (MANUAL) 8 % (3-13); SEGMENTED NEUTROPHILS % (MAN) 75 % (42-78); TOTAL CELLS COUNTED 100
[2018-06-13 04:49] LABS: ANISOCYTOSIS 1+; HELMET CELLS SLIGHT; OVALOCYTES 1+; POIKILOCYTOSIS 2+; POLYCHROMASIA SLIGHT; TOXIC GRANULATION SLIGHT
[2018-06-13 04:50] LABS: PLATELET COMMENT ADEQUATE; TEAR DROP CELLS 1+
[2018-06-13] MEDS: HEPARIN SOD (PORCINE) 5,000 UNIT/ML 1 ML SYRINGE SUBCUT SCH (05:15)
[2018-06-13 06:16] LABS: ARTERIAL BLOOD BASE EXCESS -6.2 mmol/L; ARTERIAL BLOOD H2CO3 1.72 mmol/L (1.05-1.35); ARTERIAL BLOOD PCO2 57.1 mmHg (35-45); ARTERIAL BLOOD PO2 76.5 mmHg (80-100); ARTERIAL BLOOD TOTAL CO2 23.7 mmol/L (23-27)
[2018-06-13 06:17] LABS: ARTERIAL BLOOD FIO2 45%
[2018-06-13] MEDS ORDERED: NOREPINEPHRINE BITARTRATE INJ/PF 4 MG/4 ML SDV IV ONE (06:32)
[2018-06-13] MEDS ORDERED: SODIUM BICARBONATE 8.4% INJ 50 MEQ/50 ML DISP.SYRIN ONE (06:32)
[2018-06-13] MEDS: DEXTROSE 5%-WATER 250 ML with NOREPINEPHRINE BITARTRATE 4 MG IV PRN ×4 (06:41→11:39)
[2018-06-13] MEDS ORDERED: SODIUM BICARBONATE 8.4% INJ 50 MEQ/50 ML DISP.SYRIN IV ONE (06:45)
--- NOTE | 2018-06-13 09:36 | PDOC CONSULTATION ---
Consultation Consult Date: 06/13/18 Attending physician:: DARIAN FINE Consult reason:: Hypotension History of Present Illness Admission Date/PCP: 06/12/18 20:42 Patient complains of: General fatigue and tiredness, mental status changes History of Present Illness: NOEMÍ LAMAR is a 58 year old male that presents to the emergency department for chief complaint of altered mental status, urinary retention, and generalized weakness. Patient apparently has been rather weak of the last 4 days, not getting up out of bed, usually ambulates with a walker, and the family is been more confused about things, so EMS was called he was brought to the emergency department. Patient is not sure if he had a bowel movement or urinated in 4 days. He states he has had some abdominal discomfort, but does not describe it as pain and at this time the patient is alert and oriented 4, just slow to answer questions and falling asleep easily. He states that the swelling in his abdomen is chronic, as well as in his legs but the swelling in his abdomen seems to be worse over the last few days. Patient has a multitude of chronic medical conditions including chronic respiratory failure diabetes mellitus, hypertension, obesity, chronic kidney disease. In the emergency department noted with borderline blood pressure being sometimes hypotensive CT of the chest shows left side pleural effusion. VBG 7.2/68.7/26 This history obtained by the hospitalist was reviewed. Patient in no position to add to this history as he is noted to have significant altered mental status. Past Medical History Cardiac Medical History: Reports: Hypertension Denies: Atrial Fibrillation, Congestive Heart Failure, DVT, Myocardial Infarction, Hyperlipidema, Pulmonary Embolism Pulmonary Medical History: Denies: Asthma, Chronic Obstructive Pulmonary Disease (COPD), Sleep Apnea Neurological Medical History: Reports: Seizures Endocrine Medical History: Reports: Diabetes Mellitus Type 2 - Possible, per patient; no specific diagnosis of same Denies: Diabetes Mellitus Type 1, Hyperthyroidism, Hypothyroidism GI Medical History: Denies: Cirrhosis, Gastroesophageal Reflux Disease, Hepatitis Musculoskeltal Medical History: Reports: Arthritis Psychiatric Medical History: Denies: Depression Infectious Medical History: Denies: Clostridium Difficile, Methicillin-Resistant Staph Aureus Past Surgical History Past Surgical History: Reports: Tonsillectomy Social History Information Source: [facility] Records Smoking Status: Current Every Day Smoker Frequency of Alcohol Use: Heavy Hx Recreational Drug Use: No Drugs: None Hx Prescription Drug Abuse: No - Advance Directive Resuscitation Status: Full Code Surrogate healthcare decision maker:: Not currently available Family History Family History: Reviewed & Not Pertinent Parental Family History Reviewed: No Children Family History Reviewed: No Sibling(s) Family History Reviewed.: No - Not available as no family members around Medication/Allergy Allergies/Adverse Reactions: No Known Allergies Allergy (Verified 03/21/17 19:14) Review of Systems ROS unobtainable: Due to mental status Physical Exam Vital Signs: Temp Pulse Resp BP Pulse Ox 97.2 F 80 14 80/43 L 97 06/13/18 06:09 06/13/18 00:00 06/13/18 06:09 06/13/18 06:09 06/13/18 06:09 Intake & Output 06/12/18 06/13/18 06/14/18 06:59 06:59 06:59 Intake Total 1209 Output Total 170 Balance 1039 Weight 140.3 kg Exam: GENERAL: well-nourished and in no acute distress. Patient with BiPAP therapy. Orientation cannot be checked, as patient has significant mental status changes HEAD: Atraumatic, normocephalic. EYES: Pupils equal round and reactive to light, extraocular movements could not be checked, sclera anicteric, conjunctiva are normal. ENT: TMs normal, nares patent, oropharynx clear without exudates. Moist mucous membranes. No oral ulcerations or bleeding gums noted NECK: supple without lymphadenopathy or JVD. Trachea is central. No cervical or axillary lymphadenopathy noted. Carotids are 2+ LUNGS: Breath sounds mostly clear to auscultation patient is noted to have bibasal crackles at the extreme bases. Left basal dullness noted. CHEST: Palpation of the chest wall shows no significant chest wall tenderness or abnormalities. HEART: [place] [employer], No PSH, 2/6 PADMINI aortic area, 1/6 hull systolic murmur mitral area , no rubs or gallops. ABDOMEN: Soft, no significant tenderness appreciated, normoactive bowel sounds. No guarding, no rebound. No rigidity noted . No masses appreciated. EXTREMITIES: Pedal pulses are 1-2+, no calf tenderness noted, 1+ pedal edema noted. No clubbing or cyanosis. Chronic dermatitis changes noted bilaterally NEUROLOGICAL: The patient cannot participate in the neurological exam but no facial asymmetry noted. Extremities slightly hypotonic PSYCH: This cannot be evaluated. Patient cannot participate. SKIN: No significant ecchymosis, rash, or signs of pruritus noted. MUSCULOSKELETAL EXAM: No significant joint swelling noted. Patient cannot participate in musculoskeletal exam Results Laboratory Results: 06/13/18 03:56 06/13/18 03:56 06/13/18 06/13/18 06/13/18 00:15 00:15 00:31 WBC RBC Hgb Hct MCV MCH MCHC RDW Plt Count Seg Neutrophils % Lymphocytes % Monocytes % Eosinophils % Basophils % Absolute Neutrophils Absolute Lymphocytes Absolute Monocytes Absolute Eosinophils Absolute Basophils Carbonic Acid 1.73 H HCO3/H2CO3 Ratio 12:1 ABG pH 7.21 L ABG pCO2 57.5 H ABG pO2 49.6 L ABG HCO3 22.2 ABG O2 Saturation 76.0 L ABG Base Excess -5.9 FiO2 3LPM Sodium Potassium Chloride Carbon Dioxide Anion Gap BUN Creatinine Est GFR ( Amer) Est GFR (Non-Af Amer) Glucose Calcium Phosphorus Magnesium Total Bilirubin AST ALT Alkaline Phosphatase Ammonia 66.7 H Total Protein Albumin TSH Urine Color DARK YELLOW Urine Appearance TURBID Urine pH 5.0 Ur Specific [place] 1.014 Urine Protein 30 H Urine Glucose (UA) NEGATIVE Urine Ketones NEGATIVE Urine Blood SMALL H Urine Nitrite NEGATIVE Ur Leukocyte Esterase LARGE H Urine WBC (Auto) >182 Urine RBC (Auto) 11 06/13/18 06/13/18 06/13/18 03:56 03:56 03:56 WBC 7.3 RBC 2.77 L Hgb 9.3 L Hct 29.5 L MCV 107 H MCH 33.7 H MCHC 31.7 L RDW 17.9 H Plt Count 139 L Seg Neutrophils % Not Reportable Lymphocytes % Not Reportable Monocytes % Not Reportable Eosinophils % Not Reportable Basophils % Not Reportable Absolute Neutrophils Not Reportable Absolute Lymphocytes Not Reportable Absolute Monocytes Not Reportable Absolute Eosinophils Not Reportable Absolute Basophils Not Reportable Carbonic Acid HCO3/H2CO3 Ratio ABG pH ABG pCO2 ABG pO2 ABG HCO3 ABG O2 Saturation ABG Base Excess FiO2 Sodium 137.2 Potassium 3.8 Chloride 110 H Carbon Dioxide 22 Anion Gap 5 BUN 26 H Creatinine 2.53 H Est GFR ( Amer) 32 L Est GFR (Non-Af Amer) 26 L Glucose 88 Calcium 7.9 L Phosphorus Magnesium Total Bilirubin 1.4 H AST 31 ALT 32 Alkaline Phosphatase 134 H Ammonia Total Protein 5.0 L Albumin 2.3 L TSH 30.90 H Urine Color Urine Appearance Urine pH Ur Specific [place] Urine Protein Urine Glucose (UA) Urine Ketones Urine Blood Urine Nitrite Ur Leukocyte Esterase Urine WBC (Auto) Urine RBC (Auto) 06/13/18 06/13/18 03:56 06:10 WBC RBC Hgb Hct MCV MCH MCHC RDW Plt Count Seg Neutrophils % Lymphocytes % Monocytes % Eosinophils % Basophils % Absolute Neutrophils Absolute Lymphocytes Absolute Monocytes Absolute Eosinophils Absolute Basophils Carbonic Acid 1.72 H HCO3/H2CO3 Ratio 12:1 ABG pH 7.20 L* ABG pCO2 57.1 H ABG pO2 76.5 L ABG HCO3 22.0 ABG O2 Saturation 92.0 L ABG Base Excess -6.2 FiO2 45% Sodium Potassium Chloride Carbon Dioxide Anion Gap BUN Creatinine Est GFR ( Amer) Est GFR (Non-Af Amer) Glucose Calcium Phosphorus 3.9 Magnesium 1.5 L Total Bilirubin AST ALT Alkaline Phosphatase Ammonia Total Protein Albumin TSH Urine Color Urine Appearance Urine pH Ur Specific [place] Urine Protein Urine Glucose (UA) Urine Ketones Urine Blood Urine Nitrite Ur Leukocyte Esterase Urine WBC (Auto) Urine RBC (Auto) 06/12/18 06/12/18 06/13/18 22:38 22:38 03:56 Troponin I 0.014 0.015 NT-Pro-B Natriuret Pep 53701 H EKG Comments: Small voltage throughout Impressions: Chest X-Ray 06/12/18 17:06 IMPRESSION: There is almost complete opacification of the left hemithorax as noted above. Differential possibilities are as noted above. Other findings as noted above. Clinical correlation and followup is recommended. Chest CT scan may be of value for further evaluation Abdomen/Pelvis CT 06/12/18 17:26 IMPRESSION: Fatty infiltration of the liver. Ascites and subcutaneous edema. Cholelithiasis. Degenerative joint disease in the left hip. Chest CT 06/12/18 18:54 IMPRESSION: 1. Decreased volume in the left lung with partial atelectasis in the left lung. Moderate left pleural effusion. Small right pleural effusion. 2. Cardiomegaly. 3. There is subcutaneous edema in the left axilla and chest wall. Cannot exclude a small fluid collection within the subcutaneous tissues. Assessment & Plan - Diagnosis (1) Hypotension Qualifiers: Hypotension type: unspecified hypotension type Qualified Code(s): I95.9 - Hypotension, unspecified Is this a current diagnosis for this admission?: Yes (2) Acute on chronic diastolic CHF (congestive heart failure) Is this a current diagnosis for this admission?: Yes (3) ANGEL (acute kidney injury) Is this a current diagnosis for this admission?: Yes (4) Pneumonia Qualifiers: Pneumonia type: due to unspecified organism Laterality: left Lung location: unspecified part of lung Qualified Code(s): J18.9 - Pneumonia, unspecified organism (5) Diabetes mellitus type 2 in obese Is this a current diagnosis for this admission?: Yes (6) Elevated LFTs Is this a current diagnosis for this admission?: Yes (7) Essential hypertension Is this a current diagnosis for this admission?: Yes (8) Obstructive sleep apnea Is this a current diagnosis for this admission?: Yes (9) Morbid obesity with BMI of 40.0-44.9, adult Is this a current diagnosis for this admission?: Yes (10) Tobacco dependence Is this a current diagnosis for this admission?: Yes - Notes Notes: Hypotension: Exact etiology not clear but probably sepsis versus cardiogenic. Have ordered a stat echo. In the meantime agree with vasopressors to maintain blood pressure. May add vasopressin drip if needed. May also use intermittent fluid boluses as needed. Recommend broad-spectrum antibiotics. Acute on chronic diastolic heart failure: BNP is noted to be elevated. Have ordered a stat echo. Earlier this year, patient was noted to have relatively normal LVEF. Had LVH. Cannot rule out amyloidosis as EKG shows very low voltage QRS. Acute kidney injury: Possibly related to hypotension, sepsis and other metabolic reasons. Abnormal liver function test: Possibly related to liver injury from hypotension , chronic alcohol abuse, hepatitis etc. Diabetes: Currently being well managed by hospitalist. Obstructive sleep apnea: In view of multiple comorbid problems ongoing, will have low threshold for intubation. Tobacco dependence, consider nicotine patch. Obesity: To be evaluated further as an outpatient if patient survives this admission. Patient has numerous multiorgan problem, overall prognosis going to be on the poor side, will discuss this with the hospitalist. - Time Time Spent: 30 to 50 Minutes Medications reviewed and adjusted accordingly: Yes
[2018-06-13] MEDS ORDERED: NORMAL SALINE 1000 ML 1,000 ML IV PRN (09:38)
[2018-06-13 10:10] VITALS: BP 108/63
[2018-06-13] MEDS ORDERED: MAGNESIUM SULFATE/D5W 1 GM/100 ML RTUPB IV ONE (10:44)
[2018-06-13] MEDS ORDERED: MAGNESIUM SULFATE INJ 8 MEQ/2 ML IV ONE (10:44)
--- NOTE | 2018-06-13 10:51 | PDOC TRANSFER SUMMARY ---
General Admission Date/PCP: 06/12/18 20:42 Resuscitation Status: Full Code - Transfer Diagnosis (1) Cardiogenic shock Is this a current diagnosis for this admission?: Yes (2) ANGEL (acute kidney injury) Is this a current diagnosis for this admission?: Yes (3) Anasarca Is this a current diagnosis for this admission?: Yes (4) Hypotension Is this a current diagnosis for this admission?: Yes (5) Large pleural effusion Is this a current diagnosis for this admission?: Yes (6) ARF (acute renal failure) Is this a current diagnosis for this admission?: Yes (7) Acute and chronic respiratory failure with hypercapnia Is this a current diagnosis for this admission?: Yes - Transfer Medications Transfer Medications: Current Medications Acetaminophen (Tylenol 325 Mg Tablet) 650 mg PO Q4HP PRN PRN Reason: FOR PAIN OR TEMP Stop: 07/12/18 21:47 Al Hydrox/Mg Hydrox/Simethicone (Maalox Plus Susp 30 Udcup) 30 ml PO Q6HP PRN PRN Reason: HEARTBURN Stop: 07/12/18 21:47 Albuterol/Ipratropium (Duoneb 3 Ml Ampul) 3 ml NEB RTQ3HP PRN PRN Reason: SHORTNESS OF BREATH Stop: 07/12/18 21:47 Heparin Sodium (Porcine) (Heparin Inj 5,000 Units/Ml 1 Ml Syringe) 5,000 unit SUBCUT Q8 [facility] Stop: 07/12/18 21:59 Last Admin: 06/13/18 05:15 Dose: 5,000 unit Hydrocortisone Sodium Succinate (Solu-Cortef Inj/Pf 100 Mg/ 2 Ml Sdv) 100 mg IV Q8 [facility] Stop: 07/13/18 13:59 Dobutamine HCl/Dextrose (Dobutrex Rtu 500 Mg-D5w 250 Ml Premixed Bag) 500 mg in 250 mls @ 0 mls/hr IV CONTINUOUS PRN; Protocol; Titrate PRN Reason: THIS MED IS NOT "PRN" Stop: 07/13/18 01:30 Last Titration: 06/13/18 10:05 Dose: 63.3 mls/hr Norepinephrine Bitartrate 4 mg (/ Dextrose) 250 mls @ 0 mls/hr IV CONTINUOUS PRN; Protocol; Titrate PRN Reason: THIS MED IS NOT "PRN" Stop: 07/13/18 06:32 Last Titration: 06/13/18 10:05 Dose: 30 ml/hr, 30 mls/hr Sodium Chloride (Nacl 0.9% 1000 Ml Iv Soln) 1,000 mls @ 125 mls/hr IV CONTINUOUS PRN PRN Reason: THIS MED IS NOT "PRN" Stop: 07/13/18 09:37 Promethazine HCl (Phenergan Inj 25 Mg/1 Ml Vial) 25 mg IV Q4HP PRN PRN Reason: FOR NAUSEA/VOMITING Stop: 07/12/18 21:47 Sodium Chloride (Saline Flush 2.5 Ml Monoject Prefil Syrin) 2.5 ml IV Q8 [facility] Stop: 07/12/18 21:59 Last Admin: 06/13/18 05:15 Dose: Not Given - Allergies Allergies/Adverse Reactions: No Known Allergies Allergy (Verified 03/21/17 19:14) Hospital Course Hospital Course: NOEMÍ LAMAR is a 58 year old male that presents to the emergency department for chief complaint of altered mental status, urinary retention, and generalized weakness. Patient apparently has been rather weak of the last 4 days, not getting up out of bed, usually ambulates with a walker, and the family is been more confused about things, so EMS was called he was brought to the emergency department. Patient is not sure if he had a bowel movement or urinated in 4 days. He states he has had some abdominal discomfort, but does not describe it as pain and at this time the patient is alert and oriented 4, just slow to answer questions and falling asleep easily. He states that the swelling in his abdomen is chronic, as well as in his legs but the swelling in his abdomen seems to be worse over the last few days. Patient has a multitude of chronic medical conditions including chronic respiratory failure diabetes mellitus, hypertension, obesity, chronic kidney disease. In the emergency department noted with borderline blood pressure being sometimes hypotensive CT of the chest shows left side pleural effusion. VBG 7.2/./ The patient was admitted to the ICU on BIPAP. He has been hypotensive and requiring dobutamine and levophed. He is on bipap with bleed in O2 at 45%. I discussed the patient with Dr. Cannon. This patient is critically ill. I believe that he is in cardiogenic shock, although his troponins appear negative. I have discussed the patient with Dr. Lozano at [facility] He has accepted the patient in transfer. The patient will fly for his transfer. I have also discussed the patient with his daughter Alex. She is aware of the transfer. Physical Exam Vital Signs: Temp Pulse Resp BP Pulse Ox 97.2 F 80 21 H 108/63 95 06/13/18 10:05 06/13/18 00:00 06/13/18 10:05 06/13/18 10:05 06/13/18 10:05 Intake & Output 06/12/18 06/13/18 06/14/18 06:59 06:59 06:59 Intake Total 1209 276 Output Total 170 130 Balance 1039 146 Weight 140.3 kg General appearance: PRESENT: morbidly obese, other - The patient is responsive to noxious stimuli only. He is on Bipap. Head exam: PRESENT: atraumatic, normocephalic Eye exam: PRESENT: PERRLA. ABSENT: conjunctival injection, scleral icterus Neck exam: ABSENT: carotid bruit, JVD, lymphadenopathy, tenderness, thyromegaly Respiratory exam: PRESENT: other - The patient is on BIPAP. BREath sounds are distant due to body habitus and the BIPAP. I do not auscultate rales, rhonchi or wheezes. Cardiovascular exam: PRESENT: RRR, other - No lateral PMI. No thrills.. ABSENT : gallop, rubs, systolic murmur Pulses: PRESENT: other - Diminished distal pulses. GI/Abdominal exam: PRESENT: other - The abdomen is morbidly obese. Bowel sounds are distant. I am unable to evaluate the abdomen for organomegaly, masses, or hernias. The left lower quadrant of his abdomen feels "hard". I do not know if this is because of the patient's position in the bed where he is lying on his left side, so the mass of the belly is shifted to the left, or if the abdomen is actually hard. The remainder of his abdomen that is not as dependent is soft.. ABSENT: tenderness Extremities exam: PRESENT: other - 3-4+ pitting edema bl lower extremities. Neurological exam: PRESENT: other - The patient is responsive to noxious stimuli. Skin exam: PRESENT: dry, intact, warm Results Laboratory Results: 06/13/18 03:56 06/13/18 03:56 06/13/18 06/13/18 06/13/18 00:15 00:15 00:31 WBC RBC Hgb Hct MCV MCH MCHC RDW Plt Count Seg Neutrophils % Lymphocytes % Monocytes % Eosinophils % Basophils % Absolute Neutrophils Absolute Lymphocytes Absolute Monocytes Absolute Eosinophils Absolute Basophils Carbonic Acid 1.73 H HCO3/H2CO3 Ratio 12:1 ABG pH 7.21 L ABG pCO2 57.5 H ABG pO2 49.6 L ABG HCO3 22.2 ABG O2 Saturation 76.0 L ABG Base Excess -5.9 FiO2 3LPM Sodium Potassium Chloride Carbon Dioxide Anion Gap BUN Creatinine Est GFR ( Amer) Est GFR (Non-Af Amer) Glucose Calcium Phosphorus Magnesium Total Bilirubin AST ALT Alkaline Phosphatase Ammonia 66.7 H Total Protein Albumin TSH Urine Color DARK YELLOW Urine Appearance TURBID Urine pH 5.0 Ur Specific Sanders 1.014 Urine Protein 30 H Urine Glucose (UA) NEGATIVE Urine Ketones NEGATIVE Urine Blood SMALL H Urine Nitrite NEGATIVE Ur Leukocyte Esterase LARGE H Urine WBC (Auto) >182 Urine RBC (Auto) 11 06/13/18 06/13/18 06/13/18 03:56 03:56 03:56 WBC 7.3 RBC 2.77 L Hgb 9.3 L Hct 29.5 L MCV 107 H MCH 33.7 H MCHC 31.7 L RDW 17.9 H Plt Count 139 L Seg Neutrophils % Not Reportable Lymphocytes % Not Reportable Monocytes % Not Reportable Eosinophils % Not Reportable Basophils % Not Reportable Absolute Neutrophils Not Reportable Absolute Lymphocytes Not Reportable Absolute Monocytes Not Reportable Absolute Eosinophils Not Reportable Absolute Basophils Not Reportable Carbonic Acid HCO3/H2CO3 Ratio ABG pH ABG pCO2 ABG pO2 ABG HCO3 ABG O2 Saturation ABG Base Excess FiO2 Sodium 137.2 Potassium 3.8 Chloride 110 H Carbon Dioxide 22 Anion Gap 5 BUN 26 H Creatinine 2.53 H Est GFR ( Amer) 32 L Est GFR (Non-Af Amer) 26 L Glucose 88 Calcium 7.9 L Phosphorus Magnesium Total Bilirubin 1.4 H AST 31 ALT 32 Alkaline Phosphatase 134 H Ammonia Total Protein 5.0 L Albumin 2.3 L TSH 30.90 H Urine Color Urine Appearance Urine pH Ur Specific Sanders Urine Protein Urine Glucose (UA) Urine Ketones Urine Blood Urine Nitrite Ur Leukocyte Esterase Urine WBC (Auto) Urine RBC (Auto) 06/13/18 06/13/18 03:56 06:10 WBC RBC Hgb Hct MCV MCH MCHC RDW Plt Count Seg Neutrophils % Lymphocytes % Monocytes % Eosinophils % Basophils % Absolute Neutrophils Absolute Lymphocytes Absolute Monocytes Absolute Eosinophils Absolute Basophils Carbonic Acid 1.72 H HCO3/H2CO3 Ratio 12:1 ABG pH 7.20 L* ABG pCO2 57.1 H ABG pO2 76.5 L ABG HCO3 22.0 ABG O2 Saturation 92.0 L ABG Base Excess -6.2 FiO2 45% Sodium Potassium Chloride Carbon Dioxide Anion Gap BUN Creatinine Est GFR ( Amer) Est GFR (Non-Af Amer) Glucose Calcium Phosphorus 3.9 Magnesium 1.5 L Total Bilirubin AST ALT Alkaline Phosphatase Ammonia Total Protein Albumin TSH Urine Color Urine Appearance Urine pH Ur Specific Sanders Urine Protein Urine Glucose (UA) Urine Ketones Urine Blood Urine Nitrite Ur Leukocyte Esterase Urine WBC (Auto) Urine RBC (Auto) 06/12/18 06/12/18 06/13/18 22:38 22:38 03:56 Troponin I 0.014 0.015 NT-Pro-B Natriuret Pep 30009 H 06/12/18 06/12/18 06/13/18 17:00 17:00 00:15 WBC 8.6 RBC 3.05 L Hgb 10.3 L Hct 32.5 L MCV 107 H MCH 33.8 H MCHC 31.7 L RDW 18.0 H Plt Count 179 Seg Neutrophils % 73.1 Seg Neuts % (Manual) Lymphocytes % 13.8 Lymphocytes % (Manual) Monocytes % 9.9 Monocytes % (Manual) Eosinophils % 2.3 Eosinophils % (Manual) Basophils % 0.9 Basophils % (Manual) Absolute Neutrophils 6.3 Abs Neuts (Manual) Absolute Lymphocytes 1.2 Abs Lymphs (Manual) Absolute Monocytes 0.9 Abs Monocytes (Manual) Absolute Eosinophils 0.2 Absolute Eos (Manual) Absolute Basophils 0.1 Abs Basophils (Manual) Toxic Granulation Platelet Comment Polychromasia Poikilocytosis Basophilic Stippling Anisocytosis Tear Drop Cells Ovalocytes Helmet Cells PT 15.8 H INR 1.20 APTT Carbonic Acid HCO3/H2CO3 Ratio ABG pH ABG pCO2 ABG pO2 ABG HCO3 ABG Total CO2 ABG O2 Saturation ABG Base Excess FiO2 Sodium Potassium Chloride Carbon Dioxide Anion Gap BUN Creatinine Est GFR (Non-Af Amer) Glucose Hemoglobin A1c % Calcium Phosphorus Magnesium Total Bilirubin Direct Bilirubin Alkaline Phosphatase Total Protein Albumin TSH Urine Color DARK YELLOW Urine Appearance TURBID Urine pH 5.0 Ur Specific Sanders 1.014 Urine Protein 30 H Urine Blood SMALL H Urine Urobilinogen 4.0 H Ur Leukocyte Esterase LARGE H Urine WBC (Auto) >182 Urine RBC (Auto) 11 U Hyaline Cast (Auto) 8 Urine Bacteria (Auto) 1+ Urine WBC Clumps MANY Squamous Epi Cells Auto 2 Urine Mucus (Auto) RARE Urine Yeast (Budding) PRESENT Urine Ascorbic Acid NEGATIVE Urine Opiates Screen Urine Methadone Screen Ur Barbiturates Screen Ur Phencyclidine Scrn Ur Amphetamines Screen U Benzodiazepines Scrn Urine Cocaine Screen U Marijuana (THC) Screen 06/13/18 06/13/18 06/13/18 00:15 03:56 03:56 WBC 7.3 RBC 2.77 L Hgb 9.3 L Hct 29.5 L MCV 107 H MCH 33.7 H MCHC 31.7 L RDW 17.9 H Plt Count 139 L Seg Neutrophils % Seg Neuts % (Manual) 75 Lymphocytes % Lymphocytes % (Manual) 15 Monocytes % Monocytes % (Manual) 8 Eosinophils % Eosinophils % (Manual) 2 Basophils % Basophils % (Manual) 0 Absolute Neutrophils Abs Neuts (Manual) 5.5 Absolute Lymphocytes Abs Lymphs (Manual) 1.1 Absolute Monocytes Abs Monocytes (Manual) 0.6 Absolute Eosinophils Absolute Eos (Manual) 0.1 Absolute Basophils Abs Basophils (Manual) 0.0 Toxic Granulation SLIGHT Platelet Comment ADEQUATE Polychromasia SLIGHT Poikilocytosis 2+ Basophilic Stippling PRESENT Anisocytosis 1+ Tear Drop Cells 1+ Ovalocytes 1+ Helmet Cells SLIGHT PT 16.2 H INR 1.24 APTT 35.8 Carbonic Acid HCO3/H2CO3 Ratio ABG pH ABG pCO2 ABG pO2 ABG HCO3 ABG Total CO2 ABG O2 Saturation ABG Base Excess FiO2 Sodium Potassium Chloride Carbon Dioxide Anion Gap BUN Creatinine Est GFR (Non-Af Amer) Glucose Hemoglobin A1c % Calcium Phosphorus Magnesium Total Bilirubin Direct Bilirubin Alkaline Phosphatase Total Protein Albumin TSH Urine Color Urine Appearance Urine pH Ur Specific Sanders Urine Protein Urine Blood Urine Urobilinogen Ur Leukocyte Esterase Urine WBC (Auto) Urine RBC (Auto) U Hyaline Cast (Auto) Urine Bacteria (Auto) Urine WBC Clumps Squamous Epi Cells Auto Urine Mucus (Auto) Urine Yeast (Budding) Urine Ascorbic Acid Urine Opiates Screen NEGATIVE Urine Methadone Screen NEGATIVE Ur Barbiturates Screen NEGATIVE Ur Phencyclidine Scrn NEGATIVE Ur Amphetamines Screen NEGATIVE U Benzodiazepines Scrn NEGATIVE Urine Cocaine Screen NEGATIVE U Marijuana (THC) Screen NEGATIVE 06/13/18 06/13/18 06/13/18 03:56 03:56 03:56 WBC RBC Hgb Hct MCV MCH MCHC RDW Plt Count Seg Neutrophils % Seg Neuts % (Manual) Lymphocytes % Lymphocytes % (Manual) Monocytes % Monocytes % (Manual) Eosinophils % Eosinophils % (Manual) Basophils % Basophils % (Manual) Absolute Neutrophils Abs Neuts (Manual) Absolute Lymphocytes Abs Lymphs (Manual) Absolute Monocytes Abs Monocytes (Manual) Absolute Eosinophils Absolute Eos (Manual) Absolute Basophils Abs Basophils (Manual) Toxic Granulation Platelet Comment Polychromasia Poikilocytosis Basophilic Stippling Anisocytosis Tear Drop Cells Ovalocytes Helmet Cells PT INR APTT Carbonic Acid HCO3/H2CO3 Ratio ABG pH ABG pCO2 ABG pO2 ABG HCO3 ABG Total CO2 ABG O2 Saturation ABG Base Excess FiO2 Sodium 137.2 Potassium 3.8 Chloride 110 H Carbon Dioxide 22 Anion Gap 5 BUN 26 H Creatinine 2.53 H Est GFR (Non-Af Amer) 26 L Glucose 88 Hemoglobin A1c % 4.6 L Calcium 7.9 L Phosphorus Magnesium Total Bilirubin 1.4 H Direct Bilirubin 1.2 H Alkaline Phosphatase 134 H Total Protein 5.0 L Albumin 2.3 L TSH 30.90 H Urine Color Urine Appearance Urine pH Ur Specific Sanders Urine Protein Urine Blood Urine Urobilinogen Ur Leukocyte Esterase Urine WBC (Auto) Urine RBC (Auto) U Hyaline Cast (Auto) Urine Bacteria (Auto) Urine WBC Clumps Squamous Epi Cells Auto Urine Mucus (Auto) Urine Yeast (Budding) Urine Ascorbic Acid Urine Opiates Screen Urine Methadone Screen Ur Barbiturates Screen Ur Phencyclidine Scrn Ur Amphetamines Screen U Benzodiazepines Scrn Urine Cocaine Screen U Marijuana (THC) Screen 06/13/18 06/13/18 03:56 06:10 WBC RBC Hgb Hct MCV MCH MCHC RDW Plt Count Seg Neutrophils % Seg Neuts % (Manual) Lymphocytes % Lymphocytes % (Manual) Monocytes % Monocytes % (Manual) Eosinophils % Eosinophils % (Manual) Basophils % Basophils % (Manual) Absolute Neutrophils Abs Neuts (Manual) Absolute Lymphocytes Abs Lymphs (Manual) Absolute Monocytes Abs Monocytes (Manual) Absolute Eosinophils Absolute Eos (Manual) Absolute Basophils Abs Basophils (Manual) Toxic Granulation Platelet Comment Polychromasia Poikilocytosis Basophilic Stippling Anisocytosis Tear Drop Cells Ovalocytes Helmet Cells PT INR APTT Carbonic Acid 1.72 H HCO3/H2CO3 Ratio 12:1 ABG pH 7.20 L* ABG pCO2 57.1 H ABG pO2 76.5 L ABG HCO3 22.0 ABG Total CO2 23.7 ABG O2 Saturation 92.0 L ABG Base Excess -6.2 FiO2 45% Sodium Potassium Chloride Carbon Dioxide Anion Gap BUN Creatinine Est GFR (Non-Af Amer) Glucose Hemoglobin A1c % Calcium Phosphorus 3.9 Magnesium 1.5 L Total Bilirubin Direct Bilirubin Alkaline Phosphatase Total Protein Albumin TSH Urine Color Urine Appearance Urine pH Ur Specific Sanders Urine Protein Urine Blood Urine Urobilinogen Ur Leukocyte Esterase Urine WBC (Auto) Urine RBC (Auto) U Hyaline Cast (Auto) Urine Bacteria (Auto) Urine WBC Clumps Squamous Epi Cells Auto Urine Mucus (Auto) Urine Yeast (Budding) Urine Ascorbic Acid Urine Opiates Screen Urine Methadone Screen Ur Barbiturates Screen Ur Phencyclidine Scrn Ur Amphetamines Screen U Benzodiazepines Scrn Urine Cocaine Screen U Marijuana (THC) Screen Impressions: Chest X-Ray 06/12/18 17:06 IMPRESSION: There is almost complete opacification of the left hemithorax as noted above. Differential possibilities are as noted above. Other findings as noted above. Clinical correlation and followup is recommended. Chest CT scan may be of value for further evaluation Abdomen/Pelvis CT 06/12/18 17:26 IMPRESSION: Fatty infiltration of the liver. Ascites and subcutaneous edema. Cholelithiasis. Degenerative joint disease in the left hip. Chest CT 06/12/18 18:54 IMPRESSION: 1. Decreased volume in the left lung with partial atelectasis in the left lung. Moderate left pleural effusion. Small right pleural effusion. 2. Cardiomegaly. 3. There is subcutaneous edema in the left axilla and chest wall. Cannot exclude a small fluid collection within the subcutaneous tissues. Plan Discharge Plan: I have changed the patient's BIPAP settings to more appropriately ventilate the patient. I have also supplemented his magnesium. The patient will be transferred to [facility] in [place], [place] for further evaluation and care. Time Spent: Greater than 30 Minutes
--- NOTE | 2018-06-13 11:10 | XCELERA REPORT ---
[address] [address] Transthoracic Echocardiogram Report Name: NOEMÍ LAMAR Age: 58 yrs Gender: Male : 1960 [facility]: 06/13/2018 09:49 AM Procedure: A complete two-dimensional transthoracic echocardiogram was performed (2D, M-mode, spectral and color flow Doppler). The study was technically difficult with many images being suboptimal in quality. The apical views were difficult to obtain and are suboptimal in quality. Reason For Study: CARDIOGENIC SHOCK Ordering Physician: JARAD VEE Performed By: Keyla Pires Interpretation Summary The study was technically difficult with many images being suboptimal in quality. The apical views were difficult to obtain and are suboptimal in quality. The Ejection Fraction best estimate is 45-50% Left ventricular systolic function is mildly reduced. Consider additional methods to assess LVEF such as MUGA scan, CTA heart, cardiac MRI, ALEXANDER, etc. if clinically indicated. LV diastolic function could not be adequately assessed. There is mild concentric left ventricular hypertrophy. The left ventricle is grossly normal size. Regional wall motion abnormalities cannot be excluded due to limited visualization. The right ventricle is moderately dilated. Right ventricular function cannot be assessed due to poor image quality. The right atrium is moderately dilated. The left atrium is severely dilated. There is a trace to mild amount of mitral regurgitation There is no mitral valve stenosis. There is no aortic valve stenosis No aortic regurgitation is present. There is no tricuspid stenosis. No tricuspid regurgitation. The aortic root is not well visualized. The inferior vena cava was not well visualized Minimal pericardial effusion. MMode/2D Measurements & Calculations RVDd: 5.3 cm LVIDd: 7.6 cm FS: 25.8 % Ao root diam: 3.3 cm IVSd: 1.0 cm LVIDs: 5.6 cm EDV(Teich): 307.9 ml Ao root area: 8.6 cm2 LVPWd: 1.1 cm ESV(Teich): 156.4 ml EF(Teich): 49.2 % Doppler Measurements & Calculations MV E max neela: MV dec slope: Ao V2 max: LV V1 max P.1 cm/sec 144.0 cm/sec 5.8 mmHg MV A max neela: 663.4 cm/sec2 Ao max PG: LV V1 max: 32.8 cm/sec MV dec time: 0.15 sec8.3 mmHg 120.9 cm/sec MV E/A: 3.0 PA V2 max: 130.1 cm/sec PA max P.8 mmHg Left Ventricle The left ventricle is grossly normal size. There is mild concentric left ventricular hypertrophy. Left ventricular systolic function is mildly reduced. The Ejection Fraction estimate is 45-50%. Consider additional methods to assess LVEF such as MUGA scan, CTA heart, cardiac MRI, ALEXANDER, etc. if clinically indicated. LV diastolic function could not be adequately assessed. Regional wall motion abnormalities cannot be excluded due to limited visualization. Right Ventricle The right ventricle is moderately dilated. Right ventricular function cannot be assessed due to poor image quality. Atria The right atrium is moderately dilated. The left atrium is severely dilated. Interarterial septum not well visualized and not well dopplered. Cannot comment on ASD/PFO presence. Mitral Valve The mitral valve is not well visualized. There is no mitral valve stenosis. There is a trace to mild amount of mitral regurgitation. Aortic Valve The aortic valve is grossly normal. There is no aortic valve stenosis. No aortic regurgitation is present. Tricuspid Valve The tricuspid valve is not well visualized secondary to technical limitations. There is no tricuspid stenosis. No tricuspid regurgitation. Pulmonic Valve The pulmonic valve is not well visualized. Great Vessels The aortic root is not well visualized. The inferior vena cava was not well visualized. Effusions Minimal pericardial effusion. : JARAD VEE > Jarad Vee
[2018-06-13] MEDS ORDERED: HYDROCORTISONE SOD SUCCINATE INJ/PF 100 MG/2 ML SDV IV SCH (14:00)
== END 2018-06-13 12:00 | disposition short-term general hospital (02) | DRG 291 ==
LOC: ER 16:53 → EH 20:42 → ICU 06-13
PROVIDERS: ADMIT Internal Medicine; ATTEND Internal Medicine
PROC: 5A09357 Assistance with Respiratory Ventilation, Less than 24 Consecutive Hours, Continuous Positive Airway Pressure (ICD-10-PCS; principal; 2018-06-12)
DX: R57.0 Cardiogenic shock (principal); J96.22 Acute and chronic respiratory failure with hypercapnia; N17.9 Acute kidney failure, unspecified; J90 Pleural effusion, not elsewhere classified; Z68.42 Body mass index [BMI] 45.0-49.9, adult; R60.1 Generalized edema; I12.9 Hypertensive chronic kidney disease with stage 1 through stage 4 chronic kidney disease, or unspecified chronic kidney disease; E11.22 Type 2 diabetes mellitus with diabetic chronic kidney disease; N18.9 Chronic kidney disease, unspecified; I48.2 Chronic atrial fibrillation; E66.9 Obesity, unspecified; M19.90 Unspecified osteoarthritis, unspecified site; F17.200 Nicotine dependence, unspecified, uncomplicated
CPT/HCPCS: 36415; 71045; 71250; 74176; 80053; 80307; 81001; 82140; 82550; 82803; 83036; 83605; 83735; 83880; 84100; 84443; 84484; 85025; 85610; 85730; 87040; 87086; 87088; 87186; 93005; 93010; 93306; 94660; 99291; J0456; J0696; J1250; J1644; J3475; J3490; J7030; J7060

== ENCOUNTER 2018-07-11 19:58 | Emergency (ER) | payer MEDICAID ==
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
[2018-07-11] MEDS: FUROSEMIDE 40 MG TABLET PO SCH (22:30)
[2018-07-11] MEDS: APIXABAN 5 MG TABLET PO SCH (22:30)
[2018-07-11] MEDS: LANSOPRAZOLE 30 MG TAB.RAP.DR PO SCH (22:30)
[2018-07-11] MEDS ORDERED: BUDESONIDE/FORMOTEROL 80-4.5 MCG 60 PUFF/6.9 GM MDI IH ONE (22:57)
[2018-07-11] MEDS: BUDESONIDE/FORMOTEROL 80-4.5 MCG 60 PUFF/6.9 GM MDI IH SCH (23:22)
[2018-07-12] MEDS: LEVOTHYROXINE SODIUM 0.05 MG TABLET PO SCH (06:03)
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
--- NOTE | 2018-07-12 10:50 | RADIOLOGY REPORT (SQ) ---
EXAM DESCRIPTION: CHEST 2 VIEWS COMPLETED DATE/TIME: 07/12/2018 10:33 am REASON FOR STUDY: COPD, CHF, on oxygen COMPARISON: 06/12/2018. EXAM PARAMETERS: NUMBER OF VIEWS: two views TECHNIQUE: Digital Frontal and Lateral radiographic views of the chest acquired. RADIATION DOSE: NA LIMITATIONS: none FINDINGS: LUNGS AND PLEURA: There is evidence of significant infiltrate in the right lung base and r ight pleural effusion. Marked improved aeration left lung with left pleural effusion. MEDIASTINUM AND HILAR STRUCTURES: No masses or contour abnormalities. HEART AND VASCULAR STRUCTURES: Cardiomegaly with mild pulmonary vascular congestion. BONES: No acute findings. HARDWARE: None in the chest. OTHER: No other significant finding. IMPRESSION: 1. Cardiomegaly with pulmonary vascular congestion. Findings consistent with right low er lobe consolidation or infiltrate and right pleural effusion. Improved aeration at the left lung w ith left pleural effusion. TECHNICAL DOCUMENTATION: JOB ID: [id number] 2010 [employer]- All Rights Reserved Reading location - IP/workstation name: [email or web address]
[2018-07-12] MEDS: FUROSEMIDE 40 MG TABLET PO SCH ×2 (11:31→21:19)
[2018-07-12] MEDS: APIXABAN 5 MG TABLET PO SCH ×2 (11:31→21:19)
[2018-07-12] MEDS: METOPROLOL SUCCINATE 25 MG TAB.SR.24H PO SCH (11:32)
[2018-07-12] MEDS: FERROUS SULFATE 325 MG TABLET PO SCH (11:32)
[2018-07-12] MEDS: ASPIRIN 81 MG TABLET, CHEWABLE PO SCH (11:32)
[2018-07-12] MEDS: LANSOPRAZOLE 30 MG TAB.RAP.DR PO SCH ×2 (11:32→21:21)
[2018-07-12] MEDS: BUDESONIDE/FORMOTEROL 80-4.5 MCG 60 PUFF/6.9 GM MDI IH SCH ×2 (13:11→21:21)
[2018-07-12 14:12] LABS: ALANINE AMINOTRANSFERASE 44 U/L (21-72); ALBUMIN 3.2 g/dL (3.5-5.0); ALKALINE PHOSPHATASE 61 U/L (38-126); ANION GAP 8 (5-19); ASPARTATE AMINO TRANSFERASE 19 U/L (17-59); BILIRUBIN,DIRECT 0.5 mg/dL (0.0-0.4); BILIRUBIN,TOTAL 0.8 mg/dL (0.2-1.3); BLOOD UREA NITROGEN 50 mg/dL (7-20); CALCIUM 9.1 mg/dL (8.4-10.2); CARBON DIOXIDE 31 mmol/L (22-30); CHLORIDE 102 mmol/L (98-107); GLUCOSE 119 mg/dL (75-110); POTASSIUM 4.3 mmol/L (3.6-5.0); SODIUM 141.1 mmol/L (137-145); TOTAL PROTEIN 5.9 g/dL (6.3-8.2)
[2018-07-12 15:42] LABS: HEMATOCRIT 25.5 % (37.9-51.0); HEMOGLOBIN 8.5 g/dL (13.5-17.0); MEAN CORPUSCULAR HGB CONC 33.2 g/dL (32.0-36.0); PLATELET COUNT 147 10^3/uL (150-450); RED BLOOD COUNT 2.64 10^6/uL (4.35-5.55); RED CELL DISTRIBUTION WIDTH 16.8 % (11.5-14.0); WHITE BLOOD COUNT 9.7 10^3/uL (4.0-10.5)
[2018-07-12 15:47] LABS: MEAN CORPUSCULAR VOLUME 96 fl (80-97)
[2018-07-12 16:07] LABS: ABSOLUTE LYMPHOCYTES# (MANUAL) 0.6 10^3/uL (0.5-4.7); BASOPHILS % (MANUAL) 1 % (0-2); EOSINOPHILS % (MANUAL) 1 % (0-6); LYMPHOCYTES % (MANUAL) 6 % (13-45); MONOCYTES % (MANUAL) 10 % (3-13); SEGMENTED NEUTROPHILS % (MAN) 82 % (42-78); TOTAL CELLS COUNTED 100
[2018-07-12 16:13] LABS: ANISOCYTOSIS 1+; PLATELET COMMENT DECREASED; POLYCHROMASIA SLIGHT
[2018-07-12] MEDS ORDERED: ACETAMINOPHEN 325 MG TABLET PO ONE (18:01)
--- NOTE | 2018-07-12 19:04 | EKG REPORT ---
SEVERITY:- ABNORMAL ECG - ATRIAL FIBRILLATION LOW VOLTAGE THROUGHOUT BORDERLINE PROLONGED QT INTERVAL : Confirmed by: Jarad Cannon 12-Jul-2018 19:03:51
[2018-07-13] MEDS ORDERED: ACETAMINOPHEN 325 MG TABLET ONE (00:52)
[2018-07-13] MEDS ORDERED: ACETAMINOPHEN 325 MG TABLET PO ONE (00:57)
[2018-07-13] MEDS: LEVOTHYROXINE SODIUM 0.05 MG TABLET PO SCH (05:55)
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
[2018-07-13] MEDS: FUROSEMIDE 40 MG TABLET PO SCH (10:04)
[2018-07-13] MEDS: FERROUS SULFATE 325 MG TABLET PO SCH (10:05)
[2018-07-13] MEDS: METOPROLOL SUCCINATE 25 MG TAB.SR.24H PO SCH (10:05)
[2018-07-13] MEDS: APIXABAN 5 MG TABLET PO SCH (10:05)
[2018-07-13] MEDS: ASPIRIN 81 MG TABLET, CHEWABLE PO SCH (10:05)
[2018-07-13] MEDS: LANSOPRAZOLE 30 MG TAB.RAP.DR PO SCH (10:05)
[2018-07-13] MEDS: BUDESONIDE/FORMOTEROL 80-4.5 MCG 60 PUFF/6.9 GM MDI IH SCH (10:08)
[2018-07-13 14:20] VITALS: BP 110/86
== END 2018-07-13 14:19 | disposition home or self-care (01) ==
LOC: ER 19:58
DX: R06.00 Dyspnea, unspecified (principal); J44.9 Chronic obstructive pulmonary disease, unspecified; Z59.0 Homelessness; Z87.891 Personal history of nicotine dependence; I10 Essential (primary) hypertension; Z99.81 Dependence on supplemental oxygen; E11.9 Type 2 diabetes mellitus without complications
CPT/HCPCS: 93005; 99284; 36415; 85025; 80053; 83880; 93010; J3490 ×12

== ENCOUNTER 2018-09-25 22:11 | Inpatient (IN) | payer MEDICAID ==
[2018-09-25] MEDS ORDERED: RINGERS SOLUTION,LACTATED 1,000 ML IV ONE (22:35)
[2018-09-25 22:59] LABS: ALANINE AMINOTRANSFERASE 17 U/L (21-72); ALKALINE PHOSPHATASE 138 U/L (38-126); ANION GAP 12 (5-19); ASPARTATE AMINO TRANSFERASE 17 U/L (17-59); BILIRUBIN,DIRECT 0.7 mg/dL (0.0-0.4); BLOOD UREA NITROGEN 83 mg/dL (7-20); CALCIUM 8.2 mg/dL (8.4-10.2); CARBON DIOXIDE 17 mmol/L (22-30); CHLORIDE 90 mmol/L (98-107); GLUCOSE 116 mg/dL (75-110); POTASSIUM 3.8 mmol/L (3.6-5.0); TOTAL PROTEIN 5.3 g/dL (6.3-8.2)
--- NOTE | 2018-09-25 23:01 | ER Document Report ---
ED General - General Stated Complaint: TROUBLE BREATHING Time Seen by Provider: 09/25/18 22:34 Cannot obtain history due to: Uncooperative, Altered mental status Notes: Patient is a 58-year-old male without medical problems by his report although based on history does have a long-standing alcohol abuse issue as well as hypertension, congestive heart failure, and high cholesterol who presents by EMS due to familial concerns of altered mental status. The patient apparently has been not getting out of his bed for the past several days, not eating or drinking, and family became very concerned when he was no longer even drinking alcohol. This prompted them to send him to the emergency department. He is also apparently been intermittently combative. When I discussed with the patient will bring him to the emergency department today he states that he does not know why he is here, states he feels fine and that he is just trying to rest . He denies any medical concerns and states he does not know what his family is talking about. TRAVEL OUTSIDE OF THE [place] IN LAST 30 DAYS: No - Related Data Allergies/Adverse Reactions: strawberry Allergy (Verified 07/11/18 20:44) Past Medical History - General Information source: Patient, [employer] Cannot obtain history due to: Uncooperative, Altered mental status - Social History Smoking Status: Current Every Day Smoker Frequency of alcohol use: Heavy Drug Abuse: None Lives with: Family Family History: Reviewed & Not Pertinent - Past Medical History Cardiac Medical History: Reports: Hx Hypertension Denies: Hx Atrial Fibrillation, Hx Congestive Heart Failure, Hx DVT, Hx Heart Attack, Hx Hypercholesterolemia, Hx Pulmonary Embolism Pulmonary Medical History: Denies: Hx Asthma, Hx COPD, Hx Sleep Apnea Neurological Medical History: Reports: Hx Seizures Endocrine Medical History: Reports: Hx Diabetes Mellitus Type 2 - Possible, per patient; no specific diagnosis of same. Denies: Hx Diabetes Mellitus Type 1, Hx Hyperthyroidism, Hx Hypothyroidism Renal/ Medical History: Denies: Hx Peritoneal Dialysis GI Medical History: Denies: Hx Cirrhosis, Hx Gastroesophageal Reflux Disease, Hx Hepatitis Musculoskeletal Medical History: Reports Hx Arthritis Psychiatric Medical History: Denies: Hx Depression Infectious Medical History: Denies: Hx C-Diff, Hx Hepatitis, Hx MRSA Past Surgical History: Reports: Hx Tonsillectomy - Immunizations Hx Diphtheria, Pertussis, Tetanus Vaccination: No Hx Pneumococcal Vaccination: 10/06/00 Review of Systems - Review of Systems Notes: Constitutional: Negative for fever. HENT: Negative for sore throat. Eyes: Negative for visual changes. Cardiovascular: Negative for chest pain. Respiratory: Negative for shortness of breath. Gastrointestinal: Negative for abdominal pain, vomiting or diarrhea. Genitourinary: Negative for dysuria. Musculoskeletal: Negative for back pain. Skin: Negative for rash. Neurological: Negative for headaches, weakness or numbness. 10 point ROS negative except as marked above and in HPI. Physical Exam - Vital signs Vitals: Temp Resp BP 97.8 F 11 L 102/70 09/25/18 22:29 09/25/18 22:29 09/25/18 22:29 Interpretation: Hypotensive Notes: PHYSICAL EXAMINATION: GENERAL: Appears older than stated age, somewhat ill but in no acute distress HEAD: Atraumatic, normocephalic. EYES: Pupils equal round and reactive to light, extraocular movements intact, sclera anicteric, conjunctiva are normal. ENT: nares patent, oropharynx clear without exudates. Dry mucous membranes. NECK: Normal range of motion, supple without lymphadenopathy LUNGS: Breath sounds clear to auscultation bilaterally and equal. No wheezes rales or rhonchi. HEART: Regular rate and rhythm without murmurs ABDOMEN: Soft, nontender, normoactive bowel sounds. No guarding, no rebound. No masses appreciated. EXTREMITIES: Normal range of motion, no pitting or edema. No cyanosis. NEUROLOGICAL: No focal neurological deficits. Moves all extremities spontaneously and on command. PSYCH: Alert, oriented x3 but delayed in his responses SKIN: Warm, Dry, normal turgor, chronic venous stasis changes of the bilateral lower extremities Course - Re-evaluation Re-evalutation: 09/25/18 22:55 Presentation of a older than stated age appearing male in no acute distress who presents based on familial concerns of altered mental status. The patient is alert, oriented, although somewhat delayed in his response to orientation questions. He denies any complaints. Does appear moderately icteric. No focal neurologic deficits on exam. Mildly hypotensive at time of presentation. He states that he does not believe he needs to be here, does not know why he is here. Per EMS report family is very concerned as the patient had apparently stopped eating and drinking, was, combative and was no longer even drinking his usual quantity of liquor. Will proceed with labs, ammonia, CT head, chest x- ray, provide a low-dose of IV fluid and reassess the patient. 09/25/18 23:23 Laboratories do show a sodium of 119 with associated acute renal failure creatinine is 3.8. The patient is receiving lactated Ringer's for gradual sodium level without overcorrection too quickly. He has been placed on seizure precautions. Will discuss with the hospitalist for admission. 09/25/18 23:27 Patient has also been started on IV thiamine. Ongoing fluid resuscitation. Dr. Mckeon has accepted the patient for admission. - Vital Signs Vital signs: Temp Pulse Resp BP Pulse Ox 97.8 F 11 L 104/64 100 09/25/18 22:29 09/26/18 01:01 09/26/18 01:01 09/26/18 00:40 - Laboratory Result Diagrams: 09/25/18 22:25 09/25/18 22:25 Laboratory results interpreted by me: 09/25/18 09/25/18 09/25/18 22:25 22:25 22:25 RBC 2.36 L Hgb 8.2 L Hct 24.3 L MCV 103 H MCH 34.7 H RDW 21.0 H Plt Count 82 L Seg Neutrophils % 83.2 H Lymphocytes % 8.7 L VBG pH VBG HCO3 Sodium 119.0 L* Chloride 90 L Carbon Dioxide 17 L BUN 83 H Creatinine 3.51 H Est GFR ( Amer) 22 L Est GFR (Non-Af Amer) 18 L Glucose 116 H Calcium 8.2 L Phosphorus Direct Bilirubin 0.7 H ALT 17 L Alkaline Phosphatase 138 H Creatine Kinase < 20 L NT-Pro-B Natriuret Pep 97459 H Total Protein 5.3 L Albumin 3.0 L TSH 09/25/18 09/25/18 09/25/18 22:25 22:25 23:05 RBC Hgb Hct MCV MCH RDW Plt Count Seg Neutrophils % Lymphocytes % VBG pH 7.28 L VBG HCO3 19.6 L Sodium Chloride Carbon Dioxide BUN Creatinine Est GFR ( Amer) Est GFR (Non-Af Amer) Glucose Calcium Phosphorus 5.9 H Direct Bilirubin ALT Alkaline Phosphatase Creatine Kinase NT-Pro-B Natriuret Pep Total Protein Albumin TSH 11.10 H - Diagnostic Test Radiology reviewed: Image reviewed, Reports reviewed Radiology results interpreted by me: 09/25/18 23:28 Chest x-ray: No acute infiltrate CT head: No acute intercranial bleed or mass Discharge - Discharge Clinical Impression: Hyponatremia CHF (congestive heart failure) Qualifiers: Heart failure type: unspecified Heart failure chronicity: unspecified Qualified Code(s): I50.9 - Heart failure, unspecified Alcohol dependence Qualifiers: Substance use status: unspecified alcohol-induced disorder Qualified Code(s): F10.29 - Alcohol dependence with unspecified alcohol-induced disorder Altered mental status Qualifiers: Altered mental status type: transient alteration of awareness Qualified Code(s): R40.4 - Transient alteration of awareness Acute renal failure Qualifiers: Acute renal failure type: unspecified Qualified Code(s): N17.9 - Acute kidney failure, unspecified Condition: Fair Disposition: ADMITTED INPATIENT Admitting Provider: Hospitalist Unit Admitted: [facility]
[2018-09-25 23:02] LABS: ABSOLUTE EOSINOPHILS # (AUTO) 0.1 10^3/uL (0.0-0.6); ABSOLUTE LYMPHOCYTES (AUTO) 0.6 10^3/uL (0.5-4.7); ABSOLUTE MONOCYTES (AUTO) 0.4 10^3/uL (0.1-1.4); ABSOLUTE NEUT (AUTO) 5.7 10^3/uL (1.7-8.2); BASOPHILS % (AUTO) 0.3 % (0-2); EOSINOPHILS % (AUTO) 1.5 % (0-6); HEMATOCRIT 24.3 % (37.9-51.0); HEMOGLOBIN 8.2 g/dL (13.5-17.0); LYMPHOCYTES % (AUTO) 8.7 % (13-45); MEAN CORPUSCULAR HEMOGLOBIN 34.7 pg (27.0-33.4); MEAN CORPUSCULAR HGB CONC 33.9 g/dL (32.0-36.0); MEAN CORPUSCULAR VOLUME 103 fl (80-97); MONOCYTES % (AUTO) 6.3 % (3-13); RED BLOOD COUNT 2.36 10^6/uL (4.35-5.55); SEGMENTED NEUTROPHILS % (AUTO) 83.2 % (42-78); TOTAL CELLS COUNTED % (AUTO) 100 %; WHITE BLOOD COUNT 6.9 10^3/uL (4.0-10.5)
[2018-09-25 23:09] LABS: CREATINE KINASE < 20 U/L (55-170)
--- NOTE | 2018-09-25 23:12 | RADIOLOGY REPORT (SQ) ---
EXAM DESCRIPTION: XR CHEST 1 VIEW COMPLETED DATE/TME: 09/25/2018 22:35 CLINICAL HISTORY: 58 years Male, sob COMPARISON:07/12/2018 NUMBER OF VIEWS/TECHNIQUE: 1/AP FINDINGS: Adequate lung volume, clear parenchyma, mild central edema, small bilateral effusions moderately enlarged cardiac silhouette, and intact bony thorax. IMPRESSION: Mild CHF pattern.
--- NOTE | 2018-09-25 23:13 | RADIOLOGY REPORT (SQ) ---
CLINICAL HISTORY: ams COMPARISON: None. 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 FINDINGS: There is no acute hemorrhage, mass effect or midline shift. Mandel-white differentiation is preserved. There is no hydrocephalus. There is no significant volume loss for age. There are mild patchy hypodensities within the periventricular and subcortical white matter, consistent with microangiopathic ischemic changes. The calvarium is intact. Orbits and globes are unremarkable. The paranasal sinuses are clear. Mastoid air cells are clear. IMPRESSION: No acute intracranial findings.
[2018-09-25 23:17] LABS: CREATINE KINASE MB 0.91 ng/mL (<4.55); TROPONIN I 0.017 ng/mL
[2018-09-25 23:21] LABS: PLATELET COUNT 82 10^3/uL (150-450)
[2018-09-25 23:23] LABS: VENOUS BLOOD BASE EXCESS -6.8 mmol/L; VENOUS BLOOD HCO3 19.6 mmol/L (20-32); VENOUS BLOOD PCO2 43.2 mmHg (35-63); VENOUS BLOOD PH 7.28 (7.30-7.42)
[2018-09-25] MEDS ORDERED: THIAMINE HCL 500 MG in NORMAL SALINE 250 ML IV SCH (23:30)
[2018-09-25] MEDS ORDERED: MAG HYDROX/AL HYDROX/SIMETH SUSP 30 ML UDCUP PO PRN (23:31)
[2018-09-25] MEDS ORDERED: MAGNESIUM HYDROXIDE SUSP 30 ML UDCUP PO PRN (23:31)
[2018-09-25] MEDS ORDERED: IPRATROPIUM/ALBUTEROL 0.5-2.5 MG/3 ML AMPUL NEB PRN (23:31)
[2018-09-25 23:46] LABS: PROTHROMBIN TIME 14.8 SEC (11.4-15.4)
[2018-09-25 23:52] LABS: PHOSPHORUS 5.9 mg/dL (2.5-4.5)
[2018-09-26] MEDS ORDERED: THIAMINE HCL INJ 200 MG/2 ML VIAL ONE (00:49)
[2018-09-26 01:57] LABS: FREE T4 (FREE THYROXINE) 0.84 ng/dL (0.78-2.19)
[2018-09-26 01:58] LABS: FREE T3 2.99 pg/mL (2.77-5.27)
[2018-09-26] MEDS: MAGNESIUM SULFATE/D5W 1 GM/100 ML RTUPB IV SCH ×2 (02:59→04:00)
[2018-09-26 03:49] LABS: ABSOLUTE EOSINOPHILS # (AUTO) 0.1 10^3/uL (0.0-0.6); ABSOLUTE LYMPHOCYTES (AUTO) 0.4 10^3/uL (0.5-4.7); ABSOLUTE MONOCYTES (AUTO) 0.3 10^3/uL (0.1-1.4); ABSOLUTE NEUT (AUTO) 5.1 10^3/uL (1.7-8.2); BASOPHILS % (AUTO) 0.5 % (0-2); EOSINOPHILS % (AUTO) 1.5 % (0-6); HEMATOCRIT 23.6 % (37.9-51.0); LYMPHOCYTES % (AUTO) 7.2 % (13-45); MEAN CORPUSCULAR HEMOGLOBIN 34.8 pg (27.0-33.4); MEAN CORPUSCULAR HGB CONC 33.8 g/dL (32.0-36.0); MEAN CORPUSCULAR VOLUME 103 fl (80-97); RED CELL DISTRIBUTION WIDTH 20.5 % (11.5-14.0); SEGMENTED NEUTROPHILS % (AUTO) 85.8 % (42-78); TOTAL CELLS COUNTED % (AUTO) 100 %
[2018-09-26 04:00] LABS: ALANINE AMINOTRANSFERASE 19 U/L (21-72); ALBUMIN 2.7 g/dL (3.5-5.0); ALKALINE PHOSPHATASE 124 U/L (38-126); ANION GAP 11 (5-19); ASPARTATE AMINO TRANSFERASE 15 U/L (17-59); BILIRUBIN,DIRECT 0.7 mg/dL (0.0-0.4); BILIRUBIN,TOTAL 0.9 mg/dL (0.2-1.3); BLOOD UREA NITROGEN 80 mg/dL (7-20); CALCIUM 7.8 mg/dL (8.4-10.2); CARBON DIOXIDE 18 mmol/L (22-30); CHLORIDE 94 mmol/L (98-107); GLUCOSE 111 mg/dL (75-110); POTASSIUM 3.5 mmol/L (3.6-5.0); SODIUM 122.6 mmol/L (137-145); TOTAL PROTEIN 4.9 g/dL (6.3-8.2)
[2018-09-26 04:03] LABS: CREATINE KINASE < 20 U/L (55-170)
[2018-09-26 04:05] LABS: APPEARANCE,URINE SLIGHTLY-CLOUDY; BILIRUBIN,URINE NEGATIVE (NEGATIVE); COLOR,URINE YELLOW; GLUCOSE, URINE NEGATIVE (NEGATIVE); KETONES,URINE NEGATIVE (NEGATIVE); LEUKOCYTE ESTERASE,URINE LARGE (NEGATIVE); NITRITE,URINE NEGATIVE (NEGATIVE); PROTEIN,URINE NEGATIVE (NEGATIVE); URINE SPECIFIC GRAVITY 1.006; UROBILINOGEN,URINE NEGATIVE mg/dL (<2.0)
[2018-09-26 04:11] LABS: PLATELET COUNT 67 10^3/uL (150-450)
[2018-09-26 04:12] LABS: TROPONIN I 0.018 ng/mL
[2018-09-26 04:25] LABS: OSMOLALITY,URINE 206 mOsm/kg (300-900)
[2018-09-26 04:33] LABS: URINE AMPHETAMINES SCREEN NEGATIVE; URINE BARBITURATES SCREEN NEGATIVE; URINE COCAINE SCREEN NEGATIVE; URINE MARIJUANA (THC) SCREEN NEGATIVE; URINE METHADONE SCREEN NEGATIVE; URINE PHENCYCLIDINE SCREEN NEGATIVE
[2018-09-26 04:35] LABS: URINE BENZODIAZEPINES SCREEN UNCONFIRMED POSITIVE; URINE SODIUM 5 mmol/L (30-90)
[2018-09-26] MEDS: LANSOPRAZOLE 30 MG TAB.RAP.DR PO SCH ×2 (05:21→17:47)
--- NOTE | 2018-09-26 05:21 | PDOC H&P ---
History of Present Illness Admission Date/PCP: 09/26/18 00:11 Patient complains of: Altered mental status History of Present Illness: DAVE LAMAR is a 58 year old male with a past medical history of diastolic heart failure, morbid obesity, atrial fibrillation on Eliquis, alcohol dependence, venous stasis and chronic noncompliance. Patient presents after dickson mcfadden finds him with altered mental status prompting a call to EMS and subsequent evaluation in the emergency room. Family states he has been unable to get out of bed for several days, without eating or drinking and abrupt discontinuation of alcohol. His daily habit is one bottle of vodka per day. He does have a history of alcohol withdrawal with seizure. He is confused oriented x2 denying pain, he is hypotensive labs reveal macrocytic anemia, acute renal failure, hyponatremia and urine drug screen is positive for benzodiazepine. He started on normal saline and referred to the hospitalist for admission. Past Medical History Cardiac Medical History: Reports: Atrial Fibrillation, Hypertension Denies: Congestive Heart Failure, DVT, Myocardial Infarction, Hyperlipidema, Pulmonary Embolism Pulmonary Medical History: Denies: Asthma, Chronic Obstructive Pulmonary Disease (COPD), Sleep Apnea Neurological Medical History: Reports: Seizures Endocrine Medical History: Reports: Diabetes Mellitus Type 2 - Possible, per patient; no specific diagnosis of same Denies: Diabetes Mellitus Type 1, Hyperthyroidism, Hypothyroidism GI Medical History: Denies: Cirrhosis, Gastroesophageal Reflux Disease, Hepatitis Musculoskeltal Medical History: Reports: Arthritis Psychiatric Medical History: Reports: Alcohol Dependency, Tobacco Dependency Denies: Depression Infectious Medical History: Denies: Clostridium Difficile, Methicillin-Resistant Staph Aureus Past Surgical History Past Surgical History: Reports: Tonsillectomy Social History Information Source: Patient, Emergency Med Personnel, [facility] Records Lives with: Family Smoking Status: Current Every Day Smoker Frequency of Alcohol Use: Heavy Hx Recreational Drug Use: No Drugs: None Hx Prescription Drug Abuse: No - Advance Directive Resuscitation Status: Full Code Family History Family History: Other - Unobtainable Parental Family History Reviewed: No - Unobtainable Children Family History Reviewed: No Sibling(s) Family History Reviewed.: No - Unobtainable unobtainable Medication/Allergy Home Medications: Apixaban [Eliquis 5 mg Tablet] 5 mg pe PO BID 07/11/18 Aspirin [Aspirin 81 mg Chewable Tablet] 81 mg PO DAILY 07/11/18 Budesonide/Formoterol Fumarate [Symbicort HFA 80-4.5 mcg Inhaler 6.9 gm] 2 puff IH BID 07/11/18 Ferrous Sulfate 325 mg PO DAILY 07/11/18 Furosemide [Lasix] 40 mg PO BID 07/11/18 Levothyroxine Sodium 50 mcg PO DAILY 07/11/18 Metoprolol Succinate [Toprol Xl] 25 mg PO DAILY 07/11/18 Pantoprazole Sodium [Protonix] 40 mg PO Q12H 07/11/18 Allergies/Adverse Reactions: strawberry Allergy (Verified 07/11/18 20:44) Review of Systems ROS unobtainable: Due to mental status - Encephalopathic Physical Exam Vital Signs: Temp Pulse Resp BP Pulse Ox 97.3 F 73 14 105/58 L 86 L 09/26/18 03:11 09/26/18 03:11 09/26/18 03:11 09/26/18 03:11 09/26/18 03:11 Intake & Output 09/24/18 09/25/18 09/26/18 11:59 11:59 11:59 Intake Total 1355 Balance 1355 Weight 114.7 kg General appearance: PRESENT: cooperative, disheveled, mild distress, morbidly obese Head exam: PRESENT: atraumatic, normocephalic Eye exam: PRESENT: conjunctiva pink, EOMI, PERRLA. ABSENT: scleral icterus Ear exam: PRESENT: normal external ear exam Mouth exam: PRESENT: dry mucosa. ABSENT: laceration, moist Neck exam: ABSENT: carotid bruit, JVD, lymphadenopathy, thyromegaly Respiratory exam: PRESENT: crackles, prolonged expiratory phas, symmetrical. ABSENT: rales, rhonchi, wheezes Cardiovascular exam: PRESENT: irregular rhythm, +S1, +S2 Pulses: PRESENT: normal dorsalis pedis pul Vascular exam: PRESENT: normal capillary refill GI/Abdominal exam: PRESENT: normal bowel sounds, soft. ABSENT: distended, guarding, mass, organolmegaly, rebound, tenderness Rectal exam: PRESENT: deferred Extremities exam: PRESENT: tenderness, +1 edema, other - Chronic changes of venous stasis and dermatitis Neurological exam: PRESENT: altered, awake, oriented to person, CN II-XII grossly intact Psychiatric exam: PRESENT: flat affect, unusual affect Skin exam: PRESENT: other - Bilateral lower extremity +1 edema with chronic robertson ges of venous stasis dermatitis Results Laboratory Results: 09/26/18 03:38 09/26/18 03:38 09/25/18 09/25/18 09/25/18 22:25 22:25 22:25 WBC 6.9 RBC 2.36 L Hgb 8.2 L Hct 24.3 L MCV 103 H MCH 34.7 H MCHC 33.9 RDW 21.0 H Plt Count 82 L Seg Neutrophils % 83.2 H Lymphocytes % 8.7 L Monocytes % 6.3 Eosinophils % 1.5 Basophils % 0.3 Absolute Neutrophils 5.7 Absolute Lymphocytes 0.6 Absolute Monocytes 0.4 Absolute Eosinophils 0.1 Absolute Basophils 0.0 VBG pH VBG pCO2 VBG HCO3 VBG Base Excess Sodium 119.0 L* Potassium 3.8 Chloride 90 L Carbon Dioxide 17 L Anion Gap 12 BUN 83 H Creatinine 3.51 H Est GFR ( Amer) 22 L Est GFR (Non-Af Amer) 18 L Glucose 116 H Serum Osmolality Lactic Acid 0.9 Calcium 8.2 L Phosphorus Magnesium Total Bilirubin 1.0 AST 17 ALT 17 L Alkaline Phosphatase 138 H Ammonia Total Protein 5.3 L Albumin 3.0 L Lipase TSH Free T4 Free T3 pg/mL Urine Color Urine Appearance Urine pH Ur Specific [place] Urine Protein Urine Glucose (UA) Urine Ketones Urine Blood Urine Nitrite Ur Leukocyte Esterase Urine WBC (Auto) Urine RBC (Auto) Urine Osmolality 09/25/18 09/25/18 09/25/18 22:25 22:25 22:25 WBC RBC Hgb Hct MCV MCH MCHC RDW Plt Count Seg Neutrophils % Lymphocytes % Monocytes % Eosinophils % Basophils % Absolute Neutrophils Absolute Lymphocytes Absolute Monocytes Absolute Eosinophils Absolute Basophils VBG pH VBG pCO2 VBG HCO3 VBG Base Excess Sodium Potassium Chloride Carbon Dioxide Anion Gap BUN Creatinine Est GFR ( Amer) Est GFR (Non-Af Amer) Glucose Serum Osmolality Lactic Acid Calcium Phosphorus 5.9 H Magnesium Total Bilirubin AST ALT Alkaline Phosphatase Ammonia 12.5 Total Protein Albumin Lipase 150.0 TSH 11.10 H Free T4 Free T3 pg/mL Urine Color Urine Appearance Urine pH Ur Specific [place] Urine Protein Urine Glucose (UA) Urine Ketones Urine Blood Urine Nitrite Ur Leukocyte Esterase Urine WBC (Auto) Urine RBC (Auto) Urine Osmolality 09/25/18 09/25/18 09/25/18 22:25 22:25 23:05 WBC RBC Hgb Hct MCV MCH MCHC RDW Plt Count Seg Neutrophils % Lymphocytes % Monocytes % Eosinophils % Basophils % Absolute Neutrophils Absolute Lymphocytes Absolute Monocytes Absolute Eosinophils Absolute Basophils VBG pH 7.28 L VBG pCO2 43.2 VBG HCO3 19.6 L VBG Base Excess -6.8 Sodium Potassium Chloride Carbon Dioxide Anion Gap BUN Creatinine Est GFR ( Amer) Est GFR (Non-Af Amer) Glucose Serum Osmolality 282 Lactic Acid Calcium Phosphorus Magnesium Total Bilirubin AST ALT Alkaline Phosphatase Ammonia Total Protein Albumin Lipase TSH Free T4 0.84 Free T3 pg/mL 2.99 Urine Color Urine Appearance Urine pH Ur Specific [place] Urine Protein Urine Glucose (UA) Urine Ketones Urine Blood Urine Nitrite Ur Leukocyte Esterase Urine WBC (Auto) Urine RBC (Auto) Urine Osmolality 09/26/18 09/26/18 09/26/18 03:38 03:38 03:38 WBC 6.0 RBC 2.30 L Hgb 8.0 L Hct 23.6 L MCV 103 H MCH 34.8 H MCHC 33.8 RDW 20.5 H Plt Count 67 L Seg Neutrophils % 85.8 H Lymphocytes % 7.2 L Monocytes % 5.0 Eosinophils % 1.5 Basophils % 0.5 Absolute Neutrophils 5.1 Absolute Lymphocytes 0.4 L Absolute Monocytes 0.3 Absolute Eosinophils 0.1 Absolute Basophils 0.0 VBG pH VBG pCO2 VBG HCO3 VBG Base Excess Sodium 122.6 L Cancelled Potassium 3.5 L Cancelled Chloride 94 L Cancelled Carbon Dioxide 18 L Cancelled Anion Gap 11 Cancelled BUN 80 H Cancelled Creatinine 3.10 H Cancelled Est GFR ( Amer) 25 L Cancelled Est GFR (Non-Af Amer) 21 L Cancelled Glucose 111 H Cancelled Serum Osmolality Lactic Acid Calcium 7.8 L Cancelled Phosphorus Magnesium 1.9 Total Bilirubin 0.9 AST 15 L ALT 19 L Alkaline Phosphatase 124 Ammonia Total Protein 4.9 L Albumin 2.7 L Lipase TSH Free T4 Free T3 pg/mL Urine Color Urine Appearance Urine pH Ur Specific [place] Urine Protein Urine Glucose (UA) Urine Ketones Urine Blood Urine Nitrite Ur Leukocyte Esterase Urine WBC (Auto) Urine RBC (Auto) Urine Osmolality 09/26/18 09/26/18 03:45 03:45 WBC RBC Hgb Hct MCV MCH MCHC RDW Plt Count Seg Neutrophils % Lymphocytes % Monocytes % Eosinophils % Basophils % Absolute Neutrophils Absolute Lymphocytes Absolute Monocytes Absolute Eosinophils Absolute Basophils VBG pH VBG pCO2 VBG HCO3 VBG Base Excess Sodium Potassium Chloride Carbon Dioxide Anion Gap BUN Creatinine Est GFR ( Amer) Est GFR (Non-Af Amer) Glucose Serum Osmolality Lactic Acid Calcium Phosphorus Magnesium Total Bilirubin AST ALT Alkaline Phosphatase Ammonia Total Protein Albumin Lipase TSH Free T4 Free T3 pg/mL Urine Color YELLOW Urine Appearance SLIGHTLY-CLOUDY Urine pH 5.0 Ur Specific [place] 1.006 Urine Protein NEGATIVE Urine Glucose (UA) NEGATIVE Urine Ketones NEGATIVE Urine Blood SMALL H Urine Nitrite NEGATIVE Ur Leukocyte Esterase LARGE H Urine WBC (Auto) 9 Urine RBC (Auto) 1 Urine Osmolality 206 L 09/25/18 09/25/18 09/26/18 22:25 22:25 03:38 Creatine Kinase < 20 L CK-MB (CK-2) 0.91 1.00 Troponin I 0.017 0.018 NT-Pro-B Natriuret Pep 06753 H 09/26/18 03:38 Creatine Kinase < 20 L CK-MB (CK-2) Troponin I NT-Pro-B Natriuret Pep Impressions: Chest X-Ray 09/25/18 22:35 IMPRESSION: Mild CHF pattern. Head CT 09/25/18 22:35 IMPRESSION: No acute intracranial findings. Assessment & Plan - Diagnosis (1) Hypotension Is this a current diagnosis for this admission?: Yes Plan: Unclear cause, history of pulmonary embolism, continue Eliquis, IV fluid challenge, follow-up cardiac enzymes (2) Macrocytic anemia Is this a current diagnosis for this admission?: Yes Plan: Likely secondary to alcoholism, thiamine and folate ordered, follow-up CBC (3) Altered mental status Qualifiers: Altered mental status type: transient alteration of awareness Qualified Code(s): R40.4 - Transient alteration of awareness Is this a current diagnosis for this admission?: Yes Plan: Likely secondary benzodiazepine intoxication, continue benzodiazepines as alcohol weaning (4) Hyponatremia Is this a current diagnosis for this admission?: Yes Plan: Appears prerenal and dehydrated, follow-up urine osmolarity, normal saline challenge, follow-up chemistry every 8 hours (5) ANGEL (acute kidney injury) Is this a current diagnosis for this admission?: Yes Plan: Secondary to hypotension and dehydration, IV fluid challenge. Follow-up chemistry (6) Atrial fibrillation Qualifiers: Atrial fibrillation type: chronic Qualified Code(s): I48.2 - Chronic atrial fibrillation Is this a current diagnosis for this admission?: Yes Plan: Currently rate controlled, continue Eliquis - Time Time Spent: 50 to 70 Minutes - Inpatient Certification Medical Necessity: Need Close Monitoring Due to Risk of Patient Decompensation
[2018-09-26] MEDS ORDERED: LEVETIRACETAM 1000 MG/NACL-ISO 1,000 MG/100 ML RTUPB IV ONE (05:30)
[2018-09-26 05:31] LABS: ABSOLUTE RETICS # 0.039 10^6/uL (0.028-0.122); RETICULOCYTE COUNT (AUTO) 1.68 % (0.66-2.85)
[2018-09-26 05:33] LABS: IRON(TIBC) 70.1 ug/dL (49-181)
[2018-09-26] MEDS ORDERED: HEPARIN SOD (PORCINE) 5,000 UNIT/ML 1 ML SYRINGE SUBCUT SCH (06:00)
[2018-09-26] MEDS ORDERED: LEVETIRACETAM INJ/PF 500 MG/5 ML SDV IV ONE (06:00)
[2018-09-26 06:38] LABS: FOLATE 4.31 ng/mL (>2.76)
[2018-09-26] MEDS: LORAZEPAM INJ 2 MG/1 ML VIAL IV PRN (08:34)
[2018-09-26] MEDS: ASPIRIN 81 MG TABLET, CHEWABLE PO SCH (09:36)
[2018-09-26] MEDS: LEVOTHYROXINE SODIUM 0.05 MG TABLET PO SCH (09:36)
[2018-09-26] MEDS: APIXABAN 5 MG TABLET PO SCH ×2 (09:37→17:48)
[2018-09-26] MEDS ORDERED: LEVETIRACETAM 500 MG TABLET PO SCH (10:00)
[2018-09-26] MEDS ORDERED: METOPROLOL SUCCINATE 25 MG TAB.SR.24H PO SCH (10:00)
[2018-09-26] MEDS ORDERED: APIXABAN 5 MG TABLET PO SCH (10:00)
[2018-09-26] MEDS: THIAMINE HCL 100 MG, FOLIC ACID 1 MG in NORMAL SALINE 250 ML IV SCH (10:22)
[2018-09-26] MEDS: LEVETIRACETAM 1000 MG/NACL-ISO 1,000 MG/100 ML RTUPB IV SCH ×2 (10:22→22:35)
[2018-09-26] MEDS: BUDESONIDE/FORMOTEROL 80-4.5 MCG 60 PUFF/6.9 GM MDI IH SCH ×2 (10:25→21:19)
[2018-09-26 12:49] LABS: CREATINE KINASE MB 1.1 ng/mL (<4.55); TROPONIN I 0.015 ng/mL
[2018-09-26] MEDS ORDERED: NICOTINE 21 MG/24 HR PATCH.TD24 TD PRN (13:23)
--- NOTE | 2018-09-26 13:34 | PDOC PROGRESS REPORT ---
Subjective Progress Note for:: 09/26/18 Subjective:: The patient is quite somnolent. He did open his eyes briefly to verbal stimulus. Reason For Visit: ENCEPHALOPATHY,ARF ON CKD,HYPONATREMIA Physical Exam Vital Signs: Temp Pulse Resp BP Pulse Ox 97.2 F 72 15 90/49 L 100 09/26/18 11:15 09/26/18 11:15 09/26/18 11:15 09/26/18 11:15 09/26/18 11:15 Intake & Output 09/25/18 09/26/18 09/27/18 06:59 06:59 06:59 Intake Total 1555 451.2 Output Total 100 Balance 1555 351.2 Weight 117.5 kg General appearance: PRESENT: no acute distress, morbidly obese - BMI 38.3, other - Somnolent Respiratory exam: PRESENT: decreased breath sounds - Distant breath sounds likely due to body habitus. I did not appreciate any wheezes or rales. He did have a congested cough., symmetrical, other - Limited inspiratory phase.. ABSENT: chest wall tenderness, rales, wheezes Cardiovascular exam: PRESENT: irregular rhythm GI/Abdominal exam: PRESENT: normal bowel sounds, soft. ABSENT: tenderness Extremities exam: PRESENT: pedal edema Neurological exam: PRESENT: oriented to person, oriented to place - Answer question in a whisper and fell back asleep.. ABSENT: awake - Very somnolent. Psychiatric exam: PRESENT: other - Somnolent. ABSENT: agitated, anxious Skin exam: PRESENT: dry, warm, other - Discoloration on legs consistent with venous insufficiency Results Laboratory Results: 09/26/18 03:38 09/26/18 03:38 09/25/18 09/25/18 09/25/18 22:25 22:25 22:25 WBC 6.9 RBC 2.36 L Hgb 8.2 L Hct 24.3 L MCV 103 H MCH 34.7 H MCHC 33.9 RDW 21.0 H Plt Count 82 L Seg Neutrophils % 83.2 H Lymphocytes % 8.7 L Monocytes % 6.3 Eosinophils % 1.5 Basophils % 0.3 Absolute Neutrophils 5.7 Absolute Lymphocytes 0.6 Absolute Monocytes 0.4 Absolute Eosinophils 0.1 Absolute Basophils 0.0 Retic Count (auto) Absolute Retic VBG pH VBG pCO2 VBG HCO3 VBG Base Excess Sodium 119.0 L* Potassium 3.8 Chloride 90 L Carbon Dioxide 17 L Anion Gap 12 BUN 83 H Creatinine 3.51 H Est GFR ( Amer) 22 L Est GFR (Non-Af Amer) 18 L Glucose 116 H Serum Osmolality Lactic Acid 0.9 Calcium 8.2 L Phosphorus Magnesium Iron TIBC % Saturation Ferritin Total Bilirubin 1.0 AST 17 ALT 17 L Alkaline Phosphatase 138 H Ammonia Total Protein 5.3 L Albumin 3.0 L Lipase Vitamin B12 Folate TSH Free T4 Free T3 pg/mL Urine Color Urine Appearance Urine pH Ur Specific [place] Urine Protein Urine Glucose (UA) Urine Ketones Urine Blood Urine Nitrite Ur Leukocyte Esterase Urine WBC (Auto) Urine RBC (Auto) Urine Osmolality 09/25/18 09/25/18 09/25/18 22:25 22:25 22:25 WBC RBC Hgb Hct MCV MCH MCHC RDW Plt Count Seg Neutrophils % Lymphocytes % Monocytes % Eosinophils % Basophils % Absolute Neutrophils Absolute Lymphocytes Absolute Monocytes Absolute Eosinophils Absolute Basophils Retic Count (auto) Absolute Retic VBG pH VBG pCO2 VBG HCO3 VBG Base Excess Sodium Potassium Chloride Carbon Dioxide Anion Gap BUN Creatinine Est GFR ( Amer) Est GFR (Non-Af Amer) Glucose Serum Osmolality Lactic Acid Calcium Phosphorus 5.9 H Magnesium Iron TIBC % Saturation Ferritin Total Bilirubin AST ALT Alkaline Phosphatase Ammonia 12.5 Total Protein Albumin Lipase 150.0 Vitamin B12 Folate TSH 11.10 H Free T4 Free T3 pg/mL Urine Color Urine Appearance Urine pH Ur Specific [place] Urine Protein Urine Glucose (UA) Urine Ketones Urine Blood Urine Nitrite Ur Leukocyte Esterase Urine WBC (Auto) Urine RBC (Auto) Urine Osmolality 09/25/18 09/25/18 09/25/18 22:25 22:25 23:05 WBC RBC Hgb Hct MCV MCH MCHC RDW Plt Count Seg Neutrophils % Lymphocytes % Monocytes % Eosinophils % Basophils % Absolute Neutrophils Absolute Lymphocytes Absolute Monocytes Absolute Eosinophils Absolute Basophils Retic Count (auto) Absolute Retic VBG pH 7.28 L VBG pCO2 43.2 VBG HCO3 19.6 L VBG Base Excess -6.8 Sodium Potassium Chloride Carbon Dioxide Anion Gap BUN Creatinine Est GFR ( Amer) Est GFR (Non-Af Amer) Glucose Serum Osmolality 282 Lactic Acid Calcium Phosphorus Magnesium Iron TIBC % Saturation Ferritin Total Bilirubin AST ALT Alkaline Phosphatase Ammonia Total Protein Albumin Lipase Vitamin B12 Folate TSH Free T4 0.84 Free T3 pg/mL 2.99 Urine Color Urine Appearance Urine pH Ur Specific [place] Urine Protein Urine Glucose (UA) Urine Ketones Urine Blood Urine Nitrite Ur Leukocyte Esterase Urine WBC (Auto) Urine RBC (Auto) Urine Osmolality 09/26/18 09/26/18 09/26/18 03:38 03:38 03:38 WBC 6.0 RBC 2.30 L Hgb 8.0 L Hct 23.6 L MCV 103 H MCH 34.8 H MCHC 33.8 RDW 20.5 H Plt Count 67 L Seg Neutrophils % 85.8 H Lymphocytes % 7.2 L Monocytes % 5.0 Eosinophils % 1.5 Basophils % 0.5 Absolute Neutrophils 5.1 Absolute Lymphocytes 0.4 L Absolute Monocytes 0.3 Absolute Eosinophils 0.1 Absolute Basophils 0.0 Retic Count (auto) Absolute Retic VBG pH VBG pCO2 VBG HCO3 VBG Base Excess Sodium 122.6 L Cancelled Potassium 3.5 L Cancelled Chloride 94 L Cancelled Carbon Dioxide 18 L Cancelled Anion Gap 11 Cancelled BUN 80 H Cancelled Creatinine 3.10 H Cancelled Est GFR ( Amer) 25 L Cancelled Est GFR (Non-Af Amer) 21 L Cancelled Glucose 111 H Cancelled Serum Osmolality Lactic Acid Calcium 7.8 L Cancelled Phosphorus Magnesium 1.9 Iron TIBC % Saturation Ferritin Total Bilirubin 0.9 AST 15 L ALT 19 L Alkaline Phosphatase 124 Ammonia Total Protein 4.9 L Albumin 2.7 L Lipase Vitamin B12 Folate TSH Free T4 Free T3 pg/mL Urine Color Urine Appearance Urine pH Ur Specific [place] Urine Protein Urine Glucose (UA) Urine Ketones Urine Blood Urine Nitrite Ur Leukocyte Esterase Urine WBC (Auto) Urine RBC (Auto) Urine Osmolality 09/26/18 09/26/18 09/26/18 03:38 03:38 03:45 WBC RBC Hgb Hct MCV MCH MCHC RDW Plt Count Seg Neutrophils % Lymphocytes % Monocytes % Eosinophils % Basophils % Absolute Neutrophils Absolute Lymphocytes Absolute Monocytes Absolute Eosinophils Absolute Basophils Retic Count (auto) 1.68 Absolute Retic 0.039 VBG pH VBG pCO2 VBG HCO3 VBG Base Excess Sodium Potassium Chloride Carbon Dioxide Anion Gap BUN Creatinine Est GFR ( Amer) Est GFR (Non-Af Amer) Glucose Serum Osmolality Lactic Acid Calcium Phosphorus Magnesium Iron 70.1 TIBC 243 L % Saturation 29 Ferritin 160.00 Total Bilirubin AST ALT Alkaline Phosphatase Ammonia Total Protein Albumin Lipase Vitamin B12 629.0 Folate 4.31 TSH Free T4 Free T3 pg/mL Urine Color Urine Appearance Urine pH Ur Specific [place] Urine Protein Urine Glucose (UA) Urine Ketones Urine Blood Urine Nitrite Ur Leukocyte Esterase Urine WBC (Auto) Urine RBC (Auto) Urine Osmolality 206 L 09/26/18 03:45 WBC RBC Hgb Hct MCV MCH MCHC RDW Plt Count Seg Neutrophils % Lymphocytes % Monocytes % Eosinophils % Basophils % Absolute Neutrophils Absolute Lymphocytes Absolute Monocytes Absolute Eosinophils Absolute Basophils Retic Count (auto) Absolute Retic VBG pH VBG pCO2 VBG HCO3 VBG Base Excess Sodium Potassium Chloride Carbon Dioxide Anion Gap BUN Creatinine Est GFR ( Amer) Est GFR (Non-Af Amer) Glucose Serum Osmolality Lactic Acid Calcium Phosphorus Magnesium Iron TIBC % Saturation Ferritin Total Bilirubin AST ALT Alkaline Phosphatase Ammonia Total Protein Albumin Lipase Vitamin B12 Folate TSH Free T4 Free T3 pg/mL Urine Color YELLOW Urine Appearance SLIGHTLY-CLOUDY Urine pH 5.0 Ur Specific [place] 1.006 Urine Protein NEGATIVE Urine Glucose (UA) NEGATIVE Urine Ketones NEGATIVE Urine Blood SMALL H Urine Nitrite NEGATIVE Ur Leukocyte Esterase LARGE H Urine WBC (Auto) 9 Urine RBC (Auto) 1 Urine Osmolality 09/25/18 09/25/18 09/26/18 22:25 22:25 03:38 Creatine Kinase < 20 L CK-MB (CK-2) 0.91 1.00 Troponin I 0.017 0.018 NT-Pro-B Natriuret Pep [id number] H 09/26/18 09/26/18 09/26/18 03:38 11:20 11:20 Creatine Kinase < 20 L < 20 L CK-MB (CK-2) 1.10 Troponin I 0.015 NT-Pro-B Natriuret Pep Impressions: Chest X-Ray 09/25/18 22:35 IMPRESSION: Mild CHF pattern. Head CT 09/25/18 22:35 IMPRESSION: No acute intracranial findings. Assessment & Plan - Diagnosis (1) Altered mental status Qualifiers: Altered mental status type: transient alteration of awareness Qualified Code(s): R40.4 - Transient alteration of awareness Is this a current diagnosis for this admission?: Yes Plan: Continue IV fluids. Benzodiazepines are ordered for any delirium tremens. He was somnolent this morning but he knew he was in [facility]. (2) Hyponatremia Is this a current diagnosis for this admission?: Yes Plan: Will need to continue IV fluids. I will follow sodium levels. If needed we might add sodium chloride tablets. (3) Hypotension Is this a current diagnosis for this admission?: Yes Plan: Continue IV fluids. Monitor pressures. (4) Alcohol dependence Qualifiers: Substance use status: with intoxication Is this a current diagnosis for this admission?: Yes Plan: Monitor for withdrawal symptoms. Benzodiazepines available if needed. - Time Time Spent with patient: 15-24 minutes Medications reviewed and adjusted accordingly: Yes
[2018-09-26] MEDS: NORMAL SALINE 1000 ML 1,000 ML IV PRN ×2 (14:56→22:26)
[2018-09-26 15:09] LABS: ANION GAP 11 (5-19); BLOOD UREA NITROGEN 79 mg/dL (7-20); CALCIUM 7.8 mg/dL (8.4-10.2); CARBON DIOXIDE 19 mmol/L (22-30); CHLORIDE 92 mmol/L (98-107); GLUCOSE 111 mg/dL (75-110); POTASSIUM 3.4 mmol/L (3.6-5.0); SODIUM 122.2 mmol/L (137-145)
[2018-09-26 18:45] LABS: CREATINE KINASE MB 0.99 ng/mL (<4.55); TROPONIN I < 0.012 ng/mL
[2018-09-26] MEDS ORDERED: NORMAL SALINE 1000 ML 1,000 ML IV ONE (21:15)
[2018-09-27] MEDS: LANSOPRAZOLE 30 MG TAB.RAP.DR PO SCH ×2 (05:07→18:15)
[2018-09-27] MEDS: NORMAL SALINE 1000 ML 1,000 ML IV PRN (05:07)
[2018-09-27 05:28] LABS: ABSOLUTE EOSINOPHILS # (AUTO) 0.1 10^3/uL (0.0-0.6); ABSOLUTE LYMPHOCYTES (AUTO) 0.4 10^3/uL (0.5-4.7); ABSOLUTE MONOCYTES (AUTO) 0.3 10^3/uL (0.1-1.4); ABSOLUTE NEUT (AUTO) 5.6 10^3/uL (1.7-8.2); BASOPHILS % (AUTO) 0.6 % (0-2); LYMPHOCYTES % (AUTO) 6.7 % (13-45); MEAN CORPUSCULAR HEMOGLOBIN 34.8 pg (27.0-33.4); MEAN CORPUSCULAR HGB CONC 33.7 g/dL (32.0-36.0); MEAN CORPUSCULAR VOLUME 103 fl (80-97); MONOCYTES % (AUTO) 4.9 % (3-13); RED BLOOD COUNT 2.03 10^6/uL (4.35-5.55); RED CELL DISTRIBUTION WIDTH 20.4 % (11.5-14.0); SEGMENTED NEUTROPHILS % (AUTO) 85.8 % (42-78); TOTAL CELLS COUNTED % (AUTO) 100 %; WHITE BLOOD COUNT 6.5 10^3/uL (4.0-10.5)
[2018-09-27 05:48] LABS: HEMOGLOBIN 7.1 g/dL (13.5-17.0)
[2018-09-27 05:49] LABS: PLATELET COUNT 61 10^3/uL (150-450)
[2018-09-27 05:54] LABS: ANION GAP 9 (5-19); BLOOD UREA NITROGEN 76 mg/dL (7-20); CALCIUM 7.8 mg/dL (8.4-10.2); CARBON DIOXIDE 17 mmol/L (22-30); CHLORIDE 99 mmol/L (98-107); GLUCOSE 95 mg/dL (75-110); POTASSIUM 3.8 mmol/L (3.6-5.0)
[2018-09-27] MEDS: THIAMINE HCL 100 MG, FOLIC ACID 1 MG in NORMAL SALINE 250 ML IV SCH (09:06)
[2018-09-27] MEDS: ASPIRIN 81 MG TABLET, CHEWABLE PO SCH (09:06)
[2018-09-27] MEDS: BUDESONIDE/FORMOTEROL 80-4.5 MCG 60 PUFF/6.9 GM MDI IH SCH ×2 (09:06→19:57)
[2018-09-27] MEDS: LEVOTHYROXINE SODIUM 0.05 MG TABLET PO SCH (09:06)
[2018-09-27] MEDS: LEVETIRACETAM 1000 MG/NACL-ISO 1,000 MG/100 ML RTUPB IV SCH ×2 (09:06→22:23)
[2018-09-27] MEDS: APIXABAN 5 MG TABLET PO SCH ×2 (09:06→18:15)
[2018-09-27] MEDS: METOPROLOL SUCCINATE 25 MG TAB.SR.24H PO SCH (10:08)
[2018-09-27] MEDS ORDERED: FUROSEMIDE 20 MG TABLET PO PRN (10:38)
[2018-09-27] MEDS ORDERED: NORMAL SALINE 250 ML IV PRN ×2 (10:38)
--- NOTE | 2018-09-27 11:54 | PDOC PROGRESS REPORT ---
Subjective Progress Note for:: 09/27/18 Subjective:: The patient is more awake and alert. He is appropriately interactive today. The nurse reports that he did eat breakfast. Reason For Visit: ENCEPHALOPATHY,ARF ON CKD,HYPONATREMIA Physical Exam Vital Signs: Temp Pulse Resp BP Pulse Ox 98.3 F 79 16 84/53 L 94 09/27/18 07:24 09/27/18 10:00 09/27/18 10:00 09/27/18 07:24 09/27/18 10:00 Intake & Output 09/26/18 09/27/18 09/28/18 06:59 06:59 06:59 Intake Total 1555 3909.2 351.2 Output Total 140 Balance 1555 3769.2 351.2 Weight 117.5 kg 120 kg General appearance: PRESENT: no acute distress, morbidly obese - BMI 39, well- developed Head exam: PRESENT: normocephalic Neck exam: ABSENT: carotid bruit, JVD, lymphadenopathy Respiratory exam: PRESENT: clear to auscultation leo, symmetrical, unlabored. ABSENT: accessory muscle use, prolonged expiratory phas, rales, rhonchi, wheezes Cardiovascular exam: PRESENT: RRR, +S1, +S2 GI/Abdominal exam: PRESENT: normal bowel sounds, soft. ABSENT: distended, tenderness Neurological exam: PRESENT: alert, awake, oriented to person, oriented to place, oriented to time, oriented to situation, CN II-XII grossly intact Psychiatric exam: PRESENT: appropriate affect, normal mood Skin exam: PRESENT: pallor Results Laboratory Results: 09/27/18 04:32 09/27/18 04:32 09/26/18 09/26/18 09/27/18 11:20 11:20 00:15 WBC RBC Hgb Hct MCV MCH MCHC RDW Plt Count Seg Neutrophils % Lymphocytes % Monocytes % Eosinophils % Basophils % Absolute Neutrophils Absolute Lymphocytes Absolute Monocytes Absolute Eosinophils Absolute Basophils Sodium 122.2 L Potassium 3.4 L Chloride 92 L Carbon Dioxide 19 L Anion Gap 11 BUN 79 H Creatinine 3.21 H Est GFR ( Amer) 24 L Est GFR (Non-Af Amer) 20 L Glucose 111 H Serum Osmolality 283 Calcium 7.8 L Urine Osmolality 248 L 09/27/18 09/27/18 04:32 04:32 WBC 6.5 RBC 2.03 L Hgb 7.1 L Hct 21.0 L MCV 103 H MCH 34.8 H MCHC 33.7 RDW 20.4 H Plt Count 61 L Seg Neutrophils % 85.8 H Lymphocytes % 6.7 L Monocytes % 4.9 Eosinophils % 2.0 Basophils % 0.6 Absolute Neutrophils 5.6 Absolute Lymphocytes 0.4 L Absolute Monocytes 0.3 Absolute Eosinophils 0.1 Absolute Basophils 0.0 Sodium 125.0 L Potassium 3.8 Chloride 99 Carbon Dioxide 17 L Anion Gap 9 BUN 76 H Creatinine 2.99 H Est GFR ( Amer) 26 L Est GFR (Non-Af Amer) 22 L Glucose 95 Serum Osmolality Calcium 7.8 L Urine Osmolality 09/25/18 09/25/18 09/26/18 22:25 22:25 03:38 Creatine Kinase < 20 L CK-MB (CK-2) 0.91 1.00 Troponin I 0.017 0.018 NT-Pro-B Natriuret Pep [id number] H 09/26/18 09/26/18 09/26/18 03:38 11:20 11:20 Creatine Kinase < 20 L < 20 L CK-MB (CK-2) 1.10 Troponin I 0.015 NT-Pro-B Natriuret Pep 09/26/18 09/26/18 17:56 17:56 Creatine Kinase < 20 L CK-MB (CK-2) 0.99 Troponin I < 0.012 NT-Pro-B Natriuret Pep Impressions: Chest X-Ray 09/25/18 22:35 IMPRESSION: Mild CHF pattern. Head CT 09/25/18 22:35 IMPRESSION: No acute intracranial findings. Assessment & Plan - Diagnosis (1) Altered mental status Qualifiers: Altered mental status type: transient alteration of awareness Qualified Code(s): R40.4 - Transient alteration of awareness Is this a current diagnosis for this admission?: Yes Plan: Resolved (2) Hyponatremia Is this a current diagnosis for this admission?: Yes Plan: Serum sodium is up to 125. I have instituted a 1.2 L fluid restriction. (3) Hypotension Is this a current diagnosis for this admission?: Yes Plan: The patient states that this is a chronic issue for him. He is on minimal antihypertensive medication. It is possible that when his anemia is corrected his pressure may improve slightly as well. (4) Alcohol dependence Qualifiers: Substance use status: with intoxication Is this a current diagnosis for this admission?: Yes Plan: Continue to encourage abstinence (5) Anemia requiring transfusions Is this a current diagnosis for this admission?: Yes Plan: The patient is chronically anemic. His hemoglobin, however dropped to 7.1 today. He does report that he has had transfusion in the past. I will administer 2 units of packed red blood cells and have him follow-up with his primary care provider - Time Time Spent with patient: 15-24 minutes Medications reviewed and adjusted accordingly: Yes Anticipated discharge: Home
[2018-09-27 21:49] LABS: ABSOLUTE BASOPHILS # (AUTO) 0.1 10^3/uL (0.0-0.2); ABSOLUTE EOSINOPHILS # (AUTO) 0.1 10^3/uL (0.0-0.6); ABSOLUTE LYMPHOCYTES (AUTO) 0.4 10^3/uL (0.5-4.7); ABSOLUTE MONOCYTES (AUTO) 0.4 10^3/uL (0.1-1.4); ABSOLUTE NEUT (AUTO) 6.7 10^3/uL (1.7-8.2); BASOPHILS % (AUTO) 0.8 % (0-2); EOSINOPHILS % (AUTO) 1.6 % (0-6); HEMATOCRIT 23.7 % (37.9-51.0); LYMPHOCYTES % (AUTO) 5.5 % (13-45); MEAN CORPUSCULAR HEMOGLOBIN 34.2 pg (27.0-33.4); MEAN CORPUSCULAR HGB CONC 33.6 g/dL (32.0-36.0); MEAN CORPUSCULAR VOLUME 102 fl (80-97); MONOCYTES % (AUTO) 5.5 % (3-13); RED BLOOD COUNT 2.33 10^6/uL (4.35-5.55); SEGMENTED NEUTROPHILS % (AUTO) 86.6 % (42-78); TOTAL CELLS COUNTED % (AUTO) 100 %; WHITE BLOOD COUNT 7.8 10^3/uL (4.0-10.5)
[2018-09-27 22:05] LABS: PLATELET COUNT 61 10^3/uL (150-450)
[2018-09-28] MEDS ORDERED: DOBUTAMINE HCL/D5W 500 MG/250 ML RTUINJ IV PRN (00:18)
[2018-09-28] MEDS ORDERED: PHENYLEPHRINE HCL INJ/PF 10 MG/1 ML SDV ONE (01:00)
[2018-09-28] MEDS: DEXTROSE 5%-WATER 250 ML with PHENYLEPHRINE HCL 40 MG IV PRN ×8 (01:35→22:22)
[2018-09-28] MEDS: LANSOPRAZOLE 30 MG TAB.RAP.DR PO SCH (06:13)
[2018-09-28 06:25] LABS: HEMATOCRIT 22.3 % (37.9-51.0); MEAN CORPUSCULAR HEMOGLOBIN 33.9 pg (27.0-33.4); MEAN CORPUSCULAR HGB CONC 33.4 g/dL (32.0-36.0); MEAN CORPUSCULAR VOLUME 102 fl (80-97); RED CELL DISTRIBUTION WIDTH 22.4 % (11.5-14.0); WHITE BLOOD COUNT 6.3 10^3/uL (4.0-10.5)
[2018-09-28 06:39] LABS: ALBUMIN 2.3 g/dL (3.5-5.0); ANION GAP 9 (5-19); BLOOD UREA NITROGEN 74 mg/dL (7-20); CALCIUM 7.8 mg/dL (8.4-10.2); CARBON DIOXIDE 16 mmol/L (22-30); CHLORIDE 104 mmol/L (98-107); GLUCOSE 101 mg/dL (75-110); PHOSPHORUS 5.4 mg/dL (2.5-4.5); POTASSIUM 3.5 mmol/L (3.6-5.0); SODIUM 129.3 mmol/L (137-145)
[2018-09-28 06:43] LABS: HEMOGLOBIN 7.5 g/dL (13.5-17.0)
[2018-09-28 06:44] LABS: PLATELET COUNT 59 10^3/uL (150-450)
--- NOTE | 2018-09-28 06:51 | Progress Note ---
Provider Note Provider Note: MD contacted by patient's nurse for verified hypotension systolic pressure in the 70s heart rate A. fib in the 60s. Denying complaints. Patient transferred to the ICU for concern of cardiogenic shock. Ordered 1 L normal saline bolus, Maurizio-Synephrine and dobutamine. Follow-up VQ scan and cardiology consult.
[2018-09-28] MEDS ORDERED: NORMAL SALINE 250 ML IV PRN ×3 (07:59→14:00)
[2018-09-28] MEDS ORDERED: NORMAL SALINE 1000 ML 1,000 ML IV PRN (08:00)
[2018-09-28] MEDS: ALBUMIN HUMAN 12.5 GM/50 ML RTUINJ IV SCH ×4 (08:09→14:12)
[2018-09-28] MEDS ORDERED: LIDOCAINE 1% INJ-PF (10 MG/ML) 30 ML SDV ONE (08:40)
[2018-09-28] MEDS: LORAZEPAM INJ 2 MG/1 ML VIAL IV PRN (09:39)
[2018-09-28] MEDS ORDERED: MIDAZOLAM 2 MG/2 ML INJ ONE (10:02)
[2018-09-28] MEDS ORDERED: FLUMAZENIL INJ 0.5 MG/5 ML VIAL ONE (10:11)
[2018-09-28] MEDS ORDERED: PROPOFOL 1,000 MG/100 ML INFUS..BTL IV ONE ×2 (11:00→13:56)
[2018-09-28] MEDS ORDERED: NOREPINEPHRINE BITARTRATE INJ/PF 4 MG/4 ML SDV IV ONE (11:07)
[2018-09-28 11:11] LABS: HEMATOCRIT 22.3 % (37.9-51.0); MEAN CORPUSCULAR HEMOGLOBIN 33.1 pg (27.0-33.4); MEAN CORPUSCULAR HGB CONC 32.6 g/dL (32.0-36.0); MEAN CORPUSCULAR VOLUME 102 fl (80-97); RED CELL DISTRIBUTION WIDTH 22.2 % (11.5-14.0); WHITE BLOOD COUNT 7.7 10^3/uL (4.0-10.5)
[2018-09-28 11:13] LABS: FIBRINOGEN 373 mg/dL (209-497); INTERNATIONAL RATION (INR) 1.31; PROTHROMBIN TIME 16.9 SEC (11.4-15.4)
[2018-09-28 11:14] LABS: PARTIAL THROMBOPLASTIN TIME 35.6 SEC (23.5-35.8)
[2018-09-28 11:16] LABS: D-DIMER 0.38 ug/mL (0.00-0.50)
[2018-09-28 11:27] LABS: ABSOLUTE LYMPHOCYTES# (MANUAL) 0.4 10^3/uL (0.5-4.7); ABSOLUTE MONOCYTES # (MANUAL) 0.5 10^3/uL (0.1-1.4); ABSOLUTE NEUTROPHILS# (MANUAL) 6.8 10^3/uL (1.7-8.2); BASOPHILS % (MANUAL) 0 % (0-2); EOSINOPHILS % (MANUAL) 1 % (0-6); LYMPHOCYTES % (MANUAL) 5 % (13-45); MONOCYTES % (MANUAL) 6 % (3-13); SEGMENTED NEUTROPHILS % (MAN) 88 % (42-78); TOTAL CELLS COUNTED 100
[2018-09-28 11:30] LABS: ANISOCYTOSIS 3+; PLATELET COMMENT DECREASED; POLYCHROMASIA SLIGHT
[2018-09-28] MEDS ORDERED: MIDAZOLAM HCL 50 MG/100 ML RTUINJ ONE (11:39)
[2018-09-28] MEDS ORDERED: PHARMACY COMMUNICATION ORDER MC NR (11:45)
[2018-09-28] MEDS: METOPROLOL SUCCINATE 25 MG TAB.SR.24H PO SCH (11:52)
[2018-09-28] MEDS: APIXABAN 5 MG TABLET PO SCH (11:52)
[2018-09-28] MEDS: BUDESONIDE/FORMOTEROL 80-4.5 MCG 60 PUFF/6.9 GM MDI IH SCH ×2 (11:52→23:11)
[2018-09-28] MEDS: ASPIRIN 81 MG TABLET, CHEWABLE PO SCH (11:52)
--- NOTE | 2018-09-28 11:54 | RADIOLOGY REPORT (SQ) ---
EXAM DESCRIPTION: CHEST SINGLE VIEW COMPLETED DATE/TIME: 09/28/2018 11:19 am REASON FOR STUDY: POST CATH INSERTION COMPARISON: CT chest 06/12/2018 Chest films 10/07/2017, 07/12/2018, 09/25/2018 EXAM PARAMETERS: NUMBER OF VIEWS: One view. TECHNIQUE: Single frontal radiographic view of the chest acquired. RADIATION DOSE: NA LIMITATIONS: None. FINDINGS: LUNGS AND PLEURA: Diffuse dense airspace disease left greater than right, edema versus pne umonia versus ARDS. This is new compared to 09/25/2018. No pleural effusion. No pneumothorax. MEDIASTINUM AND HILAR STRUCTURES: No masses. Contour normal. HEART AND VASCULAR STRUCTURES: Stable marked cardiomegaly BONES: No acute findings. HARDWARE: Right jugular [place]-Silver catheter tip in the right pulmonary artery OTHER: No other significant finding. IMPRESSION: Diffuse dense airspace disease bilaterally, left greater than right. Edema versus pneum onia versus ARDS Right jugular [place]-Silver catheter tip in the right pulmonary artery TECHNICAL DOCUMENTATION: JOB ID: [id number] [employer]- All Rights Reserved Reading location - IP/workstation name: [email or web address]
[2018-09-28] MEDS: THIAMINE HCL 100 MG, FOLIC ACID 1 MG in NORMAL SALINE 250 ML IV SCH (11:56)
[2018-09-28] MEDS: LEVOTHYROXINE SODIUM INJ/PF 0.1 MG SDV IV SCH (11:57)
[2018-09-28] MEDS ORDERED: FUROSEMIDE INJ/PF 40 MG/4 ML SDV IV ONE ×2 (12:00→19:30)
[2018-09-28 12:06] LABS: HEMOGLOBIN 7.3 g/dL (13.5-17.0)
[2018-09-28 12:07] LABS: PLATELET COUNT 60 10^3/uL (150-450)
[2018-09-28] MEDS: LEVETIRACETAM 1000 MG/NACL-ISO 1,000 MG/100 ML RTUPB IV SCH ×2 (12:15→21:41)
--- NOTE | 2018-09-28 12:25 | RADIOLOGY REPORT (SQ) ---
EXAM DESCRIPTION: CHEST SINGLE VIEW COMPLETED DATE/TIME: 09/28/2018 12:11 pm REASON FOR STUDY: ET TUBE PLACEMENT COMPARISON: AP chest 09/25/2018, 09/28/2018 1049 hours EXAM PARAMETERS: NUMBER OF VIEWS: One view. TECHNIQUE: Single frontal radiographic view of the chest acquired. RADIATION DOSE: NA LIMITATIONS: None. FINDINGS: LUNGS AND PLEURA: Diffuse bilateral alveolar infiltrates are present edema versus pneumoni a versus ARDS. No pleural effusions. No pneumothorax. MEDIASTINUM AND HILAR STRUCTURES: No masses. Contour normal. HEART AND VASCULAR STRUCTURES: Stable cardiomegaly BONES: No acute findings. HARDWARE: Endotracheal tube tip 4 cm above the elier. Nasogastric tube tip and side port in the sto mach. Right jugular [place]-Silver catheter tip in the right pulmonary artery OTHER: No other significant finding. IMPRESSION: Tubes and lines in good positioning Diffuse bilateral airspace disease edema versus pneumonia versus ARDS. This is similar compared to 1 049 hours. TECHNICAL DOCUMENTATION: JOB ID: [id number] [employer]- All Rights Reserved Reading location - IP/workstation name: [email or web address]
[2018-09-28] MEDS ORDERED: MAGNESIUM HYDROXIDE SUSP 30 ML UDCUP NG PRN (12:30)
[2018-09-28] MEDS ORDERED: MAG HYDROX/AL HYDROX/SIMETH SUSP 30 ML UDCUP NG PRN (12:30)
[2018-09-28 13:34] LABS: ARTERIAL BLOOD H2CO3 1.41 mmol/L (1.05-1.35); ARTERIAL BLOOD HCO3 16.8 mmol/L (20-24); ARTERIAL BLOOD O2 SATURATION 90.4 % (94-98); ARTERIAL BLOOD PCO2 46.8 mmHg (35-45); ARTERIAL BLOOD PO2 72.8 mmHg (80-100); ARTERIAL BLOOD TOTAL CO2 18.2 mmol/L (23-27)
[2018-09-28 13:39] LABS: ARTERIAL BLOOD FIO2 35%
[2018-09-28 13:40] LABS: ARTERIAL BLOOD PH 7.17 (7.35-7.45)
[2018-09-28] MEDS: PROPOFOL 1,000 MG/100 ML INFUS..BTL IV PRN ×3 (14:12→21:36)
[2018-09-28 14:14] LABS: VENOUS BLOOD BASE EXCESS -11.5 mmol/L; VENOUS BLOOD HCO3 16.2 mmol/L (20-32)
--- NOTE | 2018-09-28 14:15 | RADIOLOGY REPORT (SQ) ---
EXAM DESCRIPTION: CHEST SINGLE VIEW; NOT FOR OR FLUORO TO 1 HR; NON-TUNNEL CV CATH COMPLETED DATE/TIME: 09/28/2018 1:56 pm; 09/28/2018 12:14 pm REASON FOR STUDY: SWANZ-MARK CATHETER PLACEMENT; NEED FOR VASCULAR ACCESS COMPARISON: Chest film 09/25/2018 FLUOROSCOPY TIME: 1.4 minutes 1 digital fluoro images saved to PACS. TECHNIQUE: Intra-operative images acquired during surgical procedure to evaluate progress. NUMBER OF IMAGES: 1 digital fluoroscopic image LIMITATIONS: None. FINDINGS: 1 digital fluoroscopic images submitted. Please see Dr. Bright's operative report for furt her details IMPRESSION: IMAGE(S) OBTAINED DURING PROCEDURE. COMMENT: Quality ID [id number]: Final reports for procedures using fluoroscopy that document radiation exp osure indices, or exposure time and number of fluorographic images (if radiation exposure indices are not available) Please consult full operative report of the attending physician for description of the procedure. TECHNICAL DOCUMENTATION: JOB ID: [id number] [employer]- All Rights Reserved Reading location - IP/workstation name: [email or web address]
--- NOTE | 2018-09-28 14:15 | RADIOLOGY REPORT (SQ) ---
EXAM DESCRIPTION: CHEST SINGLE VIEW; NOT FOR OR FLUORO TO 1 HR; NON-TUNNEL CV CATH COMPLETED DATE/TIME: 09/28/2018 1:56 pm; 09/28/2018 12:14 pm REASON FOR STUDY: SWANZ-MARK CATHETER PLACEMENT; NEED FOR VASCULAR ACCESS COMPARISON: Chest film 09/25/2018 FLUOROSCOPY TIME: 1.4 minutes 1 digital fluoro images saved to PACS. TECHNIQUE: Intra-operative images acquired during surgical procedure to evaluate progress. NUMBER OF IMAGES: 1 digital fluoroscopic image LIMITATIONS: None. FINDINGS: 1 digital fluoroscopic images submitted. Please see Dr. Bright's operative report for furt her details IMPRESSION: IMAGE(S) OBTAINED DURING PROCEDURE. COMMENT: Quality ID [id number]: Final reports for procedures using fluoroscopy that document radiation exp osure indices, or exposure time and number of fluorographic images (if radiation exposure indices are not available) Please consult full operative report of the attending physician for description of the procedure. TECHNICAL DOCUMENTATION: JOB ID: [id number] [employer]- All Rights Reserved Reading location - IP/workstation name: [facility]-[email or web address]
--- NOTE | 2018-09-28 14:15 | RADIOLOGY REPORT (SQ) ---
EXAM DESCRIPTION: CHEST SINGLE VIEW; NOT FOR OR FLUORO TO 1 HR; NON-TUNNEL CV CATH COMPLETED DATE/TIME: 09/28/2018 1:56 pm; 09/28/2018 12:14 pm REASON FOR STUDY: SWANZ-MARK CATHETER PLACEMENT; NEED FOR VASCULAR ACCESS COMPARISON: Chest film 09/25/2018 FLUOROSCOPY TIME: 1.4 minutes 1 digital fluoro images saved to PACS. TECHNIQUE: Intra-operative images acquired during surgical procedure to evaluate progress. NUMBER OF IMAGES: 1 digital fluoroscopic image LIMITATIONS: None. FINDINGS: 1 digital fluoroscopic images submitted. Please see Dr. Bright's operative report for furt her details IMPRESSION: IMAGE(S) OBTAINED DURING PROCEDURE. COMMENT: Quality ID [id number]: Final reports for procedures using fluoroscopy that document radiation exp osure indices, or exposure time and number of fluorographic images (if radiation exposure indices are not available) Please consult full operative report of the attending physician for description of the procedure. TECHNICAL DOCUMENTATION: JOB ID: [id number] [employer]- All Rights Reserved Reading location - IP/workstation name: [id number]
[2018-09-28 14:17] LABS: VENOUS BLOOD PH 7.17 (7.30-7.42)
[2018-09-28] MEDS: NORMAL SALINE 1000 ML 1,000 ML IV PRN (15:36)
[2018-09-28 15:51] LABS: ARTERIAL BLOOD BASE EXCESS -10.6 mmol/L; ARTERIAL BLOOD FIO2 35%; ARTERIAL BLOOD H2CO3 0.91 mmol/L (1.05-1.35); ARTERIAL BLOOD HCO3 14.7 mmol/L (20-24); ARTERIAL BLOOD O2 SATURATION 97.8 % (94-98); ARTERIAL BLOOD PCO2 30.1 mmHg (35-45); ARTERIAL BLOOD PH 7.31 (7.35-7.45); ARTERIAL BLOOD PO2 112.3 mmHg (80-100); ARTERIAL BLOOD TOTAL CO2 15.6 mmol/L (23-27)
[2018-09-28] MEDS: DEXTROSE 5%-WATER 250 ML with NOREPINEPHRINE BITARTRATE 4 MG IV PRN ×4 (16:33→23:15)
[2018-09-28] MEDS: LANSOPRAZOLE 30 MG TAB.RAP.DR NG SCH (17:14)
[2018-09-28] MEDS ORDERED: NORMAL SALINE INJ/PF 0.9% 10 ML SDV IV PRN (17:35)
[2018-09-28] MEDS ORDERED: APIXABAN 5 MG TABLET NG SCH (18:00)
--- NOTE | 2018-09-28 18:22 | PDOC PROGRESS REPORT ---
Subjective Progress Note for:: 09/28/18 Subjective:: The patient exhibited hypotension last night and was transferred to the ICU. He had a recent echocardiogram that revealed a low ejection fraction likely from hypothyroidism. It was felt that the patient was in right heart failure and so he was intubated, sedated and had a Roseboom-Silver catheter placed. Reason For Visit: ENCEPHALOPATHY,ARF ON CKD,HYPONATREMIA Physical Exam Vital Signs: Temp Pulse Resp BP Pulse Ox 97.7 F 58 L 18 122/68 98 09/28/18 18:00 09/28/18 18:00 09/28/18 18:00 09/28/18 18:00 09/28/18 18:00 Intake & Output 09/27/18 09/28/18 09/29/18 06:59 06:59 06:59 Intake Total 3909.2 2383.2 1660.2 Output Total 330 693 7141 Balance 3769.2 1863.2 510.2 Weight 120 kg 121.2 kg 121.2 kg General appearance: PRESENT: morbidly obese, well-developed, other - Sedated/medicated on the ventilator Head exam: PRESENT: atraumatic, normocephalic Eye exam: PRESENT: conjunctiva pale. ABSENT: scleral icterus Ear exam: PRESENT: normal external ear exam Mouth exam: PRESENT: moist, other - Bloody secretions Teeth exam: PRESENT: poor dentation Throat exam: PRESENT: post pharyngeal erythema Neck exam: ABSENT: carotid bruit, lymphadenopathy Respiratory exam: PRESENT: rales, symmetrical, other - Intubated on ventilator. ABSENT: rhonchi, wheezes Cardiovascular exam: PRESENT: RRR, +S1, +S2, other - Distant heart sounds due to body habitus GI/Abdominal exam: PRESENT: distended - Protuberant abdomen, normal bowel sounds, soft. ABSENT: tenderness Gentrourinary exam: PRESENT: indwelling catheter Extremities exam: PRESENT: +1 edema Neurological exam: PRESENT: other - Sedated Psychiatric exam: PRESENT: other - Sedated Focused psych exam: PRESENT: other - Sedated Results Laboratory Results: 09/28/18 10:57 09/28/18 06:03 09/27/18 09/27/18 09/28/18 11:10 21:29 06:03 WBC 7.8 6.3 RBC 2.33 L 2.20 L Hgb 8.0 L 7.5 L Hct 23.7 L 22.3 L MCV 102 H 102 H MCH 34.2 H 33.9 H MCHC 33.6 33.4 RDW 22.0 H 22.4 H Plt Count 61 L 59 L Seg Neutrophils % 86.6 H Lymphocytes % 5.5 L Monocytes % 5.5 Eosinophils % 1.6 Basophils % 0.8 Absolute Neutrophils 6.7 Absolute Lymphocytes 0.4 L Absolute Monocytes 0.4 Absolute Eosinophils 0.1 Absolute Basophils 0.1 Carbonic Acid HCO3/H2CO3 Ratio ABG pH ABG pCO2 ABG pO2 ABG HCO3 ABG O2 Saturation ABG Base Excess VBG pH VBG pCO2 VBG HCO3 VBG Base Excess FiO2 Sodium Potassium Chloride Carbon Dioxide Anion Gap BUN Creatinine Est GFR ( Amer) Est GFR (Non-Af Amer) Glucose Calcium Phosphorus Albumin Blood Type A POSITIVE Antibody Screen NEGATIVE 09/28/18 09/28/18 09/28/18 06:03 10:57 13:22 WBC 7.7 RBC 2.20 L Hgb 7.3 L Hct 22.3 L MCV 102 H MCH 33.1 MCHC 32.6 RDW 22.2 H Plt Count 60 L Seg Neutrophils % Not Reportable Lymphocytes % Not Reportable Monocytes % Not Reportable Eosinophils % Not Reportable Basophils % Not Reportable Absolute Neutrophils Not Reportable Absolute Lymphocytes Not Reportable Absolute Monocytes Not Reportable Absolute Eosinophils Not Reportable Absolute Basophils Not Reportable Carbonic Acid 1.41 H HCO3/H2CO3 Ratio 11:1 ABG pH 7.17 L* ABG pCO2 46.8 H ABG pO2 72.8 L ABG HCO3 16.8 L ABG O2 Saturation 90.4 L ABG Base Excess -11.0 VBG pH VBG pCO2 VBG HCO3 VBG Base Excess FiO2 35% Sodium 129.3 L Potassium 3.5 L Chloride 104 Carbon Dioxide 16 L Anion Gap 9 BUN 74 H Creatinine 3.28 H Est GFR ( Amer) 23 L Est GFR (Non-Af Amer) 19 L Glucose 101 Calcium 7.8 L Phosphorus 5.4 H Albumin 2.3 L Blood Type Antibody Screen 09/28/18 09/28/18 13:56 15:45 WBC RBC Hgb Hct MCV MCH MCHC RDW Plt Count Seg Neutrophils % Lymphocytes % Monocytes % Eosinophils % Basophils % Absolute Neutrophils Absolute Lymphocytes Absolute Monocytes Absolute Eosinophils Absolute Basophils Carbonic Acid 0.91 L HCO3/H2CO3 Ratio 16:1 ABG pH 7.31 L ABG pCO2 30.1 L ABG pO2 112.3 H ABG HCO3 14.7 L ABG O2 Saturation 97.8 ABG Base Excess -10.6 VBG pH 7.17 L* VBG pCO2 45.0 VBG HCO3 16.2 L VBG Base Excess -11.5 FiO2 35% Sodium Potassium Chloride Carbon Dioxide Anion Gap BUN Creatinine Est GFR ( Amer) Est GFR (Non-Af Amer) Glucose Calcium Phosphorus Albumin Blood Type Antibody Screen 09/25/18 09/25/18 09/26/18 22:25 22:25 03:38 Creatine Kinase < 20 L CK-MB (CK-2) 0.91 1.00 Troponin I 0.017 0.018 NT-Pro-B Natriuret Pep 54463 H 09/26/18 09/26/18 09/26/18 03:38 11:20 11:20 Creatine Kinase < 20 L < 20 L CK-MB (CK-2) 1.10 Troponin I 0.015 NT-Pro-B Natriuret Pep 09/26/18 09/26/18 17:56 17:56 Creatine Kinase < 20 L CK-MB (CK-2) 0.99 Troponin I < 0.012 NT-Pro-B Natriuret Pep Impressions: Head CT 09/25/18 22:35 IMPRESSION: No acute intracranial findings. Chest X-Ray 09/28/18 00:00 IMPRESSION: IMAGE(S) OBTAINED DURING PROCEDURE. Fluoroscopy 09/28/18 00:00 IMPRESSION: IMAGE(S) OBTAINED DURING PROCEDURE. Interventional Vascular Procedure 09/28/18 00:00 IMPRESSION: IMAGE(S) OBTAINED DURING PROCEDURE. Assessment & Plan - Diagnosis (1) Right heart failure Qualifiers: Heart failure chronicity: acute on chronic Qualified Code(s): I50.813 - Acute on chronic right heart failure Is this a current diagnosis for this admission?: Yes Plan: The patient was worked up for heart failure 2 months ago. At that time imaging revealed low ejection fraction. Cardiology placed a Roseboom-Silver catheter. The patient will be receiving diuretic therapy. We will monitor the patient's wedge pressure and adjust medications accordingly. Cardiology is also following the patient. We will monitor his intake and output. We will also monitor his serum chemistries. (2) Hypotension Qualifiers: Hypotension type: other hypotension type Qualified Code(s): I95.89 - Other hypotension Is this a current diagnosis for this admission?: Yes Plan: Patient's hypotension is most likely due to poor ejection fraction. By review of old records it appears that the patient may have cardiomyopathy from hypothyroidism. His TSH was greater than 22 months ago. On this admission it was down to 11. The patient was admitted to the ICU. He is on dual pressor therapy. He is intubated and has a Roseboom-Silver catheter in place. We will try and wean pressors. (3) Anemia requiring transfusions Is this a current diagnosis for this admission?: Yes Plan: The patient has chronic anemia however his hemoglobin yesterday was 7.1. At that time there was no evidence of whit bleeding. After transfusion yesterday his hemoglobin geo to 8 but it was down to 7.3 today. He will receive 2 units of packed red blood cells. His platelet count was low during the procedures and he was oozing blood. We will monitor him closely and if necessary give additional platelets. Labs are ordered for tomorrow. (4) Hyponatremia Is this a current diagnosis for this admission?: Yes Plan: Serum sodium is improved today. We will continue to monitor. (5) Alcohol dependence Qualifiers: Substance use status: with intoxication Is this a current diagnosis for this admission?: Yes Plan: The patient would benefit from alcohol cessation programs. (6) Altered mental status Qualifiers: Altered mental status type: transient alteration of awareness Qualified Code(s): R40.4 - Transient alteration of awareness Is this a current diagnosis for this admission?: Yes Plan: Resolved (8) Acute respiratory failure with hypoxia Is this a current diagnosis for this admission?: Yes Plan: The patient was intubated earlier today. He will be on dual pressor therapy. He will be sedated to avoid disruption of catheters and tubes. Wean when medically appropriate. - Time Time Spent with patient: 35 or more minutes Medications reviewed and adjusted accordingly: Yes - Plan Summary Plan Summary: Please also see pulmonary and cardiology notes.
--- NOTE | 2018-09-28 18:29 | Progress Note ---
Provider Note Provider Note: Procedure note: This patient experienced hypotension last night. He was transferred to the intensive care unit. He has a Shell-Silver catheter in place as well as dual vasopressor therapy. He has a history of hypoxic respiratory failure and is morbidly obese. For airway protection and his illness acuity it was decided to intubate the patient and mechanically ventilate him. The patient was initially given 4 mg of lorazepam during the Shell-Silver insertion. He became slightly hypoxic and was given Romazicon. For the intubation he was given 60 mg of propofol and was on Versed infusion. With the use of a glide scope and cricoid pressure the patient was successfully intubated. Because of his large neck it was challenging but successful. Chest x-ray revealed appropriate placement. After the intubation a nasogastric tube was placed. The patient will remain on propofol as well as vasopressors.
[2018-09-28] MEDS ORDERED: VANCOMYCIN HCL 0 MG in DEXTROSE 5%-WATER 250 ML IV NR (18:45)
[2018-09-28] MEDS: NORMAL SALINE 250 ML with FUROSEMIDE 250 MG IV PRN ×2 (20:03)
[2018-09-28] MEDS: MILRINONE LACTATE/D5W 20 MG/100 ML RTUINJ IV PRN (20:35)
[2018-09-28] MEDS ORDERED: NITROGLYCERIN/D5W 50 MG/250 ML RTUINJ IV ONE (21:30)
--- NOTE | 2018-09-28 21:31 | PDOC CONSULTATION ---
Consultation-Blank Consultation: Cardiology consultation by Dr. Christelle Mcrae at 10 AM on 09/28/2018. REASON FOR CONSULTATION: Hypotension and congestive heart failure.
[2018-09-28] MEDS: MIDAZOLAM HCL 50 MG/100 ML RTUINJ IV PRN (21:35)
[2018-09-28] MEDS: PIPERACILLIN SODIUM/TAZOBACTAM 3.375 GM in NORMAL SALINE 100 ML IV SCH (21:40)
--- NOTE | 2018-09-28 21:41 | Progress Note ---
Provider Note Provider Note: CARDIOLOGY PROCEDURE NOTE by Dr. Christelle hook. On 09/28/2018. [employer] Engineer: Dr. Christelle Lane. PROCEDURE: Placement of [place]-Silver catheter with measurements through the waiting chambers of the right heart [there is the right atrium, the right ventricle, the pulmonary artery, and the pulmonary wedge, under fluoroscopic and hemodynamic waveform monitoring, through the right internal jugular vein access. Tissue removed: None. The blood Loss: None After informed consent was obtained after discussion of the risks complications benefits of the procedure. The risks of vascular trauma, bleeding complications, infection, arrhythmias, and need for CPR and DC shock for arrhythmias if it should arise, and perforation of the heart were all discussed. Sternal precautions and aseptic technique Dr. Rodriguez access the right internal jugular with a micropuncture set under ultrasound guidance. Subsequently using the Seldinger guidewire exchange technique a 8.5 [place] sheath was placed in the right internal jugular vein with good venous return of blood. Through this under fluoroscopic and waveform monitoring a [place]-Silver catheter was floated through the right atrium, the right ventricle, the pulmonary artery and wedge. The pressures in the various chambers were measured. Subsequently the [place]-Silver which was floated through a steroidal sheath was sutured along with the 8.5 [place] sheath. The findings were: RA was 26/16 with a mean of 23. The right ventricle systolic pressure was 61/20. The PA pressure was 55/30 with a PA mean of 40. The pulmonary wedge pressure mean was 28. The cardiac output was 8.31 and the systemic vascular resistance was 494. Impression: Pulmonary hypertension, with elevated wedge pressure complains of compatible with heart failure, and elevated cardiac output secondary to the patient's anemia with a decreased systemic vascular resistance. Will start the patient on levo fed for blood pressure support, and to decrease the patient's right heart pressures. There is also start the patient on Lasix bolus and drip. Continue antibiotics for infection. The patient also will be receiving platelets and blood transfusions for the patient's thrombocytopenia and anemia. The cardiac hemodynamics including the wedge pressures the PA pressures and the cardiac output will be done every shift, and if needed in between shifts. Later if the right heart pressures and the wedge pressure still does not come down we will start the patient on milrinone. Postprocedure fluoroscopy showed that the [place]-Silver catheter was in the right pulmonary artery, and was easily legible. Subsequent chest x-ray showed no pneumothorax. There is no bleeding complications. SUCCESSFUL PLACEMENTOF [place] catheter for hemodynamic measurements.
[2018-09-28] MEDS ORDERED: METOPROLOL TARTRATE 25 MG TABLET NG SCH (22:00)
[2018-09-28] MEDS: METOPROLOL TARTRATE 25 MG TABLET NG SCH (22:28)
[2018-09-28] MEDS: VANCOMYCIN HCL 1,500 MG in DEXTROSE 5%-WATER 250 ML IV SCH (22:43)
[2018-09-29] MEDS: PROPOFOL 1,000 MG/100 ML INFUS..BTL IV PRN ×6 (00:17→20:45)
[2018-09-29 00:45] LABS: ANION GAP 8 (5-19); BLOOD UREA NITROGEN 72 mg/dL (7-20); CALCIUM 8.2 mg/dL (8.4-10.2); CARBON DIOXIDE 18 mmol/L (22-30); CHLORIDE 103 mmol/L (98-107); GLUCOSE 153 mg/dL (75-110); SODIUM 128.6 mmol/L (137-145)
[2018-09-29] MEDS: MILRINONE LACTATE/D5W 20 MG/100 ML RTUINJ IV PRN ×6 (00:52→22:33)
[2018-09-29 01:03] LABS: HEMOGLOBIN 8.7 g/dL (13.5-17.0); MEAN CORPUSCULAR HEMOGLOBIN 32.9 pg (27.0-33.4); MEAN CORPUSCULAR HGB CONC 33.6 g/dL (32.0-36.0); RED BLOOD COUNT 2.66 10^6/uL (4.35-5.55); RED CELL DISTRIBUTION WIDTH 21.6 % (11.5-14.0); WHITE BLOOD COUNT 9.5 10^3/uL (4.0-10.5)
[2018-09-29 01:09] LABS: POTASSIUM 2.9 mmol/L (3.6-5.0)
[2018-09-29 01:16] LABS: MEAN CORPUSCULAR VOLUME 98 fl (80-97); PLATELET COUNT 66 10^3/uL (150-450)
[2018-09-29 01:32] LABS: ABSOLUTE LYMPHOCYTES# (MANUAL) 0.8 10^3/uL (0.5-4.7); ABSOLUTE MONOCYTES # (MANUAL) 0.4 10^3/uL (0.1-1.4); ABSOLUTE NEUTROPHILS# (MANUAL) 8.4 10^3/uL (1.7-8.2); BAND NEUTROPHILS % (MANUAL) 1 % (3-5); BASOPHILS % (MANUAL) 0 % (0-2); EOSINOPHILS % (MANUAL) 0 % (0-6); LYMPHOCYTES % (MANUAL) 8 % (13-45); MONOCYTES % (MANUAL) 4 % (3-13); SEGMENTED NEUTROPHILS % (MAN) 86 % (42-78); TOTAL CELLS COUNTED 100
[2018-09-29 01:40] LABS: ANISOCYTOSIS 3+; BURR CELLS SLIGHT; HYPOCHROMASIA 2+; POIKILOCYTOSIS SLIGHT; POLYCHROMASIA 1+
[2018-09-29 01:41] LABS: PLATELET COMMENT DECREASED
[2018-09-29 01:42] LABS: MYELOCYTES % (MANUAL) 1 % (0)
[2018-09-29] MEDS: POTASSIUM CHLORIDE 20 MEQ/15 ML UDCUP NG SCH ×2 (02:15→03:26)
[2018-09-29] MEDS: PIPERACILLIN SODIUM/TAZOBACTAM 3.375 GM in NORMAL SALINE 100 ML IV SCH ×4 (03:31→20:47)
[2018-09-29 05:23] LABS: INTERNATIONAL RATION (INR) 1.22
[2018-09-29 05:43] LABS: ALBUMIN 2.5 g/dL (3.5-5.0); ANION GAP 10 (5-19); BLOOD UREA NITROGEN 72 mg/dL (7-20); CALCIUM 8.5 mg/dL (8.4-10.2); CARBON DIOXIDE 16 mmol/L (22-30); CHLORIDE 104 mmol/L (98-107); GLUCOSE 151 mg/dL (75-110); POTASSIUM 3.5 mmol/L (3.6-5.0); SODIUM 129.6 mmol/L (137-145); TRIGLYCERIDES 45 mg/dL (<150)
[2018-09-29 05:50] LABS: ALANINE AMINOTRANSFERASE 10 U/L (21-72); ALBUMIN 2.5 g/dL (3.5-5.0); ALKALINE PHOSPHATASE 78 U/L (38-126); ANION GAP 7 (5-19); ASPARTATE AMINO TRANSFERASE 17 U/L (17-59); BILIRUBIN,DIRECT 1.3 mg/dL (0.0-0.4); BILIRUBIN,TOTAL 1.8 mg/dL (0.2-1.3); BLOOD UREA NITROGEN 73 mg/dL (7-20); CALCIUM 8.4 mg/dL (8.4-10.2); CARBON DIOXIDE 18 mmol/L (22-30); CHLORIDE 105 mmol/L (98-107); GLUCOSE 154 mg/dL (75-110); POTASSIUM 3.4 mmol/L (3.6-5.0); SODIUM 129.5 mmol/L (137-145); TOTAL PROTEIN 4.9 g/dL (6.3-8.2)
[2018-09-29] MEDS: LANSOPRAZOLE 30 MG TAB.RAP.DR NG SCH ×2 (06:55→16:59)
[2018-09-29] MEDS: DEXTROSE 5%-WATER 250 ML with NOREPINEPHRINE BITARTRATE 4 MG IV PRN ×6 (06:57→20:45)
[2018-09-29] MEDS: DEXTROSE 5%-WATER 250 ML with PHENYLEPHRINE HCL 40 MG IV PRN ×4 (06:58→15:10)
--- NOTE | 2018-09-29 08:28 | RADIOLOGY REPORT (SQ) ---
EXAM DESCRIPTION: CHEST SINGLE VIEW COMPLETED DATE/TIME: 09/29/2018 6:52 am REASON FOR STUDY: CHF / PNUEMONIA COMPARISON: 09/28/2018 EXAM PARAMETERS: NUMBER OF VIEWS: One view TECHNIQUE: Single frontal radiograph of the chest. RADIATION DOSE: N/A LIMITATIONS: None. FINDINGS: TEMPORARY SUPPORT DEVICES:ETT in expected location. NG tube courses below the garth-diaphr agm in to the stomach. Eyal F[place]-Silver tip in the right main pulmonary artery. LUNGS AND PLEURA: Diffuse parenchymal opacities in the right lung. Near complete opacification of the left lung. Presumably from atelectasis and mucous plugging. The does appear to be a an abrupt term ination of the left mainstem bronchus. No masses. No pneumothorax. MEDIASTINUM AND HILAR STRUCTURES: No masses. Contour normal. HEART AND VASCULAR STRUCTURES: Heart is enlarged. Interstitial pulmonary edema. Aorta normal for age. BONES: No acute findings. OTHER: No other significant finding. IMPRESSION: Interval development of complete collapse of the left lung likely from a left mainstem b ronchus mucous plug. Persistent congestive failure pattern. SUPPORT DEVICE(S) IN EXPECTED LOCATIONS. TECHNICAL DOCUMENTATION: JOB ID: [id number] [employer]- All Rights Reserved Reading location - IP/workstation name: [email or web address]
[2018-09-29] MEDS: BUDESONIDE/FORMOTEROL 80-4.5 MCG 60 PUFF/6.9 GM MDI IH SCH ×2 (08:51→22:42)
[2018-09-29 08:55] LABS: ARTERIAL BLOOD BASE EXCESS -8.8 mmol/L; ARTERIAL BLOOD H2CO3 0.92 mmol/L (1.05-1.35); ARTERIAL BLOOD O2 SATURATION 95.1 % (94-98); ARTERIAL BLOOD PCO2 30.5 mmHg (35-45); ARTERIAL BLOOD PH 7.34 (7.35-7.45); ARTERIAL BLOOD PO2 78.3 mmHg (80-100); ARTERIAL BLOOD TOTAL CO2 16.9 mmol/L (23-27)
[2018-09-29 08:58] LABS: ARTERIAL BLOOD FIO2 35%
[2018-09-29] MEDS ORDERED: POTASSIUM CHLORIDE 20 MEQ/15 ML UDCUP NG ONE (09:00)
[2018-09-29 09:20] LABS: HEMATOCRIT 26.7 % (37.9-51.0); HEMOGLOBIN 9.1 g/dL (13.5-17.0); MEAN CORPUSCULAR HEMOGLOBIN 33.6 pg (27.0-33.4); MEAN CORPUSCULAR VOLUME 99 fl (80-97); RED CELL DISTRIBUTION WIDTH 21.1 % (11.5-14.0); WHITE BLOOD COUNT 10.5 10^3/uL (4.0-10.5)
[2018-09-29] MEDS: THIAMINE HCL 100 MG, FOLIC ACID 1 MG in NORMAL SALINE 250 ML IV SCH (10:13)
[2018-09-29] MEDS: LEVETIRACETAM 1000 MG/NACL-ISO 1,000 MG/100 ML RTUPB IV SCH ×2 (10:14→22:45)
[2018-09-29] MEDS: LEVOTHYROXINE SODIUM INJ/PF 0.1 MG SDV IV SCH (10:15)
[2018-09-29] MEDS: METOPROLOL TARTRATE 25 MG TABLET NG SCH ×2 (10:15→22:43)
[2018-09-29] MEDS: ASPIRIN 81 MG TABLET, CHEWABLE NG SCH (10:15)
[2018-09-29] MEDS ORDERED: MAGNESIUM SULFATE/D5W 1 GM/100 ML RTUPB IV ONE (10:30)
[2018-09-29 10:31] LABS: PLATELET COUNT 73 10^3/uL (150-450)
[2018-09-29 10:35] LABS: ABSOLUTE LYMPHOCYTES# (MANUAL) 0.5 10^3/uL (0.5-4.7); ABSOLUTE MONOCYTES # (MANUAL) 0.4 10^3/uL (0.1-1.4); ABSOLUTE NEUTROPHILS# (MANUAL) 9.5 10^3/uL (1.7-8.2); ANISOCYTOSIS 3+; BAND NEUTROPHILS % (MANUAL) 1 % (3-5); BASOPHILS % (MANUAL) 0 % (0-2); BURR CELLS SLIGHT; EOSINOPHILS % (MANUAL) 1 % (0-6); LYMPHOCYTES % (MANUAL) 5 % (13-45); METAMYELOCYTES % (MANUAL) 1 % (0); MONOCYTES % (MANUAL) 4 % (3-13); OVALOCYTES 1+; POIKILOCYTOSIS 2+; SCHISTOCYTES 1+; SEGMENTED NEUTROPHILS % (MAN) 88 % (42-78); TOTAL CELLS COUNTED 100; TOXIC GRANULATION 2+
[2018-09-29 10:36] LABS: PLATELET COMMENT DECREASED; POLYCHROMASIA 1+
[2018-09-29] MEDS: MIDAZOLAM HCL 50 MG/100 ML RTUINJ IV PRN ×2 (11:54→22:34)
[2018-09-29] MEDS ORDERED: VASOPRESSIN INJ 20 UNIT/1 ML VIAL ONE (12:07)
[2018-09-29] MEDS: DEXTROSE 5%-WATER 250 ML with VASOPRESSIN 100 UNIT IV PRN ×2 (12:14)
[2018-09-29] MEDS: FONDAPARINUX SODIUM INJ 2.5 MG/0.5 ML DISP.SYRIN SUBCUT SCH (12:31)
--- NOTE | 2018-09-29 13:09 | RADIOLOGY REPORT (SQ) ---
EXAM DESCRIPTION: CHEST SINGLE VIEW COMPLETED DATE/TIME: 09/29/2018 12:48 pm REASON FOR STUDY: CHF COMPARISON: 09/29/2018 0636 hours EXAM PARAMETERS: NUMBER OF VIEWS: One view. TECHNIQUE: Single frontal radiographic view of the chest acquired. RADIATION DOSE: NA LIMITATIONS: None. FINDINGS: LUNGS AND PLEURA: Partial re-expansion of the left lung. Parenchymal opacities in the rig ht for cyst. Retrocardiac density which is probably a combination of atelectasis and effusion. MEDIASTINUM AND HILAR STRUCTURES: No masses. Contour normal. HEART AND VASCULAR STRUCTURES: Heart enlarged. Vascular congestion. BONES: No acute findings. HARDWARE: ETT, [place] scans, NG tube unchanged. OTHER: No other significant finding. IMPRESSION: Partial re-expansion of the left lung. Persistent retrocardiac density likely a combina tion of effusion and atelectasis. Vascular congestion. TECHNICAL DOCUMENTATION: JOB ID: [id number] [employer]- All Rights Reserved Reading location - IP/workstation name: [email or web address]
--- NOTE | 2018-09-29 14:59 | PDOC PROGRESS REPORT ---
Subjective Progress Note for:: 09/29/18 Subjective:: The patient remains intubated and sedated. Reason For Visit: ENCEPHALOPATHY,ARF ON CKD,HYPONATREMIA Physical Exam Vital Signs: Temp Pulse Resp BP Pulse Ox 92.1 F L 70 20 92/57 L 97 09/29/18 08:18 09/29/18 10:00 09/29/18 10:00 09/29/18 10:00 09/29/18 12:23 Intake & Output 09/28/18 09/29/18 09/30/18 06:59 06:59 06:59 Intake Total 2383.2 3445.2 1095.2 Output Total 520 4600 1575 Balance 1863.2 -1154.8 -479.8 Weight 121.2 kg 123.4 kg Mouth exam: PRESENT: other - Endotracheal tube in place. Nasogastric tube in place. Neck exam: PRESENT: other - There is swelling over the right clavicle and right neck areas. With pressure there is oozing of blood from needle stick sites. There is no marked discoloration this morning. Respiratory exam: PRESENT: decreased breath sounds - On the left., rales - Faint rales on the right., other. ABSENT: wheezes Cardiovascular exam: PRESENT: RRR, +S1, +S2 Vascular exam: PRESENT: pallor GI/Abdominal exam: PRESENT: distended, normal bowel sounds, soft. ABSENT: tenderness Extremities exam: PRESENT: +1 edema Neurological exam: PRESENT: other - Sedated Psychiatric exam: PRESENT: other - Sedated Focused psych exam: PRESENT: other - Sedated Skin exam: PRESENT: pallor, other - Legs with chronic pigment deposition consi stent with venous insufficiency Results Laboratory Results: 09/29/18 04:14 09/29/18 04:14 09/27/18 09/28/18 09/28/18 11:10 15:45 23:50 WBC RBC Hgb Hct MCV MCH MCHC RDW Plt Count Seg Neutrophils % Lymphocytes % Monocytes % Eosinophils % Basophils % Absolute Neutrophils Absolute Lymphocytes Absolute Monocytes Absolute Eosinophils Absolute Basophils Carbonic Acid 0.91 L HCO3/H2CO3 Ratio 16:1 ABG pH 7.31 L ABG pCO2 30.1 L ABG pO2 112.3 H ABG HCO3 14.7 L ABG O2 Saturation 97.8 ABG Base Excess -10.6 FiO2 35% Sodium 128.6 L Potassium 2.9 L* Chloride 103 Carbon Dioxide 18 L Anion Gap 8 BUN 72 H Creatinine 2.65 H Est GFR ( Amer) 30 L Est GFR (Non-Af Amer) 25 L Glucose 153 H Calcium 8.2 L Phosphorus Magnesium Total Bilirubin AST ALT Alkaline Phosphatase Total Protein Albumin Triglycerides Fluid Type Fluid Source Fluid Color Fluid Appearance Fluid Viscosity Fluid WBC Fluid RBC Blood Type A POSITIVE Antibody Screen NEGATIVE 09/28/18 09/29/18 09/29/18 23:50 00:51 04:14 WBC Cancelled 9.5 RBC Cancelled 2.66 L Hgb Cancelled 8.7 L Hct Cancelled 26.0 L MCV Cancelled 98 H D MCH Cancelled 32.9 MCHC Cancelled 33.6 RDW Cancelled 21.6 H Plt Count Cancelled 66 L Seg Neutrophils % Cancelled Not Reportable Lymphocytes % Cancelled Not Reportable Monocytes % Cancelled Not Reportable Eosinophils % Cancelled Not Reportable Basophils % Cancelled Not Reportable Absolute Neutrophils Cancelled Not Reportable Absolute Lymphocytes Cancelled Not Reportable Absolute Monocytes Cancelled Not Reportable Absolute Eosinophils Cancelled Not Reportable Absolute Basophils Cancelled Not Reportable Carbonic Acid HCO3/H2CO3 Ratio ABG pH ABG pCO2 ABG pO2 ABG HCO3 ABG O2 Saturation ABG Base Excess FiO2 Sodium 129.5 L Potassium 3.4 L Chloride 105 Carbon Dioxide 18 L Anion Gap 7 BUN 73 H Creatinine 2.71 H Est GFR ( Amer) 29 L Est GFR (Non-Af Amer) 24 L Glucose 154 H Calcium 8.4 Phosphorus Magnesium 1.6 Total Bilirubin 1.8 H AST 17 ALT 10 L Alkaline Phosphatase 78 Total Protein 4.9 L Albumin 2.5 L Triglycerides Fluid Type Fluid Source Fluid Color Fluid Appearance Fluid Viscosity Fluid WBC Fluid RBC Blood Type Antibody Screen 09/29/18 09/29/18 09/29/18 04:14 04:14 08:46 WBC 10.5 RBC 2.70 L Hgb 9.1 L Hct 26.7 L MCV 99 H MCH 33.6 H MCHC 34.0 RDW 21.1 H Plt Count 73 L Seg Neutrophils % Not Reportable Lymphocytes % Not Reportable Monocytes % Not Reportable Eosinophils % Not Reportable Basophils % Not Reportable Absolute Neutrophils Not Reportable Absolute Lymphocytes Not Reportable Absolute Monocytes Not Reportable Absolute Eosinophils Not Reportable Absolute Basophils Not Reportable Carbonic Acid 0.92 L HCO3/H2CO3 Ratio 17:1 ABG pH 7.34 L ABG pCO2 30.5 L ABG pO2 78.3 L ABG HCO3 16.0 L ABG O2 Saturation 95.1 ABG Base Excess -8.8 FiO2 35% Sodium 129.6 L Potassium 3.5 L Chloride 104 Carbon Dioxide 16 L Anion Gap 10 BUN 72 H Creatinine 2.63 H Est GFR ( Amer) 30 L Est GFR (Non-Af Amer) 25 L Glucose 151 H Calcium 8.5 Phosphorus 4.0 Magnesium Total Bilirubin AST ALT Alkaline Phosphatase Total Protein Albumin 2.5 L Triglycerides 45 Fluid Type Fluid Source Fluid Color Fluid Appearance Fluid Viscosity Fluid WBC Fluid RBC Blood Type Antibody Screen 09/29/18 11:42 WBC RBC Hgb Hct MCV MCH MCHC RDW Plt Count Seg Neutrophils % Lymphocytes % Monocytes % Eosinophils % Basophils % Absolute Neutrophils Absolute Lymphocytes Absolute Monocytes Absolute Eosinophils Absolute Basophils Carbonic Acid HCO3/H2CO3 Ratio ABG pH ABG pCO2 ABG pO2 ABG HCO3 ABG O2 Saturation ABG Base Excess FiO2 Sodium Potassium Chloride Carbon Dioxide Anion Gap BUN Creatinine Est GFR ( Amer) Est GFR (Non-Af Amer) Glucose Calcium Phosphorus Magnesium Total Bilirubin AST ALT Alkaline Phosphatase Total Protein Albumin Triglycerides Fluid Type Cancelled Fluid Source Cancelled Fluid Color Cancelled Fluid Appearance Cancelled Fluid Viscosity Cancelled Fluid WBC Cancelled Fluid RBC Cancelled Blood Type Antibody Screen 09/25/18 09/25/18 09/26/18 22:25 22:25 03:38 Creatine Kinase < 20 L CK-MB (CK-2) 0.91 1.00 Troponin I 0.017 0.018 NT-Pro-B Natriuret Pep 64783 H 09/26/18 09/26/18 09/26/18 03:38 11:20 11:20 Creatine Kinase < 20 L < 20 L CK-MB (CK-2) 1.10 Troponin I 0.015 NT-Pro-B Natriuret Pep 09/26/18 09/26/18 17:56 17:56 Creatine Kinase < 20 L CK-MB (CK-2) 0.99 Troponin I < 0.012 NT-Pro-B Natriuret Pep Impressions: Head CT 09/25/18 22:35 IMPRESSION: No acute intracranial findings. Fluoroscopy 09/28/18 00:00 IMPRESSION: IMAGE(S) OBTAINED DURING PROCEDURE. Interventional Vascular Procedure 09/28/18 00:00 IMPRESSION: IMAGE(S) OBTAINED DURING PROCEDURE. Chest X-Ray 09/29/18 06:00 IMPRESSION: Interval development of complete collapse of the left lung likely from a left mainstem bronchus mucous plug. Persistent congestive failure pattern. SUPPORT DEVICE(S) IN EXPECTED LOCATIONS. Assessment & Plan - Diagnosis (1) Right heart failure Qualifiers: Heart failure chronicity: acute on chronic Qualified Code(s): I50.813 - Acute on chronic right heart failure Is this a current diagnosis for this admission?: Yes Plan: There is a [place]-Silver catheter in place. With diuresis his right PA pressures have improved. He continues in a negative fluid balance. Correcting his anemia should also help. He is on milrinone and vasopressin. Please also see cardiology note. (2) Hypotension Qualifiers: Hypotension type: other hypotension type Qualified Code(s): I95.89 - Other hypotension Is this a current diagnosis for this admission?: Yes Plan: He continues on vasopressin. He is also on nitroglycerin to try and create myocardial vasodilatation. (3) Anemia requiring transfusions Is this a current diagnosis for this admission?: Yes Plan: He received 2 units of packed red blood cells yesterday. His hemoglobin is improved. He does have a subcutaneous hematoma on the right chest neck area. I will continue to monitor his hemoglobin and transfuse if it is less than 8.0. Given his cardiac status he might benefit from keeping his hemoglobin above 9. (4) Hyponatremia Is this a current diagnosis for this admission?: Yes Plan: He has decreased sodium. It is impossible to start a fluid restriction. We will continue to monitor his sodium for the time being. I may try to concentrate all of his IV medications as much as possible. (5) Alcohol dependence Qualifiers: Substance use status: with intoxication Is this a current diagnosis for this admission?: Yes Plan: Currently not an active issue (6) Altered mental status Qualifiers: Altered mental status type: transient alteration of awareness Qualified Code(s): R40.4 - Transient alteration of awareness Is this a current diagnosis for this admission?: Yes Plan: Currently sedated (7) Thrombocytopenia Is this a current diagnosis for this admission?: Yes Plan: Platelets are low at 73 but this is better than yesterday. Continue to monitor. (8) Acute respiratory failure with hypoxia Is this a current diagnosis for this admission?: Yes Plan: The patient is still ventilated. His tidal volume is 500 and his rate has been decreased to 12. He is on 50% oxygen with pressure support of 10 and PEEP of 5. Continue to monitor blood gases and status. See also pulmonology note. His checks x-ray is elvia out on the left. He is currently on dual antibiotic therapy. - Time Time Spent with patient: 25-34 minutes Medications reviewed and adjusted accordingly: Yes
[2018-09-29 16:07] LABS: HEMATOCRIT 27.3 % (37.9-51.0); HEMOGLOBIN 9.3 g/dL (13.5-17.0); MEAN CORPUSCULAR HEMOGLOBIN 33.5 pg (27.0-33.4); MEAN CORPUSCULAR VOLUME 98 fl (80-97); RED BLOOD COUNT 2.78 10^6/uL (4.35-5.55); RED CELL DISTRIBUTION WIDTH 21.2 % (11.5-14.0)
[2018-09-29 16:18] LABS: APPEARANCE,URINE CLOUDY; BILIRUBIN,URINE NEGATIVE (NEGATIVE); COLOR,URINE YELLOW; GLUCOSE, URINE NEGATIVE (NEGATIVE); KETONES,URINE NEGATIVE (NEGATIVE); LEUKOCYTE ESTERASE,URINE LARGE (NEGATIVE); NITRITE,URINE NEGATIVE (NEGATIVE); PROTEIN,URINE NEGATIVE (NEGATIVE); URINE SPECIFIC GRAVITY 1.006; UROBILINOGEN,URINE NEGATIVE mg/dL (<2.0)
[2018-09-29 16:21] LABS: ANION GAP 7 (5-19); BLOOD UREA NITROGEN 70 mg/dL (7-20); CALCIUM 8.4 mg/dL (8.4-10.2); CARBON DIOXIDE 19 mmol/L (22-30); CHLORIDE 104 mmol/L (98-107); GLUCOSE 155 mg/dL (75-110); POTASSIUM 3.4 mmol/L (3.6-5.0); SODIUM 129.6 mmol/L (137-145)
[2018-09-29 16:25] LABS: PLATELET COUNT 60 10^3/uL (150-450)
[2018-09-29 16:28] LABS: ABSOLUTE LYMPHOCYTES# (MANUAL) 0.5 10^3/uL (0.5-4.7); ABSOLUTE MONOCYTES # (MANUAL) 0.8 10^3/uL (0.1-1.4); ABSOLUTE NEUTROPHILS# (MANUAL) 8.4 10^3/uL (1.7-8.2); BASOPHILS % (MANUAL) 1 % (0-2); EOSINOPHILS % (MANUAL) 2 % (0-6); LYMPHOCYTES % (MANUAL) 5 % (13-45); MONOCYTES % (MANUAL) 8 % (3-13); SEGMENTED NEUTROPHILS % (MAN) 84 % (42-78); TOTAL CELLS COUNTED 100
[2018-09-29 16:29] LABS: ANISOCYTOSIS 3+; PLATELET COMMENT DECREASED; TOXIC GRANULATION 1+
[2018-09-29] MEDS ORDERED: NORMAL SALINE 250 ML IV PRN ×2 (16:56)
[2018-09-29] MEDS: POTASSIUM CHLORIDE 20 MEQ/50 ML RTU IV SCH ×2 (17:39→20:47)
[2018-09-29] MEDS: VANCOMYCIN HCL 1,500 MG in DEXTROSE 5%-WATER 250 ML IV SCH (22:48)
--- NOTE | 2018-09-29 23:11 | Progress Note ---
Provider Note Provider Note: CARDIOLOGY PROGRESS NOTES by Dr. Christelle Lane on 09/29/2018. SUBJECTIVE: The patient continues to be intubated and sedated. He continues to be in atrial fibrillation, with controlled ventricular response. There is no ventricular arrhythmias seen. PHYSICAL EXAMINATION: The patient is morbidly obese. He is not fighting the ventilator. He appears to be disheveled and chronically ill. Selected Entries 09/29/18 09/29/18 09/29/18 10:00 12:23 13:00 Temperature 91.0 F L Heart Rate ( 61 Monitors) Respiratory 20 Rate O2 Sat by Pulse 98 97 96 Oximetry Oxygen Delivery Mechanical Method ( Ventilator includes room air) Fraction of 30 Inspired Oxygen (FIO2) Percent of 35 Oxygen HEAD: Is atraumatic normocephalic. EYES: Pupils equal round regular reactive to light. There is no palatal pallor. There is no scleral icterus. ENT: Is neg ative. NECK: Is supple. There is mild JVD present. There is no carotids are equal. There is no carotid bruits. There is slight puffiness around the site of the right IJ, and also the right chest wall. There is no goiter. Trachea central. LUNGS: Show absent breath sounds in the bed left base. There is scattered rhonchi Present there is dry crackles of pneumonia in the left base and in the right base. There is also fine rales of CHF. HEART: S1-S2 is heard. S1 is of variable intensity intensity. There is no S3 gallop. There is no S4 gallop. There is systolic murmur in the left sternal border and the apex. There is no rub. ABDOMEN: Is soft. Bowel sounds are heard. There is no hepatosplenic megaly. EXTREMITIES: Femorals are deep femorals are diminished. Leg pulses are diminished. There is no sinus or clubbing. There is mild pedal edema. There is no DVT or cellulitis. [employer] and PSYCHIATRIC: Not examined since the patient's intubated and sedated. 09/29/18 09/29/18 09/29/18 04:14 04:14 04:14 WBC RBC Hgb Hct MCV MCH MCHC RDW Plt Count PT 16.0 H INR 1.22 Carbonic Acid HCO3/H2CO3 Ratio ABG pH ABG pCO2 ABG pO2 ABG HCO3 ABG Total CO2 ABG O2 Saturation ABG Base Excess FiO2 Sodium 129.6 L Potassium 3.5 L Chloride 104 Carbon Dioxide 16 L Anion Gap 10 BUN 72 H Creatinine 2.63 H Est GFR ( Amer) Est GFR (Non-Af Amer) 25 L Glucose 151 H Calcium 8.5 Phosphorus 4.0 Magnesium Total Bilirubin 1.8 H Direct Bilirubin 1.3 H Neonat Total Bilirubin Not Reportable Neonat Direct Bilirubin Not Reportable Neonat Indirect Bili Not Reportable AST 17 ALT 10 L Alkaline Phosphatase 78 09/29/18 09/29/18 09/29/18 04:14 08:46 15:57 WBC 10.5 RBC 2.70 L Hgb 9.1 L Hct 26.7 L MCV 99 H MCH 33.6 H MCHC 34.0 RDW 21.1 H Plt Count 73 L PT INR Carbonic Acid 0.92 L HCO3/H2CO3 Ratio 17:1 ABG pH 7.34 L ABG pCO2 30.5 L ABG pO2 78.3 L ABG HCO3 16.0 L ABG Total CO2 16.9 L ABG O2 Saturation 95.1 ABG Base Excess -8.8 FiO2 35% Sodium 129.6 L Potassium 3.4 L Chloride 104 Carbon Dioxide 19 L Anion Gap 7 BUN 70 H Creatinine 2.40 H Est GFR ( Amer) 34 L Est GFR (Non-Af Amer) 28 L Glucose 155 H Calcium 8.4 Phosphorus Magnesium 1.8 Total Bilirubin Direct Bilirubin Neonat Total Bilirubin Neonat Direct Bilirubin Neonat Indirect Bili AST ALT Alkaline Phosphatase 09/29/18 15:57 WBC 10.0 RBC Hgb 9.3 L Hct 27.3 L MCV 98 H MCH 33.5 H MCHC 34.0 RDW 21.2 H Plt Count 60 L PT INR Carbonic Acid HCO3/H2CO3 Ratio ABG pH ABG pCO2 ABG pO2 ABG HCO3 ABG Total CO2 ABG O2 Saturation ABG Base Excess FiO2 Sodium Potassium Chloride Carbon Dioxide Anion Gap BUN Creatinine Est GFR ( Amer) Est GFR (Non-Af Amer) Glucose Calcium Phosphorus Magnesium Total Bilirubin Direct Bilirubin Neonat Total Bilirubin Neonat Direct Bilirubin Neonat Indirect Bili AST ALT Alkaline Phosphatase The patient is on levofed at 8 mcg/min, Maurizio-Synephrine at 60 mcg/min, in view of his blood pressure being low the Nitro glycerin drip was discontinued. He is also on on milrinone at 0.75 mcg/kg/min. The patient's chest x-ray: Initially showed a white out on the left lung, and post bronchial coloscopy and aspiration of mucous plugs, there is partial reexpansion of the left lung. There is an infiltrate/effusion in the left base. There is a retrocardiac density. There is also CHF. There is a [place]Silver catheter is in the right pulmonary artery. There is cardiomegaly. Note that the patient's prior echocardiogram showed moderately depressed LV ejection fraction. The patient's RA mean was 11. The patient pulmonary artery systolic pressure was 45 with a diastolic of 24. His wedge pressure was 22. His cardiac output is 7.54 L/min, with a cardiac index of 3.20 l/min/m square. His SVR is 244, and his PVR is 95. IMPRESSION/RECOMMENDATION: 1. Acute respiratory failure: Secondary to acute on chronic systolic heart failure, acute on chronic right ventricle systolic heart failure, and pneumonia. Continue ventilator support. Continue inotropic support with Levophed, milrinone, and Maurizio-Synephrine. Continue Lasix drip. 2. SEPSIS due to pneumonia: Continue antibiotics. Adjust the patient's inotropes, and continue hemodynamic support with the patient's [place]Silver catheter measurements. 3. Hypertension: Blood pressure is low normal requiring pressor support. 4. Hypokalemia: Replace patient's potassium 5. Cardiomyopathy with a history of moderately depressed LV ejection fraction: Continue inotropes, and Lasix. 6. Chronic atrial fibrillation: In view of the patient's platelets being low, and the patient's anemia requiring blood transfusion, at at present we will hold off on the Eliquis. Continue Arixtra and a DVT prophylaxis dose. Later once the platelets, will increase the dosage of Arixtra or restart the patient's Eliquis. 7. PULMONARY HYPERTENSION: Was severe at the time of initial insertion of [place] Silver catheter. With the placement of the [place]Silver catheter and, with the inotropic agents, the right ventricle systolic pressure has come down and now the patient has mild pulmonary hypertension. 8. High output cardiac failure: Multifactorial secondary to renal failure, anemia, and possibly sepsis. 9. Thrombocytopenia: Most likely secondary to patient's alcohol abuse, probably has underlying liver disease due to alcohol abuse. 10. ANEMIA: Status post blood transfusion transfusion. Hemoglobin up to 9.3. We will continue to observe the patient's hemoglobin closely.11. 11.Acute renal failure: Most likely secondary to cardiorespiratory syndrome. Later would recommend nephrology consult to see if the patient has underlying renal disease. 12. History of tobacco and alcohol abuse. Later we will give the patient tobacco cessation counseling. Agree with the thiamine. Would also check the patient's B12 vitamin levels. Strongly recommend starting the patient on tube feedings. Note medications reviewed, and medications adjusted as per the patient's [place] Ricardo pressure measurements of the right heart. Medical decision making is of high complexity. Discussed management plan with other caregiving providers on the case. Note 70 minutes of critical care spent on this patient, with more than 50% of time spent in direct patient care
[2018-09-30] MEDS: PROPOFOL 1,000 MG/100 ML INFUS..BTL IV PRN ×6 (01:54→22:19)
[2018-09-30] MEDS: MILRINONE LACTATE/D5W 20 MG/100 ML RTUINJ IV PRN ×6 (02:53→20:55)
[2018-09-30] MEDS: DEXTROSE 5%-WATER 250 ML with NOREPINEPHRINE BITARTRATE 4 MG IV PRN ×4 (02:56→12:31)
[2018-09-30] MEDS: DEXTROSE 5%-WATER 250 ML with PHENYLEPHRINE HCL 40 MG IV PRN ×8 (02:59→20:34)
[2018-09-30] MEDS: PIPERACILLIN SODIUM/TAZOBACTAM 3.375 GM in NORMAL SALINE 100 ML IV SCH ×4 (03:01→20:43)
[2018-09-30 06:52] LABS: ARTERIAL BLOOD BASE EXCESS -9.6 mmol/L; ARTERIAL BLOOD H2CO3 0.81 mmol/L (1.05-1.35); ARTERIAL BLOOD HCO3 14.7 mmol/L (20-24); ARTERIAL BLOOD O2 SATURATION 97.1 % (94-98); ARTERIAL BLOOD PCO2 26.9 mmHg (35-45); ARTERIAL BLOOD PH 7.35 (7.35-7.45); ARTERIAL BLOOD TOTAL CO2 15.5 mmol/L (23-27)
[2018-09-30 06:53] LABS: ARTERIAL BLOOD FIO2 35%
[2018-09-30 06:57] LABS: ABSOLUTE BASOPHILS # (AUTO) 0.1 10^3/uL (0.0-0.2); ABSOLUTE EOSINOPHILS # (AUTO) 0.3 10^3/uL (0.0-0.6); ABSOLUTE LYMPHOCYTES (AUTO) 0.4 10^3/uL (0.5-4.7); ABSOLUTE MONOCYTES (AUTO) 0.5 10^3/uL (0.1-1.4); ABSOLUTE NEUT (AUTO) 6.8 10^3/uL (1.7-8.2); BASOPHILS % (AUTO) 0.7 % (0-2); HEMOGLOBIN 9.7 g/dL (13.5-17.0); LYMPHOCYTES % (AUTO) 5.3 % (13-45); MEAN CORPUSCULAR HEMOGLOBIN 33.4 pg (27.0-33.4); MEAN CORPUSCULAR HGB CONC 34.5 g/dL (32.0-36.0); MEAN CORPUSCULAR VOLUME 97 fl (80-97); MONOCYTES % (AUTO) 6.5 % (3-13); RED BLOOD COUNT 2.89 10^6/uL (4.35-5.55); RED CELL DISTRIBUTION WIDTH 21.5 % (11.5-14.0); SEGMENTED NEUTROPHILS % (AUTO) 83.5 % (42-78); TOTAL CELLS COUNTED % (AUTO) 100 %; WHITE BLOOD COUNT 8.1 10^3/uL (4.0-10.5)
[2018-09-30 07:04] LABS: ALANINE AMINOTRANSFERASE 21 U/L (21-72); ALBUMIN 2.4 g/dL (3.5-5.0); ALKALINE PHOSPHATASE 86 U/L (38-126); ANION GAP 10 (5-19); ASPARTATE AMINO TRANSFERASE 8 U/L (17-59); BILIRUBIN,TOTAL 1.2 mg/dL (0.2-1.3); BLOOD UREA NITROGEN 63 mg/dL (7-20); CALCIUM 8.4 mg/dL (8.4-10.2); CARBON DIOXIDE 17 mmol/L (22-30); CHLORIDE 102 mmol/L (98-107); GLUCOSE 141 mg/dL (75-110); PHOSPHORUS 3.4 mg/dL (2.5-4.5); POTASSIUM 3.1 mmol/L (3.6-5.0); SODIUM 129.1 mmol/L (137-145); TOTAL PROTEIN 4.5 g/dL (6.3-8.2)
[2018-09-30 08:05] LABS: PLATELET COUNT 59 10^3/uL (150-450)
[2018-09-30] MEDS: MAGNESIUM SULFATE 1 GM/D5W 100 ML IV SCH ×2 (08:05→09:19)
[2018-09-30] MEDS: LANSOPRAZOLE 30 MG TAB.RAP.DR NG SCH ×2 (08:05→20:33)
[2018-09-30] MEDS: BUDESONIDE/FORMOTEROL 80-4.5 MCG 60 PUFF/6.9 GM MDI IH SCH (08:28)
--- NOTE | 2018-09-30 08:41 | RADIOLOGY REPORT (SQ) ---
EXAM DESCRIPTION: CHEST SINGLE VIEW COMPLETED DATE/TIME: 09/30/2018 6:58 am REASON FOR STUDY: resp failure COMPARISON: CT chest 06/12/2018 Chest films 09/28/2018, 09/29/2018 EXAM PARAMETERS: NUMBER OF VIEWS: One view. TECHNIQUE: Single frontal radiographic view of the chest acquired. RADIATION DOSE: NA LIMITATIONS: Both lung bases are cropped from the field of view, morbidly obese patient FINDINGS: LUNGS AND PLEURA: Near completely opacified left hemithorax from near complete collapse le ft lung. Only a small amount of upper lobe is aerated, similar compared to 09/29/2018 by progressive since 09/28/2018. Diffuse ground-glass opacity throughout the right lung from pulmonary edema. No pneumothorax. Bilateral pleural effusions could not be excluded. MEDIASTINUM AND HILAR STRUCTURES: No masses. Shift of mediastinal structures into the left chest fro m left lower lobe collapse. HEART AND VASCULAR STRUCTURES: Marked cardiomegaly. Shift of mediastinal structures into the left ch est from left lower lobe collapse. BONES: No acute findings. HARDWARE: Endotracheal tube tip 5 cm above the elier. Nasogastric tube tip and side port in the sto mach. Right jugular [place]-Silver catheter tip in the right pulmonary artery OTHER: No other significant finding. IMPRESSION: Complete collapse left lower lobe Partial collapse left upper lobe with small amount of lung apex aerated today Ground-glass opacity throughout the right lung worrisome for pulmonary edema. TECHNICAL DOCUMENTATION: JOB ID: [id number] [employer]- All Rights Reserved Reading location - IP/workstation name: [email or web address]
[2018-09-30] MEDS: LEVETIRACETAM 1000 MG/NACL-ISO 1,000 MG/100 ML RTUPB IV SCH ×2 (09:09→22:14)
[2018-09-30] MEDS: THIAMINE HCL 100 MG, FOLIC ACID 1 MG in NORMAL SALINE 250 ML IV SCH (09:10)
[2018-09-30] MEDS: FONDAPARINUX SODIUM INJ 2.5 MG/0.5 ML DISP.SYRIN SUBCUT SCH (09:12)
[2018-09-30] MEDS: ASPIRIN 81 MG TABLET, CHEWABLE NG SCH (09:12)
[2018-09-30] MEDS: LEVOTHYROXINE SODIUM INJ/PF 0.1 MG SDV IV SCH (09:12)
[2018-09-30] MEDS: METOPROLOL TARTRATE 25 MG TABLET NG SCH (09:12)
[2018-09-30] MEDS: POTASSIUM CHLORIDE 20 MEQ/50 ML RTU IV SCH ×2 (09:59→12:31)
--- NOTE | 2018-09-30 10:49 | Operative Report ---
Operative Report DATE OF SURGERY: 09/29/18 Operative Report: L lung atelectasis/pna patient intubated and sedated using T size scope ;her bronchial tree was explored.Copious sercretions aspirated L main, stem ,RACHELE ,lingula and L lower lobe.Lavage of these areas continued to produce copious secretion with mucous plugging.Lavage sent to labs for appropriate cultures and stains PREOPERATIVE DIAGNOSIS: mucous plugging POSTOPERATIVE DIAGNOSIS: same OPERATION: fiberoptic bronchoscopy with bronchoalveolar lavage ANESTHESIA: GA TISSUE REMOVED OR ALTERED: n/a COMPLICATIONS: n/a ESTIMATED BLOOD LOSS: n/a
[2018-09-30] MEDS ORDERED: NORMAL SALINE 250 ML IV PRN ×4 (11:05→18:36)
--- NOTE | 2018-09-30 11:41 | PDOC PROGRESS REPORT ---
Subjective Progress Note for:: 09/30/18 Subjective:: The patient continues to do poorly. New complications are severe hypothermia, epistaxis and melena. Reason For Visit: ENCEPHALOPATHY,ARF ON CKD,HYPONATREMIA Physical Exam Vital Signs: Temp Pulse Resp BP Pulse Ox 91.4 F L 70 15 97/60 L 96 09/30/18 08:15 09/30/18 08:00 09/30/18 08:30 09/30/18 08:30 09/30/18 08:30 Intake & Output 09/29/18 09/30/18 10/01/18 06:59 06:59 06:59 Intake Total 3695.2 3576.2 302 Output Total 4600 4500 275 Balance -904.8 -923.8 27 Weight 123.4 kg 123.9 kg General appearance: PRESENT: morbidly obese, other - Intubated and sedated Head exam: PRESENT: normocephalic Eye exam: PRESENT: other - Pupils are very small and minimally reactive to light Ear exam: PRESENT: normal external ear exam Mouth exam: PRESENT: other - Endotracheal tube in place. Bilateral nares epistaxis. Throat exam: PRESENT: other - Nasogastric tube in place Neck exam: PRESENT: other - Very large neck. [place]-Silver catheter right internal jugular vein. Still with swelling left neck and upper left chest area. No whit ecchymosis. Respiratory exam: PRESENT: rhonchi - Rhonchi on the left., symmetrical Cardiovascular exam: PRESENT: RRR, +S1, +S2, other - Decreased heart sounds likely secondary to body habitus Pulses: PRESENT: other - Diminished pedal and radial pulses GI/Abdominal exam: PRESENT: distended - Pendulous abdomen., normal bowel sounds, soft Rectal exam: PRESENT: other - Greenish black very loose stool oozing from the anus. Gentrourinary exam: PRESENT: indwelling catheter Extremities exam: PRESENT: pedal edema, other - Upper extremities are puffy. Neurological exam: PRESENT: other - Sedated and intubated. Unresponsive off of propofol and Versed. Psychiatric exam: PRESENT: other - Sedated and intubated Focused psych exam: PRESENT: other - Sedated and intubated Skin exam: PRESENT: other - Marked ecchymosis with very thin skin Results Laboratory Results: 09/30/18 06:30 09/30/18 06:30 09/27/18 09/29/18 09/29/18 11:10 11:42 15:57 WBC RBC Hgb Hct MCV MCH MCHC RDW Plt Count Seg Neutrophils % Lymphocytes % Monocytes % Eosinophils % Basophils % Absolute Neutrophils Absolute Lymphocytes Absolute Monocytes Absolute Eosinophils Absolute Basophils Carbonic Acid HCO3/H2CO3 Ratio ABG pH ABG pCO2 ABG pO2 ABG HCO3 ABG O2 Saturation ABG Base Excess FiO2 Sodium 129.6 L Potassium 3.4 L Chloride 104 Carbon Dioxide 19 L Anion Gap 7 BUN 70 H Creatinine 2.40 H Est GFR ( Amer) 34 L Est GFR (Non-Af Amer) 28 L Glucose 155 H Calcium 8.4 Phosphorus Magnesium 1.8 Total Bilirubin AST ALT Alkaline Phosphatase Total Protein Albumin Urine Color Urine Appearance Urine pH Ur Specific [place] Urine Protein Urine Glucose (UA) Urine Ketones Urine Blood Urine Nitrite Ur Leukocyte Esterase Urine WBC (Auto) Urine RBC (Auto) Fluid Type Cancelled Fluid Source Cancelled Fluid Color Cancelled Fluid Appearance Cancelled Fluid Viscosity Cancelled Fluid WBC Cancelled Fluid RBC Cancelled Blood Type A POSITIVE Antibody Screen NEGATIVE 09/29/18 09/29/18 09/30/18 15:57 16:00 06:30 WBC 10.0 RBC 2.78 L Hgb 9.3 L Hct 27.3 L MCV 98 H MCH 33.5 H MCHC 34.0 RDW 21.2 H Plt Count 60 L Seg Neutrophils % Not Reportable Lymphocytes % Not Reportable Monocytes % Not Reportable Eosinophils % Not Reportable Basophils % Not Reportable Absolute Neutrophils Not Reportable Absolute Lymphocytes Not Reportable Absolute Monocytes Not Reportable Absolute Eosinophils Not Reportable Absolute Basophils Not Reportable Carbonic Acid 0.81 L HCO3/H2CO3 Ratio 18:1 ABG pH 7.35 ABG pCO2 26.9 L ABG pO2 95.0 ABG HCO3 14.7 L ABG O2 Saturation 97.1 ABG Base Excess -9.6 FiO2 35% Sodium Potassium Chloride Carbon Dioxide Anion Gap BUN Creatinine Est GFR ( Amer) Est GFR (Non-Af Amer) Glucose Calcium Phosphorus Magnesium Total Bilirubin AST ALT Alkaline Phosphatase Total Protein Albumin Urine Color YELLOW Urine Appearance CLOUDY Urine pH 5.0 Ur Specific [place] 1.006 Urine Protein NEGATIVE Urine Glucose (UA) NEGATIVE Urine Ketones NEGATIVE Urine Blood MODERATE H Urine Nitrite NEGATIVE Ur Leukocyte Esterase LARGE H Urine WBC (Auto) 36 Urine RBC (Auto) 15 Fluid Type Fluid Source Fluid Color Fluid Appearance Fluid Viscosity Fluid WBC Fluid RBC Blood Type Antibody Screen 09/30/18 09/30/18 06:30 06:30 WBC 8.1 RBC 2.89 L Hgb 9.7 L Hct 28.0 L MCV 97 MCH 33.4 MCHC 34.5 RDW 21.5 H Plt Count 59 L Seg Neutrophils % 83.5 H Lymphocytes % 5.3 L Monocytes % 6.5 Eosinophils % 4.0 Basophils % 0.7 Absolute Neutrophils 6.8 Absolute Lymphocytes 0.4 L Absolute Monocytes 0.5 Absolute Eosinophils 0.3 Absolute Basophils 0.1 Carbonic Acid HCO3/H2CO3 Ratio ABG pH ABG pCO2 ABG pO2 ABG HCO3 ABG O2 Saturation ABG Base Excess FiO2 Sodium 129.1 L Potassium 3.1 L Chloride 102 Carbon Dioxide 17 L Anion Gap 10 BUN 63 H Creatinine 2.24 H Est GFR ( Amer) 36 L Est GFR (Non-Af Amer) 30 L Glucose 141 H Calcium 8.4 Phosphorus 3.4 Magnesium 1.5 L Total Bilirubin 1.2 AST 8 L ALT 21 Alkaline Phosphatase 86 Total Protein 4.5 L Albumin 2.4 L Urine Color Urine Appearance Urine pH Ur Specific [place] Urine Protein Urine Glucose (UA) Urine Ketones Urine Blood Urine Nitrite Ur Leukocyte Esterase Urine WBC (Auto) Urine RBC (Auto) Fluid Type Fluid Source Fluid Color Fluid Appearance Fluid Viscosity Fluid WBC Fluid RBC Blood Type Antibody Screen 09/25/18 09/25/18 09/26/18 22:25 22:25 03:38 Creatine Kinase < 20 L CK-MB (CK-2) 0.91 1.00 Troponin I 0.017 0.018 NT-Pro-B Natriuret Pep [id number] H 09/26/18 09/26/18 09/26/18 03:38 11:20 11:20 Creatine Kinase < 20 L < 20 L CK-MB (CK-2) 1.10 Troponin I 0.015 NT-Pro-B Natriuret Pep 09/26/18 09/26/18 17:56 17:56 Creatine Kinase < 20 L CK-MB (CK-2) 0.99 Troponin I < 0.012 NT-Pro-B Natriuret Pep Impressions: Head CT 09/25/18 22:35 IMPRESSION: No acute intracranial findings. Fluoroscopy 09/28/18 00:00 IMPRESSION: IMAGE(S) OBTAINED DURING PROCEDURE. Interventional Vascular Procedure 09/28/18 00:00 IMPRESSION: IMAGE(S) OBTAINED DURING PROCEDURE. Chest X-Ray 09/30/18 06:00 IMPRESSION: Complete collapse left lower lobe Partial collapse left upper lobe with small amount of lung apex aerated today Ground-glass opacity throughout the right lung worrisome for pulmonary edema. Assessment & Plan - Diagnosis (1) Pneumonia involving left lung Qualifiers: Pneumonia type: due to unspecified organism Is this a current diagnosis for this admission?: Yes Plan: The patient had a bronchoscopy yesterday. Bronchial aspirations are growing gram-positive cocci in clusters which typically represent staph. The patient is on vancomycin and Zosyn for broader spectrum coverage. Await final sensitivities to determine if I can narrow the spectrum of antibiotics. Due to his critical condition as well as high risk of aspiration and ventilated status I will likely keep the broad-spectrum antibiotics in place. (2) Right heart failure Qualifiers: Heart failure chronicity: acute on chronic Qualified Code(s): I50.813 - Acute on chronic right heart failure Is this a current diagnosis for this admission?: Yes Plan: The patient is currently on milrinone as well as pressor therapy. He has been on vasopressin, Maurizio-Synephrine and Levophed. We are trying to taper respiratory therapy. We will continue diuresis as well. Over the last 2 days he has put out almost 9 L of urine. (3) Hypotension Qualifiers: Hypotension type: other hypotension type Qualified Code(s): I95.89 - Other hypotension Is this a current diagnosis for this admission?: Yes Plan: Multiple pressor agents. We are trying to wean him off of pressors if possible. (4) Anemia requiring transfusions Is this a current diagnosis for this admission?: Yes Plan: His hemoglobin was 9.7 today. Part of this might be hemoconcentration with the aggressive diuresis. He is having melena. We will monitor his hemoglobin closely. Identifiable sources of blood loss include the melena as well as epistaxis. (5) Hyponatremia Is this a current diagnosis for this admission?: Yes Plan: His sodium is maintaining at approximately 129. It would be difficult to fluid restrict just yet. Continue to monitor the sodium. (6) Alcohol dependence Qualifiers: Substance use status: with intoxication Is this a current diagnosis for this admission?: Yes Plan: Not currently an issue but contributory to his current state (7) Altered mental status Qualifiers: Altered mental status type: transient alteration of awareness Qualified Code(s): R40.4 - Transient alteration of awareness Is this a current diagnosis for this admission?: Yes Plan: Unable to determine today due to sedation. We are trying to wean him from all sedation to see if he wakes up. (8) Thrombocytopenia Is this a current diagnosis for this admission?: Yes Plan: He is still bleeding from several sites. We did give platelets yesterday and I will give more platelets today. (9) Acute respiratory failure with hypoxia Is this a current diagnosis for this admission?: Yes Plan: Currently intubated on mechanical ventilation. We will try to wean if possible. No weaning attempted yet due to his critical status. - Time Time Spent with patient: 35 or more minutes Medications reviewed and adjusted accordingly: Yes - Plan Summary Plan Summary: I did call the patient's and daughter. I went through great detail explaining the patient's critical condition and extremely poor prognosis. Contributing factors include the pneumonia, severe decompensated heart failure, hypotension requiring pressors and bleeding. I expressed my concern that with his recent stay at [facility] with 4 weeks in the ICU and 1/5-week as an inpatient the rapid turnaround for admission here at [facility] his prognosis is grave. He has multiple contributing factors as outlined above. The family did wish ongoing aggressive support. I did ask them in the event of cardiac arrest with a 1 asked to provide CPR. I explained that if he arrested on this current aggressive despite this they still requested CPR. I strongly encouraged the patient's and daughter to visit today. I explained that act ually visualizing the patient will be more meaningful. With his grave prognosis I did express my opinion that his course is futile and question how long we continue this aggressive regimen, considering his poor response to the aggressive regimen and overall status. Patient's will try to visit today.
[2018-09-30] MEDS: MIDAZOLAM HCL 50 MG/100 ML RTUINJ IV PRN (16:09)
[2018-09-30 18:13] LABS: HEMATOCRIT 22.9 % (37.9-51.0); MEAN CORPUSCULAR HEMOGLOBIN 33.3 pg (27.0-33.4); MEAN CORPUSCULAR HGB CONC 33.9 g/dL (32.0-36.0); MEAN CORPUSCULAR VOLUME 98 fl (80-97); RED BLOOD COUNT 2.32 10^6/uL (4.35-5.55); RED CELL DISTRIBUTION WIDTH 21.9 % (11.5-14.0); WHITE BLOOD COUNT 8.4 10^3/uL (4.0-10.5)
[2018-09-30 18:24] LABS: ALBUMIN 2.4 g/dL (3.5-5.0); ANION GAP 10 (5-19); BLOOD UREA NITROGEN 61 mg/dL (7-20); CALCIUM 8.2 mg/dL (8.4-10.2); CARBON DIOXIDE 17 mmol/L (22-30); CHLORIDE 100 mmol/L (98-107); GLUCOSE 115 mg/dL (75-110); SODIUM 126.6 mmol/L (137-145)
[2018-09-30 18:33] LABS: POTASSIUM 4.3 mmol/L (3.6-5.0)
[2018-09-30 18:34] LABS: PLATELET COUNT 71 10^3/uL (150-450)
[2018-09-30 18:35] LABS: HEMOGLOBIN 7.7 g/dL (13.5-17.0)
[2018-09-30] MEDS: DEXTROSE 5%-WATER 250 ML with VASOPRESSIN 100 UNIT IV PRN ×2 (20:33)
[2018-09-30] MEDS: VANCOMYCIN HCL 1,500 MG in DEXTROSE 5%-WATER 250 ML IV SCH (22:15)
--- NOTE | 2018-09-30 23:15 | Progress Note ---
Provider Note Provider Note: CRITICAL CARE CARDIOLOGY PROGRESS NOTES by Dr. Christelle Lane on 09/30/2018. Subjective: Note that the patient continues to be in atrial fibrillation. The patient had a black tarry bowel movement which was positive for stool occult blood. The patient is now maxed out on all his inotropes. He is on vasopressin at 0.03 units/min, he is on Levophed at 12 mcg/min, he is on Maurizio-Synephrine at 180 mcg/min, and he is also on milrinone at 0.75 mcg/kg/min. His right heart pressures have come down. The patient again is anemic, and his platelets are still low. He is getting blood transfusion and platelet transfusion. There is no ventricular arrhythmia seen on the monitor. Selected Entries 09/30/18 09/30/18 12:00 12:01 Temperature 96.8 F L Temperature Core Source Pulse Rate 93 Respiratory 25 H Rate Blood Pressure 107/65 [Right Upper Arm] Blood Pressure 79 Mean [Right Upper Arm] Blood Pressure Supine Position [Right Upper Arm] Blood Pressure 107 Systolic [Right Upper Arm] O2 Sat by Pulse 91 L Oximetry Oxygen Delivery Mechanical Method ( Ventilator includes room air) Percent of 40 Oxygen Pulmonary 39 Arterial Occlusion Pressure- Systolic Pulmonary 21 Arterial Occlusion Pressure- Diastolic Pulmonary 28 Arterial Occlusion Pressure- Mean 20 HEAD: Is atraumatic normocephalic. EYES: Pupils equal round regular reactive to light. There is no palatal pallor. There is no scleral icterus. ENT: Is negative. NECK: Is supple. There is mild JVD present. There is no carotids are equal. There is no carotid bruits. There is slight puffiness around the site of the right IJ, and also the right chest wall. There is no goiter. Trachea central. LUNGS: Show absent breath sounds in the bed left base. There is scattered rhonchi Present there is dry crackles of pneumonia in the left base and in the right base. There is also fine rales of CHF. HEART: S1-S2 is heard. S1 is of variable intensity intensity. There is no S3 gallop. There is no S4 gallop. There is systolic murmur in the left sternal border and the apex. There is no rub. ABDOMEN: Is soft. Bowel sounds are heard. There is no hepatosplenic megaly. EXTREMITIES: Femorals are deep femorals are diminished. Leg pulses are diminished. There is no sinus or clubbing. There is mild . pedaledema. There is no DVT or cellulitis. 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 09/29/18 09/30/18 09/30/18 11:42 06:30 06:30 WBC Hgb Hct MCV Plt Count Carbonic Acid 0.81 L HCO3/H2CO3 Ratio 18:1 ABG pH 7.35 ABG pCO2 26.9 L ABG pO2 95.0 ABG HCO3 14.7 L ABG Total CO2 15.5 L ABG O2 Saturation 97.1 ABG Base Excess -9.6 FiO2 35% Sodium 129.1 L Potassium 3.1 L Chloride 102 Carbon Dioxide 17 L Anion Gap 10 BUN 63 H Creatinine 2.24 H Est GFR (Non-Af Amer) 30 L Glucose 141 H Calcium 8.4 Phosphorus 3.4 Magnesium 1.5 L Total Bilirubin 1.2 Direct Bilirubin 1.0 H Neonat Total Bilirubin Not Reportable Neonat Direct Bilirubin Not Reportable Neonat Indirect Bili Not Reportable AST 8 L ALT 21 Alkaline Phosphatase 86 Stool Occult Blood AFB Smear NO ACID FAST BACILLI 09/30/18 09/30/18 11:11 17:33 WBC 8.4 Hgb 7.7 L Hct 22.9 L MCV 98 H Plt Count 71 L Carbonic Acid HCO3/H2CO3 Ratio ABG pH ABG pCO2 ABG pO2 ABG HCO3 ABG Total CO2 ABG O2 Saturation ABG Base Excess FiO2 Sodium Potassium Chloride Carbon Dioxide Anion Gap BUN Creatinine Est GFR (Non-Af Amer) Glucose Calcium Phosphorus Magnesium Total Bilirubin Direct Bilirubin Neonat Total Bilirubin Neonat Direct Bilirubin Neonat Indirect Bili AST ALT Alkaline Phosphatase Stool Occult Blood POSITIVE AFB Smear Chest x-ray: Shows cardiomegaly, congestive heart failure. Left pleural effusion. And also collapse of the left lower lobe of the lung. The patient's 24-hour intake is 3826 mL, and output is 4500 mL. HEMODYNAMICS. The patient's cardiac output is 9.90 L/min, with a cardiac index of 4. 8 1 L/min/meters squared. His pulmonary artery systolic pressure is 41, his pulmonary artery diastolic pressure is 28, his pulmonary artery mean pressure is 34, with a wedge of 20. The patient's CVP is 9. IMPRESSION/RECOMMENDATION: 1. Acute respiratory failure: Secondary to acute on chronic systolic heart failure, acute on chronic right ventricle systolic heart failure, and pneumonia. Continue ventilator support. Continue inotropic support with Levophed, milrinone, and Maurizio-Synephrine. Continue Lasix drip. 2. SEPSIS due to pneumonia: Continue antibiotics. Adjust the patient's inotropes, and continue hemodynamic support with the patient's [place]-Silver catheter measurements. 3. Hypertension: Blood pressure is low normal requiring pressor support. 4. Hypokalemia: Replace patient's potassium 5. Cardiomyopathy with a history of moderately depressed LV ejection fraction: Continue inotropes, and Lasix. 6. Chronic atrial fibrillation: In view of the patient's platelets being low, and the patient's anemia requiring blood transfusion, at at present we will hold off on the Eliquis. Continue Arixtra and a DVT prophylaxis dose. Later once the platelets, will increase the dosage of Arixtra or restart the patient's Eliquis. 7. PULMONARY HYPERTENSION: Was severe at the time of initial insertion of [place]- Silver catheter. With the placement of the [place]-Silver catheter and, with the inotropic agents, the right ventricle systolic pressure has come down and now the patient has mild pulmonary hypertension. 8. High output cardiac failure: Multifactorial secondary to renal failure, anemia, and possibly sepsis. 9. Thrombocytopenia: Most likely secondary to patient's alcohol abuse, probably has underlying liver disease due to alcohol abuse. Patient receiving platelet transfusion 10. ANEMIA: Status post blood transfusion transfusion. Hemoglobin back down to 7.3. We will continue to observe the patient's hemoglobin closely. 11.Acute renal failure: Most likely secondary to cardiorespiratory syndrome. Later would recommend nephrology consult to see if the patient has underlying renal disease. 12. Hypomagnesemia: Replace the patient's magnesium. 13. GI bleed: Positive Hemoccult stools. Most likely secondary to the patient's low platelets. 14. History of tobacco and alcohol abuse. Later we will give the patient tobacco cessation counseling. Agree with the thiamine. Would also check the patient's B12 vitamin levels. Note that the patient's family were informed of the patient's condition and discussions done. They want everything done on the patient as per . Strongly recommend starting the patient on tube feedings. Note medications reviewed, and medications adjusted as per the patient's [place] Ricardo pressure measurements of the right heart. Medical decision making is of high complexity. Discussed management plan with other caregiving providers on the case. Note 70 minutes of critical care spent on this patient, with more than 50% of time spent in direct patient care
[2018-10-01] MEDS: DEXTROSE 5%-WATER 250 ML with NOREPINEPHRINE BITARTRATE 4 MG IV PRN ×8 (01:04→18:20)
[2018-10-01] MEDS: MILRINONE LACTATE/D5W 20 MG/100 ML RTUINJ IV PRN ×7 (01:04→22:50)
[2018-10-01] MEDS: DEXTROSE 5%-WATER 250 ML with PHENYLEPHRINE HCL 40 MG IV PRN ×10 (01:05→21:36)
[2018-10-01] MEDS: PROPOFOL 1,000 MG/100 ML INFUS..BTL IV PRN ×2 (02:11→08:20)
[2018-10-01] MEDS: BUDESONIDE/FORMOTEROL 80-4.5 MCG 60 PUFF/6.9 GM MDI IH SCH ×3 (04:20→20:58)
[2018-10-01] MEDS: METOPROLOL TARTRATE 25 MG TABLET NG SCH ×4 (04:20→20:59)
[2018-10-01] MEDS: PIPERACILLIN SODIUM/TAZOBACTAM 3.375 GM in NORMAL SALINE 100 ML IV SCH ×4 (04:22→21:18)
[2018-10-01 04:24] LABS: ARTERIAL BLOOD BASE EXCESS -9.3 mmol/L; ARTERIAL BLOOD FIO2 50%; ARTERIAL BLOOD H2CO3 1.01 mmol/L (1.05-1.35); ARTERIAL BLOOD HCO3 16.1 mmol/L (20-24); ARTERIAL BLOOD O2 SATURATION 94.7 % (94-98); ARTERIAL BLOOD PCO2 33.5 mmHg (35-45); ARTERIAL BLOOD TOTAL CO2 17.1 mmol/L (23-27)
[2018-10-01 04:28] LABS: ABSOLUTE BASOPHILS # (AUTO) 0.1 10^3/uL (0.0-0.2); ABSOLUTE EOSINOPHILS # (AUTO) 0.3 10^3/uL (0.0-0.6); ABSOLUTE LYMPHOCYTES (AUTO) 0.6 10^3/uL (0.5-4.7); ABSOLUTE MONOCYTES (AUTO) 0.9 10^3/uL (0.1-1.4); ABSOLUTE NEUT (AUTO) 7.3 10^3/uL (1.7-8.2); BASOPHILS % (AUTO) 0.6 % (0-2); EOSINOPHILS % (AUTO) 3.4 % (0-6); MEAN CORPUSCULAR HEMOGLOBIN 33.5 pg (27.0-33.4); MEAN CORPUSCULAR HGB CONC 34.8 g/dL (32.0-36.0); MEAN CORPUSCULAR VOLUME 96 fl (80-97); MONOCYTES % (AUTO) 9.5 % (3-13); RED BLOOD COUNT 2.91 10^6/uL (4.35-5.55); RED CELL DISTRIBUTION WIDTH 21.4 % (11.5-14.0); SEGMENTED NEUTROPHILS % (AUTO) 79.5 % (42-78); TOTAL CELLS COUNTED % (AUTO) 100 %; WHITE BLOOD COUNT 9.2 10^3/uL (4.0-10.5)
[2018-10-01 04:44] LABS: ALBUMIN 2.5 g/dL (3.5-5.0); ANION GAP 11 (5-19); BLOOD UREA NITROGEN 58 mg/dL (7-20); CALCIUM 8.1 mg/dL (8.4-10.2); CARBON DIOXIDE 16 mmol/L (22-30); CHLORIDE 98 mmol/L (98-107); GLUCOSE 134 mg/dL (75-110); PHOSPHORUS 4.8 mg/dL (2.5-4.5); SODIUM 124.6 mmol/L (137-145)
[2018-10-01 04:51] LABS: HEMOGLOBIN 9.8 g/dL (13.5-17.0); PLATELET COUNT 70 10^3/uL (150-450)
[2018-10-01] MEDS: MIDAZOLAM HCL 50 MG/100 ML RTUINJ IV PRN ×2 (05:01→18:56)
[2018-10-01] MEDS: LANSOPRAZOLE 30 MG TAB.RAP.DR NG SCH ×2 (08:21→16:49)
--- NOTE | 2018-10-01 09:14 | RADIOLOGY REPORT (SQ) ---
EXAM DESCRIPTION: CHEST SINGLE VIEW COMPLETED DATE/TIME: 10/01/2018 6:49 am REASON FOR STUDY: resp failure/pna COMPARISON: Previous day. NUMBER OF VIEWS: One view. TECHNIQUE: Single frontal radiographic image of the chest acquired. LIMITATIONS: None. FINDINGS: LUNGS AND PLEURA: Extensive consolidation in the left lung with progression in the apex. Stable ground-glass attenuation in the right lung. MEDIASTINUM AND HEART: Stable heart size and mediastinal structures. SUPPORT DEVICES: Appropriate location without change. BONY STRUCTURES: No acute findings. HARDWARE: None. OTHER: No other significant finding. IMPRESSION: Rehydration or progressing pneumonia left lung. No pneumothorax. Reading location - IP/workstation name: [email or web address]
[2018-10-01] MEDS: LEVOTHYROXINE SODIUM INJ/PF 0.1 MG SDV IV SCH (09:22)
[2018-10-01] MEDS: THIAMINE HCL 100 MG, FOLIC ACID 1 MG in NORMAL SALINE 250 ML IV SCH (09:22)
[2018-10-01] MEDS: LEVETIRACETAM 1000 MG/NACL-ISO 1,000 MG/100 ML RTUPB IV SCH ×2 (09:22→21:18)
[2018-10-01] MEDS: VANCOMYCIN HCL 1,000 MG in DEXTROSE 5%-WATER 250 ML IV SCH ×2 (10:40→21:44)
[2018-10-01] MEDS ORDERED: LIDOCAINE 1% INJ-PF (10 MG/ML) 30 ML SDV ONE (13:03)
--- NOTE | 2018-10-01 13:28 | Operative Report ---
Operative Report DATE OF SURGERY: 10/01/18 Operative Report: patient intubated and sedated L lung atelectasis using "T" sized scopr her tracheobronchial tree was explored tick secretion L main ;L upper lobe ;lingula and L lower lobe aspirated.Then followed up with copious lavage.Tolerated well SAO2 97% PREOPERATIVE DIAGNOSIS: mucous plugging POSTOPERATIVE DIAGNOSIS: same OPERATION: fiberoptic bronchoscopy with bronchoalveolar lavage SURGEON: WILLIAN ALAN ANESTHESIA: GA TISSUE REMOVED OR ALTERED: n/a COMPLICATIONS: n/a ESTIMATED BLOOD LOSS: n/a
--- NOTE | 2018-10-01 16:07 | RADIOLOGY REPORT (SQ) ---
EXAM DESCRIPTION: CHEST SINGLE VIEW COMPLETED DATE/TIME: 10/01/2018 3:59 pm REASON FOR STUDY: post bronchoscopy COMPARISON: Earlier the same day. NUMBER OF VIEWS: One view. TECHNIQUE: Single frontal radiographic image of the chest acquired. LIMITATIONS: None. FINDINGS: LUNGS AND PLEURA: Improved aeration in the left upper lobe. No pneumothorax. MEDIASTINUM AND HEART: Stable heart size and mediastinal structures. SUPPORT DEVICES: Appropriate location without change. BONY STRUCTURES: No acute findings. HARDWARE: None. OTHER: No other significant finding. IMPRESSION: Improved aeration. No pneumothorax. Reading location - IP/workstation name: [email or web address]
[2018-10-01] MEDS ORDERED: FUROSEMIDE INJ/PF 40 MG/4 ML SDV IV ONE (16:45)
--- NOTE | 2018-10-01 19:40 | PDOC PROGRESS REPORT ---
Subjective Progress Note for:: 10/01/18 Subjective:: Patient intubated, sedated. Status post bronchoscopy today for left lung whiteout. He is receiving platelets transfusion. Review of system unable due to mental status. Reason For Visit: ENCEPHALOPATHY,ARF ON CKD,HYPONATREMIA Physical Exam Vital Signs: Temp Pulse Resp BP Pulse Ox 97.5 F 85 20 113/54 L 96 10/01/18 18:40 10/01/18 18:40 10/01/18 18:40 10/01/18 18:40 10/01/18 18:40 Intake & Output 09/30/18 10/01/18 10/02/18 06:59 06:59 06:59 Intake Total 3826.2 5152.2 2747 Output Total 4500 2320 1775 Balance -673.8 2832.2 972 Weight 123.9 kg 122.8 kg General appearance: PRESENT: morbidly obese, other - Intubated and sedated Head exam: PRESENT: normocephalic Eye exam: PRESENT: other - Pupils are very small and minimally reactive to light Ear exam: PRESENT: normal external ear exam Mouth exam: PRESENT: other - Endotracheal tube in place. Throat exam: PRESENT: other - Nasogastric tube in place Neck exam: PRESENT: other - Very large neck. [place]-Silver catheter right internal jugular vein. Still with swelling left neck and upper left chest area. No whit ecchymosis. Respiratory exam: PRESENT: rhonchi - Rhonchi on the left., symmetrical Cardiovascular exam: PRESENT: RRR, +S1, +S2, other - Decreased heart sounds likely secondary to body habitus Pulses: PRESENT: other - Diminished pedal and radial pulses GI/Abdominal exam: PRESENT: distended - Pendulous abdomen., normal bowel sounds, soft Rectal exam: PRESENT: other - Greenish black in rectal tube in place. Gentrourinary exam: PRESENT: indwelling catheter Extremities exam: PRESENT: pedal edema, other - Upper extremities are puffy. Neurological exam: PRESENT: other - Sedated and intubated. Skin exam: PRESENT: other - Marked ecchymosis with very thin skin Results Laboratory Results: 10/01/18 04:02 10/01/18 04:02 09/30/18 10/01/18 10/01/18 12:34 04:02 04:02 WBC RBC Hgb Hct MCV MCH MCHC RDW Plt Count Seg Neutrophils % Lymphocytes % Monocytes % Eosinophils % Basophils % Absolute Neutrophils Absolute Lymphocytes Absolute Monocytes Absolute Eosinophils Absolute Basophils Carbonic Acid 1.01 L HCO3/H2CO3 Ratio 15:1 ABG pH 7.30 L ABG pCO2 33.5 L ABG pO2 79.0 L ABG HCO3 16.1 L ABG O2 Saturation 94.7 ABG Base Excess -9.3 FiO2 50% Sodium 124.6 L Potassium 4.0 Chloride 98 Carbon Dioxide 16 L Anion Gap 11 BUN 58 H Creatinine 2.03 H Est GFR ( Amer) 41 L Est GFR (Non-Af Amer) 34 L Glucose 134 H Calcium 8.1 L Phosphorus 4.8 H Magnesium 1.6 Albumin 2.5 L Fluid Type Fluid Source Fluid Color Fluid Appearance Fluid Viscosity Fluid WBC Fluid RBC Blood Type A POSITIVE Antibody Screen NEGATIVE 10/01/18 10/01/18 10/01/18 04:02 04:02 13:20 WBC 9.2 RBC 2.91 L Hgb 9.8 L D Hct 28.0 L MCV 96 MCH 33.5 H MCHC 34.8 RDW 21.4 H Plt Count 70 L Seg Neutrophils % 79.5 H Lymphocytes % 7.0 L Monocytes % 9.5 Eosinophils % 3.4 Basophils % 0.6 Absolute Neutrophils 7.3 Absolute Lymphocytes 0.6 Absolute Monocytes 0.9 Absolute Eosinophils 0.3 Absolute Basophils 0.1 Carbonic Acid HCO3/H2CO3 Ratio ABG pH ABG pCO2 ABG pO2 ABG HCO3 ABG O2 Saturation ABG Base Excess FiO2 Sodium Cancelled Potassium Cancelled Chloride Cancelled Carbon Dioxide Cancelled Anion Gap Cancelled BUN Cancelled Creatinine Cancelled Est GFR ( Amer) Cancelled Est GFR (Non-Af Amer) Cancelled Glucose Cancelled Calcium Cancelled Phosphorus Cancelled Magnesium Albumin Cancelled Fluid Type Cancelled Fluid Source Cancelled Fluid Color Cancelled Fluid Appearance Cancelled Fluid Viscosity Cancelled Fluid WBC Cancelled Fluid RBC Cancelled Blood Type Antibody Screen 09/29/18 11:42 Bronchial Washings Gram Stain - Final 09/29/18 11:42 Bronchial Washings Bronchial Washings Culture - Final Staphylococcus Aureus Greatly Reduced Normal Mayuri 09/26/18 00:29 Blood Blood Culture - Final NO GROWTH IN 5 DAYS 09/25/18 23:05 Blood Blood Culture - Final NO GROWTH IN 5 DAYS 09/25/18 09/25/18 09/26/18 22:25 22:25 03:38 Creatine Kinase < 20 L CK-MB (CK-2) 0.91 1.00 Troponin I 0.017 0.018 NT-Pro-B Natriuret Pep 80718 H 09/26/18 09/26/18 09/26/18 03:38 11:20 11:20 Creatine Kinase < 20 L < 20 L CK-MB (CK-2) 1.10 Troponin I 0.015 NT-Pro-B Natriuret Pep 09/26/18 09/26/18 17:56 17:56 Creatine Kinase < 20 L CK-MB (CK-2) 0.99 Troponin I < 0.012 NT-Pro-B Natriuret Pep Impressions: Head CT 09/25/18 22:35 IMPRESSION: No acute intracranial findings. Fluoroscopy 09/28/18 00:00 IMPRESSION: IMAGE(S) OBTAINED DURING PROCEDURE. Interventional Vascular Procedure 09/28/18 00:00 IMPRESSION: IMAGE(S) OBTAINED DURING PROCEDURE. Chest X-Ray 10/01/18 06:00 IMPRESSION: Rehydration or progressing pneumonia left lung. No pneumothorax. Assessment & Plan - Diagnosis (1) Acute respiratory failure with hypoxia Is this a current diagnosis for this admission?: Yes (2) Pneumonia Qualifiers: Pneumonia type: due to unspecified organism Laterality: left Lung location: unspecified part of lung Qualified Code(s): J18.9 - Pneumonia, un specified organism Is this a current diagnosis for this admission?: Yes (3) Anemia requiring transfusions Is this a current diagnosis for this admission?: Yes (4) Hyponatremia Is this a current diagnosis for this admission?: Yes (5) Hypotension Qualifiers: Hypotension type: unspecified hypotension type Qualified Code(s): I95.9 - Hypotension, unspecified Is this a current diagnosis for this admission?: Yes (6) Morbid obesity with BMI of 40.0-44.9, adult Is this a current diagnosis for this admission?: Yes (7) Thrombocytopenia Is this a current diagnosis for this admission?: Yes - Plan Summary Plan Summary: Continue antibiotic regimen with Zosyn, Vanco. Patient remains on multiple pressors. We will continue diuresis as well. Pulmonology and cardiology follow-up appreciated. We will continue blood products support as needed.
--- NOTE | 2018-10-01 19:57 | Progress Note ---
Provider Note Provider Note: CARDIOLOGY PROGRESS NOTES yaw Lane on 10/01/2018.\ SUBJECTIVE:. The patient continues to be in atrial fibrillation, with a controlled ventricular response. He is still on the ventilator. He is on maximum doses of all kinds of pressors. His wedge is beginning to rise, as also the right heart pressures. The patient's prognosis very guarded. Selected Entries 10/01/18 10/01/18 10/01/18 09:46 10:00 10:01 Temperature 97.3 F 97.2 F Heart Rate ( 96 87 Monitors) Respiratory 21 H 21 H Rate Blood Pressure 107/62 109/60 Blood Pressure 77 76 Mean O2 Sat by Pulse 98 97 Oximetry Fraction of 50 Inspired Oxygen (FIO2) Pulmonary 45 Arterial Occlusion Pressure- Systolic Pulmonary 18 Arterial Occlusion Pressure- Diastolic Pulmonary 27 Arterial Occlusion Pressure- Mean The patient's wedge pressure pressure is 20. HEAD: Is atraumatic normocephalic. EYES: Pupils equal round regular reactive to light. There is no palatal pallor. There is no scleral icteru .ENT: Is negative. NECK: Is supple. There is mild JVD present. There is no carotids are equal. There is no carotid bruits. There is no goiter. Trachea central. LUNGS: Show absent breath sounds in the left base. There is scattered rhonchi Present there is dry crackles of pneumonia in the left base and in the right base. There is also fine rales of CHF. HEART: S1-S2 is heard. S1 is of variable intensity intensity. There is no S3 gallop. There is no S4 gallop. There is systolic murmur in the left sternal border and the apex. There is no rub. ABDOMEN: Is soft. Bowel sounds are heard. There is no hepatosplenic megaly. EXTREMITIES: Femorals are deep femorals are diminished. Leg pulses are diminished.There is no sinus or clubbing. There is mild . pedal edema. There is no DVT or cellulitis.CNA HHA and PSYCHIATRIC exams not done due to the patient being intubated and sedated. 10/01/18 10/01/18 10/01/18 04:02 04:02 04:02 WBC 9.2 Hgb 9.8 L D Hct 28.0 L Plt Count 70 L Carbonic Acid 1.01 L HCO3/H2CO3 Ratio 15:1 ABG pH 7.30 L ABG pCO2 33.5 L ABG pO2 79.0 L ABG HCO3 16.1 L ABG Total CO2 17.1 L ABG O2 Saturation 94.7 ABG Base Excess -9.3 FiO2 50% Sodium 124.6 L Potassium 4.0 Chloride 98 Carbon Dioxide 16 L BUN 58 H Creatinine 2.03 H Est GFR (Non-Af Amer) 34 L Glucose 134 H Calcium 8.1 L Phosphorus 4.8 H Magnesium 1.6 Please see right heart hemodynamics every shift. IMPRESSION/RECOMMENDATION: 1. Acute respiratory failure: Secondary to acute on chronic systolic heart failure, acute on chronic right ventricle systolic heart failure, and pneumonia. Continue ventilator support. Continue inotropic support with Levophed, milrinone, and Maurizio-Synephrine. Continue Lasix drip. 2. SEPSIS due to pneumonia: Continue antibiotics. Adjust the patient's inotropes, and continue hemodynamic support with the patient's [place]-Silver catheter measurements. 3. Hypertension: Blood pressure is low normal requiring pressor support. 4. PNEUMONIA: Continue antibiotics. 5. Cardiomyopathy with a history of moderately depressed LV ejection fraction: Continue inotropes, and Lasix. 6. Chronic atrial fibrillation: In view of the patient's platelets being low, and the patient's anemia requiring blood transfusion, at at present we will hold off on the Eliquis. Continue Arixtra and a DVT prophylaxis dose. Later once the platelets, will increase the dosage of Arixtra or restart the patient's Eliquis. 7. PULMONARY HYPERTENSION: Was severe at the time of initial insertion of [place]- Silver catheter. With the placement of the [place]-Silver catheter and, with the inotropic agents, the right ventricle systolic pressure has come down and now the patient has mild pulmonary hypertension. 8. SHOCK:: Multifactorial, a combination of septic shock, and cardiogenic shock with high pulmonary pressures [cardiogenic shock secondary to patient's cardiomyopathy, and atrial fibrillation, with loss of atrial kick contribution to the cardiac output]. This is also associated with high output cardiac failure: Multifactorial secondary to renal failure, anemia, and possibly sepsis. 9. Thrombocytopenia: Most likely secondary to patient's alcohol abuse, probably has underlying liver disease due to alcohol abuse. Patient receiving platelet transfusion 10. ANEMIA: Status post blood transfusion transfusion. Hemoglobin back down to 7.3. We will continue to observe the patient's hemoglobin closely. 11.Acute renal failure: Most likely secondary to cardiorespiratory syndrome. Later would recommend nephrology consult to see if the patient has underlying renal disease. 12. Hypomagnesemia: Replace the patient's magnesium. 13. GI bleed: Positive Hemoccult stools. Most likely secondary to the patient's low platelets. 14. History of tobacco and alcohol abuse. Later we will give the patient tobacco cessation counseling. Agree with the thiamine. Would also check the patient's B12 vitamin levels. Note that the patient's family were informed of the patient's condition and discussions done. They want everything done on the patient as per . Strongly recommend starting the patient on tube feedings. Note medications reviewed, and medications adjusted as per the patient's [place] Ricardo pressure measurements of the right heart. Medical decision making is of high complexity. Discussed management plan with other caregiving providers on the case. Note 70 minutes of critical care spent on this patient, with more than 50% of time spent in direct patient care
[2018-10-01] MEDS: DEXTROSE 5%-WATER 250 ML with VASOPRESSIN 100 UNIT IV PRN ×2 (21:19)
[2018-10-01] MEDS: NORMAL SALINE 250 ML with FUROSEMIDE 250 MG IV PRN ×2 (21:19)
[2018-10-02] MEDS: DEXTROSE 5%-WATER 250 ML with NOREPINEPHRINE BITARTRATE 4 MG IV PRN ×8 (00:21→18:23)
[2018-10-02] MEDS: MILRINONE LACTATE/D5W 20 MG/100 ML RTUINJ IV PRN ×6 (02:29→21:14)
[2018-10-02] MEDS: PIPERACILLIN SODIUM/TAZOBACTAM 3.375 GM in NORMAL SALINE 100 ML IV SCH ×4 (02:38→21:10)
[2018-10-02] MEDS: MIDAZOLAM HCL 50 MG/100 ML RTUINJ IV PRN ×3 (04:40→21:15)
[2018-10-02] MEDS: LANSOPRAZOLE 30 MG TAB.RAP.DR NG SCH ×2 (05:05→17:46)
[2018-10-02 05:23] LABS: ARTERIAL BLOOD BASE EXCESS -8.1 mmol/L; ARTERIAL BLOOD HCO3 16.4 mmol/L (20-24); ARTERIAL BLOOD O2 SATURATION 95.8 % (94-98); ARTERIAL BLOOD PCO2 29.9 mmHg (35-45); ARTERIAL BLOOD PH 7.36 (7.35-7.45); ARTERIAL BLOOD PO2 81.7 mmHg (80-100); ARTERIAL BLOOD TOTAL CO2 17.3 mmol/L (23-27)
[2018-10-02 05:24] LABS: ARTERIAL BLOOD FIO2 50%
[2018-10-02 05:30] LABS: HEMATOCRIT 23.9 % (37.9-51.0); HEMOGLOBIN 8.3 g/dL (13.5-17.0); MEAN CORPUSCULAR HEMOGLOBIN 33.1 pg (27.0-33.4); MEAN CORPUSCULAR HGB CONC 34.7 g/dL (32.0-36.0); MEAN CORPUSCULAR VOLUME 96 fl (80-97); RED CELL DISTRIBUTION WIDTH 20.7 % (11.5-14.0); WHITE BLOOD COUNT 5.7 10^3/uL (4.0-10.5)
[2018-10-02 05:50] LABS: PLATELET COUNT 70 10^3/uL (150-450)
[2018-10-02 05:55] LABS: ABSOLUTE LYMPHOCYTES# (MANUAL) 0.4 10^3/uL (0.5-4.7); ABSOLUTE MONOCYTES # (MANUAL) 0.5 10^3/uL (0.1-1.4); ABSOLUTE NEUTROPHILS# (MANUAL) 4.5 10^3/uL (1.7-8.2); BASOPHILS % (MANUAL) 0 % (0-2); BURR CELLS SLIGHT; EOSINOPHILS % (MANUAL) 6 % (0-6); LYMPHOCYTES % (MANUAL) 7 % (13-45); MONOCYTES % (MANUAL) 8 % (3-13); OVALOCYTES SLIGHT; POIKILOCYTOSIS SLIGHT; SEGMENTED NEUTROPHILS % (MAN) 79 % (42-78); TOTAL CELLS COUNTED 100
[2018-10-02 05:56] LABS: ANISOCYTOSIS 3+; PLATELET COMMENT DECREASED
[2018-10-02 06:05] LABS: ALANINE AMINOTRANSFERASE 13 U/L (21-72); ALBUMIN 2.2 g/dL (3.5-5.0); ALKALINE PHOSPHATASE 64 U/L (38-126); ANION GAP 11 (5-19); ASPARTATE AMINO TRANSFERASE 9 U/L (17-59); BILIRUBIN,DIRECT 0.9 mg/dL (0.0-0.4); BILIRUBIN,TOTAL 1.1 mg/dL (0.2-1.3); BLOOD UREA NITROGEN 51 mg/dL (7-20); CALCIUM 7.8 mg/dL (8.4-10.2); CARBON DIOXIDE 16 mmol/L (22-30); CHLORIDE 95 mmol/L (98-107); GLUCOSE 128 mg/dL (75-110); PHOSPHORUS 5.8 mg/dL (2.5-4.5); POTASSIUM 3.5 mmol/L (3.6-5.0); SODIUM 121.9 mmol/L (137-145); TOTAL PROTEIN 4.3 g/dL (6.3-8.2)
--- NOTE | 2018-10-02 06:18 | RADIOLOGY REPORT (SQ) ---
EXAM DESCRIPTION: XR CHEST 1 VIEW COMPLETED DATE/TME: 10/02/2018 06:00 CLINICAL HISTORY: 58 years, Male, resp fail pna COMPARISON: 10/01/2018 chest NUMBER OF VIEWS: 1 TECHNIQUE: Portable chest LIMITATIONS: None. FINDINGS: Cardiomegaly. Endotracheal tube, enteric tube, central venous catheter in place. Osteopenia with diffuse interstitial edema. Improved aeration of the left hemithorax. No discrete pneumothorax. IMPRESSION: Improved aeration of the left hemithorax. Other findings are stable copyright 2011 [employer]- All Rights Reserved
[2018-10-02] MEDS: BUDESONIDE/FORMOTEROL 80-4.5 MCG 60 PUFF/6.9 GM MDI IH SCH ×2 (08:00→20:07)
[2018-10-02] MEDS: DEXTROSE 5%-WATER 250 ML with PHENYLEPHRINE HCL 40 MG IV PRN ×4 (08:00→18:19)
[2018-10-02] MEDS: LEVOTHYROXINE SODIUM INJ/PF 0.1 MG SDV IV SCH (09:18)
[2018-10-02] MEDS: METOPROLOL TARTRATE 25 MG TABLET NG SCH ×2 (09:21→21:11)
[2018-10-02] MEDS: FONDAPARINUX SODIUM INJ 2.5 MG/0.5 ML DISP.SYRIN SUBCUT SCH (09:29)
[2018-10-02] MEDS: LEVETIRACETAM 1000 MG/NACL-ISO 1,000 MG/100 ML RTUPB IV SCH ×2 (09:31→21:14)
[2018-10-02] MEDS: VANCOMYCIN HCL 1,000 MG in DEXTROSE 5%-WATER 250 ML IV SCH ×2 (09:47→22:36)
[2018-10-02] MEDS: THIAMINE HCL 100 MG, FOLIC ACID 1 MG in NORMAL SALINE 250 ML IV SCH (10:42)
[2018-10-02] MEDS ORDERED: SODIUM CHLORIDE 3% 500 ML IV ONE (12:15)
[2018-10-02] MEDS: MAGNESIUM SULFATE/D5W 1 GM/100 ML RTUPB IV SCH ×3 (12:28→15:18)
[2018-10-02] MEDS ORDERED: MAGNESIUM SULFATE/D5W 1 GM/100 ML RTUPB IV SCH (12:30)
[2018-10-02 13:04] LABS: ANION GAP 11 (5-19); BLOOD UREA NITROGEN 51 mg/dL (7-20); CALCIUM 7.7 mg/dL (8.4-10.2); CARBON DIOXIDE 17 mmol/L (22-30); CHLORIDE 94 mmol/L (98-107); GLUCOSE 102 mg/dL (75-110); POTASSIUM 3.4 mmol/L (3.6-5.0); SODIUM 121.5 mmol/L (137-145)
[2018-10-02] MEDS: POTASSI CL 20 MEQ/50 ML RIDER 20 MEQ/50 ML RTUPB IV SCH ×2 (13:56→15:24)
--- NOTE | 2018-10-02 16:38 | PDOC PROGRESS REPORT ---
Subjective Progress Note for:: 10/02/18 Subjective:: Patient remains intubated, unresponsive. Review of systems unable due to mental status/unresponsive. Reason For Visit: ENCEPHALOPATHY,ARF ON CKD,HYPONATREMIA Physical Exam Vital Signs: Temp Pulse Resp BP Pulse Ox 99.0 F 108 H 20 93/52 L 95 10/02/18 14:02 10/02/18 14:00 10/02/18 14:02 10/02/18 14:02 10/02/18 14:02 Intake & Output 10/01/18 10/02/18 10/03/18 06:59 06:59 06:59 Intake Total 5152.2 5463 1006 Output Total 2320 5055 1860 Balance 2832.2 408 -854 Weight 122.8 kg 124.7 kg General appearance: PRESENT: morbidly obese, other - Intubated and sedated Head exam: PRESENT: normocephalic Eye exam: PRESENT: other - Pupils are very small and minimally reactive to light Ear exam: PRESENT: normal external ear exam Mouth exam: PRESENT: other - Endotracheal tube in place. Throat exam: PRESENT: other - Nasogastric tube in place Respiratory exam: PRESENT: rhonchi - Rhonchi on the left., symmetrical Cardiovascular exam: PRESENT: RRR, +S1, +S2, other - Decreased heart sounds likely secondary to body habitus Pulses: PRESENT: other - Diminished pedal and radial pulses GI/Abdominal exam: PRESENT: distended - Pendulous abdomen., normal bowel sounds, soft Rectal exam: PRESENT: other - Greenish black in rectal tube in place. Gentrourinary exam: PRESENT: indwelling catheter Extremities exam: PRESENT: pedal edema, other - Upper extremities are puffy. Neurological exam: PRESENT: other - Sedated and intubated. Skin exam: PRESENT: other - Marked ecchymosis with very thin skin Results Laboratory Results: 10/02/18 05:11 10/02/18 12:35 09/30/18 10/02/18 10/02/18 12:34 05:11 05:11 WBC 5.7 RBC 2.50 L Hgb 8.3 L Hct 23.9 L MCV 96 MCH 33.1 MCHC 34.7 RDW 20.7 H Plt Count 70 L Seg Neutrophils % Not Reportable Lymphocytes % Not Reportable Monocytes % Not Reportable Eosinophils % Not Reportable Basophils % Not Reportable Absolute Neutrophils Not Reportable Absolute Lymphocytes Not Reportable Absolute Monocytes Not Reportable Absolute Eosinophils Not Reportable Absolute Basophils Not Reportable Carbonic Acid 0.90 L HCO3/H2CO3 Ratio 18:1 ABG pH 7.36 ABG pCO2 29.9 L ABG pO2 81.7 ABG HCO3 16.4 L ABG O2 Saturation 95.8 ABG Base Excess -8.1 FiO2 50% Sodium Potassium Chloride Carbon Dioxide Anion Gap BUN Creatinine Est GFR ( Amer) Est GFR (Non-Af Amer) Glucose Calcium Phosphorus Magnesium Total Bilirubin AST ALT Alkaline Phosphatase Total Protein Albumin Blood Type A POSITIVE Antibody Screen NEGATIVE 10/02/18 10/02/18 05:11 12:35 WBC RBC Hgb Hct MCV MCH MCHC RDW Plt Count Seg Neutrophils % Lymphocytes % Monocytes % Eosinophils % Basophils % Absolute Neutrophils Absolute Lymphocytes Absolute Monocytes Absolute Eosinophils Absolute Basophils Carbonic Acid HCO3/H2CO3 Ratio ABG pH ABG pCO2 ABG pO2 ABG HCO3 ABG O2 Saturation ABG Base Excess FiO2 Sodium 121.9 L 121.5 L Potassium 3.5 L 3.4 L Chloride 95 L 94 L Carbon Dioxide 16 L 17 L Anion Gap 11 11 BUN 51 H 51 H Creatinine 1.62 H 1.63 H Est GFR ( Amer) 53 L 52 L Est GFR (Non-Af Amer) 44 L 43 L Glucose 128 H 102 Calcium 7.8 L 7.7 L Phosphorus 5.8 H Magnesium 1.2 L* Total Bilirubin 1.1 AST 9 L ALT 13 L Alkaline Phosphatase 64 Total Protein 4.3 L Albumin 2.2 L Blood Type Antibody Screen 09/28/18 19:00 Tracheal Aspirate Gram Stain - Final 09/29/18 11:42 Bronchial Washings AFB Smear Concentration - Final 09/29/18 11:42 Bronchial Washings Acid Fast Bacilli Smear - Final 09/29/18 11:42 Bronchial Washings Gram Stain - Final 09/29/18 11:42 Bronchial Washings Bronchial Washings Culture - Final Staphylococcus Aureus Greatly Reduced Normal Mayuri 09/25/18 09/25/18 09/26/18 22:25 22:25 03:38 Creatine Kinase < 20 L CK-MB (CK-2) 0.91 1.00 Troponin I 0.017 0.018 NT-Pro-B Natriuret Pep 46118 H 09/26/18 09/26/18 09/26/18 03:38 11:20 11:20 Creatine Kinase < 20 L < 20 L CK-MB (CK-2) 1.10 Troponin I 0.015 NT-Pro-B Natriuret Pep 09/26/18 09/26/18 17:56 17:56 Creatine Kinase < 20 L CK-MB (CK-2) 0.99 Troponin I < 0.012 NT-Pro-B Natriuret Pep Impressions: Head CT 09/25/18 22:35 IMPRESSION: No acute intracranial findings. Fluoroscopy 09/28/18 00:00 IMPRESSION: IMAGE(S) OBTAINED DURING PROCEDURE. Interventional Vascular Procedure 09/28/18 00:00 IMPRESSION: IMAGE(S) OBTAINED DURING PROCEDURE. Chest X-Ray 10/02/18 06:00 IMPRESSION: Improved aeration of the left hemithorax. Other findings are stable copyright 2011 [employer]- All Rights Reserved Assessment & Plan - Diagnosis (1) Acute respiratory failure with hypoxia Is this a current diagnosis for this admission?: Yes (2) Pneumonia Qualifiers: Pneumonia type: due to unspecified organism Laterality: left Lung location: unspecified part of lung Qualified Code(s): J18.9 - Pneumonia, unspecified organism Is this a current diagnosis for this admission?: Yes (3) Anemia requiring transfusions Is this a current diagnosis for this admission?: Yes (4) Hyponatremia Is this a current diagnosis for this admission?: Yes (5) Hypotension Qualifiers: Hypotension type: unspecified hypotension type Qualified Code(s): I95.9 - Hypotension, unspecified Is this a current diagnosis for this admission?: Yes (6) Morbid obesity with BMI of 40.0-44.9, adult Is this a current diagnosis for this admission?: Yes (7) Thrombocytopenia Is this a current diagnosis for this admission?: Yes (8) Hypokalemia Is this a current diagnosis for this admission?: Yes - Plan Summary Plan Summary: Continue antibiotic regimen with Zosyn, Vanco. Patient remains on multiple pressors. We will continue diuresis as well. Pulmonology and cardiology follow-up appreciated. We will continue blood products support and electrolytes as needed, including magnesium and potassium. Prognosis is extremely poor.
[2018-10-02 18:40] LABS: ANION GAP 11 (5-19); BLOOD UREA NITROGEN 49 mg/dL (7-20); CALCIUM 7.6 mg/dL (8.4-10.2); CARBON DIOXIDE 17 mmol/L (22-30); CHLORIDE 94 mmol/L (98-107); GLUCOSE 99 mg/dL (75-110); POTASSIUM 3.6 mmol/L (3.6-5.0); SODIUM 121.9 mmol/L (137-145)
--- NOTE | 2018-10-02 20:42 | Progress Note ---
Provider Note Provider Note: CARDIOLOGY PROGRESS NOTES by Dr. Christelle Lane on 10/02/2018. SUBJECTIVE: The patient is intubated and sedated. The patient continues to be in atrial fibrillation. His wedge pressure did come down to 16. There is no ventricular arrhythmias on the monitor. PHYSICAL EXAMINATION: The patient is morbidly obese. He is well-groomed. Selected Entries 10/02/18 10/02/18 10/02/18 14:00 14:01 14:02 Temperature 99.1 F Temperature Core Source Pulse Rate 108 H Heart Rate ( Monitors) Respiratory 19 Rate Blood Pressure Blood Pressure 97/50 L [Right Upper Arm] Blood Pressure Mean Blood Pressure 65 Mean [Right Upper Arm] O2 Sat by Pulse 96 Oximetry Oxygen Delivery Mechanical Method ( Ventilator includes room air) Percent of 45 Oxygen Pulmonary 47 47 Arterial Occlusion Pressure- Systolic Pulmonary 25 27 Arterial Occlusion Pressure- Diastolic Pulmonary 33 35 Arterial Occlusion Pressure- Mean 10/02/18 10/02/18 10/02/18 14:16 16:32 17:00 Temperature 98.4 F Temperature Source Pulse Rate Heart Rate ( 91 Monitors) Respiratory 21 H Rate Blood Pressure 102/58 L Blood Pressure [Right Upper Arm] Blood Pressure 72 Mean Blood Pressure Mean [Right Upper Arm] O2 Sat by Pulse 93 Oximetry Oxygen Delivery Method ( includes room air) Percent of Oxygen Pulmonary 49 Arterial Occlusion Pressure- Systolic Pulmonary 30 Arterial Occlusion Pressure- Diastolic Pulmonary 38 Arterial Occlusion Pressure- Mean 10/02/18 10/02/18 10/02/18 05:11 05:11 12:35 WBC 5.7 Hgb 8.3 L Hct 23.9 L MCV 96 MCH 33.1 MCHC 34.7 RDW 20.7 H Plt Count 70 L Total Counted 100 Seg Neuts % (Manual) 79 H Sodium 121.9 L 121.5 L Potassium 3.5 L 3.4 L Chloride 95 L 94 L Carbon Dioxide 16 L 17 L Anion Gap 11 11 BUN 51 H 51 H Creatinine 1.62 H 1.63 H Est GFR ( Amer) 52 L Est GFR (Non-Af Amer) 44 L 43 L Glucose 128 H 102 Calcium 7.8 L 7.7 L Phosphorus 5.8 H Magnesium 1.2 L* Total Bilirubin 1.1 Direct Bilirubin 0.9 H Neonat Total Bilirubin Not Reportable Neonat Direct Bilirubin Not Reportable Neonat Indirect Bili Not Reportable AST 9 L ALT 13 L Alkaline Phosphatase 64 Total Protein 4.3 L Albumin 2.2 L The patient's wedge pressure pressure is 20. HEAD: Is atraumatic normocephalic. EYES: Pupils equal round regular reactive to light. There is no palatal pallor. There is no scleral icteru .ENT: Is negative. NECK: Is supple. There is mild JVD present. There is no carotids are equal. There is no carotid bruits. There is no goiter. Trachea central. LUNGS: Show absent breath sounds in the left base. There is scattered rhonchi Present there is dry crackles of pneumonia in the left base and in the right base. There is also fine rales of CHF. HEART: S1-S2 is heard. S1 is of variable intensity intensity. There is no S3 gallop. There is no S4 gallop. There is systolic murmur in the left sternal border and the apex. There is no rub. ABDOMEN: Is soft. Bowel sounds are heard. There is no hepatosplenic megaly. EXTREMITIES: Femorals are deep femorals are diminished. Leg pulses are diminished.There is no sinus or clubbing. There is mild . pedal edema. There is no DVT or cellulitis.SURGICAL ENDOSCOPIST and PSYCHIATRIC exams not done due to the patient being intubated and sedated. 10/02/18 17:58 WBC Hgb Hct MCV MCH MCHC RDW Plt Count Total Counted Seg Neuts % (Manual) Sodium 121.9 L Potassium 3.6 Chloride 94 L Carbon Dioxide 17 L Anion Gap 11 BUN 49 H Creatinine 1.52 H Est GFR ( Amer) Est GFR (Non-Af Amer) 47 L Glucose 99 Calcium 7.6 L Phosphorus Magnesium 1.7 Total Bilirubin Direct Bilirubin Neonat Total Bilirubin Neonat Direct Bilirubin Neonat Indirect Bili AST ALT Alkaline Phosphatase Total Protein Albumin The patient's 24-hour intake is 5463 mL. His output is 5050 mL. CHEST X-ray: Still show some congestive heart failure, but the left lung aeration has improved. There is also suggestion of right middle lobe pneumonia. IMPRESSION/RECOMMENDATION: 1. Acute respiratory failure: Secondary to acute on chronic systolic heart failure, acute on chronic right ventricle systolic heart failure, and pneumonia. Continue ventilator support. Continue inotropic support with Levophed, m ilrinone, and Maurizio-Synephrine. Continue Lasix drip. 2. SEPSIS due to pneumonia: Continue antibiotics. Adjust the patient's inotropes, and continue hemodynamic support with the patient's Holder-Silver c atheter measurements. 3. Hypertension: Blood pressure is low normal requiring pressor support. 4. PNEUMONIA: Continue antibiotics. 5. Cardiomyopathy with a history of moderately depressed LV ejection fraction: Continue inotropes, and Lasix. 6. Chronic atrial fibrillation: In view of the patient's platelets being low, and the patient's anemia requiring blood transfusion, at at present we will hold off on the Eliquis. Continue Arixtra and a DVT prophylaxis dose. Later once the platelets, will increase the dosage of Arixtra or restart the patient's Eliquis. 7. PULMONARY HYPERTENSION: Was severe at the time of initial insertion of Holder- Silver catheter. With the placement of the Holder-Silver catheter and, with the inotropic agents, the right ventricle systolic pressure has come down and now the patient has mild pulmonary hypertension. 8. SHOCK:: Multifactorial, a combination of septic shock, and cardiogenic shock with high pulmonary pressures [cardiogenic shock secondary to patient's cardiomyopathy, and atrial fibrillation, with loss of atrial kick contribution to the cardiac output]. This is also associated with high output cardiac failure: Multifactorial secondary to renal failure, anemia, and possibly sepsis. 9. Thrombocytopenia: Most likely secondary to patient's alcohol abuse, probably has underlying liver disease due to alcohol abuse. Patient receiving platelet transfusion 10. ANEMIA: Status post blood transfusion transfusion. Hemoglobin back down to 7.3. We will continue to observe the patient's hemoglobin closely. 11.Acute renal failure: Most likely secondary to cardiorespiratory syndrome. Later would recommend nephrology consult to see if the patient has underlying renal disease. 12. Hypomagnesemia: Replace the patient's magnesium. 13. GI bleed: Positive Hemoccult stools. Most likely secondary to the patient's low platelets. 14. History of tobacco and alcohol abuse. Later we will give the patient tobacco cessation counseling. Agree with the thiamine. Would also check the patient's B12 vitamin levels. Note that the patient's family were informed of the patient's condition and discussions done. They want everything done on the patient as per . Strongly recommend starting the patient on tube feedings. Note medications reviewed, and medications adjusted as per the patient's Holder Ricardo pressure measurements of the right heart. Medical decision making is of high complexity. Discussed management plan with other caregiving providers on the case. Note 70 minutes of critical care spent on this patient, with more than 50% of time spent in direct patient care
[2018-10-02 22:35] LABS: VANCOMYCIN,TROUGH 35.8 ug/mL (5.0-20.0)
[2018-10-02 23:42] LABS: ANION GAP 8 (5-19); BLOOD UREA NITROGEN 44 mg/dL (7-20); CALCIUM 7.8 mg/dL (8.4-10.2); CARBON DIOXIDE 20 mmol/L (22-30); CHLORIDE 95 mmol/L (98-107); GLUCOSE 127 mg/dL (75-110); POTASSIUM 3.1 mmol/L (3.6-5.0); SODIUM 122.9 mmol/L (137-145)
[2018-10-02] MEDS ORDERED: POTASSI CL 20 MEQ/50 ML RIDER 20 MEQ/50 ML RTUPB IV ONE (23:59)
[2018-10-03] MEDS: POTASSIUM CHLORIDE 20 MEQ/50 ML RTU IV SCH ×6 (00:06→20:13)
[2018-10-03] MEDS: MILRINONE LACTATE/D5W 20 MG/100 ML RTUINJ IV PRN ×7 (00:52→23:26)
[2018-10-03] MEDS: DEXTROSE 5%-WATER 250 ML with NOREPINEPHRINE BITARTRATE 4 MG IV PRN ×8 (02:02→21:07)
[2018-10-03] MEDS: PIPERACILLIN SODIUM/TAZOBACTAM 3.375 GM in NORMAL SALINE 100 ML IV SCH ×4 (02:21→20:12)
[2018-10-03] MEDS: DEXTROSE 5%-WATER 250 ML with PHENYLEPHRINE HCL 40 MG IV PRN ×4 (04:37→16:52)
[2018-10-03] MEDS: LANSOPRAZOLE 30 MG TAB.RAP.DR NG SCH ×2 (05:17→17:27)
[2018-10-03] MEDS: MIDAZOLAM HCL 50 MG/100 ML RTUINJ IV PRN ×2 (05:50→18:50)
[2018-10-03 06:00] LABS: HEMATOCRIT 24.1 % (37.9-51.0); HEMOGLOBIN 8.5 g/dL (13.5-17.0); MEAN CORPUSCULAR HEMOGLOBIN 33.4 pg (27.0-33.4); MEAN CORPUSCULAR HGB CONC 35.1 g/dL (32.0-36.0); MEAN CORPUSCULAR VOLUME 95 fl (80-97); RED BLOOD COUNT 2.53 10^6/uL (4.35-5.55); RED CELL DISTRIBUTION WIDTH 21.4 % (11.5-14.0); WHITE BLOOD COUNT 5.7 10^3/uL (4.0-10.5)
[2018-10-03 06:05] LABS: ARTERIAL BLOOD BASE EXCESS -5.4 mmol/L; ARTERIAL BLOOD H2CO3 1.01 mmol/L (1.05-1.35); ARTERIAL BLOOD HCO3 19.2 mmol/L (20-24); ARTERIAL BLOOD O2 SATURATION 96.4 % (94-98); ARTERIAL BLOOD PCO2 33.6 mmHg (35-45); ARTERIAL BLOOD PH 7.37 (7.35-7.45); ARTERIAL BLOOD TOTAL CO2 20.2 mmol/L (23-27)
[2018-10-03 06:11] LABS: ANION GAP 11 (5-19); BLOOD UREA NITROGEN 42 mg/dL (7-20); CALCIUM 7.9 mg/dL (8.4-10.2); CARBON DIOXIDE 17 mmol/L (22-30); CHLORIDE 95 mmol/L (98-107); GLUCOSE 108 mg/dL (75-110); PHOSPHORUS 5.2 mg/dL (2.5-4.5); POTASSIUM 3.4 mmol/L (3.6-5.0); SODIUM 122.9 mmol/L (137-145)
[2018-10-03 06:14] LABS: ARTERIAL BLOOD FIO2 45
--- NOTE | 2018-10-03 06:15 | RADIOLOGY REPORT (SQ) ---
EXAM DESCRIPTION: XR CHEST 1 VIEW COMPLETED DATE/TME: 10/03/2018 06:00 CLINICAL HISTORY: 58 years, Male, pna/shock COMPARISON: 10/02/2018 chest NUMBER OF VIEWS: 1 TECHNIQUE: Upright chest LIMITATIONS: None. FINDINGS: Cardiomegaly with grossly stable indwelling lines and catheters. Slight improvement in the degree of pulmonary vascular congestion. No pneumothorax. Osteopenia. IMPRESSION: Slight improvement in the degree of pulmonary vascular congestion copyright 2010 [employer]- All Rights Reserved
[2018-10-03] MEDS ORDERED: POTASSI CL 20 MEQ/50 ML RIDER 20 MEQ/50 ML RTUPB IV ONE (06:27)
[2018-10-03] MEDS ORDERED: MAGNESIUM SULFATE/D5W 1 GM/100 ML RTUPB IV ONE (06:27)
[2018-10-03] MEDS: MAGNESIUM SULFATE 1 GM/D5W 100 ML IV SCH ×2 (06:33→09:06)
[2018-10-03 07:25] LABS: PLATELET COUNT 55 10^3/uL (150-450)
[2018-10-03 07:28] LABS: ABSOLUTE LYMPHOCYTES# (MANUAL) 0.5 10^3/uL (0.5-4.7); ABSOLUTE MONOCYTES # (MANUAL) 0.5 10^3/uL (0.1-1.4); ABSOLUTE NEUTROPHILS# (MANUAL) 4.5 10^3/uL (1.7-8.2); BASOPHILS % (MANUAL) 0 % (0-2); EOSINOPHILS % (MANUAL) 4 % (0-6); LYMPHOCYTES % (MANUAL) 8 % (13-45); MONOCYTES % (MANUAL) 9 % (3-13); SEGMENTED NEUTROPHILS % (MAN) 79 % (42-78); TOTAL CELLS COUNTED 100
[2018-10-03 07:33] LABS: ANISOCYTOSIS 3+; BURR CELLS 1+; POIKILOCYTOSIS 3+; TOXIC GRANULATION SLIGHT
[2018-10-03 07:34] LABS: OVALOCYTES 1+; PLATELET COMMENT DECREASED; SCHISTOCYTES 2+; TEAR DROP CELLS 2+
[2018-10-03] MEDS: BUDESONIDE/FORMOTEROL 80-4.5 MCG 60 PUFF/6.9 GM MDI IH SCH ×2 (09:06→19:39)
[2018-10-03] MEDS: FONDAPARINUX SODIUM INJ 2.5 MG/0.5 ML DISP.SYRIN SUBCUT SCH (09:07)
[2018-10-03] MEDS: THIAMINE HCL 100 MG, FOLIC ACID 1 MG in NORMAL SALINE 250 ML IV SCH (11:04)
[2018-10-03] MEDS: LEVETIRACETAM 1000 MG/NACL-ISO 1,000 MG/100 ML RTUPB IV SCH ×2 (11:07→21:03)
[2018-10-03] MEDS: LEVOTHYROXINE SODIUM INJ/PF 0.1 MG SDV IV SCH (11:08)
[2018-10-03] MEDS: METOPROLOL TARTRATE 25 MG TABLET NG SCH ×2 (11:11→21:01)
[2018-10-03] MEDS: VANCOMYCIN HCL 1,000 MG in DEXTROSE 5%-WATER 250 ML IV SCH (11:11)
[2018-10-03 13:12] LABS: ANION GAP 12 (5-19); BLOOD UREA NITROGEN 39 mg/dL (7-20); CARBON DIOXIDE 18 mmol/L (22-30); CHLORIDE 94 mmol/L (98-107); GLUCOSE 125 mg/dL (75-110); POTASSIUM 3.3 mmol/L (3.6-5.0); SODIUM 123.5 mmol/L (137-145)
[2018-10-03] MEDS: DEXTROSE 5%-WATER 250 ML with VASOPRESSIN 100 UNIT IV PRN ×2 (16:56)
--- NOTE | 2018-10-03 19:03 | PDOC PROGRESS REPORT ---
Subjective Progress Note for:: 10/03/18 Subjective:: Patient remains intubated, sedated. Review of systems unable due to mental status/unresponsive. Reason For Visit: ENCEPHALOPATHY,ARF ON CKD,HYPONATREMIA Physical Exam Vital Signs: Temp Pulse Resp BP Pulse Ox 98.2 F 86 20 98/60 L 97 10/03/18 18:11 10/03/18 12:24 10/03/18 18:11 10/03/18 18:11 10/03/18 18:11 Intake & Output 10/02/18 10/03/18 10/04/18 06:59 06:59 06:59 Intake Total 5463 4089.2 2044 Output Total 5055 6395 1175 Balance 408 -2305.8 869 Weight 124.7 kg 120.9 kg General appearance: PRESENT: morbidly obese, other - Intubated and sedated Head exam: PRESENT: normocephalic Neck: PRESENT: Mak[place]-Silver catheter Eye exam: PRESENT: other - Pupils are very small and minimally reactive to light Ear exam: PRESENT: normal external ear exam Mouth exam: PRESENT: other - Endotracheal tube in place. Throat exam: PRESENT: other - Nasogastric tube in place Respiratory exam: PRESENT: rhonchi - Rhonchi on the left., symmetrical Cardiovascular exam: PRESENT: RRR, +S1, +S2, other - Decreased heart sounds likely secondary to body habitus Pulses: PRESENT: other - Diminished pedal and radial pulses GI/Abdominal exam: PRESENT: distended - Pendulous abdomen., normal bowel sounds, soft Rectal exam: PRESENT: other - Greenish black in rectal tube in place. Gentrourinary exam: PRESENT: indwelling catheter Extremities exam: PRESENT: pedal edema, other - Upper extremities are puffy. Neurological exam: PRESENT: other - Sedated and intubated. Skin exam: PRESENT: other - Marked ecchymosis with very thin skin Results Laboratory Results: 10/03/18 05:35 10/03/18 12:40 10/02/18 10/02/18 10/02/18 17:58 21:51 23:15 WBC RBC Hgb Hct MCV MCH MCHC RDW Plt Count Seg Neutrophils % Lymphocytes % Monocytes % Eosinophils % Basophils % Absolute Neutrophils Absolute Lymphocytes Absolute Monocytes Absolute Eosinophils Absolute Basophils Carbonic Acid HCO3/H2CO3 Ratio ABG pH ABG pCO2 ABG pO2 ABG HCO3 ABG O2 Saturation ABG Base Excess FiO2 Sodium 121.9 L 122.9 L Potassium 3.6 3.1 L Chloride 94 L 95 L Carbon Dioxide 17 L 20 L Anion Gap 11 8 BUN 49 H 44 H Creatinine 1.52 H 1.56 H 1.55 H Est GFR ( Amer) 57 L 55 L 56 L Est GFR (Non-Af Amer) 47 L 46 L 46 L Glucose 99 127 H Calcium 7.6 L 7.8 L Phosphorus Magnesium 1.7 10/02/18 10/03/18 10/03/18 23:15 05:35 05:35 WBC RBC Hgb Hct MCV MCH MCHC RDW Plt Count Seg Neutrophils % Lymphocytes % Monocytes % Eosinophils % Basophils % Absolute Neutrophils Absolute Lymphocytes Absolute Monocytes Absolute Eosinophils Absolute Basophils Carbonic Acid 1.01 L HCO3/H2CO3 Ratio 19:1 ABG pH 7.37 ABG pCO2 33.6 L ABG pO2 86.0 ABG HCO3 19.2 L ABG O2 Saturation 96.4 ABG Base Excess -5.4 FiO2 45 Sodium 122.9 L Potassium 3.4 L Chloride 95 L Carbon Dioxide 17 L Anion Gap 11 BUN 42 H Creatinine 1.47 H Est GFR ( Amer) 59 L Est GFR (Non-Af Amer) 49 L Glucose 108 Calcium 7.9 L Phosphorus 5.2 H Magnesium 1.7 1.5 L 10/03/18 10/03/18 10/03/18 05:35 12:40 12:40 WBC 5.7 RBC 2.53 L Hgb 8.5 L Hct 24.1 L MCV 95 MCH 33.4 MCHC 35.1 RDW 21.4 H Plt Count 55 L Seg Neutrophils % Not Reportable Lymphocytes % Not Reportable Monocytes % Not Reportable Eosinophils % Not Reportable Basophils % Not Reportable Absolute Neutrophils Not Reportable Absolute Lymphocytes Not Reportable Absolute Monocytes Not Reportable Absolute Eosinophils Not Reportable Absolute Basophils Not Reportable Carbonic Acid HCO3/H2CO3 Ratio ABG pH ABG pCO2 ABG pO2 ABG HCO3 ABG O2 Saturation ABG Base Excess FiO2 Sodium 123.5 L Potassium 3.3 L Chloride 94 L Carbon Dioxide 18 L Anion Gap 12 BUN 39 H Creatinine 1.35 H Est GFR ( Amer) > 60 Est GFR (Non-Af Amer) 54 L Glucose 125 H Calcium 8.0 L Phosphorus Magnesium 1.7 09/28/18 19:00 Tracheal Aspirate Gram Stain - Final 09/25/18 09/25/18 09/26/18 22:25 22:25 03:38 Creatine Kinase < 20 L CK-MB (CK-2) 0.91 1.00 Troponin I 0.017 0.018 NT-Pro-B Natriuret Pep 16400 H 09/26/18 09/26/18 09/26/18 03:38 11:20 11:20 Creatine Kinase < 20 L < 20 L CK-MB (CK-2) 1.10 Troponin I 0.015 NT-Pro-B Natriuret Pep 09/26/18 09/26/18 17:56 17:56 Creatine Kinase < 20 L CK-MB (CK-2) 0.99 Troponin I < 0.012 NT-Pro-B Natriuret Pep Impressions: Head CT 09/25/18 22:35 IMPRESSION: No acute intracranial findings. Fluoroscopy 09/28/18 00:00 IMPRESSION: IMAGE(S) OBTAINED DURING PROCEDURE. Interventional Vascular Procedure 09/28/18 00:00 IMPRESSION: IMAGE(S) OBTAINED DURING PROCEDURE. Chest X-Ray 10/03/18 06:00 IMPRESSION: Slight improvement in the degree of pulmonary vascular congestion copyright 2010 [employer]- All Rights Reserved Assessment & Plan - Diagnosis (1) Acute respiratory failure with hypoxia Is this a current diagnosis for this admission?: Yes (2) Pneumonia Qualifiers: Pneumonia type: due to unspecified organism Laterality: left Lung location: unspecified part of lung Qualified Code(s): J18.9 - Pneumonia, unspecified organism Is this a current diagnosis for this admission?: Yes (3) Anemia requiring transfusions Is this a current diagnosis for this admission?: Yes (4) Hyponatremia Is this a current diagnosis for this admission?: Yes (5) Hypotension Qualifiers: Hypotension type: unspecified hypotension type Qualified Code(s): I95.9 - Hypotension, unspecified Is this a current diagnosis for this admission?: Yes (6) Morbid obesity with BMI of 40.0-44.9, adult Is this a current diagnosis for this admission?: Yes (7) Thrombocytopenia Is this a current diagnosis for this admission?: Yes (8) Hypokalemia Is this a current diagnosis for this admission?: Yes (9) Chronic atrial fibrillation Is this a current diagnosis for this admission?: Yes - Plan Summary Plan Summary: Continue antibiotic regimen with Zosyn Vanco. Patient remains on multiple pressors. We will continue diuresis as well. His putting out good urine. Pulmonology and cardiology following and their contributions appreciated. We will continue vent support and support with blood products and electrolytes repletion as needed, including magnesium and potassium.
--- NOTE | 2018-10-03 21:18 | Progress Note ---
Provider Note Provider Note: CRITICAL CARE CARDIOLOGY PROGRESS by Dr. Christelle Lane on 09/03/2018. SUBJECTIVE: The patient remains intubated and sedated. When the sedation is lightened the patient does open his eyes and does squeeze my hands when requested. There is no ventricular arrhythmia seen on the monitor. In spite of the patient's low platelets which have further decreased, there is no petechia ecchymosis of recurrence of any be bleeding seen. There is no further melena. PHYSICAL EXAMINATION: The patient is morbidly obese. He is not fighting the ventilator. Selected Entries 10/03/18 10/03/18 10/03/18 11:47 12:00 13:47 Temperature 96.6 F L 97.3 F Heart Rate ( 72 73 Monitors) Respiratory 20 20 Rate Respiratory Effort Blood Pressure 108/59 L Blood Pressure 75 Mean O2 Sat by Pulse 98 98 Oximetry Fraction of 45 Inspired Oxygen (FIO2) Pulmonary 40 18 40 Arterial Occlusion Pressure- Systolic Pulmonary 19 12 20 Arterial Occlusion Pressure- Diastolic Pulmonary 26 14 28 Arterial Occlusion Pressure- Mean 10/03/18 14:00 Temperature Heart Rate ( Monitors) Respiratory Rate Respiratory Mechanically Effort Ventilated Blood Pressure Blood Pressure Mean O2 Sat by Pulse Oximetry Fraction of 45 Inspired Oxygen (FIO2) Pulmonary Arterial Occlusion Pressure- Systolic Pulmonary Arterial Occlusion Pressure- Diastolic Pulmonary Arterial Occlusion Pressure- Mean The patient's wedge pressure pressure is 20. HEAD: Is atraumatic normocephalic. EYES: Pupils equal round regular reactive to light. There is no palatal pallor. There is no scleral icteru .ENT: Is negative. NECK: Is supple. There is mild JVD present. There is no carotids are equal. There is no carotid bruits. There is no goiter. Trachea central. LUNGS: Show absent breath sounds in the left base. There is scattered rhonchi Present there is dry crackles of pneumonia in the left base and in the right base. There is also fine rales of CHF. HEART: S1-S2 is heard. S1 is of variable intensity intensity. There is no S3 gallop. There is no S4 gallop. There is systolic murmur in the left sternal border and the apex. There is no rub. ABDOMEN: Is soft. Bowel sounds are heard. There is no hepatosplenic megaly. EXTREMITIES: Femorals are deep femorals are diminished. Leg pulses are diminished.There is no sinus or clubbing. There is mild . pedal edema. There is no DVT or cellulitis.DEVELOPER PROGRAMMER and PSYCHIATRIC exams not done due to the patient being intubated and sedated 10/03/18 10/03/18 10/03/18 05:35 05:35 05:35 WBC 5.7 RBC 2.53 L Hgb 8.5 L Hct 24.1 L MCV 95 MCH 33.4 MCHC 35.1 Plt Count 55 L Total Counted 100 Seg Neutrophils % Not Reportable Seg Neuts % (Manual) 79 H Carbonic Acid 1.01 L HCO3/H2CO3 Ratio 19:1 ABG pH 7.37 ABG pCO2 33.6 L ABG pO2 86.0 ABG HCO3 19.2 L ABG Total CO2 20.2 L ABG O2 Saturation 96.4 ABG Base Excess -5.4 FiO2 45 Sodium 122.9 L Potassium 3.4 L Chloride 95 L Carbon Dioxide 17 L Anion Gap 11 BUN 42 H Creatinine 1.47 H Est GFR (Non-Af Amer) 49 L Glucose 108 Calcium 7.9 L Phosphorus 5.2 H Magnesium 1.5 L 10/03/18 10/03/18 12:40 12:40 WBC RBC Hgb Hct MCV MCH MCHC Plt Count Total Counted Seg Neutrophils % Seg Neuts % (Manual) Carbonic Acid HCO3/H2CO3 Ratio ABG pH ABG pCO2 ABG pO2 ABG HCO3 ABG Total CO2 ABG O2 Saturation ABG Base Excess FiO2 Sodium 123.5 L Potassium 3.3 L Chloride 94 L Carbon Dioxide 18 L Anion Gap 12 BUN 39 H Creatinine 1.35 H Est GFR (Non-Af Amer) 54 L Glucose 125 H Calcium 8.0 L Phosphorus Magnesium 1.7 HEMODYNAMICS: The patient's cardiac output is 8.37 L/min, cardiac index of 4.08 L/min/m square, his heart rate is 74. His pulmonary artery systolic pressure is 47 with a pulmonary artery diastolic pressure of 22. The patient's pulmonary artery mean pressure is 32. The patient's pulmonary artery wedge pressure is now down to 12. The patient's CVP is 9. His SVR is 602, and his PVR is 191 dynes per meter square CHEST X-ray: Shows cardiomegaly with congestive heart failure. Possible right middle lobe pneumonia.. IMPRESSION/RECOMMENDATION: 1. Acute respiratory failure: Secondary to acute on chronic systolic heart failure, acute on chronic right ventricle systolic heart failure, and pneumonia. Continue ventilator support. Continue inotropic support with Levophed, milrinone, and Maurizio-Synephrine. Continue Lasix drip. 2. SEPSIS due to pneumonia: Continue antibiotics. Adjust the patient's inotropes, and continue hemodynamic support with the patient's Derby-Silver catheter measurements. 3. Hypertension: Blood pressure is low normal requiring pressor support. 4. PNEUMONIA: Continue antibiotics. 5. Cardiomyopathy with a history of moderately depressed LV ejection fraction: Continue inotropes, and Lasix. 6. Chronic atrial fibrillation: In view of the patient's platelets being low, and the patient's anemia requiring blood transfusion, at at present we will hold off on the Eliquis. Continue Arixtra and a DVT prophylaxis dose. Later once the platelets, will increase the dosage of Arixtra or restart the patient's Eliquis. 7. PULMONARY HYPERTENSION: Was severe at the time of initial insertion of Derby- Silver catheter. With the placement of the Derby-Silver catheter and, with the inotropic agents, the right ventricle systolic pressure has come down and now the patient has mild pulmonary hypertension. 8. SHOCK:: Multifactorial, a combination of septic shock, and cardiogenic shock with high pulmonary pressures [cardiogenic shock secondary to patient's cardiomyopathy, and atrial fibrillation, with loss of atrial kick contribution to the cardiac output]. This is also associated with high output cardiac failure: Multifactorial secondary to renal failure, anemia, and possibly sepsis. 9. Thrombocytopenia: Most likely secondary to patient's alcohol abuse, probably has underlying liver disease due to alcohol abuse. Patient receiving platelet transfusion 10. ANEMIA: Status post blood transfusion transfusion. Hemoglobin back down to 7.3. We will continue to observe the patient's hemoglobin closely. 11.Acute renal failure: Most likely secondary to cardiorespiratory syndrome. Later would recommend nephrology consult to see if the patient has underlying renal disease. This is improving 12. HYPOKALEMIA, and hypomagnesemia: Replace the patient's potassium, and magnesium. 13. GI bleed: Positive Hemoccult stools. Most likely secondary to the patient's low platelets. 14. History of tobacco and alcohol abuse. Later we will give the patient tobacco cessation counseling. Agree with the thiamine. Would also check the patient's B12 vitamin levels. 15. HE met hemodynamic show that the patient's right heart pressures are coming down, and the patient's wedge pressure is also normal, and in the normal range. We will start weaning the patient off Maurizio-Synephrine the first. Continue the patient on Levophed, vasopressin, and milrinone, . Continue antibiotics. Strongly recommend starting the patient on tube feedings. Note medications reviewed, and medications adjusted as per the patient's Derby Ricardo pressure measurements of the right heart. Medical decision making is of high complexity. Discussed management plan with other caregiving providers on the case. Note 70 minutes of critical care spent on this patient, with more than 50% of time spent in direct patient care
[2018-10-04] MEDS: PIPERACILLIN SODIUM/TAZOBACTAM 3.375 GM in NORMAL SALINE 100 ML IV SCH ×4 (02:05→20:43)
[2018-10-04] MEDS: DEXTROSE 5%-WATER 250 ML with PHENYLEPHRINE HCL 40 MG IV PRN ×4 (02:40→17:46)
[2018-10-04] MEDS: MILRINONE LACTATE/D5W 20 MG/100 ML RTUINJ IV PRN ×5 (03:13→20:43)
[2018-10-04 04:49] LABS: ARTERIAL BLOOD BASE EXCESS -5.3 mmol/L; ARTERIAL BLOOD H2CO3 0.81 mmol/L (1.05-1.35); ARTERIAL BLOOD HCO3 17.9 mmol/L (20-24); ARTERIAL BLOOD O2 SATURATION 97.2 % (94-98); ARTERIAL BLOOD PCO2 26.8 mmHg (35-45); ARTERIAL BLOOD PH 7.44 (7.35-7.45); ARTERIAL BLOOD PO2 88.2 mmHg (80-100); ARTERIAL BLOOD TOTAL CO2 18.7 mmol/L (23-27)
[2018-10-04 04:50] LABS: ARTERIAL BLOOD FIO2 45%
[2018-10-04 04:54] LABS: ABSOLUTE BASOPHILS # (AUTO) 0.1 10^3/uL (0.0-0.2); ABSOLUTE EOSINOPHILS # (AUTO) 0.1 10^3/uL (0.0-0.6); ABSOLUTE LYMPHOCYTES (AUTO) 0.5 10^3/uL (0.5-4.7); ABSOLUTE MONOCYTES (AUTO) 0.6 10^3/uL (0.1-1.4); ABSOLUTE NEUT (AUTO) 4.7 10^3/uL (1.7-8.2); BASOPHILS % (AUTO) 0.9 % (0-2); EOSINOPHILS % (AUTO) 2.4 % (0-6); HEMATOCRIT 23.8 % (37.9-51.0); HEMOGLOBIN 8.4 g/dL (13.5-17.0); LYMPHOCYTES % (AUTO) 7.7 % (13-45); MEAN CORPUSCULAR HEMOGLOBIN 33.5 pg (27.0-33.4); MEAN CORPUSCULAR HGB CONC 35.3 g/dL (32.0-36.0); MEAN CORPUSCULAR VOLUME 95 fl (80-97); MONOCYTES % (AUTO) 10.4 % (3-13); RED CELL DISTRIBUTION WIDTH 20.4 % (11.5-14.0); SEGMENTED NEUTROPHILS % (AUTO) 78.6 % (42-78); TOTAL CELLS COUNTED % (AUTO) 100 %
[2018-10-04 05:08] LABS: ANION GAP 10 (5-19); BLOOD UREA NITROGEN 34 mg/dL (7-20); CARBON DIOXIDE 19 mmol/L (22-30); CHLORIDE 94 mmol/L (98-107); GLUCOSE 106 mg/dL (75-110); PHOSPHORUS 4.3 mg/dL (2.5-4.5); POTASSIUM 3.4 mmol/L (3.6-5.0); SODIUM 122.7 mmol/L (137-145)
[2018-10-04] MEDS: LANSOPRAZOLE 30 MG TAB.RAP.DR NG SCH ×2 (05:09→16:56)
[2018-10-04] MEDS: NORMAL SALINE 250 ML with FUROSEMIDE 250 MG IV PRN ×4 (05:09→20:50)
[2018-10-04 05:15] LABS: PLATELET COUNT 53 10^3/uL (150-450)
[2018-10-04] MEDS: POTASSIUM CHLORIDE 20 MEQ/50 ML RTU IV SCH ×4 (05:56→20:43)
[2018-10-04] MEDS: MAGNESIUM SULFATE 1 GM/D5W 100 ML IV SCH ×2 (05:57→06:59)
--- NOTE | 2018-10-04 06:54 | RADIOLOGY REPORT (SQ) ---
EXAM DESCRIPTION: XR CHEST 1 VIEW COMPLETED DATE/TME: 10/04/2018 06:00 CLINICAL HISTORY: 58 years, Male, sepsis resp failure COMPARISON: 10/03/2018 chest NUMBER OF VIEWS: 1 TECHNIQUE: Portable chest LIMITATIONS: None. FINDINGS: Grossly stable indwelling lines and catheters. Cardiomegaly. Interval increase in size of a airspace opacity of the left base.. Volume loss of the left hemithorax. Tiny right pleural effusion. Osteopenia. No pneumothorax. IMPRESSION: Increase in size of an airspace opacity likely reflecting effusion/atelectasis in the left lung base. copyright 2010 [employer]- All Rights Reserved
[2018-10-04] MEDS: MIDAZOLAM HCL 50 MG/100 ML RTUINJ IV PRN (07:00)
[2018-10-04] MEDS: BUDESONIDE/FORMOTEROL 80-4.5 MCG 60 PUFF/6.9 GM MDI IH SCH ×2 (08:09→20:42)
[2018-10-04] MEDS: DEXTROSE 5%-WATER 250 ML with NOREPINEPHRINE BITARTRATE 4 MG IV PRN ×2 (10:49)
[2018-10-04] MEDS: FONDAPARINUX SODIUM INJ 2.5 MG/0.5 ML DISP.SYRIN SUBCUT SCH (10:59)
[2018-10-04] MEDS: METOPROLOL TARTRATE 25 MG TABLET NG SCH ×2 (11:00→21:37)
[2018-10-04] MEDS: LEVOTHYROXINE SODIUM INJ/PF 0.1 MG SDV IV SCH (11:08)
[2018-10-04] MEDS: THIAMINE HCL 100 MG, FOLIC ACID 1 MG in NORMAL SALINE 250 ML IV SCH (11:10)
[2018-10-04] MEDS: LEVETIRACETAM 1000 MG/NACL-ISO 1,000 MG/100 ML RTUPB IV SCH ×2 (11:20→21:38)
[2018-10-04 12:05] LABS: VANCOMYCIN,TROUGH 34.7 ug/mL (5.0-20.0)
--- NOTE | 2018-10-04 14:55 | PDOC PROGRESS REPORT ---
Subjective Progress Note for:: 10/04/18 Subjective:: Patient remains intubated, sedated, but wakes up with reduction of sedation. He is now on Versed at only 2 mg/h. Review of systems unable due to mental status/intubation. Reason For Visit: ENCEPHALOPATHY,ARF ON CKD,HYPONATREMIA Physical Exam Vital Signs: Temp Pulse Resp BP Pulse Ox 98.2 F 102 H 20 108/70 97 10/04/18 13:39 10/04/18 08:00 10/04/18 12:26 10/04/18 12:26 10/04/18 12:26 Intake & Output 10/03/18 10/04/18 10/05/18 06:59 06:59 06:59 Intake Total 4089.2 3741.2 882 Output Total 6395 3985 1600 Balance -2305.8 -243.8 -718 Weight 120.9 kg 121.1 kg General appearance: PRESENT: morbidly obese, other - Intubated and sedated Head exam: PRESENT: normocephalic Neck: PRESENT: [place]-Silver catheter Eye exam: PRESENT: other - Pupils are very small and minimally reactive to light Mouth exam: PRESENT: other - Endotracheal tube in place. Throat exam: PRESENT: other - Nasogastric tube in place Respiratory exam: PRESENT: rhonchi - Rhonchi on the left., symmetrical Cardiovascular exam: PRESENT: RRR, +S1, +S2, other - Decreased heart sounds likely secondary to body habitus Pulses: PRESENT: other - Diminished pedal and radial pulses GI/Abdominal exam: PRESENT: distended - Pendulous abdomen., normal bowel sounds, soft Gentrourinary exam: PRESENT: indwelling catheter Extremities exam: PRESENT: pedal edema, other - Upper extremities are puffy. Neurological exam: PRESENT: other - Sedated and intubated. Skin exam: PRESENT: other - Marked ecchymosis with very thin skin Results Laboratory Results: 10/04/18 04:30 10/04/18 04:30 10/03/18 10/04/18 10/04/18 12:40 00:19 04:30 WBC RBC Hgb Hct MCV MCH MCHC RDW Plt Count Seg Neutrophils % Lymphocytes % Monocytes % Eosinophils % Basophils % Absolute Neutrophils Absolute Lymphocytes Absolute Monocytes Absolute Eosinophils Absolute Basophils Carbonic Acid 0.81 L HCO3/H2CO3 Ratio 22:1 ABG pH 7.44 ABG pCO2 26.8 L ABG pO2 88.2 ABG HCO3 17.9 L ABG O2 Saturation 97.2 ABG Base Excess -5.3 FiO2 45% Sodium Potassium 3.6 Chloride Carbon Dioxide Anion Gap BUN Creatinine Est GFR ( Amer) Est GFR (Non-Af Amer) Glucose Calcium Phosphorus Magnesium 1.7 10/04/18 10/04/18 04:30 04:30 WBC 6.0 RBC 2.50 L Hgb 8.4 L Hct 23.8 L MCV 95 MCH 33.5 H MCHC 35.3 RDW 20.4 H Plt Count 53 L Seg Neutrophils % 78.6 H Lymphocytes % 7.7 L Monocytes % 10.4 Eosinophils % 2.4 Basophils % 0.9 Absolute Neutrophils 4.7 Absolute Lymphocytes 0.5 Absolute Monocytes 0.6 Absolute Eosinophils 0.1 Absolute Basophils 0.1 Carbonic Acid HCO3/H2CO3 Ratio ABG pH ABG pCO2 ABG pO2 ABG HCO3 ABG O2 Saturation ABG Base Excess FiO2 Sodium 122.7 L Potassium 3.4 L Chloride 94 L Carbon Dioxide 19 L Anion Gap 10 BUN 34 H Creatinine 1.36 H Est GFR ( Amer) > 60 Est GFR (Non-Af Amer) 53 L Glucose 106 Calcium 8.0 L Phosphorus 4.3 Magnesium 1.5 L 09/28/18 19:00 Tracheal Aspirate Gram Stain - Final 09/25/18 09/25/18 09/26/18 22:25 22:25 03:38 Creatine Kinase < 20 L CK-MB (CK-2) 0.91 1.00 Troponin I 0.017 0.018 NT-Pro-B Natriuret Pep 58191 H 09/26/18 09/26/18 09/26/18 03:38 11:20 11:20 Creatine Kinase < 20 L < 20 L CK-MB (CK-2) 1.10 Troponin I 0.015 NT-Pro-B Natriuret Pep 09/26/18 09/26/18 17:56 17:56 Creatine Kinase < 20 L CK-MB (CK-2) 0.99 Troponin I < 0.012 NT-Pro-B Natriuret Pep Impressions: Head CT 09/25/18 22:35 IMPRESSION: No acute intracranial findings. Fluoroscopy 09/28/18 00:00 IMPRESSION: IMAGE(S) OBTAINED DURING PROCEDURE. Interventional Vascular Procedure 09/28/18 00:00 IMPRESSION: IMAGE(S) OBTAINED DURING PROCEDURE. Chest X-Ray 10/04/18 06:00 IMPRESSION: Increase in size of an airspace opacity likely reflecting effusion/atelectasis in the left lung base. copyright 2011 [employer]- All Rights Reserved Assessment & Plan - Diagnosis (1) Acute respiratory failure with hypoxia Is this a current diagnosis for this admission?: Yes (2) Pneumonia Qualifiers: Pneumonia type: due to unspecified organism Laterality: left Lung location: unspecified part of lung Qualified Code(s): J18.9 - Pneumonia, unspecified organism Is this a current diagnosis for this admission?: Yes (3) Anemia requiring transfusions Is this a current diagnosis for this admission?: Yes (4) Hyponatremia Is this a current diagnosis for this admission?: Yes (5) Hypotension Qualifiers: Hypotension type: unspecified hypotension type Qualified Code(s): I95.9 - Hypotension, unspecified Is this a current diagnosis for this admission?: Yes (6) Morbid obesity with BMI of 40.0-44.9, adult Is this a current diagnosis for this admission?: Yes (7) Thrombocytopenia Is this a current diagnosis for this admission?: Yes (8) Hypokalemia Is this a current diagnosis for this admission?: Yes (9) Chronic atrial fibrillation Is this a current diagnosis for this admission?: Yes - Plan Summary Plan Summary: Continue antibiotic regimen with Zosyn, Vanco. Patient remains on multiple pressors. He is diuresing well and we will continue with diuresis. Pulmonology and cardiology following, their contributions appreciated. We will continue vent support as well as support with blood products, electrolytes repletion as needed.
[2018-10-04 15:17] LABS: ANION GAP 10 (5-19); BLOOD UREA NITROGEN 32 mg/dL (7-20); CALCIUM 8.1 mg/dL (8.4-10.2); CARBON DIOXIDE 19 mmol/L (22-30); CHLORIDE 93 mmol/L (98-107); GLUCOSE 105 mg/dL (75-110); POTASSIUM 3.2 mmol/L (3.6-5.0); SODIUM 122.4 mmol/L (137-145)
[2018-10-04] MEDS: DEXTROSE 5%-WATER 250 ML with VASOPRESSIN 100 UNIT IV PRN ×2 (20:50)
--- NOTE | 2018-10-04 21:32 | Progress Note ---
Provider Note Provider Note: CARDIOLOGY CRITICAL CARE NOTE by Dr. Christelle Lane on 10/04/2018. SUBJECTIVE: The patient remains intubated and sedated. When the sedation is lightened the patient does respond appropriately to verbal commands. There is no ventricular arrhythmia seen on the monitor, but the patient continues to be in atrial fibrillation, with a controlled ventricular response. The patient does appear to move all 4 extremities in spite of the patient being restrained. In spite of the patient's hemodynamics improving, and the patient also seeming to be a little more awake, his prognosis is still very guarded in view of the patient's sodium being low, in spite of aggressive treatment of his heart failure. PHYSICAL EXAMINATION: The patient is morbidly obese. He is in no acute distress. He is well sedated at present. Selected Entries 10/04/18 10/04/18 10/04/18 12:00 12:06 12:10 Temperature 98.6 F 98.6 F 98.6 F Heart Rate ( 92 83 84 Monitors) Respiratory 20 20 20 Rate O2 Sat by Pulse 97 96 97 Oximetry Fraction of 45 Inspired Oxygen (FIO2) Pulmonary 36 39 Arterial Occlusion Pressure- Systolic Pulmonary 21 21 Arterial Occlusion Pressure- Diastolic Pulmonary 28 28 Arterial Occlusion Pressure- Mean Pulmonary 13 Artery Wedge Pressure 10/04/18 10/04/18 10/04/18 04:30 04:30 04:30 WBC 6.0 RBC 2.50 L Hgb 8.4 L Hct 23.8 L MCV 95 MCH 33.5 H MCHC 35.3 RDW 20.4 H Plt Count 53 L Carbonic Acid 0.81 L HCO3/H2CO3 Ratio 22:1 ABG pH 7.44 ABG pCO2 26.8 L ABG pO2 88.2 ABG HCO3 17.9 L ABG Total CO2 18.7 L ABG O2 Saturation 97.2 ABG Base Excess -5.3 FiO2 45% Sodium 122.7 L Potassium 3.4 L Chloride 94 L Carbon Dioxide 19 L Anion Gap 10 BUN 34 H Creatinine 1.36 H Est GFR (Non-Af Amer) 53 L Glucose 106 POC Glucose Calcium 8.0 L Phosphorus 4.3 Magnesium 1.5 L The patient's wedge pressure pressure is 20. HEAD: Is atraumatic normocephalic. EYES: Pupils equal round regular reactive to light. There is no palatal pallor. There is no scleral icteru .ENT: Is negative. NECK: Is supple. There is mild JVD present. There is no carotids are equal. There is no carotid bruits. There is no goiter. Trachea central. LUNGS: Show absent breath sounds in the left base. There is scattered rhonchi Present there is dry crackles of pneumonia in the left base and in the right base. There is also fine rales of CHF. HEART: S1-S2 is heard. S1 is of variable intensity intensity. There is no S3 gallop. There is no S4 gallop. There is systolic murmur in the left sternal border and the apex. There is no rub. ABDOMEN: Is soft. Bowel sounds are heard. There is no hepatosplenic megaly. EXTREMITIES: Femorals are deep femorals are diminished. Leg pulses are diminished.There is no sinus or clubbing. There is mild . pedal edema. There is no DVT or cellulitis.ROLLER BEARING INSPECTOR and PSYCHIATRIC exams not done due to the patient being intubated and sedated. SKIN: There is no petechia or ecchymosis. 10/04/18 10/04/18 11:11 14:45 WBC RBC Hgb Hct MCV MCH MCHC RDW Plt Count Carbonic Acid HCO3/H2CO3 Ratio ABG pH ABG pCO2 ABG pO2 ABG HCO3 ABG Total CO2 ABG O2 Saturation ABG Base Excess FiO2 Sodium 122.4 L Potassium 3.2 L Chloride 93 L Carbon Dioxide 19 L Anion Gap 10 BUN 32 H Creatinine 1.33 H Est GFR (Non-Af Amer) 55 L Glucose 105 POC Glucose 115 H Calcium 8.1 L Phosphorus Magnesium 1.8 The patient's 24-hour intake is 3741 mL. Output is 3985 mL. CHEST X-ray: Shows increasing left pleural effusion/infiltrate. His CHF is much improved. HEMODYNAMICS: Done every shift has been reviewed. The latest one is cardiac output is 8.72 L/min. The cardiac index is 4.23 L/min/m square. The systemic vascular resistance is 605. The pulmonary vascular resistance is 128 dynes per centimeter square. The patient's pulmonary artery systolic pressure is 36. The patient's pulmonary artery diastolic pressure is 21, with a mean of 27. The pulmonary artery wedge pressure is 13. The CVP is 11. This shows that the ca rdiac output is normal, with a normal wedge, and normal pulmonary vascular resistance, and with slightly reduced systemic vascular resistance. Will continue current inotropes. We will first wean off the patient's Maurizio- Synephrine. IMPRESSION/RECOMMENDATION: 1. Acute respiratory failure: Secondary to acute on chronic systolic heart failure, acute on chronic right ventricle systolic heart failure, and pneumonia. Continue ventilator support. Continue inotropic support with Levophed, milrinone, and Maurizio-Synephrine. Continue Lasix drip. 2. SEPSIS due to pneumonia: Continue antibiotics. Adjust the patient's inotropes, and continue hemodynamic support with the patient's [place]-Silver catheter measurements. 3. Hypertension: Blood pressure is low normal requiring pressor support. 4. PNEUMONIA: Continue antibiotics. 5. Cardiomyopathy with a history of moderately depressed LV ejection fraction: Continue inotropes, and Lasix. 6. Chronic atrial fibrillation: In view of the patient's platelets being low, and the patient's anemia requiring blood transfusion, at at present we will hold off on the Eliquis. Continue Arixtra and a DVT prophylaxis dose. Later once the platelets, will increase the dosage of Arixtra or restart the patient's Eliquis. 7. PULMONARY HYPERTENSION: Was severe at the time of initial insertion of [place]- Silver catheter. With the placement of the [place]-Silver catheter and, with the inotropic agents, the right ventricle systolic pressure has come down and now the patient has mild pulmonary hypertension. 8. SHOCK:: Multifactorial, a combination of septic shock, and cardiogenic shock with high pulmonary pressures [cardiogenic shock secondary to patient's cardiomyopathy, and atrial fibrillation, with loss of atrial kick contribution to the cardiac output]. This is also associated with high output cardiac failure: Multifactorial secondary to renal failure, anemia, and possibly sepsis. 9. Thrombocytopenia: Most likely secondary to patient's alcohol abuse, probably has underlying liver disease due to alcohol abuse. Patient receiving platelet transfusion 10. ANEMIA: Status post blood transfusion transfusion. Hemoglobin back down to 7.3. We will continue to observe the patient's hemoglobin closely. 11.Acute renal failure: Most likely secondary to cardiorespiratory syndrome. Later would recommend nephrology consult to see if the patient has underlying renal disease. 12. HYPOKALEMIA, and hypomagnesemia: Replace the patient's potassium, and magnesium. Note the patient's magnesium is come back to normal. The patient still is hypokalemic. Continue replacement of potassium. 13. GI bleed: Positive Hemoccult stools. Most likely secondary to the patient's low platelets. 14. History of tobacco and alcohol abuse. Later we will give the patient tobacco cessation counseling. Agree with the thiamine. Would also check the patient's B12 vitamin levels. 15. HE met hemodynamic show that the patient's right heart pressures are coming down, and the patient's wedge pressure is also normal, and in the normal range. We will start weaning the patient off Maurizio-Synephrine the first. Continue the patient on Levophed, vasopressin, and milrinone, . Continue antibiotics. Continue the patient on tube feedings. Note medications reviewed, and medications adjusted as per the patient's Sterling Ricardo pressure measurements of the right heart. Medical decision making is of high complexity. Discussed management plan with other caregiving providers on the case. Note 70 minutes of critical care spent on this patient, with more than 50% of time spent in direct patient care
[2018-10-05] MEDS: MILRINONE LACTATE/D5W 20 MG/100 ML RTUINJ IV PRN ×6 (01:14→21:02)
[2018-10-05] MEDS: DEXTROSE 5%-WATER 250 ML with NOREPINEPHRINE BITARTRATE 4 MG IV PRN ×2 (01:15)
[2018-10-05] MEDS: PIPERACILLIN SODIUM/TAZOBACTAM 3.375 GM in NORMAL SALINE 100 ML IV SCH ×3 (02:46→14:36)
[2018-10-05] MEDS ORDERED: POTASSI CL 20 MEQ/50 ML RIDER 20 MEQ/50 ML RTUPB IV ONE ×2 (03:39→23:58)
[2018-10-05] MEDS: POTASSIUM CHLORIDE 20 MEQ/50 ML RTU IV SCH ×4 (03:51→18:39)
[2018-10-05 04:45] LABS: ARTERIAL BLOOD BASE EXCESS -3.1 mmol/L; ARTERIAL BLOOD H2CO3 0.94 mmol/L (1.05-1.35); ARTERIAL BLOOD HCO3 20.5 mmol/L (20-24); ARTERIAL BLOOD O2 SATURATION 97.8 % (94-98); ARTERIAL BLOOD PCO2 31.3 mmHg (35-45); ARTERIAL BLOOD PH 7.44 (7.35-7.45); ARTERIAL BLOOD PO2 100.4 mmHg (80-100); ARTERIAL BLOOD TOTAL CO2 21.5 mmol/L (23-27)
[2018-10-05 04:46] LABS: ARTERIAL BLOOD FIO2 45%
[2018-10-05 04:50] LABS: HEMATOCRIT 23.9 % (37.9-51.0); HEMOGLOBIN 8.4 g/dL (13.5-17.0); MEAN CORPUSCULAR HEMOGLOBIN 33.2 pg (27.0-33.4); MEAN CORPUSCULAR HGB CONC 35.1 g/dL (32.0-36.0); MEAN CORPUSCULAR VOLUME 95 fl (80-97); RED BLOOD COUNT 2.53 10^6/uL (4.35-5.55); RED CELL DISTRIBUTION WIDTH 20.2 % (11.5-14.0); WHITE BLOOD COUNT 5.1 10^3/uL (4.0-10.5)
[2018-10-05] MEDS: LANSOPRAZOLE 30 MG TAB.RAP.DR NG SCH ×2 (05:05→17:13)
[2018-10-05 05:14] LABS: PLATELET COUNT 52 10^3/uL (150-450)
[2018-10-05 05:22] LABS: ANION GAP 10 (5-19); BLOOD UREA NITROGEN 29 mg/dL (7-20); CALCIUM 8.4 mg/dL (8.4-10.2); CARBON DIOXIDE 20 mmol/L (22-30); CHLORIDE 94 mmol/L (98-107); GLUCOSE 119 mg/dL (75-110); PHOSPHORUS 3.8 mg/dL (2.5-4.5); POTASSIUM 3.2 mmol/L (3.6-5.0); SODIUM 123.7 mmol/L (137-145)
[2018-10-05 05:23] LABS: ABSOLUTE LYMPHOCYTES# (MANUAL) 0.5 10^3/uL (0.5-4.7); ABSOLUTE MONOCYTES # (MANUAL) 0.4 10^3/uL (0.1-1.4); ABSOLUTE NEUTROPHILS# (MANUAL) 4.2 10^3/uL (1.7-8.2); ANISOCYTOSIS 2+; BASOPHILS % (MANUAL) 0 % (0-2); EOSINOPHILS % (MANUAL) 0 % (0-6); LYMPHOCYTES % (MANUAL) 10 % (13-45); MONOCYTES % (MANUAL) 7 % (3-13); PLATELET COMMENT DECREASED; POLYCHROMASIA 1+; SEGMENTED NEUTROPHILS % (MAN) 83 % (42-78); TOTAL CELLS COUNTED 100
--- NOTE | 2018-10-05 08:23 | RADIOLOGY REPORT (SQ) ---
EXAM DESCRIPTION: CHEST SINGLE VIEW COMPLETED DATE/TIME: 10/05/2018 6:52 am REASON FOR STUDY: resp failure/pna COMPARISON: 10/04/2018 EXAM PARAMETERS: NUMBER OF VIEWS: One view. TECHNIQUE: Single frontal radiographic view of the chest acquired. RADIATION DOSE: NA LIMITATIONS: None. FINDINGS: LUNGS AND PLEURA: Improvement in the appearance of the left lung since the previous exami nation with significant decrease in the airspace disease and left pleural effusion. Small effusion r emains. The right lung is unchanged in appearance. No pneumothorax. MEDIASTINUM AND HILAR STRUCTURES: No masses. Contour normal. HEART AND VASCULAR STRUCTURES: Cardiomegaly, unchanged finding. BONES: No acute findings. HARDWARE: The endotracheal tube has retracted proximally and the tip overlies the C7 vertebral body. The remaining support lines and catheters are stable in appearance. OTHER: No other significant finding. IMPRESSION: 1. Since the previous examination dated 10/04/2018, interval improvement in the appeara nce of the left lung with significant decrease in the airspace disease and pleural effusion. The rig ht lung remains stable in appearance. 2. The endotracheal tube has retracted proximally and the tip overlies the C7 vertebral body. TECHNICAL DOCUMENTATION: JOB ID: [id number] [employer]- All Rights Reserved Reading location - IP/workstation name: [email or web address]
[2018-10-05] MEDS: BUDESONIDE/FORMOTEROL 80-4.5 MCG 60 PUFF/6.9 GM MDI IH SCH ×2 (08:38→21:02)
[2018-10-05] MEDS: FONDAPARINUX SODIUM INJ 2.5 MG/0.5 ML DISP.SYRIN SUBCUT SCH (09:02)
[2018-10-05] MEDS: METOPROLOL TARTRATE 25 MG TABLET NG SCH ×3 (09:03→23:37)
[2018-10-05] MEDS: LEVOTHYROXINE SODIUM INJ/PF 0.1 MG SDV IV SCH (09:10)
[2018-10-05] MEDS: LEVETIRACETAM 1000 MG/NACL-ISO 1,000 MG/100 ML RTUPB IV SCH ×2 (09:14→21:04)
[2018-10-05] MEDS: THIAMINE HCL 100 MG, FOLIC ACID 1 MG in NORMAL SALINE 250 ML IV SCH (09:19)
--- NOTE | 2018-10-05 11:04 | PDOC PROGRESS REPORT ---
Subjective Progress Note for:: 10/05/18 Subjective:: The patient is resting comfortably. He does open his eyes to verbal stimulus. Takes more a while but he does attempt to nod his head yes and no. He does not appear to be in discomfort or having any breathing difficulty. Reason For Visit: ENCEPHALOPATHY,ARF ON CKD,HYPONATREMIA Physical Exam Vital Signs: Temp Pulse Resp BP Pulse Ox 97.5 F 102 H 20 96/52 L 99 10/05/18 10:00 10/05/18 10:00 10/05/18 10:00 10/05/18 10:00 10/05/18 10:00 Intake & Output 10/04/18 10/05/18 10/06/18 06:59 06:59 06:59 Intake Total 3741.2 2699.2 165 Output Total 3985 4460 770 Balance -243.8 -1760.8 -605 Weight 121.1 kg 119.9 kg General appearance: PRESENT: no acute distress, morbidly obese, well-developed Eye exam: PRESENT: conjunctiva pale Ear exam: PRESENT: normal external ear exam Mouth exam: PRESENT: other - Endotracheal tube in place Throat exam: PRESENT: other - Nasogastric tube in place Neck exam: ABSENT: carotid bruit, JVD - He has a very large neck so unable to appreciate any JVD, lymphadenopathy Respiratory exam: PRESENT: stridor - Faint expiratory stridor, symmetrical. ABSENT: accessory muscle use, crackles, rales, wheezes - but no wheeze Cardiovascular exam: PRESENT: irregular rhythm GI/Abdominal exam: PRESENT: normal bowel sounds, soft. ABSENT: tenderness Rectal exam: PRESENT: other - Black liquid stool and fecal collection system Extremities exam: PRESENT: +1 edema Neurological exam: PRESENT: awake, other - Limited interaction as noted above Psychiatric exam: ABSENT: agitated Focused psych exam: ABSENT: restlessness Results Laboratory Results: 10/05/18 04:35 10/05/18 04:35 10/04/18 10/05/18 10/05/18 14:45 01:21 04:35 WBC RBC Hgb Hct MCV MCH MCHC RDW Plt Count Seg Neutrophils % Lymphocytes % Monocytes % Eosinophils % Basophils % Absolute Neutrophils Absolute Lymphocytes Absolute Monocytes Absolute Eosinophils Absolute Basophils Carbonic Acid 0.94 L HCO3/H2CO3 Ratio 21:1 ABG pH 7.44 ABG pCO2 31.3 L ABG pO2 100.4 H ABG HCO3 20.5 ABG O2 Saturation 97.8 ABG Base Excess -3.1 FiO2 45% Sodium 122.4 L Potassium 3.2 L 3.2 L Chloride 93 L Carbon Dioxide 19 L Anion Gap 10 BUN 32 H Creatinine 1.33 H Est GFR ( Amer) > 60 Est GFR (Non-Af Amer) 55 L Glucose 105 Calcium 8.1 L Phosphorus Magnesium 1.8 10/05/18 10/05/18 04:35 04:35 WBC 5.1 RBC 2.53 L Hgb 8.4 L Hct 23.9 L MCV 95 MCH 33.2 MCHC 35.1 RDW 20.2 H Plt Count 52 L Seg Neutrophils % Not Reportable Lymphocytes % Not Reportable Monocytes % Not Reportable Eosinophils % Not Reportable Basophils % Not Reportable Absolute Neutrophils Not Reportable Absolute Lymphocytes Not Reportable Absolute Monocytes Not Reportable Absolute Eosinophils Not Reportable Absolute Basophils Not Reportable Carbonic Acid HCO3/H2CO3 Ratio ABG pH ABG pCO2 ABG pO2 ABG HCO3 ABG O2 Saturation ABG Base Excess FiO2 Sodium 123.7 L Potassium 3.2 L Chloride 94 L Carbon Dioxide 20 L Anion Gap 10 BUN 29 H Creatinine 1.29 H Est GFR ( Amer) > 60 Est GFR (Non-Af Amer) 57 L Glucose 119 H Calcium 8.4 Phosphorus 3.8 Magnesium 1.6 10/01/18 13:20 Bronchial Washings Gram Stain - Final 10/01/18 13:20 Bronchial Washings Bronchial Washings Culture - Final NO GROWTH 3 DAYS 09/28/18 19:00 Tracheal Aspirate Gram Stain - Final 09/25/18 09/25/18 09/26/18 22:25 22:25 03:38 Creatine Kinase < 20 L CK-MB (CK-2) 0.91 1.00 Troponin I 0.017 0.018 NT-Pro-B Natriuret Pep 36706 H 09/26/18 09/26/18 09/26/18 03:38 11:20 11:20 Creatine Kinase < 20 L < 20 L CK-MB (CK-2) 1.10 Troponin I 0.015 NT-Pro-B Natriuret Pep 09/26/18 09/26/18 17:56 17:56 Creatine Kinase < 20 L CK-MB (CK-2) 0.99 Troponin I < 0.012 NT-Pro-B Natriuret Pep Impressions: Head CT 09/25/18 22:35 IMPRESSION: No acute intracranial findings. Fluoroscopy 09/28/18 00:00 IMPRESSION: IMAGE(S) OBTAINED DURING PROCEDURE. Interventional Vascular Procedure 09/28/18 00:00 IMPRESSION: IMAGE(S) OBTAINED DURING PROCEDURE. Chest X-Ray 10/05/18 06:00 IMPRESSION: 1. Since the previous examination dated 10/04/2018, interval improvement in the appearance of the left lung with significant decrease in the airspace disease and pleural effusion. The right lung remains stable in appearance. 2. The endotracheal tube has retracted proximally and the tip overlies the C7 vertebral body. Assessment & Plan - Diagnosis (1) Pneumonia involving left lung Qualifiers: Pneumonia type: due to unspecified organism Is this a current diagnosis for this admission?: Yes Plan: Completing antibiotic therapy. Improved chest x-ray. (2) Right heart failure Qualifiers: Heart failure chronicity: acute on chronic Qualified Code(s): I50.813 - Acute on chronic right heart failure Is this a current diagnosis for this admission?: Yes Plan: Still on levo fed and vasopressin. Also remains on milrinone and furosemide infusion. Continue to monitor I's and O's. Net negative fluid balance yesterday of 1.7 L. (3) Hypotension Qualifiers: Hypotension type: other hypotension type Qualified Code(s): I95.89 - Other hypotension Is this a current diagnosis for this admission?: Yes Plan: Still on dual pressor therapy. This is improved from requiring 3 pressors. (4) Anemia requiring transfusions Is this a current diagnosis for this admission?: Yes Plan: Hemoglobin remains above 8.0 and appears to be stable. (5) Hyponatremia Is this a current diagnosis for this admission?: Yes Plan: Still with low sodium but requires furosemide. Trial of hypertonic saline was discontinued. (6) Alcohol dependence Qualifiers: Substance use status: with intoxication Is this a current diagnosis for this admission?: Yes Plan: Continue thiamine. He is off of sedation. (7) Altered mental status Qualifiers: Altered mental status type: transient alteration of awareness Qualified Code(s): R40.4 - Transient alteration of awareness Is this a current diagnosis for this admission?: Yes Plan: This seems improved. He does maintain eye contact. He does try and answer questions. (8) Thrombocytopenia Is this a current diagnosis for this admission?: Yes Plan: He did receive platelet transfusions. He appears to be relatively stable. For the last 3 days his platelet count has remained between 50 and 60. (9) Acute respiratory failure with hypoxia Is this a current diagnosis for this admission?: Yes Plan: Still remains intubated. Rate is still at the machine setting. Continue to wean as tolerated. - Time Time Spent with patient: 35 or more minutes Medications reviewed and adjusted accordingly: Yes - Plan Summary Plan Summary: Overall progress still remains guarded. After 5 weeks at [facility] he was back in the hospital with the same constellation of illness he is just 1 month later. Weaning from pressors has been extremely slow.
[2018-10-05 11:51] LABS: VANCOMYCIN,TROUGH 24.9 ug/mL (5.0-20.0)
[2018-10-05] MEDS: MIDAZOLAM HCL 50 MG/100 ML RTUINJ IV PRN (13:35)
[2018-10-05] MEDS ORDERED: POTASSIUM CHLORIDE 20 MEQ/50 ML RTU IV SCH (14:45)
[2018-10-05] MEDS: NORMAL SALINE 250 ML with FUROSEMIDE 250 MG IV PRN ×2 (21:04)
--- NOTE | 2018-10-05 23:13 | Progress Note ---
Provider Note Provider Note: CARDIOLOGY CRITICAL CARE note by Dr. Christelle Lane on 10/05/2018. SUBJECTIVE: The patient remains intubated and sedated. When the sedation is lightened the patient does respond appropriately to verbal commands. There is no ventricular arrhythmia seen on the monitor, but the patient continues to be in atrial fibrillation, with a controlled ventricular response. The patient does appear to move all 4 extremities in spite of the patient being restrained. In spite of the patient's hemodynamics improving, and the patient also seeming to be a little more awake. He is off the Maurizio-Synephrine. The levo fed is at 3 mcg/min. The patient is on milrinone and also vasopressin. We will continue the latter, and try to wean the patient off the Levophed today. PHYSICAL EXAMINATION: The patient is morbidly obese. He does not appear to be in any acute distress. He is not fighting the ventilator. Selected Entries 10/04/18 10/04/18 10/04/18 10:00 12:00 12:05 Temperature 98.6 F 98.6 F Heart Rate ( 85 Monitors) Respiratory 20 20 Rate Blood Pressure Blood Pressure Mean O2 Sat by Pulse 97 96 Oximetry Oxygen Delivery Method ( includes room air) Fraction of 45 45 Inspired Oxygen (FIO2) Pulmonary 40 38 Arterial Occlusion Pressure- Systolic Pulmonary 19 19 Arterial Occlusion Pressure- Diastolic Pulmonary 28 27 Arterial Occlusion Pressure- Mean Pulmonary Artery Wedge Pressure 10/04/18 10/04/18 10/04/18 12:06 12:10 12:11 Temperature 98.6 F 98.6 F 98.4 F Heart Rate ( 84 Monitors) Respiratory 20 20 Rate Blood Pressure 104/64 Blood Pressure 77 Mean O2 Sat by Pulse 97 96 Oximetry Oxygen Delivery Method ( includes room air) Fraction of Inspired Oxygen (FIO2) Pulmonary 36 Arterial Occlusion Pressure- Systolic Pulmonary 21 Arterial Occlusion Pressure- Diastolic Pulmonary 28 Arterial Occlusion Pressure- Mean Pulmonary 13 Artery Wedge Pressure 10/05/18 10/05/18 08:00 08:11 Temperature 97.5 F Heart Rate ( 94 Monitors) Respiratory 23 H Rate Blood Pressure Blood Pressure Mean O2 Sat by Pulse 99 99 Oximetry Oxygen Delivery Mechanical Method ( Ventilator includes room air) Fraction of 45 Inspired Oxygen (FIO2) Pulmonary 13 Arterial Occlusion Pressure- Systolic Pulmonary 9 Arterial Occlusion Pressure- Diastolic Pulmonary 11 Arterial Occlusion Pressure- Mean Pulmonary Artery Wedge 8 Pressure he patient's wedge pressure pressure is 8. HEAD: Is atraumatic normocephalic. EYES: Pupils equal round regular reactive to light. There is no palatal pallor. There is no scleral icteru .ENT: Is negative. NECK: Is supple. There is mild JVD present. There is no carotids are equal. There is no carotid bruits. There is no goiter. Trachea central. LUNGS: Show absent breath sounds in the left base. There is scattered rhonchi Present there is dry crackles of pneumonia in the left base and in the right base. There is also fine rales of CHF. HEART: S1-S2 is heard. S1 is of variable intensity intensity. There is no S3 gallop. There is no S4 gallop. There is systolic murmur in the left sternal border and the apex. There is no rub. ABDOMEN: Is soft. Bowel sounds are heard. There is no hepatosplenic megaly. EXTREMITIES: Femorals are deep femorals are diminished. Leg pulses are diminished.There is no sinus or clubbing. There is mild . pedal edema. There is no DVT or cellulitis.[facility] and PSYCHIATRIC exams not done due to the patient being intubated and sedated. SKIN: There is no petechia or ecchymosis. 10/04/18 10/04/18 10/04/18 04:30 04:30 04:30 WBC 6.0 RBC 2.50 L Hgb 8.4 L Hct 23.8 L MCV 95 MCH 33.5 H MCHC 35.3 RDW 20.4 H Plt Count 53 L Total Counted Seg Neutrophils % 78.6 H Lymphocytes % 7.7 L Carbonic Acid 0.81 L HCO3/H2CO3 Ratio 22:1 ABG pH 7.44 ABG pCO2 26.8 L ABG pO2 88.2 ABG HCO3 17.9 L ABG Total CO2 18.7 L ABG O2 Saturation 97.2 ABG Base Excess -5.3 FiO2 45% Sodium 122.7 L Potassium 3.4 L Chloride 94 L Carbon Dioxide 19 L Anion Gap 10 BUN 34 H Creatinine 1.36 H Est GFR (Non-Af Amer) 53 L Glucose 106 POC Glucose Calcium 8.0 L Phosphorus 4.3 Magnesium 1.5 L Time Trough Drawn Vancomycin Trough 10/04/18 10/04/18 10/05/18 11:11 14:45 04:35 WBC RBC Hgb Hct MCV MCH MCHC RDW Plt Count Total Counted Seg Neutrophils % Lymphocytes % Carbonic Acid 0.94 L HCO3/H2CO3 Ratio 21:1 ABG pH 7.44 ABG pCO2 31.3 L ABG pO2 100.4 H ABG HCO3 20.5 ABG Total CO2 21.5 L ABG O2 Saturation 97.8 ABG Base Excess -3.1 FiO2 45% Sodium 122.4 L Potassium 3.2 L Chloride 93 L Carbon Dioxide 19 L Anion Gap 10 BUN 32 H Creatinine 1.33 H Est GFR (Non-Af Amer) 55 L Glucose 105 POC Glucose 115 H Calcium 8.1 L Phosphorus Magnesium 1.8 Time Trough Drawn Vancomycin Trough 10/05/18 10/05/18 10/05/18 04:35 04:35 11:01 WBC 5.1 RBC 2.53 L Hgb 8.4 L Hct 23.9 L MCV 95 MCH 33.2 MCHC 35.1 RDW 20.2 H Plt Count 52 L Total Counted 100 Seg Neutrophils % Lymphocytes % Carbonic Acid HCO3/H2CO3 Ratio ABG pH ABG pCO2 ABG pO2 ABG HCO3 ABG Total CO2 ABG O2 Saturation ABG Base Excess FiO2 Sodium 123.7 L Potassium 3.2 L Chloride 94 L Carbon Dioxide 20 L Anion Gap 10 BUN 29 H Creatinine 1.29 H Est GFR (Non-Af Amer) 57 L Glucose 119 H POC Glucose Calcium 8.4 Phosphorus 3.8 Magnesium 1.6 Time Trough Drawn 1101 Vancomycin Trough 24.9 H The patient's chest x-ray shows right lung is fairly clear, and the left lung shows improved aeration and decrease in the left pleural effusion. 10/01/18 13:20 Gram Stain - Final Bronchial Washings Bronchial Washings Culture - Final NO GROWTH 3 DAYS 10/01/18 13:20 Fungal Smear - Pending Bronchial Washings Fungal Culture - Pending 10/01/18 13:20 AFB Smear Concentration - Pending Bronchial Washings Acid Fast Bacilli Culture & Smear - Pending 09/29/18 11:42 Gram Stain - Final Bronchial Washings Bronchial Washings Culture - Final Staphylococcus Aureus Greatly Reduced Normal Mayuri 09/29/18 11:42 Fungal Smear - Pending Bronchial Washings Fungal Culture - Pending 09/29/18 11:42 AFB Smear Concentration - Final Bronchial Washings Acid Fast Bacilli Culture & Smear - Pending 09/28/18 19:00 Gram Stain - Final Tracheal Aspirate Sputum Culture - Final Staphylococcus Aureus Morax.(Branhamella)Catarrhalis Greatly Reduced Normal Mayuri 09/26/18 00:29 Blood Culture - Final Blood NO GROWTH IN 5 DAYS 09/25/18 23:05 Blood Culture - Final Blood NO GROWTH IN 5 DAYS Cardiac hemodynamics the cardiac output is 8.25 L/min with a cardiac index of 4 L/minute/meters square. The patient's pulmonary artery systolic pressure is 40. The pulmonary artery diastolic pressure is 18 with a pulmonary artery mean pressure of 26. The patient's pulmonary artery wedge is is 8. The CVP is 9. The SVR is 620 dynes per centimeter squared, and the PVR is 174 dynes per centimeter square. IMPRESSION/RECOMMENDATION: 1. Acute respiratory failure: Secondary to acute on chronic systolic heart failure, acute on chronic right ventricle systolic heart failure, and pneumonia. Continue ventilator support. Continue inotropic support with Levophed, milrinone, and Maurizio-Synephrine. Continue Lasix drip. 2. SEPSIS due to pneumonia: Continue antibiotics. Adjust the patient's inotropes, and continue hemodynamic support with the patient's [place]Silver catheter measurements. 3. Hypertension: Blood pressure is low normal requiring pressor support. 4. PNEUMONIA: Continue antibiotics. 5. Cardiomyopathy with a history of moderately depressed LV ejection fraction: Continue inotropes, and Lasix. 6. Chronic atrial fibrillation: In view of the patient's platelets being low, and the patient's anemia requiring blood transfusion, at at present we will hold off on the Eliquis. Continue Arixtra and a DVT prophylaxis dose. Later once the platelets, will increase the dosage of Arixtra or restart the patient's Eliquis. 7. PULMONARY HYPERTENSION: Was severe at the time of initial insertion of [place]- Silver catheter. With the placement of the [place]Silver catheter and, with the inotropic agents, the right ventricle systolic pressure has come down and now the patient has mild pulmonary hypertension. 8. SHOCK:: Multifactorial, a combination of septic shock, and cardiogenic shock with high pulmonary pressures [cardiogenic shock secondary to patient's cardiomyopathy, and atrial fibrillation, with loss of atrial kick contribution to the cardiac output]. This is also associated with high output cardiac failure: Multifactorial secondary to renal failure, anemia, and possibly sepsis. 9. Thrombocytopenia: Most likely secondary to patient's alcohol abuse,, probably has underlying liver disease due to alcohol abuse, and current sepsis. Patient received platelet transfusion 10. ANEMIA: Status post blood transfusion transfusion. Hemoglobin is low but stable. We will continue to observe the patient's hemoglobin closely. 11.Acute renal failure: Most likely secondary to cardiorespiratory syndrome. Later would recommend nephrology consult to see if the patient has underlying renal disease. 12. HYPOKALEMIA, and hypomagnesemia: Replace the patient's potassium, and magnesium. Note the patient's magnesium is come back to normal. The patient still is hypokalemic. Continue replacement of potassium. 13. GI bleed: Positive Hemoccult stools. Most likely secondary to the patient's low platelets. 14. History of tobacco and alcohol abuse. Later we will give the patient tobacco cessation counseling. Agree with the thiamine. Would also check the patient's B12 vitamin levels. 15. HE met hemodynamic show that the patient's right heart pressures are coming down, and the patient's wedge pressure is also normal, and in the normal range. We will start weaning the patient off Maurizio-Synephrine the first. Continue the patient on Levophed, vasopressin, and milrinone, . Continue antibiotics. Continue the patient on tube feedings. Note medications reviewed, and medications adjusted as per the patient's [place] Ricardo pressure measurements of the right heart. Medical decision making is of high complexity. Discussed management plan with other caregiving providers on the case. Note 70 minutes of critical care spent on this patient, with more than 50% of time spent in direct patient care
[2018-10-05] MEDS: DEXTROSE 5%-WATER 250 ML with VASOPRESSIN 100 UNIT IV PRN ×2 (23:37)
[2018-10-05] MEDS ORDERED: DIGOXIN INJ 0.5 MG/2 ML AMPULE IV ONE (23:45)
[2018-10-05] MEDS ORDERED: DIGOXIN INJ 0.5 MG/2 ML AMPULE ONE (23:45)
[2018-10-06] MEDS: POTASSIUM CHLORIDE 20 MEQ/50 ML RTU IV SCH ×2 (00:09→01:28)
[2018-10-06] MEDS: MILRINONE LACTATE/D5W 20 MG/100 ML RTUINJ IV PRN ×3 (01:28→08:29)
[2018-10-06] MEDS: LANSOPRAZOLE 30 MG TAB.RAP.DR NG SCH (05:14)
[2018-10-06 05:56] LABS: ARTERIAL BLOOD BASE EXCESS -1.5 mmol/L; ARTERIAL BLOOD H2CO3 0.92 mmol/L (1.05-1.35); ARTERIAL BLOOD HCO3 21.7 mmol/L (20-24); ARTERIAL BLOOD O2 SATURATION 96.8 % (94-98); ARTERIAL BLOOD PCO2 30.6 mmHg (35-45); ARTERIAL BLOOD PH 7.47 (7.35-7.45); ARTERIAL BLOOD PO2 82.1 mmHg (80-100); ARTERIAL BLOOD TOTAL CO2 22.6 mmol/L (23-27)
[2018-10-06 06:02] LABS: ARTERIAL BLOOD FIO2 45%
[2018-10-06 06:18] LABS: ANION GAP 7 (5-19); BLOOD UREA NITROGEN 25 mg/dL (7-20); CALCIUM 8.3 mg/dL (8.4-10.2); CARBON DIOXIDE 22 mmol/L (22-30); CHLORIDE 95 mmol/L (98-107); GLUCOSE 99 mg/dL (75-110); PHOSPHORUS 3.7 mg/dL (2.5-4.5); POTASSIUM 3.7 mmol/L (3.6-5.0); SODIUM 123.9 mmol/L (137-145)
[2018-10-06] MEDS ORDERED: MAGNESIUM SULFATE/D5W 1 GM/100 ML RTUPB IV ONE (06:37)
[2018-10-06] MEDS: MAGNESIUM SULFATE 1 GM/D5W 100 ML IV SCH ×2 (06:39→08:21)
--- NOTE | 2018-10-06 06:52 | RADIOLOGY REPORT (SQ) ---
EXAM DESCRIPTION: XR CHEST 1 VIEW COMPLETED DATE/TME: 10/06/2018 06:00 CLINICAL HISTORY: Respiratory Distress. 58 years Male, Respiratory failure COMPARISON: One day prior. NUMBER OF VIEWS/TECHNIQUE: 1/AP FINDINGS: Interval white out of the left hemithorax, leftward cardiac/mediastinal shift, moderate right central pulmonary edema pattern. Likely adequate appearing enteric tube partially obscured. Right jugular [place]-Silver catheter tip at the pulmonary outflow tract.No pneumothorax. Stable bony thorax. IMPRESSION: Interval worsening includes white out of the left lung and tip of an endotracheal tube at the C6-C7 disc level. Recommend replacement of the endotracheal tube.
[2018-10-06] MEDS: DEXTROSE 5%-WATER 250 ML with NOREPINEPHRINE BITARTRATE 4 MG IV PRN ×2 (08:00)
[2018-10-06] MEDS: BUDESONIDE/FORMOTEROL 80-4.5 MCG 60 PUFF/6.9 GM MDI IH SCH (08:18)
--- NOTE | 2018-10-06 08:45 | PDOC PROGRESS REPORT ---
Subjective Progress Note for:: 10/06/18 Subjective:: The patient appears to be resting comfortably. He is still on low-dose Versed. He is vent dependent and did not tolerate weaning the Levophed to off. Reason For Visit: ENCEPHALOPATHY,ARF ON CKD,HYPONATREMIA Physical Exam Vital Signs: Temp Pulse Resp BP Pulse Ox 99.3 F 101 H 20 85/50 L 98 10/06/18 08:00 10/06/18 08:00 10/06/18 08:00 10/06/18 08:00 10/06/18 08:27 Intake & Output 10/05/18 10/06/18 10/07/18 06:59 06:59 06:59 Intake Total 2799.2 1849.2 295 Output Total 4460 3500 310 Balance -1660.8 -1650.8 -15 Weight 119.9 kg 117.8 kg General appearance: PRESENT: no acute distress, other - Intubated and sedated Head exam: PRESENT: normocephalic Mouth exam: PRESENT: other - Endotracheal and nasogastric tubes in place Respiratory exam: PRESENT: decreased breath sounds - On the left. Coarse breath sounds on the right., symmetrical. ABSENT: stridor, wheezes Cardiovascular exam: PRESENT: RRR, +S1, +S2, systolic murmur - 2/6, other - Occasional PVCs GI/Abdominal exam: PRESENT: diminished bowel sounds, soft. ABSENT: distended, tenderness Rectal exam: PRESENT: other - Fecal collection device in place. Stools are still loose. Extremities exam: PRESENT: pedal edema - Trace Neurological exam: PRESENT: other Psychiatric exam: PRESENT: other - Unable to assess Skin exam: PRESENT: other - Marked ecchymosis upper extremities Results Laboratory Results: 10/05/18 04:35 10/06/18 05:33 10/05/18 10/05/18 10/06/18 11:01 23:07 05:33 Carbonic Acid 0.92 L HCO3/H2CO3 Ratio 23:1 ABG pH 7.47 H ABG pCO2 30.6 L ABG pO2 82.1 ABG HCO3 21.7 ABG O2 Saturation 96.8 ABG Base Excess -1.5 FiO2 45% Sodium Potassium 3.2 L 3.3 L Chloride Carbon Dioxide Anion Gap BUN Creatinine Est GFR ( Amer) Est GFR (Non-Af Amer) Glucose Calcium Phosphorus Magnesium 10/06/18 05:33 Carbonic Acid HCO3/H2CO3 Ratio ABG pH ABG pCO2 ABG pO2 ABG HCO3 ABG O2 Saturation ABG Base Excess FiO2 Sodium 123.9 L Potassium 3.7 Chloride 95 L Carbon Dioxide 22 Anion Gap 7 BUN 25 H Creatinine 1.23 Est GFR ( Amer) > 60 Est GFR (Non-Af Amer) > 60 Glucose 99 Calcium 8.3 L Phosphorus 3.7 Magnesium 1.3 L 09/28/18 19:00 Tracheal Aspirate Gram Stain - Final 09/28/18 19:00 Tracheal Aspirate Sputum Culture - Final Staphylococcus Aureus Morax.(Branhamella)Catarrhalis Greatly Reduced Normal Mayuri 09/25/18 09/25/18 09/26/18 22:25 22:25 03:38 Creatine Kinase < 20 L CK-MB (CK-2) 0.91 1.00 Troponin I 0.017 0.018 NT-Pro-B Natriuret Pep 82816 H 09/26/18 09/26/18 09/26/18 03:38 11:20 11:20 Creatine Kinase < 20 L < 20 L CK-MB (CK-2) 1.10 Troponin I 0.015 NT-Pro-B Natriuret Pep 09/26/18 09/26/18 17:56 17:56 Creatine Kinase < 20 L CK-MB (CK-2) 0.99 Troponin I < 0.012 NT-Pro-B Natriuret Pep Impressions: Head CT 09/25/18 22:35 IMPRESSION: No acute intracranial findings. Fluoroscopy 09/28/18 00:00 IMPRESSION: IMAGE(S) OBTAINED DURING PROCEDURE. Interventional Vascular Procedure 09/28/18 00:00 IMPRESSION: IMAGE(S) OBTAINED DURING PROCEDURE. Chest X-Ray 10/06/18 06:00 IMPRESSION: Interval worsening includes white out of the left lung and tip of an endotracheal tube at the C6-C7 disc level. Recommend replacement of the endotracheal tube. Assessment & Plan - Diagnosis (1) Pneumonia involving left lung Qualifiers: Pneumonia type: due to unspecified organism Is this a current diagnosis for this admission?: Yes Plan: The patient elvia out his left lung again today. He has been vent dependent since his intubation. This is the second time this is happened. I did discuss his current situation with the family. Please see below. (2) Right heart failure Qualifiers: Heart failure chronicity: acute on chronic Qualified Code(s): I50.813 - Acute on chronic right heart failure Is this a current diagnosis for this admission?: Yes Plan: The patient is now on milrinone. He is on vasopressin and failed to tolerate being off of levo fed. The levo fed was resumed. He has remained in and that negative fluid balance. (3) Hypotension Qualifiers: Hypotension type: other hypotension type Qualified Code(s): I95.89 - Other hypotension Is this a current diagnosis for this admission?: Yes Plan: Continues to require 2 pressors (vasopressin and levo fed) (4) Anemia requiring transfusions Is this a current diagnosis for this admission?: Yes Plan: Hemoglobin has remained above 8.0 for the last several days. (5) Hyponatremia Is this a current diagnosis for this admission?: Yes Plan: Still with low sodium. It has been difficult to correct. (6) Alcohol dependence Qualifiers: Substance use status: with intoxication Is this a current diagnosis for this admission?: Yes Plan: No acute intervention currently. (7) Altered mental status Qualifiers: Altered mental status type: transient alteration of awareness Qualified Code(s): R40.4 - Transient alteration of awareness Is this a current diagnosis for this admission?: Yes Plan: He was opening his eyes to verbal stimulus but not able to follow simple commands. Overall prognosis still remains grave. (8) Thrombocytopenia Is this a current diagnosis for this admission?: Yes Plan: Despite multiple platelet transfusions previously his platelet count remains between 50 and 60. (9) Acute respiratory failure with hypoxia Is this a current diagnosis for this admission?: Yes Plan: Evidence of complete white out of the left lung again. He did receive a full course of antibiotic therapy for a pneumonia initially. It appears that he is not able to clear any secretions. He continues to be vent dependent. - Time Time Spent with patient: 35 or more minutes Medications reviewed and adjusted accordingly: Yes - Plan Summary Plan Summary: I talked to the patient's daughter Alex Vasquez twice this morning. I reported that the patient still requires to vasopressors and is on the milrinone. Considering his history of prolonged hospitalization at [facility] with a very sma ll window as an outpatient prior to this admission and his decompensation his prognosis remains grave. The patient's family now understands the severity of his prognosis. They understand the extremely unlikely probability that he would ever be able to come off the pressors or ventilator. He is at the point where he will likely need tracheostomy and PEG tube placement. They do not want to proceed along those lines. For that reason they have decided that a comfort oriented plan would be more appropriate. We will not plan on a bronchoscopy today in light of this decision. I will still have the patient seen by pulmonary and cardiology before making any changes. We did approach the family with a suggestion of treatment plan change last week. At this point they agree that this is not the quality of life that the patient would have wanted and that all our efforts are just prolonging the inevitable patient demise.
[2018-10-06] MEDS: MIDAZOLAM HCL 50 MG/100 ML RTUINJ IV PRN (09:42)
[2018-10-06] MEDS: FONDAPARINUX SODIUM INJ 2.5 MG/0.5 ML DISP.SYRIN SUBCUT SCH (09:43)
[2018-10-06] MEDS: METOPROLOL TARTRATE 25 MG TABLET NG SCH (09:43)
[2018-10-06] MEDS: MORPHINE SULFATE 10 MG/ML INJ IV PRN ×3 (12:18→16:31)
[2018-10-06 12:42] VITALS: BP 63/40
--- NOTE | 2018-10-06 18:01 | Progress Note ---
Provider Note Provider Note: CARDIOLOGY PROGRESS NOTES by Dr. Christelle Lane on 10/06/2018. Multiple attempts at weaning the patient off levo fed was unsuccessful. Also the patient is becoming vent dependent. The family decided that the patient should be placed on comfort care. Hence we will sign off the case. Discussed this with the other attending physicians on the case will concur with placing the patient on comfort measures.
--- NOTE | 2018-10-06 18:31 | Death Summary ---
Summary Date : 10/06/18 Time of :: 17:45 Autopsy: No Resuscitation Status: Comfort Measures Only - Final Diagnosis (1) Pneumonia involving left lung Is this a current diagnosis for this admission?: Yes (2) Right heart failure Is this a current diagnosis for this admission?: Yes (3) Hypotension Is this a current diagnosis for this admission?: Yes (4) Anemia requiring transfusions Is this a current diagnosis for this admission?: Yes (5) Hyponatremia Is this a current diagnosis for this admission?: Yes (6) Alcohol dependence Is this a current diagnosis for this admission?: Yes (7) Altered mental status Is this a current diagnosis for this admission?: Yes (8) Thrombocytopenia Is this a current diagnosis for this admission?: Yes (9) Acute respiratory failure with hypoxia Is this a current diagnosis for this admission?: Yes Hospital Course:: The patient had a very complex 10-day hospital course. He initially presented with acute altered mental status. Family reports that he was acutely confused. He abruptly stopped alcohol intake. Typical intake is 1/5 of vodka daily. Initially he was hydrated and began to feel better. His hemoglobin was found to be quite low. He was transfused and then on the second hospital day experienced acute decompensation requiring transfer to the intensive care unit. The patient required multiple vasopressors. A [place] catheter was placed for cardiac monitoring. The patient was intubated and placed on the ventilator. It was difficult stabilizing the patient initially. At one point he required 3 different vasopressors. We were able to wean him down to 2 but no further. In addition he was supported by the ventilator and unable to be weaned During the course of his stay in the intensive care unit he exhibited white out of the left lung on one occasion. Bronchoscopy did remove a significant amount of mucus. He exhibited complete whiteout again today. He had bleeding complications. It appears that he developed acute thrombocytopenia from heparin. He was on Arixtra. He also required multiple units of packed red blood cells. Despite this he had a predilection for oozing blood with blood in his stool as well as blood in the endotracheal secretions. In an attempt to improve cardiac function he was placed on milrinone. This was minimally effective. I had a discussion with the patient's family last week. We continued aggressive care and with the complication of complete white out of the left lung again today, inability to wean him from 2 vasopressors and inability to wean him from the ventilator the next steps were discussed. With his unlikely resolution of his medical issues in any acute timeframe the next step would be tracheostomy and PEG tube. I have reiterated to the patient's daughter that I did not believe his prognosis was improved at all from last week. I feel his prognosis was still grave. I conveyed that to the patient's daughter. The patient's daughter was able to review all of this with her mother (the patient's ). After a greater understanding of the current situation and actual prognosis the family decided not to pursue any further aggressive care. After reviewing the patient with cardiology and pulmonology the treatment plan change to comfort measures only. The patient was extubated and all medications were discontinued except those for comfort. Over the course of the afternoon the patient slowly declined. His blood pressure deteriorated. Finally at 17:45 the patient . His passing appeared to be quite comfortable and without pain or agitation. The family was notified. The patient had multiple significant comorbidities. At this time cardiogenic shock as a result of acute hypoxemic respiratory failure as a result of acute on chronic systolic failure were listed as the direct cause of . Other contributing factors include his acute kidney injury, left lung pneumonia, anemia requiring transfusions, thrombocytopenia with bleeding complications, history of alcoholism and tobacco use as well as h is previous history of diminished left ventricular systolic function.
--- NOTE | 2018-10-07 11:41 | PDOC CONSULTATION ---
Consultation Consult Date: 09/28/18 Attending physician:: CHEPE WU Consult reason:: Shock, respiratory failure History of Present Illness Admission Date/PCP: 09/26/18 00:11 History of Present Illness: DAVE LAMAR is a 58 year old male, presented to ED with altered mental status patient has story of alcohol abuse atrial fibrillation apparently he was immobilized with a set past several days and was unable to get out of bed he was subsequently admitted to the floor and now has been transferred to the ICU due to hemodynamic instability that is increasing dyspnea on exertion apparently smoked a pack a day for approximately 50 years but has not smoked since his admission he has also drank a pot at least a quart of vodka per day for the last 25 years. Per chart he has a history of alcohol withdrawal seizures. All information is gleaned from the chart as patient is unable to give history and no family is at the bedside Past Medical History Cardiac Medical History: Reports: Atrial Fibrillation, Hypertension Denies: Congestive Heart Failure, DVT, Myocardial Infarction, Hyperlipidema, Pulmonary Embolism Pulmonary Medical History: Denies: Asthma, Chronic Obstructive Pulmonary Disease (COPD), Sleep Apnea Neurological Medical History: Reports: Seizures Endocrine Medical History: Reports: Diabetes Mellitus Type 2 - Possible, per patient; no specific diagnosis of same Denies: Diabetes Mellitus Type 1, Hyperthyroidism, Hypothyroidism GI Medical History: Denies: Cirrhosis, Gastroesophageal Reflux Disease, Hepatitis Musculoskeltal Medical History: Reports: Arthritis Psychiatric Medical History: Reports: Alcohol Dependency, Tobacco Dependency Denies: Depression Infectious Medical History: Denies: Clostridium Difficile, Methicillin-Resistant Staph Aureus Past Surgical History Past Surgical History: Reports: Tonsillectomy Social History Lives with: Family Smoking Status: Current Every Day Smoker Passive smoke exposure as: Both Frequency of Alcohol Use: Heavy Hx Recreational Drug Use: No Drugs: None Hx Prescription Drug Abuse: No - Advance Directive Resuscitation Status: Full Code Family History Family History: CAD, COPD, DM, Hypertension, Other - Unobtainable Parental Family History Reviewed: No Children Family History Reviewed: No Sibling(s) Family History Reviewed.: No Medication/Allergy Home Medications: Apixaban [Eliquis 5 mg Tablet] 5 mg PO Q12 09/26/18 Aspirin [Aspirin 81 mg Chewable Tablet] 81 mg PO DAILY 09/26/18 Ferrous Sulfate [Feosol 325 mg Tablet] 325 mg PO DAILY 09/26/18 Furosemide [Lasix 40 mg Tablet] 40 mg PO Q12 09/26/18 Levothyroxine Sodium 50 mcg PO DAILY 09/26/18 Metoprolol Succinate [Toprol Xl 25 mg Tab.sr] 25 mg PO DAILY 09/26/18 Pantoprazole Sodium [Protonix] 40 mg PO 0600,1800 09/26/18 Allergies/Adverse Reactions: strawberry Allergy (Verified 07/11/18 20:44) Review of Systems ROS unobtainable: Due to mental status Physical Exam Vital Signs: Temp Pulse Resp BP Pulse Ox 92.1 F L 86 0 L 101/63 97 09/29/18 08:18 09/29/18 04:25 09/29/18 08:18 09/29/18 08:18 09/29/18 08:23 Intake & Output 09/28/18 09/29/18 09/30/18 06:59 06:59 06:59 Intake Total 2383.2 3445.2 270 Output Total 520 4600 1275 Balance 1863.2 -1154.8 -1005 Weight 121.2 kg 123.4 kg General appearance: PRESENT: disheveled, mild distress, morbidly obese Head exam: PRESENT: atraumatic, normocephalic Eye exam: PRESENT: conjunctiva pale, EOMI. ABSENT: nystagmus, scleral icterus Mouth exam: PRESENT: dry mucosa, neck supple, tongue midline Neck exam: ABSENT: carotid bruit, JVD, lymphadenopathy, thyromegaly, tracheal deviation, tracheostomy Respiratory exam: PRESENT: decreased breath sounds, prolonged expiratory phas, rales, rhonchi, symmetrical, tachypnea, unlabored, wheezes. ABSENT: retraction, stridor Cardiovascular exam: PRESENT: RRR, +S1, +S2, tachycardia Pulses: PRESENT: normal radial pulses GI/Abdominal exam: PRESENT: organolmegaly, soft. ABSENT: tenderness Extremities exam: PRESENT: pedal edema. ABSENT: calf tenderness, clubbing, joint swelling Musculoskeletal exam: ABSENT: ambulatory, deformity, dislocation Neurological exam: PRESENT: altered, awake Skin exam: PRESENT: dry, warm Results Laboratory Results: 09/29/18 04:14 09/29/18 04:14 09/27/18 09/28/18 09/28/18 11:10 10:57 13:22 WBC 7.7 RBC 2.20 L Hgb 7.3 L Hct 22.3 L MCV 102 H MCH 33.1 MCHC 32.6 RDW 22.2 H Plt Count 60 L Seg Neutrophils % Not Reportable Lymphocytes % Not Reportable Monocytes % Not Reportable Eosinophils % Not Reportable Basophils % Not Reportable Absolute Neutrophils Not Reportable Absolute Lymphocytes Not Reportable Absolute Monocytes Not Reportable Absolute Eosinophils Not Reportable Absolute Basophils Not Reportable Carbonic Acid 1.41 H HCO3/H2CO3 Ratio 11:1 ABG pH 7.17 L* ABG pCO2 46.8 H ABG pO2 72.8 L ABG HCO3 16.8 L ABG O2 Saturation 90.4 L ABG Base Excess -11.0 VBG pH VBG pCO2 VBG HCO3 VBG Base Excess FiO2 35% Sodium Potassium Chloride Carbon Dioxide Anion Gap BUN Creatinine Est GFR ( Amer) Est GFR (Non-Af Amer) Glucose Calcium Phosphorus Magnesium Total Bilirubin AST ALT Alkaline Phosphatase Total Protein Albumin Triglycerides Blood Type A POSITIVE Antibody Screen NEGATIVE 09/28/18 09/28/18 09/28/18 13:56 15:45 23:50 WBC RBC Hgb Hct MCV MCH MCHC RDW Plt Count Seg Neutrophils % Lymphocytes % Monocytes % Eosinophils % Basophils % Absolute Neutrophils Absolute Lymphocytes Absolute Monocytes Absolute Eosinophils Absolute Basophils Carbonic Acid 0.91 L HCO3/H2CO3 Ratio 16:1 ABG pH 7.31 L ABG pCO2 30.1 L ABG pO2 112.3 H ABG HCO3 14.7 L ABG O2 Saturation 97.8 ABG Base Excess -10.6 VBG pH 7.17 L* VBG pCO2 45.0 VBG HCO3 16.2 L VBG Base Excess -11.5 FiO2 35% Sodium 128.6 L Potassium 2.9 L* Chloride 103 Carbon Dioxide 18 L Anion Gap 8 BUN 72 H Creatinine 2.65 H Est GFR ( Amer) 30 L Est GFR (Non-Af Amer) 25 L Glucose 153 H Calcium 8.2 L Phosphorus Magnesium Total Bilirubin AST ALT Alkaline Phosphatase Total Protein Albumin Triglycerides Blood Type Antibody Screen 09/28/18 09/29/18 09/29/18 23:50 00:51 04:14 WBC Cancelled 9.5 RBC Cancelled 2.66 L Hgb Cancelled 8.7 L Hct Cancelled 26.0 L MCV Cancelled 98 H D MCH Cancelled 32.9 MCHC Cancelled 33.6 RDW Cancelled 21.6 H Plt Count Cancelled 66 L Seg Neutrophils % Cancelled Not Reportable Lymphocytes % Cancelled Not Reportable Monocytes % Cancelled Not Reportable Eosinophils % Cancelled Not Reportable Basophils % Cancelled Not Reportable Absolute Neutrophils Cancelled Not Reportable Absolute Lymphocytes Cancelled Not Reportable Absolute Monocytes Cancelled Not Reportable Absolute Eosinophils Cancelled Not Reportable Absolute Basophils Cancelled Not Reportable Carbonic Acid HCO3/H2CO3 Ratio ABG pH ABG pCO2 ABG pO2 ABG HCO3 ABG O2 Saturation ABG Base Excess VBG pH VBG pCO2 VBG HCO3 VBG Base Excess FiO2 Sodium 129.5 L Potassium 3.4 L Chloride 105 Carbon Dioxide 18 L Anion Gap 7 BUN 73 H Creatinine 2.71 H Est GFR ( Amer) 29 L Est GFR (Non-Af Amer) 24 L Glucose 154 H Calcium 8.4 Phosphorus Magnesium 1.6 Total Bilirubin 1.8 H AST 17 ALT 10 L Alkaline Phosphatase 78 Total Protein 4.9 L Albumin 2.5 L Triglycerides Blood Type Antibody Screen 09/29/18 09/29/18 09/29/18 04:14 04:14 08:46 WBC 10.5 RBC 2.70 L Hgb 9.1 L Hct 26.7 L MCV 99 H MCH 33.6 H MCHC 34.0 RDW 21.1 H Plt Count 73 L Seg Neutrophils % Not Reportable Lymphocytes % Not Reportable Monocytes % Not Reportable Eosinophils % Not Reportable Basophils % Not Reportable Absolute Neutrophils Not Reportable Absolute Lymphocytes Not Reportable Absolute Monocytes Not Reportable Absolute Eosinophils Not Reportable Absolute Basophils Not Reportable Carbonic Acid 0.92 L HCO3/H2CO3 Ratio 17:1 ABG pH 7.34 L ABG pCO2 30.5 L ABG pO2 78.3 L ABG HCO3 16.0 L ABG O2 Saturation 95.1 ABG Base Excess -8.8 VBG pH VBG pCO2 VBG HCO3 VBG Base Excess FiO2 35% Sodium 129.6 L Potassium 3.5 L Chloride 104 Carbon Dioxide 16 L Anion Gap 10 BUN 72 H Creatinine 2.63 H Est GFR ( Amer) 30 L Est GFR (Non-Af Amer) 25 L Glucose 151 H Calcium 8.5 Phosphorus 4.0 Magnesium Total Bilirubin AST ALT Alkaline Phosphatase Total Protein Albumin 2.5 L Triglycerides 45 Blood Type Antibody Screen 09/25/18 09/25/18 09/26/18 22:25 22:25 03:38 Creatine Kinase < 20 L CK-MB (CK-2) 0.91 1.00 Troponin I 0.017 0.018 NT-Pro-B Natriuret Pep 02231 H 09/26/18 09/26/18 09/26/18 03:38 11:20 11:20 Creatine Kinase < 20 L < 20 L CK-MB (CK-2) 1.10 Troponin I 0.015 NT-Pro-B Natriuret Pep 09/26/18 09/26/18 17:56 17:56 Creatine Kinase < 20 L CK-MB (CK-2) 0.99 Troponin I < 0.012 NT-Pro-B Natriuret Pep Impressions: Head CT 09/25/18 22:35 IMPRESSION: No acute intracranial findings. Fluoroscopy 09/28/18 00:00 IMPRESSION: IMAGE(S) OBTAINED DURING PROCEDURE. Interventional Vascular Procedure 09/28/18 00:00 IMPRESSION: IMAGE(S) OBTAINED DURING PROCEDURE. Chest X-Ray 09/29/18 06:00 IMPRESSION: Interval development of complete collapse of the left lung likely from a left mainstem bronchus mucous plug. Persistent congestive failure pattern. SUPPORT DEVICE(S) IN EXPECTED LOCATIONS. Assessment & Plan - Diagnosis (1) Acute respiratory failure with hypoxia Is this a current diagnosis for this admission?: Yes (2) Altered mental status Qualifiers: Altered mental status type: transient alteration of awareness Qualified Code(s): R40.4 - Transient alteration of awareness Is this a current diagnosis for this admission?: Yes (3) Anemia requiring transfusions Is this a current diagnosis for this admission?: Yes (4) CHF (congestive heart failure) Qualifiers: Heart failure type: unspecified Heart failure chronicity: unspecified Qualified Code(s): I50.9 - Heart failure, unspecified (6) Atrial fibrillation Qualifiers: Atrial fibrillation type: chronic Qualified Code(s): I48.2 - Chronic atrial fibrillation Is this a current diagnosis for this admission?: Yes - Time Total Critical Time (Minutes): 75
--- NOTE | 2018-10-07 11:45 | PDOC PROGRESS REPORT ---
Subjective Progress Note for:: 09/29/18 Subjective:: Intubated and sedated Reason For Visit: ENCEPHALOPATHY,ARF ON CKD,HYPONATREMIA Physical Exam Vital Signs: Temp Pulse Resp BP Pulse Ox 92.1 F L 86 0 L 101/63 97 09/29/18 08:18 09/29/18 04:25 09/29/18 08:18 09/29/18 08:18 09/29/18 08:23 Intake & Output 09/28/18 09/29/18 09/30/18 06:59 06:59 06:59 Intake Total 2383.2 3445.2 270 Output Total 520 4600 1275 Balance 1863.2 -1154.8 -1005 Weight 121.2 kg 123.4 kg General appearance: PRESENT: no acute distress, disheveled, obese Head exam: PRESENT: atraumatic, normocephalic Eye exam: PRESENT: conjunctiva pale. ABSENT: nystagmus, scleral icterus Mouth exam: PRESENT: dry mucosa, neck supple, tongue midline, other - ET tube in place Neck exam: ABSENT: carotid bruit, JVD, lymphadenopathy, thyromegaly, tracheal deviation, tracheostomy Respiratory exam: PRESENT: decreased breath sounds, prolonged expiratory phas, rales, rhonchi, unlabored. ABSENT: stridor Cardiovascular exam: PRESENT: irregular rhythm Pulses: PRESENT: normal radial pulses GI/Abdominal exam: PRESENT: soft, tenderness Gentrourinary exam: PRESENT: indwelling catheter Extremities exam: PRESENT: pedal edema. ABSENT: calf tenderness, clubbing, joint swelling Musculoskeletal exam: ABSENT: ambulatory, deformity, dislocation Neurological exam: ABSENT: awake Skin exam: PRESENT: dry, warm Results Laboratory Results: 09/29/18 04:14 09/29/18 04:14 09/27/18 09/28/18 09/28/18 11:10 10:57 13:22 WBC 7.7 RBC 2.20 L Hgb 7.3 L Hct 22.3 L MCV 102 H MCH 33.1 MCHC 32.6 RDW 22.2 H Plt Count 60 L Seg Neutrophils % Not Reportable Lymphocytes % Not Reportable Monocytes % Not Reportable Eosinophils % Not Reportable Basophils % Not Reportable Absolute Neutrophils Not Reportable Absolute Lymphocytes Not Reportable Absolute Monocytes Not Reportable Absolute Eosinophils Not Reportable Absolute Basophils Not Reportable Carbonic Acid 1.41 H HCO3/H2CO3 Ratio 11:1 ABG pH 7.17 L* ABG pCO2 46.8 H ABG pO2 72.8 L ABG HCO3 16.8 L ABG O2 Saturation 90.4 L ABG Base Excess -11.0 VBG pH VBG pCO2 VBG HCO3 VBG Base Excess FiO2 35% Sodium Potassium Chloride Carbon Dioxide Anion Gap BUN Creatinine Est GFR ( Amer) Est GFR (Non-Af Amer) Glucose Calcium Phosphorus Magnesium Total Bilirubin AST ALT Alkaline Phosphatase Total Protein Albumin Triglycerides Blood Type A POSITIVE Antibody Screen NEGATIVE 09/28/18 09/28/18 09/28/18 13:56 15:45 23:50 WBC RBC Hgb Hct MCV MCH MCHC RDW Plt Count Seg Neutrophils % Lymphocytes % Monocytes % Eosinophils % Basophils % Absolute Neutrophils Absolute Lymphocytes Absolute Monocytes Absolute Eosinophils Absolute Basophils Carbonic Acid 0.91 L HCO3/H2CO3 Ratio 16:1 ABG pH 7.31 L ABG pCO2 30.1 L ABG pO2 112.3 H ABG HCO3 14.7 L ABG O2 Saturation 97.8 ABG Base Excess -10.6 VBG pH 7.17 L* VBG pCO2 45.0 VBG HCO3 16.2 L VBG Base Excess -11.5 FiO2 35% Sodium 128.6 L Potassium 2.9 L* Chloride 103 Carbon Dioxide 18 L Anion Gap 8 BUN 72 H Creatinine 2.65 H Est GFR ( Amer) 30 L Est GFR (Non-Af Amer) 25 L Glucose 153 H Calcium 8.2 L Phosphorus Magnesium Total Bilirubin AST ALT Alkaline Phosphatase Total Protein Albumin Triglycerides Blood Type Antibody Screen 09/28/18 09/29/18 09/29/18 23:50 00:51 04:14 WBC Cancelled 9.5 RBC Cancelled 2.66 L Hgb Cancelled 8.7 L Hct Cancelled 26.0 L MCV Cancelled 98 H D MCH Cancelled 32.9 MCHC Cancelled 33.6 RDW Cancelled 21.6 H Plt Count Cancelled 66 L Seg Neutrophils % Cancelled Not Reportable Lymphocytes % Cancelled Not Reportable Monocytes % Cancelled Not Reportable Eosinophils % Cancelled Not Reportable Basophils % Cancelled Not Reportable Absolute Neutrophils Cancelled Not Reportable Absolute Lymphocytes Cancelled Not Reportable Absolute Monocytes Cancelled Not Reportable Absolute Eosinophils Cancelled Not Reportable Absolute Basophils Cancelled Not Reportable Carbonic Acid HCO3/H2CO3 Ratio ABG pH ABG pCO2 ABG pO2 ABG HCO3 ABG O2 Saturation ABG Base Excess VBG pH VBG pCO2 VBG HCO3 VBG Base Excess FiO2 Sodium 129.5 L Potassium 3.4 L Chloride 105 Carbon Dioxide 18 L Anion Gap 7 BUN 73 H Creatinine 2.71 H Est GFR ( Amer) 29 L Est GFR (Non-Af Amer) 24 L Glucose 154 H Calcium 8.4 Phosphorus Magnesium 1.6 Total Bilirubin 1.8 H AST 17 ALT 10 L Alkaline Phosphatase 78 Total Protein 4.9 L Albumin 2.5 L Triglycerides Blood Type Antibody Screen 09/29/18 09/29/18 09/29/18 04:14 04:14 08:46 WBC 10.5 RBC 2.70 L Hgb 9.1 L Hct 26.7 L MCV 99 H MCH 33.6 H MCHC 34.0 RDW 21.1 H Plt Count 73 L Seg Neutrophils % Not Reportable Lymphocytes % Not Reportable Monocytes % Not Reportable Eosinophils % Not Reportable Basophils % Not Reportable Absolute Neutrophils Not Reportable Absolute Lymphocytes Not Reportable Absolute Monocytes Not Reportable Absolute Eosinophils Not Reportable Absolute Basophils Not Reportable Carbonic Acid 0.92 L HCO3/H2CO3 Ratio 17:1 ABG pH 7.34 L ABG pCO2 30.5 L ABG pO2 78.3 L ABG HCO3 16.0 L ABG O2 Saturation 95.1 ABG Base Excess -8.8 VBG pH VBG pCO2 VBG HCO3 VBG Base Excess FiO2 35% Sodium 129.6 L Potassium 3.5 L Chloride 104 Carbon Dioxide 16 L Anion Gap 10 BUN 72 H Creatinine 2.63 H Est GFR ( Amer) 30 L Est GFR (Non-Af Amer) 25 L Glucose 151 H Calcium 8.5 Phosphorus 4.0 Magnesium Total Bilirubin AST ALT Alkaline Phosphatase Total Protein Albumin 2.5 L Triglycerides 45 Blood Type Antibody Screen 09/25/18 09/25/18 09/26/18 22:25 22:25 03:38 Creatine Kinase < 20 L CK-MB (CK-2) 0.91 1.00 Troponin I 0.017 0.018 NT-Pro-B Natriuret Pep [id number] H 09/26/18 09/26/18 09/26/18 03:38 11:20 11:20 Creatine Kinase < 20 L < 20 L CK-MB (CK-2) 1.10 Troponin I 0.015 NT-Pro-B Natriuret Pep 09/26/18 09/26/18 17:56 17:56 Creatine Kinase < 20 L CK-MB (CK-2) 0.99 Troponin I < 0.012 NT-Pro-B Natriuret Pep Impressions: Head CT 09/25/18 22:35 IMPRESSION: No acute intracranial findings. Fluoroscopy 09/28/18 00:00 IMPRESSION: IMAGE(S) OBTAINED DURING PROCEDURE. Interventional Vascular Procedure 09/28/18 00:00 IMPRESSION: IMAGE(S) OBTAINED DURING PROCEDURE. Chest X-Ray 09/29/18 06:00 IMPRESSION: Interval development of complete collapse of the left lung likely from a left mainstem bronchus mucous plug. Persistent congestive failure pattern. SUPPORT DEVICE(S) IN EXPECTED LOCATIONS. Assessment & Plan - Diagnosis (1) Acute and chronic respiratory failure with hypercapnia Is this a current diagnosis for this admission?: Yes Plan: Oxygenate and ventilate as needed induced hypocapnia to maintain acceptable pH (2) Chronic atrial fibrillation Is this a current diagnosis for this admission?: Yes Plan: Anticoagulated (3) Diabetes mellitus type 2 in obese Is this a current diagnosis for this admission?: Yes Plan: sliding scale insulin (4) Obstructive sleep apnea Is this a current diagnosis for this admission?: Yes Plan: Continue CPAP when discharged (5) Seizure Is this a current diagnosis for this admission?: Yes Plan: Stable at this time (6) Septic shock Is this a current diagnosis for this admission?: Yes Plan: Pulmonary artery cath: Multiple vasopressors - Time Total Critical Time (Minutes): 50
--- NOTE | 2018-10-07 14:15 | PDOC PROGRESS REPORT ---
Subjective Progress Note for:: 09/30/18 Subjective:: Intubated and sedated Reason For Visit: ENCEPHALOPATHY,ARF ON CKD,HYPONATREMIA Physical Exam Vital Signs: Temp Pulse Resp BP Pulse Ox 91.4 F L 70 15 97/60 L 96 09/30/18 08:15 09/30/18 08:00 09/30/18 08:30 09/30/18 08:30 09/30/18 08:30 Intake & Output 09/29/18 09/30/18 10/01/18 06:59 06:59 06:59 Intake Total 3695.2 3576.2 302 Output Total 4600 4500 275 Balance -904.8 -923.8 27 Weight 123.4 kg 123.9 kg General appearance: PRESENT: no acute distress, disheveled, obese. ABSENT: cooperative Head exam: PRESENT: atraumatic, normocephalic Eye exam: PRESENT: conjunctiva pale. ABSENT: nystagmus, scleral icterus Mouth exam: PRESENT: dry mucosa, neck supple, tongue midline, other - ET tube Neck exam: ABSENT: carotid bruit, JVD, lymphadenopathy, thyromegaly, tracheal deviation, tracheostomy Respiratory exam: PRESENT: decreased breath sounds, prolonged expiratory phas, rales, rhonchi, tachypnea, unlabored Pulses: PRESENT: normal radial pulses GI/Abdominal exam: PRESENT: soft Gentrourinary exam: PRESENT: indwelling catheter Extremities exam: PRESENT: pedal edema. ABSENT: calf tenderness, clubbing, joint swelling Musculoskeletal exam: ABSENT: deformity, dislocation Neurological exam: ABSENT: awake Skin exam: PRESENT: dry, warm Results Laboratory Results: 09/30/18 06:30 09/30/18 06:30 09/27/18 09/29/18 09/29/18 11:10 11:42 15:57 WBC RBC Hgb Hct MCV MCH MCHC RDW Plt Count Seg Neutrophils % Lymphocytes % Monocytes % Eosinophils % Basophils % Absolute Neutrophils Absolute Lymphocytes Absolute Monocytes Absolute Eosinophils Absolute Basophils Carbonic Acid HCO3/H2CO3 Ratio ABG pH ABG pCO2 ABG pO2 ABG HCO3 ABG O2 Saturation ABG Base Excess FiO2 Sodium 129.6 L Potassium 3.4 L Chloride 104 Carbon Dioxide 19 L Anion Gap 7 BUN 70 H Creatinine 2.40 H Est GFR ( Amer) 34 L Est GFR (Non-Af Amer) 28 L Glucose 155 H Calcium 8.4 Phosphorus Magnesium 1.8 Total Bilirubin AST ALT Alkaline Phosphatase Total Protein Albumin Urine Color Urine Appearance Urine pH Ur Specific [place] Urine Protein Urine Glucose (UA) Urine Ketones Urine Blood Urine Nitrite Ur Leukocyte Esterase Urine WBC (Auto) Urine RBC (Auto) Fluid Type Cancelled Fluid Source Cancelled Fluid Color Cancelled Fluid Appearance Cancelled Fluid Viscosity Cancelled Fluid WBC Cancelled Fluid RBC Cancelled Blood Type A POSITIVE Antibody Screen NEGATIVE 09/29/18 09/29/18 09/30/18 15:57 16:00 06:30 WBC 10.0 RBC 2.78 L Hgb 9.3 L Hct 27.3 L MCV 98 H MCH 33.5 H MCHC 34.0 RDW 21.2 H Plt Count 60 L Seg Neutrophils % Not Reportable Lymphocytes % Not Reportable Monocytes % Not Reportable Eosinophils % Not Reportable Basophils % Not Reportable Absolute Neutrophils Not Reportable Absolute Lymphocytes Not Reportable Absolute Monocytes Not Reportable Absolute Eosinophils Not Reportable Absolute Basophils Not Reportable Carbonic Acid 0.81 L HCO3/H2CO3 Ratio 18:1 ABG pH 7.35 ABG pCO2 26.9 L ABG pO2 95.0 ABG HCO3 14.7 L ABG O2 Saturation 97.1 ABG Base Excess -9.6 FiO2 35% Sodium Potassium Chloride Carbon Dioxide Anion Gap BUN Creatinine Est GFR ( Amer) Est GFR (Non-Af Amer) Glucose Calcium Phosphorus Magnesium Total Bilirubin AST ALT Alkaline Phosphatase Total Protein Albumin Urine Color YELLOW Urine Appearance CLOUDY Urine pH 5.0 Ur Specific [place] 1.006 Urine Protein NEGATIVE Urine Glucose (UA) NEGATIVE Urine Ketones NEGATIVE Urine Blood MODERATE H Urine Nitrite NEGATIVE Ur Leukocyte Esterase LARGE H Urine WBC (Auto) 36 Urine RBC (Auto) 15 Fluid Type Fluid Source Fluid Color Fluid Appearance Fluid Viscosity Fluid WBC Fluid RBC Blood Type Antibody Screen 09/30/18 09/30/18 06:30 06:30 WBC 8.1 RBC 2.89 L Hgb 9.7 L Hct 28.0 L MCV 97 MCH 33.4 MCHC 34.5 RDW 21.5 H Plt Count 59 L Seg Neutrophils % 83.5 H Lymphocytes % 5.3 L Monocytes % 6.5 Eosinophils % 4.0 Basophils % 0.7 Absolute Neutrophils 6.8 Absolute Lymphocytes 0.4 L Absolute Monocytes 0.5 Absolute Eosinophils 0.3 Absolute Basophils 0.1 Carbonic Acid HCO3/H2CO3 Ratio ABG pH ABG pCO2 ABG pO2 ABG HCO3 ABG O2 Saturation ABG Base Excess FiO2 Sodium 129.1 L Potassium 3.1 L Chloride 102 Carbon Dioxide 17 L Anion Gap 10 BUN 63 H Creatinine 2.24 H Est GFR ( Amer) 36 L Est GFR (Non-Af Amer) 30 L Glucose 141 H Calcium 8.4 Phosphorus 3.4 Magnesium 1.5 L Total Bilirubin 1.2 AST 8 L ALT 21 Alkaline Phosphatase 86 Total Protein 4.5 L Albumin 2.4 L Urine Color Urine Appearance Urine pH Ur Specific [place] Urine Protein Urine Glucose (UA) Urine Ketones Urine Blood Urine Nitrite Ur Leukocyte Esterase Urine WBC (Auto) Urine RBC (Auto) Fluid Type Fluid Source Fluid Color Fluid Appearance Fluid Viscosity Fluid WBC Fluid RBC Blood Type Antibody Screen 09/25/18 09/25/18 09/26/18 22:25 22:25 03:38 Creatine Kinase < 20 L CK-MB (CK-2) 0.91 1.00 Troponin I 0.017 0.018 NT-Pro-B Natriuret Pep [id number] H 09/26/18 09/26/18 09/26/18 03:38 11:20 11:20 Creatine Kinase < 20 L < 20 L CK-MB (CK-2) 1.10 Troponin I 0.015 NT-Pro-B Natriuret Pep 09/26/18 09/26/18 17:56 17:56 Creatine Kinase < 20 L CK-MB (CK-2) 0.99 Troponin I < 0.012 NT-Pro-B Natriuret Pep Impressions: Head CT 09/25/18 22:35 IMPRESSION: No acute intracranial findings. Fluoroscopy 09/28/18 00:00 IMPRESSION: IMAGE(S) OBTAINED DURING PROCEDURE. Interventional Vascular Procedure 09/28/18 00:00 IMPRESSION: IMAGE(S) OBTAINED DURING PROCEDURE. Chest X-Ray 09/30/18 06:00 IMPRESSION: Complete collapse left lower lobe Partial collapse left upper lobe with small amount of lung apex aerated today Ground-glass opacity throughout the right lung worrisome for pulmonary edema. Assessment & Plan - Diagnosis (1) Acute and chronic respiratory failure with hypercapnia Is this a current diagnosis for this admission?: Yes Plan: Oxygenate and ventilate as needed induced hypocapnia to maintain acceptable pH (2) Altered mental status Qualifiers: Altered mental status type: transient alteration of awareness Qualified Code(s): R40.4 - Transient alteration of awareness Is this a current diagnosis for this admission?: Yes Plan: hepatic encephalopathy (3) Atrial fibrillation Is this a current diagnosis for this admission?: Yes Plan: cardiazem (4) CHF (congestive heart failure) Qualifiers: Heart failure type: unspecified Heart failure chronicity: unspecified Qualified Code(s): I50.9 - Heart failure, unspecified Is this a current diagnosis for this admission?: Yes Plan: mild diuresis (5) Cardiogenic shock Is this a current diagnosis for this admission?: Yes Plan: pac inserted (6) New onset atrial fibrillation Is this a current diagnosis for this admission?: Yes Plan: as per cardiology (7) Obstructive sleep apnea Is this a current diagnosis for this admission?: Yes Plan: Continue CPAP when discharged (8) Septic shock Is this a current diagnosis for this admission?: Yes Plan: Pulmonary artery cath: Multiple vasopressors (9) Morbid obesity with BMI of 40.0-44.9, adult Is this a current diagnosis for this admission?: Yes Plan: unchanged (10) Tobacco dependence Is this a current diagnosis for this admission?: Yes Plan: stop smoking - Time Total Critical Time (Minutes): 55
--- NOTE | 2018-10-07 14:22 | PDOC PROGRESS REPORT ---
Subjective Progress Note for:: 10/01/18 Subjective:: repeat Reason For Visit: ENCEPHALOPATHY,ARF ON CKD,HYPONATREMIA Physical Exam Vital Signs: Temp Pulse Resp BP Pulse Ox 97.6 F 96 20 107/57 L 97 10/01/18 11:48 10/01/18 08:00 10/01/18 10:31 10/01/18 10:31 10/01/18 10:31 Intake & Output 09/30/18 10/01/18 10/02/18 06:59 06:59 06:59 Intake Total 3826.2 5152.2 463 Output Total 4500 2320 800 Balance -673.8 2832.2 -337 Weight 123.9 kg 122.8 kg General appearance: PRESENT: no acute distress, disheveled, obese Head exam: PRESENT: atraumatic, normocephalic Eye exam: PRESENT: conjunctiva pale. ABSENT: nystagmus, scleral icterus Mouth exam: PRESENT: dry mucosa, neck supple, tongue midline, other - ET tube Neck exam: ABSENT: carotid bruit, JVD, lymphadenopathy, thyromegaly, tracheal deviation, tracheostomy Respiratory exam: PRESENT: decreased breath sounds, prolonged expiratory phas, rales, rhonchi, unlabored Cardiovascular exam: PRESENT: irregular rhythm Pulses: PRESENT: normal radial pulses GI/Abdominal exam: PRESENT: soft Gentrourinary exam: PRESENT: indwelling catheter Extremities exam: PRESENT: pedal edema. ABSENT: calf tenderness, clubbing, joint swelling Musculoskeletal exam: ABSENT: ambulatory, deformity, dislocation Neurological exam: ABSENT: awake Skin exam: PRESENT: dry, warm Results Laboratory Results: 10/01/18 04:02 10/01/18 04:02 09/30/18 09/30/18 09/30/18 12:34 17:33 17:33 WBC 8.4 RBC 2.32 L Hgb 7.7 L Hct 22.9 L MCV 98 H MCH 33.3 MCHC 33.9 RDW 21.9 H Plt Count 71 L Seg Neutrophils % Lymphocytes % Monocytes % Eosinophils % Basophils % Absolute Neutrophils Absolute Lymphocytes Absolute Monocytes Absolute Eosinophils Absolute Basophils Carbonic Acid HCO3/H2CO3 Ratio ABG pH ABG pCO2 ABG pO2 ABG HCO3 ABG O2 Saturation ABG Base Excess FiO2 Sodium 126.6 L Potassium 4.3 D Chloride 100 Carbon Dioxide 17 L Anion Gap 10 BUN 61 H Creatinine 2.05 H Est GFR ( Amer) 40 L Est GFR (Non-Af Amer) 33 L Glucose 115 H Calcium 8.2 L Phosphorus 4.0 Magnesium 1.7 Albumin 2.4 L Blood Type A POSITIVE Antibody Screen NEGATIVE 10/01/18 10/01/18 10/01/18 04:02 04:02 04:02 WBC 9.2 RBC 2.91 L Hgb 9.8 L D Hct 28.0 L MCV 96 MCH 33.5 H MCHC 34.8 RDW 21.4 H Plt Count 70 L Seg Neutrophils % 79.5 H Lymphocytes % 7.0 L Monocytes % 9.5 Eosinophils % 3.4 Basophils % 0.6 Absolute Neutrophils 7.3 Absolute Lymphocytes 0.6 Absolute Monocytes 0.9 Absolute Eosinophils 0.3 Absolute Basophils 0.1 Carbonic Acid 1.01 L HCO3/H2CO3 Ratio 15:1 ABG pH 7.30 L ABG pCO2 33.5 L ABG pO2 79.0 L ABG HCO3 16.1 L ABG O2 Saturation 94.7 ABG Base Excess -9.3 FiO2 50% Sodium 124.6 L Potassium 4.0 Chloride 98 Carbon Dioxide 16 L Anion Gap 11 BUN 58 H Creatinine 2.03 H Est GFR ( Amer) 41 L Est GFR (Non-Af Amer) 34 L Glucose 134 H Calcium 8.1 L Phosphorus 4.8 H Magnesium 1.6 Albumin 2.5 L Blood Type Antibody Screen 10/01/18 04:02 WBC RBC Hgb Hct MCV MCH MCHC RDW Plt Count Seg Neutrophils % Lymphocytes % Monocytes % Eosinophils % Basophils % Absolute Neutrophils Absolute Lymphocytes Absolute Monocytes Absolute Eosinophils Absolute Basophils Carbonic Acid HCO3/H2CO3 Ratio ABG pH ABG pCO2 ABG pO2 ABG HCO3 ABG O2 Saturation ABG Base Excess FiO2 Sodium Cancelled Potassium Cancelled Chloride Cancelled Carbon Dioxide Cancelled Anion Gap Cancelled BUN Cancelled Creatinine Cancelled Est GFR ( Amer) Cancelled Est GFR (Non-Af Amer) Cancelled Glucose Cancelled Calcium Cancelled Phosphorus Cancelled Magnesium Albumin Cancelled Blood Type Antibody Screen 09/26/18 00:29 Blood Blood Culture - Final NO GROWTH IN 5 DAYS 09/25/18 23:05 Blood Blood Culture - Final NO GROWTH IN 5 DAYS 09/25/18 09/25/18 09/26/18 22:25 22:25 03:38 Creatine Kinase < 20 L CK-MB (CK-2) 0.91 1.00 Troponin I 0.017 0.018 NT-Pro-B Natriuret Pep [id number] H 09/26/18 09/26/18 09/26/18 03:38 11:20 11:20 Creatine Kinase < 20 L < 20 L CK-MB (CK-2) 1.10 Troponin I 0.015 NT-Pro-B Natriuret Pep 09/26/18 09/26/18 17:56 17:56 Creatine Kinase < 20 L CK-MB (CK-2) 0.99 Troponin I < 0.012 NT-Pro-B Natriuret Pep Impressions: Head CT 09/25/18 22:35 IMPRESSION: No acute intracranial findings. Fluoroscopy 09/28/18 00:00 IMPRESSION: IMAGE(S) OBTAINED DURING PROCEDURE. Interventional Vascular Procedure 09/28/18 00:00 IMPRESSION: IMAGE(S) OBTAINED DURING PROCEDURE. Chest X-Ray 10/01/18 06:00 IMPRESSION: Rehydration or progressing pneumonia left lung. No pneumothorax. Assessment & Plan - Diagnosis (1) Acute and chronic respiratory failure with hypercapnia Is this a current diagnosis for this admission?: Yes Plan: Oxygenate and ventilate as needed induced hypocapnia to maintain acceptable pH (2) CHF (congestive heart failure) Qualifiers: Heart failure type: unspecified Heart failure chronicity: unspecified Qualified Code(s): I50.9 - Heart failure, unspecified Is this a current diagnosis for this admission?: Yes Plan: mild diuresis (3) Hyponatremia Is this a current diagnosis for this admission?: Yes (4) New onset atrial fibrillation Is this a current diagnosis for this admission?: Yes (5) Obstructive sleep apnea Is this a current diagnosis for this admission?: Yes Plan: Continue CPAP when discharged (6) Seizure Is this a current diagnosis for this admission?: Yes Plan: Stable at this time (7) Septic shock Is this a current diagnosis for this admission?: Yes Plan: Pulmonary artery cath: Multiple vasopressors - Time Total Critical Time (Minutes): 50
--- NOTE | 2018-10-07 14:25 | PDOC PROGRESS REPORT ---
Subjective Progress Note for:: 10/02/18 Subjective:: repeat Reason For Visit: ENCEPHALOPATHY,ARF ON CKD,HYPONATREMIA Physical Exam Vital Signs: Temp Pulse Resp BP Pulse Ox 99.0 F 105 H 20 105/55 L 99 10/02/18 11:46 10/02/18 10:00 10/02/18 11:46 10/02/18 11:46 10/02/18 11:46 Intake & Output 10/01/18 10/02/18 10/03/18 06:59 06:59 06:59 Intake Total 5152.2 5463 435 Output Total 2320 5055 900 Balance 2832.2 408 -465 Weight 122.8 kg 124.7 kg General appearance: PRESENT: no acute distress, disheveled, morbidly obese. ABSENT: cooperative Head exam: PRESENT: atraumatic, normocephalic Eye exam: PRESENT: conjunctiva pale. ABSENT: nystagmus Mouth exam: PRESENT: dry mucosa, neck supple, tongue midline, other - ET tube in place Neck exam: ABSENT: carotid bruit, JVD, lymphadenopathy, thyromegaly, tracheal deviation, tracheostomy Respiratory exam: PRESENT: decreased breath sounds, prolonged expiratory phas, rales, rhonchi, wheezes. ABSENT: retraction, stridor Cardiovascular exam: PRESENT: irregular rhythm Pulses: PRESENT: normal radial pulses GI/Abdominal exam: PRESENT: soft Gentrourinary exam: PRESENT: indwelling catheter Extremities exam: PRESENT: pedal edema. ABSENT: calf tenderness, clubbing, full ROM Musculoskeletal exam: ABSENT: ambulatory, deformity, dislocation Neurological exam: ABSENT: awake Skin exam: PRESENT: dry, warm Results Laboratory Results: 10/02/18 05:11 10/02/18 05:11 09/30/18 10/01/18 10/02/18 12:34 13:20 05:11 WBC RBC Hgb Hct MCV MCH MCHC RDW Plt Count Seg Neutrophils % Lymphocytes % Monocytes % Eosinophils % Basophils % Absolute Neutrophils Absolute Lymphocytes Absolute Monocytes Absolute Eosinophils Absolute Basophils Carbonic Acid 0.90 L HCO3/H2CO3 Ratio 18:1 ABG pH 7.36 ABG pCO2 29.9 L ABG pO2 81.7 ABG HCO3 16.4 L ABG O2 Saturation 95.8 ABG Base Excess -8.1 FiO2 50% Sodium Potassium Chloride Carbon Dioxide Anion Gap BUN Creatinine Est GFR ( Amer) Est GFR (Non-Af Amer) Glucose Calcium Phosphorus Magnesium Total Bilirubin AST ALT Alkaline Phosphatase Total Protein Albumin Fluid Type Cancelled Fluid Source Cancelled Fluid Color Cancelled Fluid Appearance Cancelled Fluid Viscosity Cancelled Fluid WBC Cancelled Fluid RBC Cancelled Blood Type A POSITIVE Antibody Screen NEGATIVE 10/02/18 10/02/18 05:11 05:11 WBC 5.7 RBC 2.50 L Hgb 8.3 L Hct 23.9 L MCV 96 MCH 33.1 MCHC 34.7 RDW 20.7 H Plt Count 70 L Seg Neutrophils % Not Reportable Lymphocytes % Not Reportable Monocytes % Not Reportable Eosinophils % Not Reportable Basophils % Not Reportable Absolute Neutrophils Not Reportable Absolute Lymphocytes Not Reportable Absolute Monocytes Not Reportable Absolute Eosinophils Not Reportable Absolute Basophils Not Reportable Carbonic Acid HCO3/H2CO3 Ratio ABG pH ABG pCO2 ABG pO2 ABG HCO3 ABG O2 Saturation ABG Base Excess FiO2 Sodium 121.9 L Potassium 3.5 L Chloride 95 L Carbon Dioxide 16 L Anion Gap 11 BUN 51 H Creatinine 1.62 H Est GFR ( Amer) 53 L Est GFR (Non-Af Amer) 44 L Glucose 128 H Calcium 7.8 L Phosphorus 5.8 H Magnesium 1.2 L* Total Bilirubin 1.1 AST 9 L ALT 13 L Alkaline Phosphatase 64 Total Protein 4.3 L Albumin 2.2 L Fluid Type Fluid Source Fluid Color Fluid Appearance Fluid Viscosity Fluid WBC Fluid RBC Blood Type Antibody Screen 09/28/18 19:00 Tracheal Aspirate Gram Stain - Final 09/29/18 11:42 Bronchial Washings AFB Smear Concentration - Final 09/29/18 11:42 Bronchial Washings Acid Fast Bacilli Smear - Final 09/29/18 11:42 Bronchial Washings Gram Stain - Final 09/29/18 11:42 Bronchial Washings Bronchial Washings Culture - Final Staphylococcus Aureus Greatly Reduced Normal Mayuri 09/25/18 09/25/18 09/26/18 22:25 22:25 03:38 Creatine Kinase < 20 L CK-MB (CK-2) 0.91 1.00 Troponin I 0.017 0.018 NT-Pro-B Natriuret Pep 43191 H 09/26/18 09/26/18 09/26/18 03:38 11:20 11:20 Creatine Kinase < 20 L < 20 L CK-MB (CK-2) 1.10 Troponin I 0.015 NT-Pro-B Natriuret Pep 09/26/18 09/26/18 17:56 17:56 Creatine Kinase < 20 L CK-MB (CK-2) 0.99 Troponin I < 0.012 NT-Pro-B Natriuret Pep Impressions: Head CT 09/25/18 22:35 IMPRESSION: No acute intracranial findings. Fluoroscopy 09/28/18 00:00 IMPRESSION: IMAGE(S) OBTAINED DURING PROCEDURE. Interventional Vascular Procedure 09/28/18 00:00 IMPRESSION: IMAGE(S) OBTAINED DURING PROCEDURE. Chest X-Ray 10/02/18 06:00 IMPRESSION: Improved aeration of the left hemithorax. Other findings are stable copyright 2011 [employer]- All Rights Reserved Assessment & Plan - Diagnosis (1) Acute and chronic respiratory failure with hypercapnia Is this a current diagnosis for this admission?: Yes Plan: Oxygenate and ventilate as needed induced hypocapnia to maintain acceptable pH (2) Altered mental status Qualifiers: Altered mental status type: transient alteration of awareness Qualified Code(s): R40.4 - Transient alteration of awareness Is this a current diagnosis for this admission?: Yes Plan: hepatic encephalopathy (3) CHF (congestive heart failure) Qualifiers: Heart failure type: unspecified Heart failure chronicity: unspecified Qualified Code(s): I50.9 - Heart failure, unspecified Is this a current diagnosis for this admission?: Yes Plan: mild diuresis (4) New onset atrial fibrillation Is this a current diagnosis for this admission?: Yes Plan: as per cardiology (5) Obstructive sleep apnea Is this a current diagnosis for this admission?: Yes Plan: Continue CPAP when discharged (6) Seizure Is this a current diagnosis for this admission?: Yes Plan: Stable at this time (7) Septic shock Is this a current diagnosis for this admission?: Yes Plan: Pulmonary artery cath: Multiple vasopressors - Time Total Critical Time (Minutes): 50
--- NOTE | 2018-10-07 14:27 | PDOC PROGRESS REPORT ---
Subjective Progress Note for:: 10/03/18 Subjective:: repeat Reason For Visit: ENCEPHALOPATHY,ARF ON CKD,HYPONATREMIA Physical Exam Vital Signs: Temp Pulse Resp BP Pulse Ox 97.3 F 91 14 109/71 99 10/03/18 08:38 10/02/18 20:00 10/03/18 06:02 10/03/18 06:02 10/03/18 08:00 Intake & Output 10/02/18 10/03/18 10/04/18 06:59 06:59 06:59 Intake Total 5463 4089.2 250 Output Total 5055 6395 400 Balance 408 -2305.8 -150 Weight 124.7 kg 120.9 kg General appearance: PRESENT: no acute distress, disheveled, morbidly obese. ABSENT: cooperative Head exam: PRESENT: atraumatic, normocephalic Eye exam: PRESENT: conjunctiva pale. ABSENT: nystagmus, scleral icterus Mouth exam: PRESENT: dry mucosa, neck supple, tongue midline, other - ET tube Neck exam: ABSENT: carotid bruit, JVD, lymphadenopathy, thyromegaly, tracheal deviation, tracheostomy Respiratory exam: PRESENT: decreased breath sounds, prolonged expiratory phas, rales, rhonchi, unlabored Cardiovascular exam: PRESENT: irregular rhythm Pulses: PRESENT: normal radial pulses GI/Abdominal exam: PRESENT: soft Gentrourinary exam: PRESENT: indwelling catheter Extremities exam: PRESENT: pedal edema. ABSENT: calf tenderness, clubbing, joint swelling Musculoskeletal exam: ABSENT: deformity, dislocation Neurological exam: ABSENT: awake Skin exam: PRESENT: dry, warm Results Laboratory Results: 10/03/18 05:35 10/03/18 05:35 10/02/18 10/02/18 10/02/18 12:35 17:58 21:51 WBC RBC Hgb Hct MCV MCH MCHC RDW Plt Count Seg Neutrophils % Lymphocytes % Monocytes % Eosinophils % Basophils % Absolute Neutrophils Absolute Lymphocytes Absolute Monocytes Absolute Eosinophils Absolute Basophils Carbonic Acid HCO3/H2CO3 Ratio ABG pH ABG pCO2 ABG pO2 ABG HCO3 ABG O2 Saturation ABG Base Excess FiO2 Sodium 121.5 L 121.9 L Potassium 3.4 L 3.6 Chloride 94 L 94 L Carbon Dioxide 17 L 17 L Anion Gap 11 11 BUN 51 H 49 H Creatinine 1.63 H 1.52 H 1.56 H Est GFR ( Amer) 52 L 57 L 55 L Est GFR (Non-Af Amer) 43 L 47 L 46 L Glucose 102 99 Calcium 7.7 L 7.6 L Phosphorus Magnesium 1.7 10/02/18 10/02/18 10/03/18 23:15 23:15 05:35 WBC RBC Hgb Hct MCV MCH MCHC RDW Plt Count Seg Neutrophils % Lymphocytes % Monocytes % Eosinophils % Basophils % Absolute Neutrophils Absolute Lymphocytes Absolute Monocytes Absolute Eosinophils Absolute Basophils Carbonic Acid 1.01 L HCO3/H2CO3 Ratio 19:1 ABG pH 7.37 ABG pCO2 33.6 L ABG pO2 86.0 ABG HCO3 19.2 L ABG O2 Saturation 96.4 ABG Base Excess -5.4 FiO2 45 Sodium 122.9 L Potassium 3.1 L Chloride 95 L Carbon Dioxide 20 L Anion Gap 8 BUN 44 H Creatinine 1.55 H Est GFR ( Amer) 56 L Est GFR (Non-Af Amer) 46 L Glucose 127 H Calcium 7.8 L Phosphorus Magnesium 1.7 10/03/18 10/03/18 05:35 05:35 WBC 5.7 RBC 2.53 L Hgb 8.5 L Hct 24.1 L MCV 95 MCH 33.4 MCHC 35.1 RDW 21.4 H Plt Count 55 L Seg Neutrophils % Not Reportable Lymphocytes % Not Reportable Monocytes % Not Reportable Eosinophils % Not Reportable Basophils % Not Reportable Absolute Neutrophils Not Reportable Absolute Lymphocytes Not Reportable Absolute Monocytes Not Reportable Absolute Eosinophils Not Reportable Absolute Basophils Not Reportable Carbonic Acid HCO3/H2CO3 Ratio ABG pH ABG pCO2 ABG pO2 ABG HCO3 ABG O2 Saturation ABG Base Excess FiO2 Sodium 122.9 L Potassium 3.4 L Chloride 95 L Carbon Dioxide 17 L Anion Gap 11 BUN 42 H Creatinine 1.47 H Est GFR ( Amer) 59 L Est GFR (Non-Af Amer) 49 L Glucose 108 Calcium 7.9 L Phosphorus 5.2 H Magnesium 1.5 L 09/28/18 19:00 Tracheal Aspirate Gram Stain - Final 09/29/18 11:42 Bronchial Washings AFB Smear Concentration - Final 09/29/18 11:42 Bronchial Washings Acid Fast Bacilli Smear - Final 09/25/18 09/25/18 09/26/18 22:25 22:25 03:38 Creatine Kinase < 20 L CK-MB (CK-2) 0.91 1.00 Troponin I 0.017 0.018 NT-Pro-B Natriuret Pep 22783 H 09/26/18 09/26/18 09/26/18 03:38 11:20 11:20 Creatine Kinase < 20 L < 20 L CK-MB (CK-2) 1.10 Troponin I 0.015 NT-Pro-B Natriuret Pep 09/26/18 09/26/18 17:56 17:56 Creatine Kinase < 20 L CK-MB (CK-2) 0.99 Troponin I < 0.012 NT-Pro-B Natriuret Pep Impressions: Head CT 09/25/18 22:35 IMPRESSION: No acute intracranial findings. Fluoroscopy 09/28/18 00:00 IMPRESSION: IMAGE(S) OBTAINED DURING PROCEDURE. Interventional Vascular Procedure 09/28/18 00:00 IMPRESSION: IMAGE(S) OBTAINED DURING PROCEDURE. Chest X-Ray 10/03/18 06:00 IMPRESSION: Slight improvement in the degree of pulmonary vascular congestion copyright 2010 [employer]- All Rights Reserved Assessment & Plan - Diagnosis (1) Acute and chronic respiratory failure with hypercapnia Is this a current diagnosis for this admission?: Yes Plan: Oxygenate and ventilate as needed induced hypocapnia to maintain acceptable pH (2) Altered mental status Qualifiers: Altered mental status type: transient alteration of awareness Qualified Code(s): R40.4 - Transient alteration of awareness Is this a current diagnosis for this admission?: Yes Plan: hepatic encephalopathy (3) CHF (congestive heart failure) Qualifiers: Heart failure type: unspecified Heart failure chronicity: unspecified Qualified Code(s): I50.9 - Heart failure, unspecified Is this a current diagnosis for this admission?: Yes Plan: mild diuresis (4) New onset atrial fibrillation Is this a current diagnosis for this admission?: Yes Plan: as per cardiology (5) Obstructive sleep apnea Is this a current diagnosis for this admission?: Yes Plan: Continue CPAP when discharged (6) Seizure Is this a current diagnosis for this admission?: Yes Plan: Stable at this time (7) Septic shock Is this a current diagnosis for this admission?: Yes Plan: Pulmonary artery cath: Multiple vasopressors (8) Morbid obesity with BMI of 40.0-44.9, adult Is this a current diagnosis for this admission?: Yes Plan: unchanged (9) Tobacco dependence Is this a current diagnosis for this admission?: Yes Plan: stop smoking - Time Total Critical Time (Minutes): 50
--- NOTE | 2018-10-07 14:29 | PDOC PROGRESS REPORT ---
Subjective Progress Note for:: 10/04/18 Subjective:: repeat Reason For Visit: ENCEPHALOPATHY,ARF ON CKD,HYPONATREMIA Physical Exam Vital Signs: Temp Pulse Resp BP Pulse Ox 98.6 F 102 H 20 108/61 99 10/04/18 12:00 10/04/18 08:00 10/04/18 11:26 10/04/18 11:26 10/04/18 11:56 Intake & Output 10/03/18 10/04/18 10/05/18 06:59 06:59 06:59 Intake Total 4089.2 3741.2 611 Output Total 6395 3985 1300 Balance -2305.8 -243.8 -689 Weight 120.9 kg 121.1 kg General appearance: PRESENT: no acute distress, disheveled, morbidly obese. ABSENT: cooperative Head exam: PRESENT: atraumatic, normocephalic Eye exam: PRESENT: conjunctiva pale. ABSENT: nystagmus, scleral icterus Mouth exam: PRESENT: dry mucosa, neck supple, tongue midline, other - ET tube Neck exam: ABSENT: carotid bruit, JVD, lymphadenopathy, thyromegaly, tracheal deviation, other Respiratory exam: PRESENT: decreased breath sounds, prolonged expiratory phas, rales, rhonchi, unlabored. ABSENT: retraction, stridor Cardiovascular exam: PRESENT: irregular rhythm Pulses: PRESENT: normal radial pulses GI/Abdominal exam: PRESENT: soft Gentrourinary exam: PRESENT: indwelling catheter Extremities exam: PRESENT: pedal edema. ABSENT: calf tenderness, clubbing, joint swelling Musculoskeletal exam: ABSENT: ambulatory, deformity, dislocation Neurological exam: ABSENT: awake Skin exam: PRESENT: dry, warm Results Laboratory Results: 10/04/18 04:30 10/04/18 04:30 10/03/18 10/03/18 10/04/18 12:40 12:40 00:19 WBC RBC Hgb Hct MCV MCH MCHC RDW Plt Count Seg Neutrophils % Lymphocytes % Monocytes % Eosinophils % Basophils % Absolute Neutrophils Absolute Lymphocytes Absolute Monocytes Absolute Eosinophils Absolute Basophils Carbonic Acid HCO3/H2CO3 Ratio ABG pH ABG pCO2 ABG pO2 ABG HCO3 ABG O2 Saturation ABG Base Excess FiO2 Sodium 123.5 L Potassium 3.3 L 3.6 Chloride 94 L Carbon Dioxide 18 L Anion Gap 12 BUN 39 H Creatinine 1.35 H Est GFR ( Amer) > 60 Est GFR (Non-Af Amer) 54 L Glucose 125 H Calcium 8.0 L Phosphorus Magnesium 1.7 10/04/18 10/04/18 10/04/18 04:30 04:30 04:30 WBC 6.0 RBC 2.50 L Hgb 8.4 L Hct 23.8 L MCV 95 MCH 33.5 H MCHC 35.3 RDW 20.4 H Plt Count 53 L Seg Neutrophils % 78.6 H Lymphocytes % 7.7 L Monocytes % 10.4 Eosinophils % 2.4 Basophils % 0.9 Absolute Neutrophils 4.7 Absolute Lymphocytes 0.5 Absolute Monocytes 0.6 Absolute Eosinophils 0.1 Absolute Basophils 0.1 Carbonic Acid 0.81 L HCO3/H2CO3 Ratio 22:1 ABG pH 7.44 ABG pCO2 26.8 L ABG pO2 88.2 ABG HCO3 17.9 L ABG O2 Saturation 97.2 ABG Base Excess -5.3 FiO2 45% Sodium 122.7 L Potassium 3.4 L Chloride 94 L Carbon Dioxide 19 L Anion Gap 10 BUN 34 H Creatinine 1.36 H Est GFR ( Amer) > 60 Est GFR (Non-Af Amer) 53 L Glucose 106 Calcium 8.0 L Phosphorus 4.3 Magnesium 1.5 L 09/28/18 19:00 Tracheal Aspirate Gram Stain - Final 09/25/18 09/25/18 09/26/18 22:25 22:25 03:38 Creatine Kinase < 20 L CK-MB (CK-2) 0.91 1.00 Troponin I 0.017 0.018 NT-Pro-B Natriuret Pep 12120 H 09/26/18 09/26/18 09/26/18 03:38 11:20 11:20 Creatine Kinase < 20 L < 20 L CK-MB (CK-2) 1.10 Troponin I 0.015 NT-Pro-B Natriuret Pep 09/26/18 09/26/18 17:56 17:56 Creatine Kinase < 20 L CK-MB (CK-2) 0.99 Troponin I < 0.012 NT-Pro-B Natriuret Pep Impressions: Head CT 09/25/18 22:35 IMPRESSION: No acute intracranial findings. Fluoroscopy 09/28/18 00:00 IMPRESSION: IMAGE(S) OBTAINED DURING PROCEDURE. Interventional Vascular Procedure 09/28/18 00:00 IMPRESSION: IMAGE(S) OBTAINED DURING PROCEDURE. Chest X-Ray 10/04/18 06:00 IMPRESSION: Increase in size of an airspace opacity likely reflecting effusion/atelectasis in the left lung base. copyright 2011 [employer]- All Rights Reserved Assessment & Plan - Diagnosis (1) Acute and chronic respiratory failure with hypercapnia Is this a current diagnosis for this admission?: Yes Plan: Oxygenate and ventilate as needed induced hypocapnia to maintain acceptable pH (2) Altered mental status Qualifiers: Altered mental status type: transient alteration of awareness Qualified Code(s): R40.4 - Transient alteration of awareness Is this a current diagnosis for this admission?: Yes Plan: hepatic encephalopathy (3) CHF (congestive heart failure) Qualifiers: Heart failure type: unspecified Heart failure chronicity: unspecified Qualified Code(s): I50.9 - Heart failure, unspecified Is this a current diagnosis for this admission?: Yes Plan: mild diuresis (4) New onset atrial fibrillation Is this a current diagnosis for this admission?: Yes Plan: as per cardiology (5) Obstructive sleep apnea Is this a current diagnosis for this admission?: Yes Plan: Continue CPAP when discharged (6) Seizure Is this a current diagnosis for this admission?: Yes Plan: Stable at this time (7) Septic shock Is this a current diagnosis for this admission?: Yes Plan: Pulmonary artery cath: Multiple vasopressors (8) Morbid obesity with BMI of 40.0-44.9, adult Is this a current diagnosis for this admission?: Yes Plan: unchanged (9) Tobacco dependence Is this a current diagnosis for this admission?: Yes Plan: stop smoking - Time Total Critical Time (Minutes): 55
--- NOTE | 2018-10-07 14:32 | PDOC PROGRESS REPORT ---
Subjective Progress Note for:: 10/05/18 Subjective:: Intubated and sedated Reason For Visit: ENCEPHALOPATHY,ARF ON CKD,HYPONATREMIA Physical Exam Vital Signs: Temp Pulse Resp BP Pulse Ox 97.9 F 99 20 89/54 L 97 10/05/18 14:00 10/05/18 14:00 10/05/18 14:00 10/05/18 14:00 10/05/18 14:00 Intake & Output 10/04/18 10/05/18 10/06/18 06:59 06:59 06:59 Intake Total 3741.2 2799.2 395 Output Total 3985 4460 1275 Balance -243.8 -1660.8 -880 Weight 121.1 kg 119.9 kg General appearance: PRESENT: no acute distress, disheveled, morbidly obese Head exam: PRESENT: atraumatic, normocephalic Eye exam: PRESENT: conjunctiva pale. ABSENT: nystagmus, scleral icterus Mouth exam: PRESENT: dry mucosa, neck supple, tongue midline, other - ET tube Neck exam: ABSENT: carotid bruit, JVD, lymphadenopathy, thyromegaly, tracheal deviation, tracheostomy Respiratory exam: PRESENT: decreased breath sounds, prolonged expiratory phas, rales, rhonchi, unlabored Cardiovascular exam: PRESENT: irregular rhythm Pulses: PRESENT: normal radial pulses GI/Abdominal exam: PRESENT: soft Gentrourinary exam: PRESENT: indwelling catheter Extremities exam: PRESENT: pedal edema. ABSENT: calf tenderness, clubbing, joint swelling Musculoskeletal exam: ABSENT: deformity, dislocation Neurological exam: ABSENT: awake Skin exam: PRESENT: dry, warm Results Laboratory Results: 10/05/18 04:35 10/05/18 11:01 10/05/18 10/05/18 10/05/18 01:21 04:35 04:35 WBC RBC Hgb Hct MCV MCH MCHC RDW Plt Count Seg Neutrophils % Lymphocytes % Monocytes % Eosinophils % Basophils % Absolute Neutrophils Absolute Lymphocytes Absolute Monocytes Absolute Eosinophils Absolute Basophils Carbonic Acid 0.94 L HCO3/H2CO3 Ratio 21:1 ABG pH 7.44 ABG pCO2 31.3 L ABG pO2 100.4 H ABG HCO3 20.5 ABG O2 Saturation 97.8 ABG Base Excess -3.1 FiO2 45% Sodium 123.7 L Potassium 3.2 L 3.2 L Chloride 94 L Carbon Dioxide 20 L Anion Gap 10 BUN 29 H Creatinine 1.29 H Est GFR ( Amer) > 60 Est GFR (Non-Af Amer) 57 L Glucose 119 H Calcium 8.4 Phosphorus 3.8 Magnesium 1.6 10/05/18 10/05/18 04:35 11:01 WBC 5.1 RBC 2.53 L Hgb 8.4 L Hct 23.9 L MCV 95 MCH 33.2 MCHC 35.1 RDW 20.2 H Plt Count 52 L Seg Neutrophils % Not Reportable Lymphocytes % Not Reportable Monocytes % Not Reportable Eosinophils % Not Reportable Basophils % Not Reportable Absolute Neutrophils Not Reportable Absolute Lymphocytes Not Reportable Absolute Monocytes Not Reportable Absolute Eosinophils Not Reportable Absolute Basophils Not Reportable Carbonic Acid HCO3/H2CO3 Ratio ABG pH ABG pCO2 ABG pO2 ABG HCO3 ABG O2 Saturation ABG Base Excess FiO2 Sodium Potassium 3.2 L Chloride Carbon Dioxide Anion Gap BUN Creatinine Est GFR ( Amer) Est GFR (Non-Af Amer) Glucose Calcium Phosphorus Magnesium 09/28/18 19:00 Tracheal Aspirate Gram Stain - Final 09/28/18 19:00 Tracheal Aspirate Sputum Culture - Final Staphylococcus Aureus Morax.(Branhamella)Catarrhalis Greatly Reduced Normal Mayuri 10/01/18 13:20 Bronchial Washings Gram Stain - Final 10/01/18 13:20 Bronchial Washings Bronchial Washings Culture - Final NO GROWTH 3 DAYS 09/25/18 09/25/18 09/26/18 22:25 22:25 03:38 Creatine Kinase < 20 L CK-MB (CK-2) 0.91 1.00 Troponin I 0.017 0.018 NT-Pro-B Natriuret Pep 36148 H 09/26/18 09/26/18 09/26/18 03:38 11:20 11:20 Creatine Kinase < 20 L < 20 L CK-MB (CK-2) 1.10 Troponin I 0.015 NT-Pro-B Natriuret Pep 09/26/18 09/26/18 17:56 17:56 Creatine Kinase < 20 L CK-MB (CK-2) 0.99 Troponin I < 0.012 NT-Pro-B Natriuret Pep Impressions: Head CT 09/25/18 22:35 IMPRESSION: No acute intracranial findings. Fluoroscopy 09/28/18 00:00 IMPRESSION: IMAGE(S) OBTAINED DURING PROCEDURE. Interventional Vascular Procedure 09/28/18 00:00 IMPRESSION: IMAGE(S) OBTAINED DURING PROCEDURE. Chest X-Ray 10/05/18 06:00 IMPRESSION: 1. Since the previous examination dated 10/04/2018, interval improvement in the appearance of the left lung with significant decrease in the airspace disease and pleural effusion. The right lung remains stable in appearance. 2. The endotracheal tube has retracted proximally and the tip overlies the C7 vertebral body. Assessment & Plan - Diagnosis (1) Acute and chronic respiratory failure with hypercapnia Is this a current diagnosis for this admission?: Yes Plan: Oxygenate and ventilate as needed induced hypocapnia to maintain acceptable pH (2) Altered mental status Qualifiers: Altered mental status type: transient alteration of awareness Qualified Code(s): R40.4 - Transient alteration of awareness Is this a current diagnosis for this admission?: Yes Plan: hepatic encephalopathy (3) Diabetes mellitus type 2 in obese Is this a current diagnosis for this admission?: Yes Plan: sliding scale insulin (4) New onset atrial fibrillation Is this a current diagnosis for this admission?: Yes Plan: as per cardiology (5) Obstructive sleep apnea Is this a current diagnosis for this admission?: Yes Plan: Continue CPAP when discharged (6) Seizure Is this a current diagnosis for this admission?: Yes Plan: Stable at this time (7) Septic shock Is this a current diagnosis for this admission?: Yes Plan: Pulmonary artery cath: Multiple vasopressors (8) Morbid obesity with BMI of 40.0-44.9, adult Is this a current diagnosis for this admission?: Yes (9) Tobacco dependence Is this a current diagnosis for this admission?: Yes Plan: stop smoking - Time Total Critical Time (Minutes): 50
--- NOTE | 2018-10-07 14:34 | PDOC PROGRESS REPORT ---
Subjective Progress Note for:: 10/06/18 Subjective:: Intubated and sedated Reason For Visit: ENCEPHALOPATHY,ARF ON CKD,HYPONATREMIA Physical Exam Vital Signs: Temp Pulse Resp BP Pulse Ox 99.3 F 99 20 94/63 L 95 10/06/18 10:00 10/06/18 10:00 10/06/18 10:00 10/06/18 10:00 10/06/18 11:58 Intake & Output 10/05/18 10/06/18 10/07/18 06:59 06:59 06:59 Intake Total 2799.2 1849.2 347 Output Total 4460 3500 660 Balance -1660.8 -1650.8 -313 Weight 119.9 kg 117.8 kg General appearance: PRESENT: no acute distress, disheveled, morbidly obese Head exam: PRESENT: atraumatic, normocephalic Eye exam: PRESENT: conjunctiva pale. ABSENT: EOMI, nystagmus, scleral icterus Mouth exam: PRESENT: dry mucosa, neck supple, tongue midline, other - ET tube Neck exam: ABSENT: carotid bruit, JVD, lymphadenopathy, thyromegaly, tracheal deviation, tracheostomy Respiratory exam: PRESENT: decreased breath sounds, prolonged expiratory phas, rales, rhonchi, unlabored. ABSENT: retraction, stridor Cardiovascular exam: PRESENT: irregular rhythm Pulses: PRESENT: normal radial pulses GI/Abdominal exam: PRESENT: soft Gentrourinary exam: PRESENT: indwelling catheter Extremities exam: PRESENT: pedal edema. ABSENT: calf tenderness, clubbing, joint swelling Musculoskeletal exam: ABSENT: ambulatory, deformity, dislocation Neurological exam: ABSENT: awake Skin exam: PRESENT: dry, warm Results Laboratory Results: 10/05/18 04:35 10/06/18 05:33 10/05/18 10/06/18 10/06/18 23:07 05:33 05:33 Carbonic Acid 0.92 L HCO3/H2CO3 Ratio 23:1 ABG pH 7.47 H ABG pCO2 30.6 L ABG pO2 82.1 ABG HCO3 21.7 ABG O2 Saturation 96.8 ABG Base Excess -1.5 FiO2 45% Sodium 123.9 L Potassium 3.3 L 3.7 Chloride 95 L Carbon Dioxide 22 Anion Gap 7 BUN 25 H Creatinine 1.23 Est GFR ( Amer) > 60 Est GFR (Non-Af Amer) > 60 Glucose 99 Calcium 8.3 L Phosphorus 3.7 Magnesium 1.3 L 09/28/18 19:00 Tracheal Aspirate Gram Stain - Final 09/28/18 19:00 Tracheal Aspirate Sputum Culture - Final Staphylococcus Aureus Morax.(Branhamella)Catarrhalis Greatly Reduced Normal Mayuri 09/25/18 09/25/18 09/26/18 22:25 22:25 03:38 Creatine Kinase < 20 L CK-MB (CK-2) 0.91 1.00 Troponin I 0.017 0.018 NT-Pro-B Natriuret Pep 16537 H 09/26/18 09/26/18 09/26/18 03:38 11:20 11:20 Creatine Kinase < 20 L < 20 L CK-MB (CK-2) 1.10 Troponin I 0.015 NT-Pro-B Natriuret Pep 09/26/18 09/26/18 17:56 17:56 Creatine Kinase < 20 L CK-MB (CK-2) 0.99 Troponin I < 0.012 NT-Pro-B Natriuret Pep Impressions: Head CT 09/25/18 22:35 IMPRESSION: No acute intracranial findings. Fluoroscopy 09/28/18 00:00 IMPRESSION: IMAGE(S) OBTAINED DURING PROCEDURE. Interventional Vascular Procedure 09/28/18 00:00 IMPRESSION: IMAGE(S) OBTAINED DURING PROCEDURE. Chest X-Ray 10/06/18 06:00 IMPRESSION: Interval worsening includes white out of the left lung and tip of an endotracheal tube at the C6-C7 disc level. Recommend replacement of the endotracheal tube. Assessment & Plan - Diagnosis (1) Altered mental status Qualifiers: Altered mental status type: transient alteration of awareness Qualified Code(s): R40.4 - Transient alteration of awareness Is this a current diagnosis for this admission?: Yes Plan: hepatic encephalopathy (2) CHF (congestive heart failure) Qualifiers: Heart failure type: unspecified Heart failure chronicity: unspecified Qualified Code(s): I50.9 - Heart failure, unspecified Plan: mild diuresis (3) Acute and chronic respiratory failure with hypercapnia Plan: Oxygenate and ventilate as needed induced hypocapnia to maintain acceptable pH (4) Atrial fibrillation Is this a current diagnosis for this admission?: Yes Plan: cardiazem (5) New onset atrial fibrillation Is this a current diagnosis for this admission?: Yes Plan: as per cardiology (6) Obstructive sleep apnea Is this a current diagnosis for this admission?: Yes Plan: Continue CPAP when discharged (7) Seizure Is this a current diagnosis for this admission?: Yes Plan: Stable at this time (8) Septic shock Is this a current diagnosis for this admission?: Yes Plan: Pulmonary artery cath: Multiple vasopressors - Time Total Critical Time (Minutes): 55
== END 2018-10-06 17:45 | DRG 981 ==
LOC: ER 22:11 → EH 09-26 00:11 → 3N 09-26 02:47 → ICU 09-28 01:02
PROVIDERS: ADMIT Internal Medicine; ATTEND Internal Medicine
PROC: 30233N1 Transfusion of Nonautologous Red Blood Cells into Peripheral Vein, Percutaneous Approach (ICD-10-PCS; 2018-09-27)
PROC: 5A1955Z Respiratory Ventilation, Greater than 96 Consecutive Hours (ICD-10-PCS; 2018-09-28)
PROC: 02HP32Z Insertion of Monitoring Device into Pulmonary Trunk, Percutaneous Approach (ICD-10-PCS; 2018-09-28)
PROC: 4A133B3 Monitoring of Arterial Pressure, Pulmonary, Percutaneous Approach (ICD-10-PCS; 2018-09-28)
PROC: 4A1239Z Monitoring of Cardiac Output, Percutaneous Approach (ICD-10-PCS; 2018-09-28)
PROC: 30233N1 Transfusion of Nonautologous Red Blood Cells into Peripheral Vein, Percutaneous Approach (ICD-10-PCS; 2018-09-28)
PROC: 0BH17EZ Insertion of Endotracheal Airway into Trachea, Via Natural or Artificial Opening (ICD-10-PCS; 2018-09-28)
PROC: 0WCQ8ZZ Extirpation of Matter from Respiratory Tract, Via Natural or Artificial Opening Endoscopic (ICD-10-PCS; 2018-09-29)
PROC: 0B9L8ZX Drainage of Left Lung, Via Natural or Artificial Opening Endoscopic, Diagnostic (ICD-10-PCS; 2018-09-29)
PROC: 0B9H8ZX Drainage of Lung Lingula, Via Natural or Artificial Opening Endoscopic, Diagnostic (ICD-10-PCS; 2018-09-29)
PROC: 0B9J8ZX Drainage of Left Lower Lung Lobe, Via Natural or Artificial Opening Endoscopic, Diagnostic (ICD-10-PCS; 2018-09-29)
PROC: 0B9G8ZX Drainage of Left Upper Lung Lobe, Via Natural or Artificial Opening Endoscopic, Diagnostic (ICD-10-PCS; 2018-09-29)
PROC: 30233R1 Transfusion of Nonautologous Platelets into Peripheral Vein, Percutaneous Approach (ICD-10-PCS; 2018-09-29)
PROC: 30233N1 Transfusion of Nonautologous Red Blood Cells into Peripheral Vein, Percutaneous Approach (ICD-10-PCS; 2018-09-30)
PROC: 0WCQ8ZZ Extirpation of Matter from Respiratory Tract, Via Natural or Artificial Opening Endoscopic (ICD-10-PCS; principal; 2018-10-01)
PROC: 0B9L8ZX Drainage of Left Lung, Via Natural or Artificial Opening Endoscopic, Diagnostic (ICD-10-PCS; 2018-10-01)
PROC: 0B9H8ZX Drainage of Lung Lingula, Via Natural or Artificial Opening Endoscopic, Diagnostic (ICD-10-PCS; 2018-10-01)
PROC: 0B9J8ZX Drainage of Left Lower Lung Lobe, Via Natural or Artificial Opening Endoscopic, Diagnostic (ICD-10-PCS; 2018-10-01)
PROC: 0B9G8ZX Drainage of Left Upper Lung Lobe, Via Natural or Artificial Opening Endoscopic, Diagnostic (ICD-10-PCS; 2018-10-01)
PROC: 30233R1 Transfusion of Nonautologous Platelets into Peripheral Vein, Percutaneous Approach (ICD-10-PCS; 2018-10-01)
DX: E87.1 Hypo-osmolality and hyponatremia (principal); J96.01 Acute respiratory failure with hypoxia; I50.23 Acute on chronic systolic (congestive) heart failure; G93.41 Metabolic encephalopathy; A41.9 Sepsis, unspecified organism; J15.211 Pneumonia due to Methicillin susceptible Staphylococcus aureus; N17.9 Acute kidney failure, unspecified; J98.11 Atelectasis; K92.1 Melena; I42.9 Cardiomyopathy, unspecified; Z51.5 Encounter for palliative care; R57.0 Cardiogenic shock; I50.813 Acute on chronic right heart failure; I27.20 Pulmonary hypertension, unspecified; I11.0 Hypertensive heart disease with heart failure; E66.01 Morbid (severe) obesity due to excess calories; E87.6 Hypokalemia; B95.61 Methicillin susceptible Staphylococcus aureus infection as the cause of diseases classified elsewhere; D53.9 Nutritional anemia, unspecified; Z68.39 Body mass index [BMI] 39.0-39.9, adult; I48.2 Chronic atrial fibrillation; Z79.01 Long term (current) use of anticoagulants; F10.20 Alcohol dependence, uncomplicated; T45.515A Adverse effect of anticoagulants, initial encounter; I95.9 Hypotension, unspecified; M19.90 Unspecified osteoarthritis, unspecified site; I87.2 Venous insufficiency (chronic) (peripheral); E78.00 Pure hypercholesterolemia, unspecified; E86.0 Dehydration; Z78.1 Physical restraint status; Y92.230 Patient room in hospital as the place of occurrence of the external cause; Z91.19 Patient's noncompliance with other medical treatment and regimen; Z79.82 Long term (current) use of aspirin; Z82.49 Family history of ischemic heart disease and other diseases of the circulatory system; Z83.3 Family history of diabetes mellitus; Z86.14 Personal history of Methicillin resistant Staphylococcus aureus infection; Z91.018 Allergy to other foods
CPT/HCPCS: 36415; 36430; 36556; 70450; 71045; 76000; 76937; 80048; 80053; 80069; 80202; 80307; 81001; 82040; 82140; 82272; 82533; 82550; 82553; 82565; 82607; 82728; 82746; 82803; 82962; 83540; 83550; 83605; 83690; 83735; 83880; 83930; 83935; 84100; 84132; 84300; 84439; 84443; 84478; 84481; 84484; 85025; 85027; 85045; 85379; 85384; 85610; 85730; 86850; 86900; 86901; 86920; 87015; 87040; 87070; 87077; 87101; 87116; 87186; 87205; 87206; 94002; 94003; 96360; 99285; C1751; C1894; J1160; J1250; J1940; J1953; J2060; J2250; J2260; J2270; J2370; J2543; J2704; J3370; J3411; J3475; J3480; J3490; J7030; J7050; J7060; J7120; J7620; P9016; P9035; P9047